=== PATIENT | male | born 1975 ===

== ENCOUNTER 2020-09-06 09:31 | Outpatient (REF) | payer OTHER, SELFPAY ==
[2020-09-06 10:31] LABS: MANUAL DIFF FLAG NO
[2020-09-06 10:36] LABS: Basophils Percent Auto 0.3 % (0-2); Eosinophils Absolute Auto 0.2 X10*3/uL (0.0-0.4); Eosinophils Percent Auto 2.6 % (0-4); Hematocrit 41.9 % (42-52); Hemoglobin 13.6 g/dl (14.0-18.0); Imm Gran Abs Auto 0.02 X10*3/uL (0.00-0.03); Imm Gran Pct Auto 0.3 % (0.0-0.4); Lymphocytes Percent Auto 26.4 % (20-40); Mean Corpuscular HGB Conc 32.5 g/dl (31.0-36.0); Mean Corpuscular Hemoglobin 31.9 pg (27.0-33.0); Mean Corpuscular Volume 98.4 fL (80-98); Mean Platelet Volume 10.3 fL (9.4-12.4); Monocytes Absolute Auto 0.8 X10*3/uL (0.1-1.2); Monocytes Percent Auto 10.4 % (2-11); Neutrophils Absolute Auto 4.6 X10*3/uL (2.0-8.3); Platelet Count 236 X10*3/uL (160-400); Red Blood Count 4.26 X10*6/uL (4.60-5.80); White Blood Count 7.6 X10*3/uL (4.8-10.8)
[2020-09-06 11:08] LABS: Alanine Aminotransferase 50 U/L (0-40); Albumin Level 4.2 g/dL (3.5-5.0); Alkaline Phosphatase 82 U/L (39-117); Anion Gap 12 (12-20); Aspartate Amino Transferase 26 U/L (5-37); Bilirubin Total 0.4 mg/dL (0.0-1.0); Blood Urea Nitrogen 10 mg/dL (9-16); Calcium 8.9 mg/dL (8.4-10.2); Carbon Dioxide 25 mmol/L (22-29); Chloride 102 mmol/L (96-108); Estimated Glomerular Filt Rate > 60; Glucose Fasting 96 mg/dL (60-99); Potassium 4.4 mmol/l (3.3-5.1); Sodium 135 mmol/L (135-145); Total Protein 7.3 g/dL (6.5-8.0)
[2020-09-06 12:36] LABS: Cholesterol 208 mg/dL; HDL Cholesterol 31 mg/dL; LDL Cholesterol Calculated 155 mg/dl; Triglycerides 111 mg/dL
[2020-09-12 12:52] LABS: Vitamin D 25-OH, D2 <4 ng/mL; Vitamin D 25-OH, D3 23 ng/mL; Vitamin D 25-OH, Total 23 ng/mL (30-100)
== END 2020-09-06 09:32 | disposition home or self-care (01) ==
LOC: HO.LAB 09:31
PROVIDERS: PCP Internal Medicine; Visit Provider Internal Medicine
DX: E55.9 Vitamin D deficiency, unspecified (principal); E78.00 Pure hypercholesterolemia, unspecified; Z79.01 Long term (current) use of anticoagulants
CPT/HCPCS: 36415; 80053; 80061; 82306; 85025

== ENCOUNTER 2020-09-07 07:50 | Outpatient (REF) | payer OTHER, SELFPAY ==
--- NOTE | 2020-09-07 08:00 | XR_ITS ---
EXAMINATION: XR ELBOW, RIGHT CLINICAL INFORMATION: Pain. COMPARISON: None TECHNIQUE: AP, lateral, and oblique views of the right elbow. FINDINGS: There is no fracture, dislocation, or destructive process. No elbow capsular effusion. There is no joint narrowing or erosive change. There is borderline spur lateral epicondyle and small spur olecranon. XR/XR elbow RT min 3V IMPRESSION: 1. Small olecranon spur. Borderline spur lateral epicondyle. 2. No joint effusion. No joint narrowing.
--- NOTE | 2020-09-07 08:11 | US_ITS ---
EXAMINATION: US ABDOMEN LIMITED CLINICAL INFORMATION: Umbilical hernia without obstruction or gangrene. COMPARISON: Ultrasound abdomen complete dated 10/19/2018. TECHNIQUE: Real-time imaging of the right upper quadrant abdominal viscera just superior to umbilicus, midline. FINDINGS: There is a midline ventral hernia just superior to the umbilicus measuring 2.3 cm in diameter. On cine loop, peristalsing bowel is noted within the hernia sac. There is no fluid collection. If clinically indicated, this could be further characterized with abdominal CT. US/US abdomen limited IMPRESSION: Ventral hernia measuring 2.3 cm containing bowel. If clinically indicated, this could be further characterized with abdominal CT.
== END 2020-09-07 07:51 | disposition home or self-care (01) ==
LOC: HO.XRAY 07:50
PROVIDERS: PCP Internal Medicine; Visit Provider Internal Medicine
DX: M25.521 Pain in right elbow (principal); K42.9 Umbilical hernia without obstruction or gangrene
CPT/HCPCS: 73080; 76705

== ENCOUNTER → 2020-09-26 08:07 | Outpatient (BNVA) | payer OTHER, SELFPAY | PROVIDERS: PCP Internal Medicine; Referring Provider Internal Medicine; Visit Provider Psychiatry & Neurology Neurology | DX: Z76.89 Persons encountering health services in other specified circumstances (principal) ==

== ENCOUNTER 2020-10-25 08:14 | Outpatient (REF) | payer OTHER, SELFPAY ==
--- NOTE | 2020-10-25 08:33 | US_ITS ---
EXAMINATION: US ABDOMEN LIMITED CLINICAL INFORMATION: Umbilical hernia. COMPARISON: Ultrasound abdomen limited dated 09/07/2020. TECHNIQUE: Limited imaging through the midline supraumbilical region was performed where patient indicates pain and lump. FINDINGS: Again visualized is a midline and supraumbilical hernia with a neck measuring 1.8 cm wide. There is an intraperitoneal fat and peristalsing bowel loops noted within. US/US abdomen limited IMPRESSION: Ventral supraumbilical hernia containing intraperitoneal fat and peristaltic bowel loops, similar to previous study 09/07/2020. If patient has significant pain in this region, a surgical consult may be needed.
== END 2020-10-25 08:15 | disposition home or self-care (01) ==
LOC: HO.US 08:14
PROVIDERS: PCP Internal Medicine; Visit Provider Internal Medicine
DX: K42.9 Umbilical hernia without obstruction or gangrene (principal)
CPT/HCPCS: 76705

== ENCOUNTER → 2020-12-06 08:43 | Outpatient (BNVA) | payer OTHER, SELFPAY | PROVIDERS: PCP Internal Medicine; Visit Provider Surgery | DX: K43.9 Ventral hernia without obstruction or gangrene (principal) | CPT/HCPCS: 99202 ==

== ENCOUNTER 2020-12-26 07:17 | Day surgery (SDC) | payer OTHER, SELFPAY ==
[2020-12-20 11:24] VITALS: BMI 36.6
--- NOTE | 2020-12-20 13:05 | P.CONAN_ITS ---
Documented by User: Maxine Vazquez 12/20/20 13:22 HPI - Anesthesia Eval Consult details Narrative: 45yo M for Supraumbilical Hernia Repair *xarelto for right atrial thrombus* [facility] Active Problems Active Problems: All Active Problems (Updated 12/20/20 @ 11:26 by Crystal Saldaña) Right elbow pain (Acute) Obstructive sleep apnea (Acute) Right hand pain (Acute) Supraumbilical hernia (Acute) Morbid obesity (Acute) Hernia of anterior abdominal wall (Acute) Normally functioning cardiac pacemaker present (Acute) Depression (Acute) Hypovitaminosis D (Acute) Pure hypercholesterolemia (Acute) Essential hypertension (Acute) Past Medical History Medical History Coarctation of aorta Depression Essential hypertension Hernia of anterior abdominal wall Hypovitaminosis D Morbid obesity Normally functioning cardiac pacemaker present Pure hypercholesterolemia Right elbow pain Right hand pain Sleep apnea Supraumbilical hernia Family History Family History Father Uncontrolled diabetes mellitus Mother Uncontrolled persistent asthma Family/Other FH: mental illness Surgical History Surgical History H/O left wrist surgery History of ascending aorta repair History of cataract surgery History of pacemaker Social History Social History Alcohol intake: former Year quit: 2018 Smoking Status: Current every day smoker Tobacco Type: Cigarette Cigarettes Per Day: 3 Years Smoked: 10 Use of substances other than those prescribed or required for medical reasons: No Have you been hit, kicked, punched, or otherwise hurt by someone within the past year? If so, by whom?: No Advance Directives Information Provided: No Recently lost weight without trying: No Meds Allergies Allergy/AdvReac Type Severity Reaction Status Date / Time corn [CORN] Allergy Intermediate Rash Verified 12/26/20 07:23 shrimp [SHRIMP] Allergy Intermediate ITCHING Verified 12/26/20 07:23 Home Medications Medication Instructions Recorded Confirmed Last Taken Type bupropion HCl 300 mg 24 hr tablet, 300 mg PO DAILY 09/06/20 12/20/20 Unknown History extended release cholecalciferol (vitamin D3) 25 25 mcg PO DAILY 09/06/20 12/20/20 Unknown History mcg (1,000 unit) tablet lisinopril 5 mg tablet 5 mg PO DAILY 09/06/20 12/20/20 12/26/20 06:00 History Exam Exam Date and Time: December 20, 2020 1305 Height,Weight and Vital Signs: Height 5 ft 6 in Weight 103 kg Pertinent Lab Results Pertinent Lab Results: Laboratory Tests 09/06/20 09/06/20 09:42 09:42 WBC 7.6 Hgb 13.6 L Hct 41.9 L Plt Count 236 Sodium 135 Potassium 4.4 Chloride 102 Carbon Dioxide 25 BUN 10 Creatinine 0.89 Narrative Narrative: [employer] Pacemaker Device Check 10/2020 Details: Pacemaker data reviewed. Battery life 4.5 years. Normal lead parameters. Atrial pacing about 49%. Ventricular pacing 99.8%. No significant atrial arrhythmias. Otherwise unremarkable. Echo 05/2020 LV sys function is nml LVEF 60-65% Ill-defined density attached to the pacemaker lead in the RA, possible old organized thrombus No obvious valvular pathology Peak grad across the proximal descending thoracic aorta of 15mmHg. Could be r/t hx of coarctation of aorta. Per Cardiac OV Note Cardiac Cath 2017: No evidence of CAD Assessment and Plan Assessment Anesthesia Assessment: Chart Reviewed Documented by User: Vivienne Willson 12/26/20 08:19 [facility] Past Medical History Medical History Coarctation of aorta Depression Essential hypertension Hernia of anterior abdominal wall Hypovitaminosis D Morbid obesity Normally functioning cardiac pacemaker present Pure hypercholesterolemia Right elbow pain Right hand pain Sleep apnea Supraumbilical hernia Family History Family History Father Uncontrolled diabetes mellitus Mother Uncontrolled persistent asthma Family/Other FH: mental illness Surgical History Surgical History H/O left wrist surgery History of ascending aorta repair History of cataract surgery History of pacemaker Social History Social History Alcohol intake: former Year quit: 2019 Smoking Status: Current every day smoker Tobacco Type: Cigarette Cigarettes Per Day: 3 Years Smoked: 10 Use of substances other than those prescribed or required for medical reasons: No Have you been hit, kicked, punched, or otherwise hurt by someone within the past year? If so, by whom?: No Advance Directives Information Provided: No Recently lost weight without trying: No Meds Allergies Allergy/AdvReac Type Severity Reaction Status Date / Time corn [CORN] Allergy Intermediate Rash Verified 12/26/20 07:23 shrimp [SHRIMP] Allergy Intermediate ITCHING Verified 12/26/20 07:23 Home Medications Medication Instructions Recorded Confirmed Last Taken Type bupropion HCl 300 mg 24 hr tablet, 300 mg PO DAILY 09/06/20 12/20/20 Unknown History extended release cholecalciferol (vitamin D3) 25 25 mcg PO DAILY 09/06/20 12/20/20 Unknown History mcg (1,000 unit) tablet lisinopril 5 mg tablet 5 mg PO DAILY 09/06/20 12/20/20 12/26/20 06:00 History Exam Airway Mallampati Class: III TM Dist: >3cm Neck ROM: Full Loose/Missing/Broken Teeth: No Heart: RRR Lungs: CTA Assessment and Plan Assessment Anesthesia Assessment: Anesthesia Plan Discussed and Chart Reviewed Final Anesthetic Review NPO: Yes ASA Class: III Final Preanesthetic Review: Meds/Allgs Chart Reviewed, Consent Obtained/Reviewed and Anes Risks/Benef Reviewed Patient Risk: Intermediate Procedure Risk: Low Anesthetic Plan Anesthetic Plan: GA Disposition: Standard PACU
[2020-12-26] VITALS (8 sets, daily range): BP systolic 115–138; BP diastolic 60–71; PULSE 60–67; RESP 16–18; TEMP 36.5–37; O2SAT 95–99
[2020-12-26] MEDS: Lactated Ringers 1,000 ML 100 ML IVCONT (08:01)
--- NOTE | 2020-12-26 09:05 | MHC.SHP ---
Pre-Procedural Eval Section B Chief Complaint: Supraumbilical hernia Allergies: Allergies Allergy/AdvReac Type Severity Reaction Status Date / Time corn [CORN] Allergy Intermediate Rash Verified 12/26/20 07:23 shrimp [SHRIMP] Allergy Intermediate ITCHING Verified 12/26/20 07:23 Plan I have reviewed the history and physical and performed a pertinent physical examination on my patient. No changes have occurred unless specified.
--- NOTE | 2020-12-26 10:12 | P.OP_ITS ---
Operative Note Operative Note Date of Service: 12/26/20 Narrative: PREOP DIAGNOSIS: SUPRAUMBILICAL HERNIA POSTOP DIAGNOSIS: THE SAME PROCEDURE: REPAIR OF SUPRAUMBILICAL HERNIA WITH VENTRALEX MESH SURGEON: ANJALI SNIDER MD NETWORK ARCHITECT MANAGER: HESHAM CHUNG The patient is 45-year-old male who was referred to the office because of a supraumbilical hernia. He was noted to have a reducible mass above the umbilicus. This was more pronounced with Valsalva. Examination was consistent with a supraumbilical hernia. I therefore explained to him the option of proceeding with repair. I discussed with the technique of the procedure as well as the risks, benefits, and alternatives, and had given consent. He was brought to the operative placed supine on table under general anesthesia via laryngeal mask airway. The abdomen was prepped and draped in the usual sterile fashion. A surgical time-out was done. The patient received cefazolin 2 g IV preoperatively. I infiltrated the planned line of incision with lidocaine 1%. I made a longitudinal incision on the skin above the umbilicus using a blade 15. This carried down through the full-thickness of the skin and thick subcutaneous fat with electrocautery. We were then able to visualize the hernia sac. I sharply dissected the hernia sac off of the rest of the subcutaneous layer down to the fascia. By doing so was able to clearly visualize the fascial defect. I had to divide the fibrous tissue adherent to th e sac with electrocautery off of the fascial edge. I had noted that there were still a lot of adherent omentum to the sac so we actually had to excise the sac circumferentially off of the rest of the fascial defect with electrocautery to allow clear margins around the defect for placement of the mesh. I sent the sac as a specimen. The sac contained only omental fat. We were able to then comple tely reduce the entire omentum. I was able to palpate the margins of the defect and this was clear without any further adhesions or bowel loops. The fascial defect measured about 2 cm in diameter. I therefore used a small sized Ventralex mesh and this was positioned under the abdominal wall to cover the entire defect. I secured the Prolene straps of the mesh to the fascial edge on both sides. The Prolene straps were then trimmed flush on the fascial level. I then closed the fascial defect with a figure-eight Maxon 1 stitch. Irrigation was done. The subcutaneous layer was reapposed with Dexon 3-0 interrupted sutures. Skin closure achieved with Dexon 4-0 subcuticular running stitch. Steri-Strips and dressings were applied. The incision was infiltrated with Marcaine 0.5% for postop analgesia and the procedure was completed. The patient tolerated procedure well. There were no complication noted. Initial and final counts of sponges and instruments were correct. Estimated blo od loss was 1 cc. The patient was extubated without difficulty and transferred to recovery room with stable vital signs.
--- NOTE | 2020-12-26 10:29 | P.BOP_ITS ---
Brief Operative Note Date of Service: 12/26/20 Pre-op diagnosis: Supraumbilical hernia Post-op diagnosis: same Procedure: Repair of Supraumbilical hernia with Ventralex mesh Implants: Mesh Surgeon: William Pantoja MD Anesthesia: GLMA [employer] Dowel Drawing Operator: Massiel Naranjo Estimated blood loss (mL): 1 Pathology: other (Hernia sac) Condition: stable Disposition: PACU
[2020-12-26] MEDS: Acetaminophen 325 MG TABLET 650 MG PO (11:01)
[2020-12-26] MEDS: oxyCODONE HCl Immed Release 5 MG TABLET 10 MG PO (11:02)
== END 2020-12-26 12:42 | disposition home or self-care (01) ==
PROVIDERS: PCP Internal Medicine; Visit Provider Surgery
PROC: (CPT 49560; principal; 2020-12-26 09:10)
DX: K43.9 Ventral hernia without obstruction or gangrene (principal); I10 Essential (primary) hypertension; I51.3 Intracardiac thrombosis, not elsewhere classified; Z79.01 Long term (current) use of anticoagulants; Z79.899 Other long term (current) drug therapy; Z95.0 Presence of cardiac pacemaker
CPT/HCPCS: 49560; 49568; 88302; C1781; J0690; J1100; J1885; J2250; J2370; J2405; J2765; J3010

== ENCOUNTER → 2021-01-08 08:35 | Outpatient (BNVA) | payer OTHER, SELFPAY | PROVIDERS: PCP Internal Medicine; Visit Provider Surgery | DX: K43.9 Ventral hernia without obstruction or gangrene (principal) | CPT/HCPCS: 99212 ==

== ENCOUNTER → 2021-01-15 13:18 | Outpatient (BNVA) | payer OTHER, SELFPAY | PROVIDERS: PCP Internal Medicine; Visit Provider Internal Medicine | DX: Q25.1 Coarctation of aorta (principal); I51.3 Intracardiac thrombosis, not elsewhere classified; I42.8 Other cardiomyopathies; G47.33 Obstructive sleep apnea (adult) (pediatric); Z99.89 Dependence on other enabling machines and devices | CPT/HCPCS: 93005; 99212 ==

== ENCOUNTER → 2021-04-03 09:30 | Outpatient (BNVA) | payer OTHER, SELFPAY | PROVIDERS: PCP Internal Medicine; Visit Provider Psychiatry & Neurology Neurology ==

== ENCOUNTER → 2021-06-12 10:27 | Outpatient (BNVA) | payer OTHER, SELFPAY | PROVIDERS: PCP Internal Medicine; Visit Provider Psychiatry & Neurology Neurology ==

== ENCOUNTER → 2021-07-12 09:02 | Outpatient (REF) | payer OTHER, SELFPAY ==
--- NOTE | 2021-07-12 09:05 | CA_ITS ---
Transthoracic Echocardiogram Patient (Last, First, Middle): James Heard, Gender: Male Date of : 1975 Age: 45 Procedure Date: 07/12/2021 Procedure Type: Transthoracic Echocardiogram Location: OP Height: 167.64 cm Weight: 102.06 kg BSA: 2.10 m2 Heart Rate: bpm BP: 120 / 74 mmHg Business Area Manager: KOLBY Referring MD: Charles Cobos MD Symptoms: Q25.1 - Coarctation of aorta Study Quality: Fair/Contrast Conclusions: - 1. Normal LV systolic function with grade 2 diastolic dysfunction with regional wall motion abnormality in the apex and the distal septum 2. Mildly dilated left atrium 3. Normal cardiac valvular Doppler 4. Presence of density attached to the pacemaker lead consistent with organized thrombus 5. Mildly increased gradient across proximal descending thoracic aorta consistent with mild coarctation 6. No pericardial effusion Findings Procedure Information Contrast agent, definity, is being given per protocol without apparent complications. Left Ventricle The visually estimated ejection fraction is between 55-60%. Spectral Doppler is indicative of a pseudonormal filling pattern. Evidence suggests grade II (moderate) diastolic dysfunction. Wall Motion Rest Echo Findings The apex and apical septum segments are akinetic. All other scored wall segments showed normal motion. Right Ventricle Normal right ventricular cavity size. Atria The left atrium is mildly dilated. There is no evidence of interatrial shunt. The right atrium was not well visualized. A pacemaker wire is identified in the right atrium. the mass is attached to the pacemaker lead and not mobile. Dense in structure and highly refractory. Could represent an organized thrombus. Aortic Valve The aortic valve structure and function is likely normal. There is no aortic valve stenosis. There is no aortic valve regurgitation. Mitral Valve There is mild anterior and posterior mitral leaflet thickening. There is mild mitral annular calcification. There is trace mitral valve regurgitation. There is no mitral valve stenosis. Pulmonic Valve The pulmonic valve is likely normal. There is trace to mild pulmonic valve regurgitation. Tricuspid Valve Normal tricuspid valve structure. There is mild tricuspid valve regurgitation. The right ventricular systolic pressure is normal. The right ventricular systolic pressure is 28 mmHg. Normal right atrial pressure. There is no evidence of pulmonary hypertension. Great Vessels The pulmonary artery was not well visualized. There is no dilatation of the ascending aorta and no dilatation of the aortic arch. Descending thoracic aorta not well visualized. There is increased gradient in the proximal portion of the descending thoracic aorta with the peak gradient of 17 mm of mercury suggestive of mild coarctation Venous The inferior vena cava is normal in size and collapses greater than 50% with inspiration. Pericardium/Pleural There is no evidence of pericardial effusion. Prior Study Comparison Changes noted compared to prior study dated: 05/23/2020. Regional wall motion abnormality seen on this study. Diastolic function appears to be grade 2 on this study Measurements 2D Linear Measurements IVSd: 0.90 0.6-0.9/0.6-1.0 cm LVIDd: 5.67 3.9-5.3/4.2-5.9 cm LVIDd Index: 2.70 2.4-3.2/2.2-3.1 cm/m2 LVIDs: 4.02 2.0-3.6 cm LVPWd: 0.89 0.7-1.1 cm Ao Root: 3.00 2.1-3.5 cm LA Diam: 4.50 2.7-3.8/3.0-4.0 cm LAIDs Index: 2.14 1.5-2.3 cm/m2 LV Mass: 243.06 67-162/88-224 g LV Mass Index: 115.74 43-95/49-115 g/m2 LVOT Diam: 2.20 3.0+(-)1.3 cm 2D Systolic Function EF 4C: 54.50 >55% EF 2C: 51.70 >55% EF BiP: 53.60 >55% Mitral Valve MV Pk E: 1.10 MV PK A: 0.97 MV Decel Time: 257.00 E/A: 1.10 E'Lateral: 7.18 E'Medial: 5.33 E/E' Med: 20.60 E/E' Lat: 15.30 PHT: 75.00 MVA PHT: 2.93 Decel [place]: 4.29 Aortic Valve AoV Pk Seth: 1.26 AoV Mn Seth: 0.94 AoV VTI: 0.28 AoV Pk Grad: 6.00 Aov Mn Grad: 4.00 DEMETRI Cont.VTI: 2.65 LVOT LVOT Pk Seth: 0.77 LVOT Mn Seth: 0.54 LVOT VTI: 0.20 LVOT Pk Grad: 2.00 LVOT Mn Grad: 1.00 LVOT Diam: 2.20 LVOT Area: 3.80 Diastolic Function MV Pk E: 1.10 MV Pk A: 0.97 E/A: 1.10 E'Medial: 5.33 E/E' Med: 20.60 E' Laterial: 7.18 E/E' Lat: 15.30 Right Ventricle TAPSE (mm): 1.73 TVS' Seth: 11.70 Tricuspid Valve TR Pk Seth: 2.51 TR Pk Grad: 25.00 RA Press: 3.00 RVSP: 28.00 Great Vessels Aorta Ao Root-2D: 3.00 2.0-3.7 cm Ao Asc: 2.70 2.1-3.4 cm Updated in Other Vendor System with Status of Final Shayan Ayala MD electronically signed on 07/13/2021 11:42:19 AM with status of Final
== END ==
LOC: HO.CARD 09:02
PROVIDERS: PCP Internal Medicine; Visit Provider Internal Medicine
DX: I51.3 Intracardiac thrombosis, not elsewhere classified (principal); Q25.1 Coarctation of aorta
CPT/HCPCS: 93306; Q9957

== ENCOUNTER → 2021-07-23 13:15 | Outpatient (BNVA) | payer OTHER, SELFPAY | PROVIDERS: PCP Internal Medicine; Referring Provider Internal Medicine; Visit Provider Internal Medicine | DX: Z45.018 Encounter for adjustment and management of other part of cardiac pacemaker (principal); Q25.1 Coarctation of aorta; I51.3 Intracardiac thrombosis, not elsewhere classified; I42.8 Other cardiomyopathies; G47.33 Obstructive sleep apnea (adult) (pediatric); Z99.89 Dependence on other enabling machines and devices | CPT/HCPCS: 99212 ==

== ENCOUNTER 2021-08-27 08:20 | Outpatient (REF) | payer OTHER, SELFPAY ==
[2021-08-27 08:34] LABS: MANUAL DIFF FLAG NO
[2021-08-27 08:54] LABS: Basophils Percent Auto 0.4 % (0-2); Eosinophils Absolute Auto 0.4 X10*3/uL (0.0-0.4); Eosinophils Percent Auto 4.3 % (0-4); Hemoglobin 14.7 g/dl (14.0-18.0); Imm Gran Abs Auto 0.05 X10*3/uL (0.00-0.03); Imm Gran Pct Auto 0.5 % (0.0-0.4); Lymphocytes Absolute Auto 2.6 X10*3/uL (1.2-4.9); Lymphocytes Percent Auto 26.9 % (20-40); Mean Corpuscular HGB Conc 33.4 g/dl (31.0-36.0); Mean Corpuscular Hemoglobin 31.3 pg (27.0-33.0); Mean Corpuscular Volume 93.8 fL (80-98); Mean Platelet Volume 10.1 fL (9.4-12.4); Monocytes Absolute Auto 0.9 X10*3/uL (0.1-1.2); Monocytes Percent Auto 9.1 % (2-11); Neutrophils Absolute Auto 5.7 X10*3/uL (2.0-8.3); Neutrophils Percent Auto 58.8 % (45-73); Platelet Count 241 X10*3/uL (160-400); Red Blood Count 4.69 X10*6/uL (4.60-5.80); Red Cell Distribution Width 13.2 % (11.0-16.0); White Blood Count 9.7 X10*3/uL (4.8-10.8)
[2021-08-27 09:32] LABS: Alanine Aminotransferase 71 U/L (0-40); Albumin Level 4.2 g/dL (3.5-5.0); Alkaline Phosphatase 94 U/L (39-117); Anion Gap 13 (12-20); Aspartate Amino Transferase 28 U/L (5-37); Bilirubin Total 0.3 mg/dL (0.0-1.0); Blood Urea Nitrogen 11 mg/dL (9-16); Calcium 9.6 mg/dL (8.4-10.2); Carbon Dioxide 26 mmol/L (22-29); Chloride 106 mmol/L (96-108); Cholesterol 145 mg/dL; Estimated Glomerular Filt Rate > 60; Glucose Fasting 102 mg/dL (60-99); HDL Cholesterol 25 mg/dL; LDL Cholesterol Calculated 100 mg/dl; Potassium 4.5 mmol/L (3.3-5.1); Sodium 140 mmol/L (135-145); Total Protein 7.6 g/dL (6.5-8.0); Triglycerides 102 mg/dL
[2021-09-04 13:06] LABS: Vitamin D 25-OH, D2 <4 ng/mL; Vitamin D 25-OH, D3 20 ng/mL; Vitamin D 25-OH, Total 20 ng/mL (30-100)
== END 2021-08-27 08:21 | disposition home or self-care (01) ==
LOC: HO.LAB 08:20
PROVIDERS: PCP Internal Medicine; Visit Provider Internal Medicine
DX: D64.9 Anemia, unspecified (principal); E78.5 Hyperlipidemia, unspecified; I42.8 Other cardiomyopathies; E55.9 Vitamin D deficiency, unspecified
CPT/HCPCS: 36415; 80053; 80061; 82306; 84443; 85025

== ENCOUNTER → 2022-01-08 11:23 | Outpatient (BNVA) | payer OTHER, SELFPAY | PROVIDERS: PCP Internal Medicine; Referring Provider Internal Medicine; Visit Provider Psychiatry & Neurology Neurology | DX: G47.33 Obstructive sleep apnea (adult) (pediatric) (principal); Z99.89 Dependence on other enabling machines and devices | CPT/HCPCS: 99212 ==

== ENCOUNTER → 2022-01-09 08:45 | Outpatient (BNVA) | payer OTHER, SELFPAY | PROVIDERS: PCP Internal Medicine; Referring Provider Internal Medicine; Visit Provider Internal Medicine | DX: Z01.810 Encounter for preprocedural cardiovascular examination (principal); I42.8 Other cardiomyopathies; I51.3 Intracardiac thrombosis, not elsewhere classified; Q25.1 Coarctation of aorta; G47.33 Obstructive sleep apnea (adult) (pediatric); Z99.89 Dependence on other enabling machines and devices | CPT/HCPCS: 93005; 99212 ==

== ENCOUNTER 2022-01-11 09:37 | Outpatient (REF) | payer OTHER, SELFPAY ==
--- NOTE | 2022-01-11 11:40 | PFT_ITS ---
FLOWS: FEV1 71% of predicted at 2.53 L. FVC 66% of predicted at 2.95 L. FEV1 to FVC ratio of 0.85. No bronchodilator response. LUNG VOLUMES: Total lung capacity 78% of predicted at 4.81 L. Residual volume 92% of predicted at 1.58 L. Slow vital capacity 72% of predicted at 3.23 L. Expiratory reserve volume 17% of predicted at 0.23 L. Diffusion capacity is mildly decreased, diffusion capacity corrects to normal after adjustment for alveolar ventilation. In comparison to pulmonary function test from March of 2018, FEV1 and FVC have been without significant changes; total lung capacity has increased by 0.82 L; residual volume has increased by 0.48 L; expiratory reserve volume has decreased by 0.21 L; slow vital capacity has been without significant changes; diffusion capacity has decreased by 1.82 mL/minute per mmHg. IMPRESSION: Moderate restrictive ventilatory defect with no bronchodilator response. Decreased expiratory reserve volume suggests extrathoracic restriction, likely secondary to abdominal obesity. MD OTIS Villeda/MODL / [id number]
== END 2022-01-11 09:38 | disposition home or self-care (01) ==
LOC: HO.RESP 09:37
PROVIDERS: PCP Internal Medicine; Visit Provider Internal Medicine
DX: R06.00 Dyspnea, unspecified (principal)
CPT/HCPCS: 94060; 94727; 94729

== ENCOUNTER → 2022-07-05 07:56 | Outpatient (REF) | payer OTHER, SELFPAY ==
--- NOTE | 2022-07-05 07:59 | CA_ITS ---
Transthoracic Echocardiogram Patient (Last, First, Middle): James Heard, Gender: Male Date of : 1975 Age: 46 Procedure Date: 07/05/2022 Procedure Type: Transthoracic Echocardiogram Location: OP Height: 165.1 cm Weight: 99.79 kg BSA: 2.06 m2 Heart Rate: bpm BP: 124 / 70 mmHg Wealth Management Director: Referring MD: Charles Cobos MD Symptoms: Q25.1 - Coarctation of aorta Study Quality: Adequate ECG Rhythm: Ventriculary paced rhythm Conclusions: - The left ventricular systolic function is mildly decreased. The calculated ejection fraction is 52% by biplane method. - The apex, basal inferior, and apical septum segments are hypokinetic. - No obvious valvular pathology seen on this study. - Peak gradient across the proximal descending thoracic aorta -27 mm Hg. Findings Left Ventricle Normal left ventricular cavity size. There is normal left ventricular wall thickness. The left ventricular systolic function is mildly decreased. The calculated ejection fraction is 52% by biplane method. There is paradoxical septal motion consistent with a right ventricular pacemaker. E/E prime ratio is >15, consistent with elevated filling pressures. Evidence suggests grade II (moderate) diastolic dysfunction. Wall Motion Rest Echo Findings The apex, basal inferior, and apical septum segments are hypokinetic. Right Ventricle Normal right ventricular cavity size and systolic function. There is a pacemaker wire seen in the right ventricle. Atria Both atria are normal in size. Aortic Valve The aortic valve was not well visualized. There is no aortic valve stenosis. There is no aortic valve regurgitation. Mitral Valve The mitral valve appears normal. There is trace mitral valve regurgitation. There is no mitral valve stenosis. Pulmonic Valve The pulmonic valve is likely normal. Tricuspid Valve There is mild tricuspid valve regurgitation. The pulmonary artery systolic pressure is normal. Great Vessels The aortic annulus, sinuses of valsalva, and asc aorta are normal in size. Peak gradient across the proximal descending thoracic aorta -27 mm Hg. Venous The inferior vena cava is normal in size and collapses greater than 50% with inspiration. Pericardium/Pleural There is no evidence of pericardial effusion. Prior Study Comparison Changes noted compared to prior study dated: 07/12/2021. Increase in aortic gradient (hx of percutaneous coarctation repair). Right atrial thrombus not well visualized. Recommendations, Care & Conclusions No obvious valvular pathology seen on this study. Measurements 2D Linear Measurements IVSd: 1.01 0.6-0.9/0.6-1.0 cm LVIDd: 5.18 3.9-5.3/4.2-5.9 cm LVIDd Index: 2.51 2.4-3.2/2.2-3.1 cm/m2 LVIDs: 3.31 2.0-3.6 cm LVPWd: 0.97 0.7-1.1 cm Ao Root: 2.70 2.1-3.5 cm LA Diam: 4.40 2.7-3.8/3.0-4.0 cm LAIDs Index: 2.14 1.5-2.3 cm/m2 LV Mass: 237.03 67-162/88-224 g LV Mass Index: 115.06 43-95/49-115 g/m2 LVOT Diam: 2.00 3.0+(-)1.3 cm 2D Systolic Function EF 4C: 55.10 >55% EF 2C: 52.60 >55% EF BiP: 52.10 >55% Mitral Valve MV Pk E: 1.08 MV PK A: 0.69 MV Decel Time: 279.00 E/A: 1.60 E'Lateral: 7.83 E'Medial: 5.55 E/E' Med: 19.50 E/E' Lat: 13.80 PHT: 82.00 MVA PHT: 2.68 Decel [place]: 3.88 Aortic Valve AoV Pk Seth: 1.19 AoV Mn Seth: 0.93 AoV VTI: 0.32 AoV Pk Grad: 6.00 Aov Mn Grad: 4.00 DEMETRI Cont.VTI: 2.05 LVOT LVOT Pk Seth: 0.89 LVOT Mn Seth: 0.59 LVOT VTI: 0.21 LVOT Pk Grad: 3.00 LVOT Mn Grad: 2.00 LVOT Diam: 2.00 LVOT Area: 3.14 Diastolic Function MV Pk E: 1.08 MV Pk A: 0.69 E/A: 1.60 E'Medial: 5.55 E/E' Med: 19.50 E' Laterial: 7.83 E/E' Lat: 13.80 Right Ventricle TAPSE (mm): 30.00 Tricuspid Valve TR Pk Seth: 2.35 TR Pk Grad: 22.00 RA Press: 3.00 RVSP: 25.00 Great Vessels Aorta Ao Root-2D: 2.70 2.0-3.7 cm Ao Asc: 2.80 2.1-3.4 cm Pulmonary Valve PV Pk Seth: 1.02 Peak PV Grad: 4.00 Updated in Other Vendor System with Status of Final Charles Cobos MD electronically signed on 07/07/2022 1:20:42 PM with status of Final
== END ==
LOC: HO.CARD 07:56
PROVIDERS: PCP Internal Medicine; Visit Provider Internal Medicine
DX: Q25.1 Coarctation of aorta (principal)
CPT/HCPCS: 93306

== ENCOUNTER 2022-07-22 12:59 | Outpatient (REF) | payer OTHER, SELFPAY ==
[2022-07-22 14:21] LABS: Anion Gap 14 (12-20); Blood Urea Nitrogen 14 mg/dL (9-16); Calcium 9.5 mg/dL (8.4-10.2); Carbon Dioxide 26 mmol/L (22-29); Chloride 102 mmol/L (96-108); Estimated Glomerular Filt Rate > 60; Glucose Random 84 mg/dL (60-115); Potassium 4.6 mmol/L (3.3-5.1); Sodium 137 mmol/L (135-145)
== END 2022-07-22 13:00 | disposition home or self-care (01) ==
LOC: HO.LAB 12:59
PROVIDERS: PCP Internal Medicine; Visit Provider Internal Medicine
DX: Z45.018 Encounter for adjustment and management of other part of cardiac pacemaker (principal); Q25.1 Coarctation of aorta; I51.3 Intracardiac thrombosis, not elsewhere classified; I42.8 Other cardiomyopathies; G47.33 Obstructive sleep apnea (adult) (pediatric); Z99.89 Dependence on other enabling machines and devices
CPT/HCPCS: 36415; 80048; 93280; 99212

== ENCOUNTER → 2022-08-13 08:45 | Outpatient (BNVA) | payer OTHER, SELFPAY | PROVIDERS: PCP Internal Medicine; Referring Provider Internal Medicine; Visit Provider Internal Medicine | DX: I51.3 Intracardiac thrombosis, not elsewhere classified (principal); Q25.1 Coarctation of aorta; I42.8 Other cardiomyopathies; G47.33 Obstructive sleep apnea (adult) (pediatric); Z99.89 Dependence on other enabling machines and devices | CPT/HCPCS: 99212 ==

== ENCOUNTER → 2022-11-06 11:45 | Outpatient (BNVA) | payer OTHER, SELFPAY | PROVIDERS: PCP Internal Medicine; Referring Provider Internal Medicine; Visit Provider Physician Assistant | DX: Z01.818 Encounter for other preprocedural examination (principal) | CPT/HCPCS: 99202 ==

== ENCOUNTER 2023-09-11 10:22 | Outpatient (AMB) | payer OTHER, SELFPAY ==
[2023-09-11 11:00] VITALS: BP 130/80; PULSE 101; O2SAT 97; BMI 34.3
--- NOTE | 2023-09-11 11:00 | MHC.PC.OV ---
Vital Signs 09/11/23 11:00 Height 5 ft 6 in Weight 212 lb 4 oz BMI 34.3 BP 130/80 Blood Pressure Location Lt brachial Position Sitting Pulse 101 H Pulse Source Pulse Oximeter Pulse Oximetry (%) 97 Oxygen Delivery Method Room Air Intake Visit Reasons: Physical exam Clerical Order Filler Required: No Accompanied by: Self / Same As Patient Allergies corn [CORN] Allergy (Intermediate, Verified 09/11/23 11:12) Rash shrimp [SHRIMP] Allergy (Intermediate, Verified 09/11/23 11:12) ITCHING Medication List - Last Reconciled 09/11/23 by LANCE Mendez atorvastatin 40 mg PO BEDTIME 90 days bisacodyl (Dulcolax (bisacodyl)) 10 mg (2 x 5 mg) PO ONCE 1 day bupropion HCl 300 mg PO DAILY carvedilol 3.125 mg PO BID lisinopril 5 mg PO DAILY melatonin 5 - 10 mg PO BEDTIME PRN polyethylene glycol 3350 (Miralax) 238 grams PO ONCE 1 day Tobacco use date assessed: 09/11/23 Dental Screening Dental Screen Date: 09/11/23 Did you have a dental visit in the last 12 months?: No Did you have a dental problem in the last 6 months where you did not have access to dental care?: No Was dental information given to patient?: No HPI HPI Comments History of Present Illness Details 47-year-old male past medical history significant for hypertension, hypercholesteremia, depression, coarctation of aorta repair 2018, nonischemic cardiomyopathy. Patient followed by Dr. Cobos last seen August 2022 at that time patient was taken off anticoagulation therapy and was recommended to follow-up in 6 months for repeat echocardiogram however I do not see the results of this. Patient advised to go cardiology to schedule follow-up. Patient denies any chest pain, palpitations, shortness of breath or syncope. Colonoscopy: Referral entered Eye exam: Patient reports had eye exam last year, recommended couple years. Patient declined flu shot. [facility] Medical History Dyspnea Pain of left thumb Right knee pain NICM (nonischemic cardiomyopathy) MARVIN on CPAP Right atrial thrombus Sleep apnea Coarctation of aorta Right hand pain Supraumbilical hernia Morbid obesity Right elbow pain Hernia of anterior abdominal wall Normally functioning cardiac pacemaker present Depression Hypovitaminosis D Pure hypercholesterolemia Essential hypertension Surgical History Status post wrist surgery H/O carpal tunnel repair History of umbilical hernia repair History of ascending aorta repair History of cataract surgery H/O left wrist surgery History of pacemaker Family History Father Uncontrolled diabetes mellitus Mother Uncontrolled persistent asthma Family/Other FH: mental illness Social History (Updated 09/11/23 @ 11:14 by LANCE Mendez) Housing: Apartment Alcohol intake: current Alcohol intake frequency: holidays/special occasions only Alcohol type: hard liquor Patient Tobacco Use Status: Former Tobacco user Tobacco use type: Cigarette Cigarettes Per Day: 3 Years Smoked: 10 e-Cigarette/Vaping Use: Never Used Second Hand Smoke Exposure: No service: No Current occupational status: unemployed and disabled Cognitive needs: No Hearing needs: No Vision needs: No Questionnaire PHQ-9 Over the last 2 weeks, how often have you been bothered by any of the following problems? 1. Little interest or pleasure in doing things: not at all 2. Feeling down, depressed, or hopeless: several days 3. Trouble falling or staying asleep, or sleeping too much: more than half the days 4. Feeling tired or having little energy: several days 5. Poor appetite or overeating: not at all 6. Feeling bad about yourself - or that you are a failure or have let yourself or your family down: not at all 7. Trouble concentrating on things, such as reading the newspaper or watching television: not at all 8. Moving or speaking so slowly that other people could have noticed. Or the opposite - being so fidgety or restless that you have been moving around a lot more than usual: several days 9. Thoughts that you would be better off or of hurting yourself in some way: not at all Total score: 5 Depression Screening Interpretation: Positive (Weekly counseling ) Depression Screening Follow-up: In treatment Depression Screening Done: Yes 82276 - PHQ-9 Billing: Yes Source: Developed by Drs. Severiano Damon, Tatyana Padron, Santos Duran and colleagues, with an educational anjel from [employer]. Thrive Questionnaire Date Thrive assessed: 09/11/23 I am a: Patient What is your living situation today?: I have a steady place to live Within the past 12 months, did the food you bought not last and you didn't have the money to get more?: Never true Within the past 12 months, did you worry whether your food would run out before you got money to buy more?: Never true Do you have trouble paying for medicines?: No Do you have trouble getting transportation to medical appointments?: No Do you have trouble paying your heating and electricity bill?: No Do you have trouble taking care of your child, family member or friend?: No Do you have trouble with day-to-day activities such as bathing, preparing meals, shopping, managing finances, etc.?: No Are you currently unemployed and looking for a job?: No Are you interested in more education?: No Please select the resources that you would like help with: None Currently or been in a relationship where the following occur: no concerns reported AUDIT C Alcohol Use Questionnaire (AUDIT-C) 1. How often do you have a drink containing alcohol?: Never Total Score: 0 BRAIN-7 AMB Questionnaire BRAIN-7 Date BRAIN - 7 assessed: 09/11/23 Feeling nervous, anxious, or on edge: 2 = More than half the days Not being able to stop or control worryin = Not at all Worrying too much about different things: 2 = More than half the days Trouble relaxin = Several days Being so restless that it is hard to sit still: 1 = Several days Becoming easily annoyed or irritable: 1 = Several days Feeling afraid as if something awful might happen: 1 = Several days Total BRAIN-7 score (0-4 normal; 5-9 mild; 10-14 moderate; 15-21 severe): 8 Source: Developed by Drs. Severiano Damon, Tatyana Padron, Santos Duran and colleagues, with an educational anjel from [employer]. BRAIN-7 Assessment Billing BRAIN-7 Assessment Tool: BRAIN-7 Assessment 16526 Review of Systems Const Denies chills, Denies fatigue, Denies fever(s) and Denies poor appetite Eyes Denies no additional complaints ENT Reports Normal hearing present Card Denies chest pain, Denies syncope, Denies rapid heart rate and Denies dyspnea Resp Denies cough and Denies dyspnea GI Denies change in stool character, Denies constipation, Denies diarrhea, Denies nausea and Denies vomiting Denies dysuria, Denies urinary frequency and Denies urinary urgency Neuro Reports Normal hearing present, Denies confusion and Denies syncope Psych Denies confusion Endo Denies fatigue Physical exam (Primary Care) Vital Signs: Last Vital Signs Pulse 101 H 09/11/23 11:00 BP 130/80 09/11/23 11:00 Pulse Ox 97 09/11/23 11:00 Oxygen Delivery Method Room Air 09/11/23 11:00 BMI result Body Mass Index 34.3 Tobacco/Smoking Status: Tobacco use Status Tobacco use date assessed 09/11/23 09/11/23 11:02 Patient Tobacco Use Status Former Tobacco user 09/11/23 11:14 Tobacco use type Cigarette 09/11/23 11:14 e-Cigarette/Vaping Use Never Used 09/11/23 11:14 PHQ-9: PHQ-9 Score PHQ-9: Total score 5 09/11/23 11:15 Depression Screening Interpretation: Positive (Weekly counseling ) Depression Screening Follow-up: In treatment Thrive Assessment: Date of Thrive Assessment Date Thrive assessed 09/11/23 09/11/23 11:02 Currently or been in a relationship where the following occur: no concerns reported Const General: No confusion Orientation/consciousness: No confusion HENMT Head: Yes normocephalic and Yes atraumatic Ears: external ears normal and TM's normal bilaterally General nose exam: Normal external nose present and Normal nasal mucous membranes and turbinates present Face and sinus: Yes normal facial exam and Yes sinuses nontender Mouth: moist mucous membranes Throat: Yes tonsils normal Eyes Conjunctivae: conjunctivae normal Sclerae: sclerae normal Pupils: Equal, round and reactive pupils present and Pupils normal by confrontation EOM: EOMs intact bilaterally Direct Ophthalmoscopy: normal light reflex Neck Neck: Yes no lymphadenopathy and Yes supple Thyroid: Thyroid normal Chest Chest palpation & inspection: normal inspection of the chest Resp Effort & Inspection: normal respiratory effort Auscultation: clear to auscultation bilaterally, no crackles, no rhonchi and no wheezes Cardio Rate: regular rate Rhythm: regular rhythm Peripheral pulses: radial pulses present and dorsalis pedis present GI Inspection: Yes normal to inspection Palpation (GI): Soft to palpation, nontender and No hepatosplenomegaly present Auscultation: normoactive bowel sounds Skin General skin exam: no rashes or lesions noted Neuro General: No confusion Cranial nerves: Yes Equal, round and reactive pupils present and Yes Normal hearing present Cognition (Neuro): normal cognition Gait exam (Neuro): Normal gait present Motor exam (neuro): 5/5 motor strength present throughout Deep tendon reflexes (DTR's): Right brachioradialis reflex intensity grade: 2+, Left brachioradialis reflex intensity grade: 2+, Right patellar reflex intensity grade: 2+ and Left patellar reflex intensity grade: 2+ Extrem General: No edema Assessment and Plan Assessment & Plan (1) Colon cancer screening: Comment: 47-year-old male referred for index screening colonoscopy multiple comorbidities follows with cardiology/Sleep Medicine Code(s): Z12.11 - Encounter for screening for malignant neoplasm of colon Plan: Referral entered to gastroenterology. (2) NICM (nonischemic cardiomyopathy): Code(s): I42.8 - Other cardiomyopathies Plan: Patient advised to call Cardiology to schedule follow-up. (3) MARVIN on CPAP: Code(s): G47.33 - Obstructive sleep apnea (adult) (pediatric); Z99.89 - Dependence on other enabling machines and devices Plan: Continue CPAP for greater than 4 hours a night good effect. (4) Essential hypertension: Code(s): I10 - Essential (primary) hypertension Plan: Continue on lisinopril mg daily, carvedilol 3.125 mg b.i.d. Follow low-salt diet exercise. (5) Pure hypercholesterolemia: Code(s): E78.00 - Pure hypercholesterolemia, unspecified Plan: Continue on atorvastatin 40mg at bedtime. Avoid fried foods, chicken skin, eggs, butter,margarine, pastries and?? red meat. (6) Depression: Comment: [facility] September 2022 Code(s): F32.9 - Major depressive disorder, single episode, unspecified Qualifiers: Depression Type: major depressive disorder Major depression recurrence: recurrent Active/Remission status: currently active Major depression episode severity: moderate Qualified Code(s): F33.1 - Major depressive disorder, recurrent, moderate Plan: Continue on bupropion 300 mg daily. Continue to follow with counseling. (7) Physical exam, annual: Code(s): Z00.00 - Encounter for general adult medical examination without abnormal findings Plan: Follow-up in 1 year for physical exam Orders: Orders Comprehensive [place]. Panel Fast Today I42.8 - Other cardiomyopathies Lipid Panel Today Z13.220 - Encounter for screening for lipoid disorders TSH reflex Free T4 Today Z13.29 - Encounter for screening for other suspected endocrine disorder XR knee LT 2V Today M25.562 - Pain in left knee Complete Blood Count Auto Diff Today Z13.0 - Encounter for screening for diseases of the blood and blood-forming organs and certain disorders involving the immune mechanism Referrals Gastroenterology Referral Z12.11 - Encounter for screening for malignant neoplasm of colon Coding Level of Care Code Est Pt Prev Care 40-64y(75304) Diagnoses Colon cancer screening Z12.11 NICM (nonischemic cardiomyopathy) I42.8 MARVIN on CPAP G47.33; Z99.89 Essential hypertension I10 Pure hypercholesterolemia E78.00 Moderate episode of recurrent major depressive disorder F33.1 Depression Type: major depressive disorder Major depression recurrence: recurrent Active/Remission status: currently active Major depression episode severity: moderate Physical exam, annual Z00.00 Additional Codes BRAIN-7 Assessment Billing - BRAIN-7 Assessment Tool: BRAIN-7 Assessment 57021 ([id number])
== END 2023-09-11 11:23 | disposition home or self-care (01) ==
PROVIDERS: PCP Internal Medicine; Visit Provider Nurse Practitioner Family
DX: Z00.00 Encounter for general adult medical examination without abnormal findings (principal); I42.8 Other cardiomyopathies; I10 Essential (primary) hypertension; F33.1 Major depressive disorder, recurrent, moderate
CPT/HCPCS: 96127; 99396

== ENCOUNTER 2023-09-12 07:50 | Outpatient (REF) | payer OTHER, SELFPAY ==
--- NOTE | ~2023-09-12 | XR_ITS ---
EXAMINATION: XR KNEE, LEFT CLINICAL INFORMATION: Pain COMPARISON: None available. TECHNIQUE: 3 views of the left knee. FINDINGS: Trace joint effusion. Mild medial joint space narrowing. Alignment preserved. XR/XR knee LT 2V IMPRESSION: Mild degenerative changes.
[2023-09-12 08:03] LABS: MANUAL DIFF FLAG NO
[2023-09-12 08:11] LABS: Basophils Absolute Auto 0.1 X10*3/uL (0.0-0.2); Basophils Percent Auto 0.5 % (0-2); Eosinophils Absolute Auto 0.4 X10*3/uL (0.0-0.4); Eosinophils Percent Auto 3.6 % (0-4); Hematocrit 42.8 % (42.0-52.0); Imm Gran Abs Auto 0.05 X10*3/uL (0.00-0.03); Imm Gran Pct Auto 0.5 % (0.0-0.4); Lymphocytes Absolute Auto 2.5 X10*3/uL (1.2-4.9); Lymphocytes Percent Auto 25.2 % (20-40); Mean Corpuscular HGB Conc 32.7 g/dl (31.0-36.0); Mean Corpuscular Volume 94.7 fL (80.0-98.0); Mean Platelet Volume 10.2 fL (9.4-12.4); Neutrophils Percent Auto 60.2 % (45-73); Platelet Count 203 X10*3/uL (160-400); Red Blood Count 4.52 X10*6/uL (4.60-5.80); Red Cell Distribution Width 13.5 % (11.0-16.0)
[2023-09-12 08:35] LABS: Alanine Aminotransferase 31 U/L (0-40); Albumin Level 4.1 g/dL (3.5-5.0); Alkaline Phosphatase 69 U/L (39-117); Anion Gap 11 (12-20); Aspartate Amino Transferase 21 U/L (5-37); Bilirubin Total 0.3 mg/dL (0.0-1.0); Blood Urea Nitrogen 13 mg/dL (9-16); Calcium 9.2 mg/dL (8.4-10.2); Carbon Dioxide 26 mmol/L (22-29); Chloride 104 mmol/L (96-108); Cholesterol 226 mg/dL (<200); Estimated Glomerular Filt Rate > 60; Glucose Fasting 94 mg/dL (60-99); HDL Cholesterol 38 mg/dL (>40); LDL Cholesterol Calculated 162 mg/dL (<100); Potassium 3.9 mmol/L (3.3-5.1); Sodium 137 mmol/L (135-145); Total Protein 7.9 g/dL (6.5-8.0); Triglycerides 130 mg/dL (<150)
[2023-09-12 08:54] LABS: TSH reflex Free T4 5.58 uIU/mL (0.32-4.0)
[2023-09-12 09:32] LABS: Free T4 (Free Thyroxine) 0.71 ng/dL (0.71-1.85)
== END 2023-09-12 07:51 | disposition home or self-care (01) ==
LOC: HO.XRAY 07:50
PROVIDERS: PCP Internal Medicine; Visit Provider Nurse Practitioner Family
DX: Z13.220 Encounter for screening for lipoid disorders (principal); Z13.29 Encounter for screening for other suspected endocrine disorder; Z13.0 Encounter for screening for diseases of the blood and blood-forming organs and certain disorders involving the immune mechanism; I42.8 Other cardiomyopathies; M25.562 Pain in left knee
CPT/HCPCS: 36415; 73560; 80053; 80061; 84439; 84443; 85025

== ENCOUNTER 2023-09-24 14:00 | Outpatient (AMB) | payer OTHER, SELFPAY ==
--- NOTE | 2023-09-24 14:10 | A.OFFPC_ITS ---
Vital Signs 09/24/23 14:11 Height 5 ft 6 in Weight 216 lb BMI 34.9 BP 128/68 Blood Pressure Location Lt brachial Position Sitting Pulse 86 Pulse Source Pulse Oximeter Pulse Oximetry (%) 98 Oxygen Delivery Method Room Air Intake Visit Reasons: EAEDC form Allergies corn [CORN] Allergy (Intermediate, Verified 09/24/23 14:12) Rash shrimp [SHRIMP] Allergy (Intermediate, Verified 09/24/23 14:12) ITCHING Medication List - Last Reconciled 09/24/23 by Doreen Heaton MD atorvastatin 40 mg PO BEDTIME 90 days bisacodyl (Dulcolax (bisacodyl)) 10 mg (2 x 5 mg) PO ONCE 1 day bupropion HCl 300 mg PO DAILY carvedilol 3.125 mg PO BID lisinopril 5 mg PO DAILY melatonin 5 - 10 mg PO BEDTIME PRN polyethylene glycol 3350 (Miralax) 238 grams PO ONCE 1 day Tobacco use date assessed: 09/11/23 HPI EAEDC form HPI Details 48-year-old obese male with a history of nonischemic cardiomyopathy obstructive sleep apnea hypertension hypercholesterolemia recurrent major depression coming in for follow-up. Patient has a form form urgency assistance and comes in today.. Patient has met with Gastroenterology already for colon cancer screening and awaiting scheduling.. Patient was last seen in September 2022 history of Hillary taken of the aorta status post repair in 2018 with a history of right atrial thrombus and has been placed on anticoagulation. At that time last year patient was advised to get an echocardiogram. Echo cardiogram is pending [facility] Medical History (Updated 09/24/23 @ 14:34 by Doreen Heaton MD) Preoperative cardiovascular examination Dyspnea Pain of left thumb Right knee pain NICM (nonischemic cardiomyopathy) MARVIN on CPAP Right atrial thrombus Sleep apnea Coarctation of aorta Right hand pain Supraumbilical hernia Morbid obesity Right elbow pain Hernia of anterior abdominal wall Normally functioning cardiac pacemaker present Depression Hypovitaminosis D Pure hypercholesterolemia Essential hypertension Surgical History Status post wrist surgery H/O carpal tunnel repair History of umbilical hernia repair History of ascending aorta repair History of cataract surgery H/O left wrist surgery History of pacemaker Family History Father Uncontrolled diabetes mellitus Mother Uncontrolled persistent asthma Family/Other FH: mental illness Social History (Updated 09/11/23 @ 11:14 by LANCE Mendez) Housing: Apartment Alcohol intake: current Alcohol intake frequency: holidays/special occasions only Alcohol type: hard liquor Patient Tobacco Use Status: Former Tobacco user Tobacco use type: Cigarette Cigarettes Per Day: 3 Years Smoked: 10 e-Cigarette/Vaping Use: Never Used Second Hand Smoke Exposure: No service: No Current occupational status: unemployed and disabled Cognitive needs: No Hearing needs: No Vision needs: No Questionnaire Thrive Questionnaire Date Thrive assessed: 09/11/23 BRAIN-7 AMB Questionnaire BRAIN-7 Date BRAIN - 7 assessed: 09/11/23 Source: Developed by Drs. Severiano Damon, Tatyana Padron, Santos Duran and colleagues, with an educational anjel from [employer]. Physical exam (Primary Care) Vital Signs: Last Vital Signs Pulse 86 09/24/23 14:11 BP 128/68 09/24/23 14:11 Pulse Ox 98 09/24/23 14:11 Oxygen Delivery Method Room Air 09/24/23 14:11 BMI result Body Mass Index 34.9 Tobacco/Smoking Status: Tobacco use Status Tobacco use date assessed 09/11/23 09/24/23 14:12 Patient Tobacco Use Status Former Tobacco user 09/24/23 14:12 Tobacco use type Cigarette 09/24/23 14:12 e-Cigarette/Vaping Use Never Used 09/24/23 14:12 Thrive Assessment: Date of Thrive Assessment Date Thrive assessed 09/11/23 09/24/23 14:12 Const General: alert; No acute distress Eyes Conjunctivae: conjunctivae normal Resp Auscultation: clear to auscultation bilaterally Cardio Rate: regular rate Rhythm: regular rhythm GI Inspection: Yes normal to inspection Extrem General: Yes normal to inspection and No edema Assessment and Plan Assessment & Plan (1) NICM (nonischemic cardiomyopathy): Code(s): I42.8 - Other cardiomyopathies Plan: Patient has an upcoming follow-up with cardiology and echocardiogram (2) Essential hypertension: Code(s): I10 - Essential (primary) hypertension Plan: Continue with blood pressure medication. Decrease salt intake and exercise presently on lisinopril 5 mg once a day and carvedilol 3.125 mg twice a day (3) Pure hypercholesterolemia: Code(s): E78.00 - Pure hypercholesterolemia, unspecified Plan: Avoid fried foods, chicken skin, eggs, butter margarine, pastries and meat. Be it pork or beef they have a lot of cholesterol LDL goal of less than 130 and triglyceride of less than 150 patient on atorvastatin 40 mg once a day discussed about the results of the cholesterol advised to eat better, increase in dose of the cholesterol done and will retest in 3 months (4) Obstructive sleep apnea: Code(s): G47.33 - Obstructive sleep apnea (adult) (pediatric) Plan: Continue to use the CPAP more than 4 hours a night and benefits from this (5) Coarctation of aorta: Comment: Repair June 2019 Code(s): Q25.1 - Coarctation of aorta Plan: Continue to follow-up with cardiology (6) Elevated TSH: Code(s): R79.89 - Other specified abnormal findings of blood chemistry Plan: Repeat testing requested Orders: Orders Lipid Panel 3 Months E78.00 - Pure hypercholesterolemia, unspecified Free T4 (Free Thyroxine) 3 Months R79.89 - Other specified abnormal findings of blood chemistry Comprehensive Met. Panel 3 Months E78.00 - Pure hypercholesterolemia, unspecified Thyroid Stimulating Hormone 3 Months R79.89 - Other specified abnormal findings of blood chemistry Medications: Changed From atorvastatin 40 mg PO BEDTIME 90 days 30 tabs 0RF E78.00 - Pure hypercholesterolemia, unspecified To atorvastatin 80 mg PO BEDTIME 90 days 90 tabs 1RF E78.00 - Pure hypercholesterolemia, unspecified Coding Level of Care Code Est Pt Level 4 (08867) Diagnoses NICM (nonischemic cardiomyopathy) I42.8 Essential hypertension I10 Pure hypercholesterolemia E78.00 Obstructive sleep apnea G47.33 Coarctation of aorta Q25.1 Elevated TSH R79.89
[2023-09-24 14:11] VITALS: BP 128/68; PULSE 86; O2SAT 98; BMI 34.9
== END 2023-09-24 15:57 | disposition home or self-care (01) ==
PROVIDERS: PCP Internal Medicine; Visit Provider Internal Medicine
DX: I42.8 Other cardiomyopathies (principal); I10 Essential (primary) hypertension; E78.00 Pure hypercholesterolemia, unspecified; G47.33 Obstructive sleep apnea (adult) (pediatric); Q25.1 Coarctation of aorta; R79.89 Other specified abnormal findings of blood chemistry; Z23 Encounter for immunization
CPT/HCPCS: 90471; 90686; 99214

== ENCOUNTER → 2023-10-01 08:40 | Outpatient (REF) | payer OTHER, SELFPAY ==
--- NOTE | 2023-10-01 08:44 | CA_ITS ---
Transthoracic Echocardiogram Patient (Last, First, Middle): James Heard, Gender: Male Date of : 1975 Age: 48 Procedure Date: 10/01/2023 Procedure Type: Transthoracic Echocardiogram Location: OP Height: 167.64 cm Weight: 90.27 kg BSA: 2.00 m2 Heart Rate: 81 bpm BP: 184 / 86 mmHg Medical Claims Examiner: SB Referring MD: Charles Cobos MD Symptoms: Q25.1 - Coarctation of aorta Study Quality: Adequate w contrast ECG Rhythm: Paced Conclusions: - The left ventricular systolic function is moderately decreased. The visually estimated ejection fraction is between 35-40%. - No obvious valvular pathology seen on this study. - Peak gradient across proximal descending thoracic aorta 19mmHg. History of repaired co-arctation. Slightly lower than prior gradient. Findings Procedure Information Contrast agent, definity, is being given per protocol without apparent complications. The quality of the study was technically difficult. The study quality is limited by patients body habitus. Left Ventricle Mildly increased left ventricular cavity size. The left ventricular systolic function is moderately decreased. The visually estimated ejection fraction is between 35-40%. There is moderate global hypokinesis. Evidence suggests grade II (moderate) diastolic dysfunction. There is mild septal asymmetric hypertrophy. Right Ventricle Mildly increased right ventricular cavity size. There is normal right ventricular systolic function. Atria The left atrium is likely dilated. The right atrium is normal in size. Probable old thrombus in right atrium. Could be related to pacer lead (described before). Aortic Valve There is a normal trileaflet aortic valve. There is no aortic valve stenosis. There is no aortic valve regurgitation. Mitral Valve The mitral valve appears normal. There is no mitral valve regurgitation. There is no mitral valve stenosis. Pulmonic Valve The pulmonic valve is likely normal. Tricuspid Valve There is mild tricuspid valve regurgitation. There is no evidence of pulmonary hypertension. Great Vessels The asc aorta and aortic arch are normal in size. Peak gradient across proximal descending thoracic aorta 19mmHg. History of repaired co-arctation. Venous The inferior vena cava is normal in size and collapses greater than 50% with inspiration. Pericardium/Pleural There is no evidence of pericardial effusion. Prior Study Comparison Changes noted compared to prior study dated: 07/05/2022. Decrease in LVEF. Recommendations, Care & Conclusions No obvious valvular pathology seen on this study. Measurements 2D Linear Measurements IVSd: 1.20 0.6-0.9/0.6-1.0 cm LVIDd: 5.81 3.9-5.3/4.2-5.9 cm LVIDd Index: 2.91 2.4-3.2/2.2-3.1 cm/m2 LVIDs: 4.54 2.0-3.6 cm LVPWd: 0.79 0.7-1.1 cm LA Diam: 4.50 2.7-3.8/3.0-4.0 cm LAIDs Index: 2.25 1.5-2.3 cm/m2 LV Mass: 289.38 67-162/88-224 g LV Mass Index: 144.69 43-95/49-115 g/m2 LVOT Diam: 2.00 3.0+(-)1.3 cm 2D Systolic Function EF 4C: 26.40 >55% EF 2C: 38.40 >55% EF BiP: 32.10 >55% Mitral Valve MV Pk E: 1.19 MV PK A: 0.63 MV Decel Time: 200.00 E/A: 1.90 E'Lateral: 7.00 E'Medial: 5.56 E/E' Med: 21.40 E/E' Lat: 17.00 PHT: 59.00 MVA PHT: 3.73 Decel [place]: 5.96 Aortic Valve AoV Pk Seth: 1.19 AoV Pk Grad: 6.00 DEMETRI: 2.09 LVOT LVOT Pk Seth: 0.83 LVOT Mn Seth: 0.60 LVOT VTI: 0.18 LVOT Pk Grad: 3.00 LVOT Mn Grad: 2.00 LVOT Diam: 2.00 LVOT Area: 3.14 Diastolic Function MV Pk E: 1.19 MV Pk A: 0.63 E/A: 1.90 E'Medial: 5.56 E/E' Med: 21.40 E' Laterial: 7.00 E/E' Lat: 17.00 Right Ventricle TAPSE (mm): 27.00 TVS' Seth: 12.90 Tricuspid Valve TR Pk Seth: 2.48 TR Pk Grad: 25.00 RA Press: 3.00 RVSP: 28.00 Great Vessels Aorta Sinus of Valsalva: 2.60 2.0-3.5 cm Ao Asc: 2.80 2.1-3.4 cm Ao Arch: 2.70 Ao Desc: 1.40 Pulmonary Valve PV Pk Seth: 0.84 Peak PV Grad: 3.00 Updated in Other Vendor System with Status of Final Charles Cobos MD electronically signed on 10/01/2023 2:07:09 PM with status of Final
== END ==
LOC: HO.CARD 08:40
PROVIDERS: PCP Internal Medicine; Visit Provider Internal Medicine
DX: I51.3 Intracardiac thrombosis, not elsewhere classified (principal); Q25.1 Coarctation of aorta
CPT/HCPCS: 93306; Q9957

== ENCOUNTER → 2023-10-01 08:44 | Outpatient (BNV) | payer OTHER, SELFPAY | PROVIDERS: PCP Internal Medicine; Visit Provider Internal Medicine | DX: Q25.1 Coarctation of aorta (principal) | CPT/HCPCS: 93306 ==

== ENCOUNTER 2023-10-20 13:51 | Outpatient (AMB) | payer OTHER, SELFPAY ==
[2023-10-20 14:05] VITALS: BP 120/62; PULSE 67; BMI 36.1
--- NOTE | 2023-10-20 14:05 | MHC.OFFVIS ---
Intake Vital Signs 10/20/23 14:05 Height 5 ft 6 in Weight 223 lb 15.834 oz BMI 36.1 BP 120/62 Blood Pressure Location Lt brachial Position Sitting Pulse 67 Pulse Source Monitor Intake Visit Reasons: f/up w/ med ck Grappler Required: Yes Grappler Language: Geospatial Analyst Name: victoria [id number] Door Clamp Operator: Door Clamp Operator Present Accompanied by: Significant Other Allergies corn [CORN] Allergy (Intermediate, Verified 10/20/23 14:06) Rash shrimp [SHRIMP] Allergy (Intermediate, Verified 10/20/23 14:06) ITCHING Medication List - Last Reconciled 10/20/23 by Shayla Booker, OIL CHANGE TECHNICIAN-C atorvastatin 80 mg PO BEDTIME 90 days bisacodyl (Dulcolax (bisacodyl)) 10 mg (2 x 5 mg) PO ONCE 1 day bupropion HCl 300 mg PO DAILY carvedilol 3.125 mg PO BID lisinopril 5 mg PO DAILY melatonin 5 - 10 mg PO BEDTIME PRN polyethylene glycol 3350 (Miralax) 238 grams PO ONCE 1 day HPI f/up w/ med ck HPI Details James is a 48-year-old male with past medical history of hypertension, obesity, hyperlipidemia, obstructive sleep apnea with CPAP use, nonischemic cardiomyopathy, pacemaker placement, 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 Today he reports that he has not been feeling as well recently. He does notice some shortness of breath and chest discomfort with activity. He will also get some discomfort in his chest at rest. No palpitations, presyncope, syncope, falls. No PND, orthopnea or edema. Taking all meds as directed. Admits to being mostly sedentary. present. Certified certified court interpreter used. [facility] Medical History Preoperative cardiovascular examination Dyspnea Pain of left thumb Right knee pain NICM (nonischemic cardiomyopathy) MARVIN on CPAP Right atrial thrombus Sleep apnea Coarctation of aorta Right hand pain Supraumbilical hernia Morbid obesity Right elbow pain Hernia of anterior abdominal wall Normally functioning cardiac pacemaker present Depression Hypovitaminosis D Pure hypercholesterolemia Essential hypertension Surgical History Status post wrist surgery H/O carpal tunnel repair History of umbilical hernia repair History of ascending aorta repair History of cataract surgery H/O left wrist surgery History of pacemaker Family History Father Uncontrolled diabetes mellitus Mother Uncontrolled persistent asthma Family/Other FH: mental illness Social History Housing: Apartment Alcohol intake: current Alcohol intake frequency: holidays/special occasions only Alcohol type: hard liquor Patient Tobacco Use Status: Former Tobacco user Tobacco use type: Cigarette Cigarettes Per Day: 3 Years Smoked: 10 e-Cigarette/Vaping Use: Never Used Second Hand Smoke Exposure: No service: No Current occupational status: unemployed and disabled Cognitive needs: No Hearing needs: No Vision needs: No Review of Systems Const All systems reviewed & are unremarkable except as noted in HPI and below ENT Denies dizziness Card Details: chest discomfort at rest and with activity Denies chest pain, Denies chest pain at rest, Denies chest pain with activity, Denies rapid heart rate, Denies pedal edema, Denies edema, Denies leg edema, Denies lightheadedness, Denies palpitations, Denies dyspnea, Reports dyspnea on exertion and Denies orthopnea Resp Denies cough, Denies dyspnea and Reports dyspnea on exertion GI Denies hematochezia and Denies change in stool character Musc Denies abnormal gait, Denies limited range of motion, Denies muscle cramps, Denies muscle weakness, Denies numbness, Denies radiating pain into limb, Denies stiffness and Denies tingling Neuro Denies abnormal gait, Denies dizziness, Denies numbness and Denies tingling Endo Denies palpitations Physical Exam Vital Signs: Last Vital Signs Pulse 67 10/20/23 14:05 BP 120/62 10/20/23 14:05 BMI result Body Mass Index 36.1 Const General: cooperative, healthy appearing, comfortable and no acute distress Orientation/consciousness: patient oriented x3 Neck Neck: Yes normal visual inspection Resp Effort & Inspection: normal respiratory effort Auscultation: clear to auscultation bilaterally, no crackles, no rales, no rhonchi and no wheezes Cardio Jugular venous distension: no JVD Rate: regular rate Rhythm: regular rhythm Heart sounds: S1 normal heart sound present, S2 normal heart sound present, no murmurs and no rubs Neuro General: patient oriented x3 Extrem General: Yes normal to inspection and No no pedal edema Psych Appearance: grossly normal Mental Status: mental status grossly normal Speech and movement: Normal speech and movement present Office Procedures Cardiac Device Check Cardiac Device Check Details: Medtronic pacemaker interrogation today, DDDR mode, low rate 60, battery 1.5 years, RA threshold 0.75 volts at 0.4 milliseconds, RV threshold 1.25 volts at 0.5 millisecond, 2 episodes of high V rate, NSVT 3 seconds and 4 seconds occurring on 03/17/2023, none since that time. A paced 45%, V paced 95.8% [id number] Cardiac Device Check, pacemaker dual lead Procedure code (CPT) selection complete EKG Details: Today, read by me, A sensed, V paced rhythm with prolonged AV conduction, rate 67, QTC 483 milliseconds [id number], Complete Assessment & Plan Assessment & Plan (1) NICM (nonischemic cardiomyopathy): Code(s): I42.8 - Other cardiomyopathies Plan: History of nonischemic cardiomyopathy. Echocardiogram done 07/05/2022 showed EF 52%. A recent echo done 10/01/2023 now shows EF 35-40%, no valve abnormalities, proximal descending thoracic aorta with gradient 19 mmHg which was less than previously noted. He does report having some newer shortness of breath and chest discomfort with activity. He also has some chest discomfort at rest. EKG done today showing A sensed, V paced rhythm, rate 67, nondiagnostic for ischemia. He has no known history of CAD. Will order a pharmacological nuclear stress test to evaluate for ischemia. He will be unable to exercise for this test due to pacemaker. He currently V paces 95.8% of time. All the above reviewed with him and he states understanding. Continue on carvedilol and lisinopril for neurohormonal modulation. Continue atorvastatin. Emergency care if ever needed for symptoms. Plan to call him with stress test results. Cardiology follow-up in 3 months, sooner if needed (2) Coarctation of aorta: Comment: Repair June 2019 Code(s): Q25.1 - Coarctation of aorta Plan: History of cord occasion of the aorta. He underwent angioplasty and intervention in [place]. On echocardiogram last year he did have an increase in gradient however CTA of the aorta was performed on 08/05/2022 showing widely patent stent in the proximal descending thoracic aorta. Echocardiogram done 10/01/2023 is showing the proximal descending thoracic aorta with 19 mmHg gradient which is less than previously reported. (3) Normally functioning cardiac pacemaker present: Code(s): Z95.0 - Presence of cardiac pacemaker Plan: Medtronic dual-chamber pacemaker in place. Functioning normally on interrogation today. Remote monitoring in use. Battery 1.5 years. Office interrogation in 6 months. (4) Essential hypertension: Code(s): I10 - Essential (primary) hypertension Plan: Well controlled at this time. No medication changes made (5) Obstructive sleep apnea: Code(s): G47.33 - Obstructive sleep apnea (adult) (pediatric) Plan: Compliant with CPAP (6) Chest discomfort: Code(s): R07.89 - Other chest pain Plan: As above Plan Time spent on chart review, documentation, interview and assessment Orders: Orders NM cardiolite stress test Today I42.8 - Other cardiomyopathies, R07.89 - Other chest pain CA lexiscan stress w shea Today I42.8 - Other cardiomyopathies, R07.89 - Other chest pain, Z95.0 - Presence of cardiac pacemaker Medications: Refilled carvedilol 3.125 mg PO BID 180 tabs 1RF Coding Level of Care Code Est Pt Level 4 (82738) Diagnoses NICM (nonischemic cardiomyopathy) I42.8 Coarctation of aorta Q25.1 Normally functioning cardiac pacemaker present Z95.0 Essential hypertension I10 Obstructive sleep apnea G47.33 Chest discomfort R07.89 CPT Codes Cardiac Device Check - Cardiac Device 2: 88297-[id number] Cardiac Device Check, pacemaker dual lead ([id number]) EKG - CPT: 59202-[id number], Complete ([id number]) Time Spent (min) 30
== END 2023-10-20 14:53 | disposition home or self-care (01) ==
PROVIDERS: PCP Internal Medicine; Visit Provider Nurse Practitioner Family
DX: I42.8 Other cardiomyopathies (principal); Q25.1 Coarctation of aorta; Z95.0 Presence of cardiac pacemaker; I10 Essential (primary) hypertension; G47.33 Obstructive sleep apnea (adult) (pediatric); R07.89 Other chest pain
CPT/HCPCS: 93280; 99214

== ENCOUNTER → 2023-10-20 13:51 | Outpatient (BNVA) | payer OTHER, SELFPAY | PROVIDERS: PCP Internal Medicine; Visit Provider Nurse Practitioner Family | DX: Z45.018 Encounter for adjustment and management of other part of cardiac pacemaker (principal); I42.8 Other cardiomyopathies; Q25.1 Coarctation of aorta; I10 Essential (primary) hypertension; R07.89 Other chest pain; G47.33 Obstructive sleep apnea (adult) (pediatric) | CPT/HCPCS: 93005; 93280; 99212 ==

== ENCOUNTER 2023-10-23 11:31 | Outpatient (AMB) | payer OTHER, SELFPAY ==
--- NOTE | 2023-10-23 11:33 | A.OFFVIS_ITS ---
Intake Vital Signs 10/23/23 11:36 Weight 223 lb 1.725 oz BP 150/73 H Blood Pressure Location Lt brachial Position Sitting Pulse 87 Intake Visit Reasons: pre colonoscopy Intake Note: Patient here for pre colonscopy screening. Patient c/o: Denies constipation or diarrhea. Asphalt Mixing Machine Operator Required: No Allergies corn [CORN] Allergy (Intermediate, Verified 10/23/23 11:41) Rash shrimp [SHRIMP] Allergy (Intermediate, Verified 10/23/23 11:41) ITCHING Medication List - Last Reconciled 10/23/23 by Aranza Moran PA-C atorvastatin 80 mg PO BEDTIME 90 days bupropion HCl 300 mg PO DAILY carvedilol 3.125 mg PO BID lisinopril 5 mg PO DAILY melatonin 5 - 10 mg PO BEDTIME PRN HPI HPI Comments History of Present Illness Details A 48 y/o male index screening colonoscopy seen about 1 year ago-he did not have it done-in he expresses as he is reluctant No GI complaints Appetite is good Bowels normal No fam hx CRC Currently following with cardio No nausea, vomiting, hematemesis, hematochezia fever chills PFSH Medical History Preoperative cardiovascular examination Dyspnea Pain of left thumb Right knee pain NICM (nonischemic cardiomyopathy) MARVIN on CPAP Right atrial thrombus Sleep apnea Coarctation of aorta Right hand pain Supraumbilical hernia Morbid obesity Right elbow pain Hernia of anterior abdominal wall Normally functioning cardiac pacemaker present Depression Hypovitaminosis D Pure hypercholesterolemia Essential hypertension Surgical History Status post wrist surgery H/O carpal tunnel repair History of umbilical hernia repair History of ascending aorta repair History of cataract surgery H/O left wrist surgery History of pacemaker Family History Father Uncontrolled diabetes mellitus Mother Uncontrolled persistent asthma Family/Other FH: mental illness Social History Housing: Apartment Alcohol intake: current Alcohol intake frequency: holidays/special occasions only Alcohol type: hard liquor Patient Tobacco Use Status: Former Tobacco user Tobacco use type: Cigarette Cigarettes Per Day: 3 Years Smoked: 10 e-Cigarette/Vaping Use: Never Used Second Hand Smoke Exposure: No service: No Current occupational status: unemployed and disabled Cognitive needs: No Hearing needs: No Vision needs: No Review of Systems Const All systems reviewed & are unremarkable except as noted in HPI and below Card Denies chest pain and Denies dyspnea Resp Denies dyspnea GI Denies no additional complaints, Denies hematochezia, Denies change in bowel habits, Denies heartburn, Denies diarrhea, Denies nausea and Denies vomiting Psych Reports anxiety Physical Exam Vital Signs: Last Vital Signs Pulse 87 10/23/23 11:36 BP 150/73 H 10/23/23 11:36 Const General: cooperative, healthy appearing, comfortable and no acute distress Orientation/consciousness: patient oriented x3 Limitations: no limitations Eyes Sclerae: sclerae normal Resp Effort & Inspection: normal respiratory effort and able to speak in complete sentences Auscultation: clear to auscultation bilaterally Cardio Rate: regular rate Rhythm: regular rhythm Heart sounds: S1 normal heart sound present and S2 normal heart sound present GI Palpation (GI): Soft to palpation and nontender Auscultation: normal bowel sounds Neuro General: patient oriented x3 Extrem General: Yes full ROM Psych Appearance: grossly normal and well kempt Mental Status: mental status grossly normal Speech and movement: Normal speech and movement present Affect: normal affect Attitude: cooperative Thought process: Normal thought process present Thought content: Normal thought content present Insight: Good insight present (Psych) Judgement: Good judgement present (Psych) Assessment & Plan Assessment & Plan (1) Normally functioning cardiac pacemaker present: Code(s): Z95.0 - Presence of cardiac pacemaker Plan: Follow with cardiology as scheduled (2) MARVIN on CPAP: Code(s): G47.33 - Obstructive sleep apnea (adult) (pediatric); Z99.89 - Dependence on other enabling machines and devices Plan: Continue follow with sleep medicine (3) Colon cancer screening: Comment: 47-year-old pleasant, anxious male referred for index screening colonoscopy multiple comorbidities follows with cardiology/Sleep Medicine Discussed alternatives to include Cologuard Code(s): Z12.11 - Encounter for screening for malignant neoplasm of colon Plan: Cologuard, if positive recommend colonoscopy Plan of care dependent on above Plan Cologuard if positive recommend colonoscopy Patient to call for results Plan of care dependent on above Orders: Referrals Cologuard Test G47.33 - Obstructive sleep apnea (adult) (pediatric), I42.8 - Other cardiomyopathies, I51.3 - Intracardiac thrombosis, not elsewhere classified, Q25.1 - Coarctation of aorta, Z12.11 - Encounter for screening for malignant neoplasm of colon, Z99.89 - Dependence on other enabling machines and devices Patient Instructions: Pleasant 48-year-old male pacemaker, ago cardiac workup with anxiety. Reviewed procedure, indications as well as alternatives to include Cologuard Discuss Cologuard approximate 13% false positives-however if positive would recommend a colonoscopy. Questions answered to his satisfaction Will submit order for authorization from insurance carrier He will call for result approximately 2 weeks after he submits sample He will follow back Cardiology He is encouraged to call with any questions or concerns Appreciate the opportunity assist in the care the patient Coding Level of Care Code New Pt Level 3 (32198) Diagnoses Normally functioning cardiac pacemaker present Z95.0 MARVIN on CPAP G47.33; Z99.89 Colon cancer screening Z12.11 Time Spent (min) 30
[2023-10-23 11:36] VITALS: BP 150/73; PULSE 87
== END 2023-10-23 13:14 | disposition home or self-care (01) ==
PROVIDERS: PCP Internal Medicine; Visit Provider Physician Assistant
DX: Z01.818 Encounter for other preprocedural examination (principal); Z12.11 Encounter for screening for malignant neoplasm of colon; G47.33 Obstructive sleep apnea (adult) (pediatric); Z99.89 Dependence on other enabling machines and devices; Z95.0 Presence of cardiac pacemaker
CPT/HCPCS: 99213

== ENCOUNTER → 2023-10-23 11:31 | Outpatient (BNVA) | payer OTHER, SELFPAY | PROVIDERS: PCP Internal Medicine; Visit Provider Physician Assistant | DX: Z12.11 Encounter for screening for malignant neoplasm of colon (principal); G47.33 Obstructive sleep apnea (adult) (pediatric); Z99.89 Dependence on other enabling machines and devices; Z95.0 Presence of cardiac pacemaker | CPT/HCPCS: 99212 ==

== ENCOUNTER → 2023-12-10 08:16 | Outpatient (REF) | payer OTHER, SELFPAY ==
--- NOTE | ~2023-12-10 | NM_ITS ---
Lexiscan Myocardial perfusion study Indication: Shortness of breath, chest pain, assess for coronary disease and ischemia Technique: The patient was brought in for a Lexiscan perfusion study on 12/10/2023 and was injected 0.4 mg of Lexiscan intravenously. Within a minute of this injection 35 mCi of sestamibi was given intravenously. Images were obtained using the SPECT gamma camera interlaced with the gating device. Images were obtained in supine position. Resting perfusion study was performed on 12/11/2023. Patient was administered 35 mCi of sestamibi intravenously at rest. Images were then obtained in supine position. Images were processed with the software and compared side to side in short axis, horizontal long axis and vertical long axis views. Total DLP 207mGy-cm. Findings: Raw acquisition reviewed. Arms by the patient's side. The stress perfusion study showed diminished tracer uptake along the inferior wall as well as parts of anterior wall, apex. There is improvement with CT attenuation correction suggesting components of soft tissue as well as diaphragmatic attenuation artifacts. The gated study shows diminished LV systolic function with calculated LVEF of 48%. LV cavity is normal in size. The gated study shows globally reduced wall thickening and contraction of segments. Resting study shows diminished tracer uptake along the inferior wall, distal part of anterior wall as well as apex. It seems more prominent than in the stress acquisition. With CT attenuation correction, there is overall improvement suggestive of components of soft tissue as well as diaphragmatic attenuation artifact. Gating at rest reveals globally reduced wall motion with ejection fraction at 46%. The findings are consistent with fixed perfusion defect along the inferior wall, distal part of anterior wall, apex with improvement during CT attenuation correction. Probably all artifactual. NM/NM cardiolite stress test Impression: 1. Myocardial perfusion imaging study shows fixed perfusion defect along the inferior wall, distal anterior wall, apex suspected to be mostly artifactual. In the apex cannot exclude a prior nontransmural infarct. 2. Gated LVEF is 48% during stress and 46% during rest. 3. Transient ischemic dilatation not present. EKG component of the test reported separately.
--- NOTE | 2023-12-10 08:19 | CA_ITS ---
Acquisition Time: 2023-12-10 08:44:15 Total Exercise Time: 00:02:00 Test Indications: Dyspnea CHEST PAIN Medications: LISINOPRIL CARVEDILOL ATORVASTATIN BUPROPION Protocol: LEXISCAN Max HR: 089 BPM 51% of Pred: 173 BPM Max BP: 126/068 mmHG Max Work Load: 1.0 METS Pharmacoloigcal stress test with Lexiscan injection while sitting, without anginal symptoms, with isolated PVCs, with normotensive response to injection, with nondiagnoisitic EKGs. Sminophylling 75mg IVP given to reverse Lexiscan. Nuclear images pending. Test reviewed with Dr. Ayala Referred By: Shayla Booker Overread By: Lore Young
== END ==
LOC: HO.CARD 08:16
PROVIDERS: PCP Internal Medicine; Visit Provider Nurse Practitioner Family
DX: R07.89 Other chest pain (principal); I42.8 Other cardiomyopathies; Z95.0 Presence of cardiac pacemaker
CPT/HCPCS: 78452; 93017; A9500; J0280; J2785

== ENCOUNTER → 2023-12-10 08:19 | Outpatient (BNV) | payer OTHER, SELFPAY | PROVIDERS: PCP Internal Medicine; Visit Provider Nurse Practitioner | DX: I42.8 Other cardiomyopathies (principal); R07.89 Other chest pain | CPT/HCPCS: 78452; 93016; 93018 ==

== ENCOUNTER 2024-01-20 12:58 | Outpatient (AMB) | payer OTHER, SELFPAY ==
--- NOTE | 2024-01-20 13:23 | MHC.OFFVIS ---
Intake Vital Signs 01/20/24 13:24 Height 5 ft 6 in Weight 241 lb 2.971 oz BMI 38.9 BP 130/70 Blood Pressure Location Lt brachial Position Sitting Pulse 80 Pulse Source Pulse Oximeter Intake Visit Reasons: 3 mth f/up Intake Note: pt its here for his 3 mnth/ pt its feeling fine. Career And Transition Teacher Required: No Accompanied by: Spouse Allergies corn [CORN] Allergy (Intermediate, Verified 10/23/23 11:41) Rash shrimp [SHRIMP] Allergy (Intermediate, Verified 10/23/23 11:41) ITCHING Medication List - Last Reconciled 01/20/24 by Shayla Booker, AUTOMOBILE RELOCATION ENGINEER-C atorvastatin 80 mg PO BEDTIME 90 days bupropion HCl 150 mg PO QAM carvedilol 3.125 mg PO BID lisinopril 5 mg PO DAILY melatonin 5 - 10 mg PO BEDTIME PRN PFSH Medical History Preoperative cardiovascular examination Dyspnea Pain of left thumb Right knee pain NICM (nonischemic cardiomyopathy) MARVIN on CPAP Right atrial thrombus Sleep apnea Coarctation of aorta Right hand pain Supraumbilical hernia Morbid obesity Right elbow pain Hernia of anterior abdominal wall Normally functioning cardiac pacemaker present Depression Hypovitaminosis D Pure hypercholesterolemia Essential hypertension Surgical History Status post wrist surgery H/O carpal tunnel repair History of umbilical hernia repair History of ascending aorta repair History of cataract surgery H/O left wrist surgery History of pacemaker Family History Father Uncontrolled diabetes mellitus Mother Uncontrolled persistent asthma Family/Other FH: mental illness Social History Housing: Apartment Alcohol intake: current Alcohol intake frequency: holidays/special occasions only Alcohol type: hard liquor Patient Tobacco Use Status: Former Tobacco user Tobacco use type: Cigarette Cigarettes Per Day: 3 Years Smoked: 10 e-Cigarette/Vaping Use: Never Used Second Hand Smoke Exposure: No service: No Current occupational status: unemployed and disabled Cognitive needs: No Hearing needs: No Vision needs: No Review of Systems Const All systems reviewed & are unremarkable except as noted in HPI and below Denies chills, Denies fatigue, Denies fever(s), Denies frequent falls, Denies weakness, Denies weight gain and Denies weight loss ENT Denies dizziness Card Denies chest pain, Denies leg edema, Denies lightheadedness, Denies palpitations, Denies dyspnea and Reports dyspnea on exertion Resp Denies cough, Denies dyspnea and Reports dyspnea on exertion GI Denies hematochezia Musc Denies abnormal gait, Denies muscle weakness, Denies numbness, Denies radiating pain into limb and Denies tingling Neuro Denies abnormal gait, Denies dizziness, Denies frequent falls, Denies numbness, Denies tingling and Denies weakness Endo Denies fatigue and Denies palpitations Physical Exam Vital Signs: Last Vital Signs Pulse 80 01/20/24 13:24 BP 130/70 01/20/24 13:24 BMI result Body Mass Index 38.9 Const General: cooperative, healthy appearing, comfortable and no acute distress Orientation/consciousness: patient oriented x3 Neck Neck: Yes normal visual inspection and Yes no JVD Resp Effort & Inspection: normal respiratory effort Auscultation: clear to auscultation bilaterally, no crackles, no rales, no rhonchi and no wheezes Cardio Jugular venous distension: no JVD Rate: regular rate Rhythm: regular rhythm Heart sounds: S1 normal heart sound present, S2 normal heart sound present, no murmurs and no rubs Neuro General: patient oriented x3 Extrem General: Yes normal to inspection, No no pedal edema and No calf tenderness Psych Appearance: grossly normal Mental Status: mental status grossly normal Speech and movement: Normal speech and movement present Assessment & Plan Assessment & Plan (1) NICM (nonischemic cardiomyopathy): Code(s): I42.8 - Other cardiomyopathies Plan: History of nonischemic cardiomyopathy. Echocardiogram done 07/05/2022 showed EF 52%. A recent echo done 10/01/2023 now shows EF 35-40%, no valve abnormalities. He previously reported some shortness of breath and chest discomfort with activity. He also has some chest discomfort at rest. EKG done last visit showing A sensed, V paced rhythm, rate 67, nondiagnostic for ischemia. He has no known history of CAD. He underwent a pharmacological nuclear stress test on 12/11/2023 showing no ischemia, fixed perfusion defect along the inferior wall, distal anterior wall and apex suspected to be artifactual however prior nontransmural infarct of the apex can not be excluded. On examination today he has no signs of heart failure. He no longer has chest discomfort. He does have some shortness of breath with exertion. CTA of the chest done in 2020 and 2021 does not show any coronary artery calcifications. It is possible that his drop in EF could be related to his V pacing. He V paces 99% of time. Will send message to Dr. Cobos regarding this case. At this time will continue med management for cardiomyopathy. Continue on carvedilol and will change lisinopril over to valsartan. Then plan to change to Entresto once labs are done. Continue atorvastatin. Cardiology follow-up in 3 months, sooner if needed (2) Coarctation of aorta: Comment: Repair June 2019 Code(s): Q25.1 - Coarctation of aorta Plan: History of coartication of the aorta. He underwent angioplasty and intervention in [place]. CTA of the aorta was performed on 08/05/2022 showing widely patent stent in the proximal descending thoracic aorta, no thoracic aortic aneurysm or dissection. Echocardiogram done 10/01/2023 is showing the proximal descending thoracic aorta with 19 mmHg gradient which is less than previously reported. Plan for repeat echo 1 year from last, 2023 (3) Normally functioning cardiac pacemaker present: Code(s): Z95.0 - Presence of cardiac pacemaker Plan: Medtronic dual-chamber pacemaker in place. Office interrogation due next visit. Remote monitoring in use. Battery 1.5 years. (4) Essential hypertension: Code(s): I10 - Essential (primary) hypertension Plan: Well controlled at this time. Changing lisinopril over to valsartan (5) Obstructive sleep apnea: Code(s): G47.33 - Obstructive sleep apnea (adult) (pediatric) Plan: Compliant with CPAP Plan Time spent on chart review, documentation, interview and assessment Orders: Orders Basic Metabolic Panel Today I42.8 - Other cardiomyopathies Medications: New valsartan Replaces Lisinopril 40 mg PO BID 60 tabs 2RF Discontinued lisinopril Discontinued Reason: Doctor's Order 5 mg PO DAILY 90 tabs 1RF Coding Level of Care Code Est Pt Level 4 (78106) Diagnoses NICM (nonischemic cardiomyopathy) I42.8 Coarctation of aorta Q25.1 Normally functioning cardiac pacemaker present Z95.0 Essential hypertension I10 Obstructive sleep apnea G47.33 Time Spent (min) 30
[2024-01-20 13:24] VITALS: BP 130/70; PULSE 80; BMI 38.9
== END 2024-01-20 14:03 | disposition home or self-care (01) ==
PROVIDERS: PCP Internal Medicine; Visit Provider Nurse Practitioner Family
DX: I42.8 Other cardiomyopathies (principal); Q25.1 Coarctation of aorta; Z95.0 Presence of cardiac pacemaker; I10 Essential (primary) hypertension; G47.33 Obstructive sleep apnea (adult) (pediatric)
CPT/HCPCS: 99214

== ENCOUNTER → 2024-01-20 12:58 | Outpatient (BNVA) | payer OTHER, SELFPAY | PROVIDERS: PCP Internal Medicine; Visit Provider Nurse Practitioner Family | DX: I42.8 Other cardiomyopathies (principal); I10 Essential (primary) hypertension; Q25.1 Coarctation of aorta; G47.33 Obstructive sleep apnea (adult) (pediatric); Z95.0 Presence of cardiac pacemaker | CPT/HCPCS: 99212 ==

== ENCOUNTER → 2024-02-12 23:59 | Outpatient (BNV) | payer MEDICARE, MEDICAID, SELFPAY ==
--- NOTE | 2024-02-23 18:43 | A.OFFVIS_ITS ---
Intake Intake Visit Reasons: Remote Device Check- Medtronic Allergies corn [CORN] Allergy (Intermediate, Verified 10/23/23 11:41) Rash shrimp [SHRIMP] Allergy (Intermediate, Verified 10/23/23 11:41) ITCHING PFSH Medical History Preoperative cardiovascular examination Dyspnea Pain of left thumb Right knee pain NICM (nonischemic cardiomyopathy) MARVIN on CPAP Right atrial thrombus Sleep apnea Coarctation of aorta Right hand pain Supraumbilical hernia Morbid obesity Right elbow pain Hernia of anterior abdominal wall Normally functioning cardiac pacemaker present Depression Hypovitaminosis D Pure hypercholesterolemia Essential hypertension Surgical History Status post wrist surgery H/O carpal tunnel repair History of umbilical hernia repair History of ascending aorta repair History of cataract surgery H/O left wrist surgery History of pacemaker Family History Father Uncontrolled diabetes mellitus Mother Uncontrolled persistent asthma Family/Other FH: mental illness Social History Housing: Apartment Alcohol intake: current Alcohol intake frequency: holidays/special occasions only Alcohol type: hard liquor Patient Tobacco Use Status: Former Tobacco user Tobacco use type: Cigarette Cigarettes Per Day: 3 Years Smoked: 10 e-Cigarette/Vaping Use: Never Used Second Hand Smoke Exposure: No service: No Current occupational status: unemployed and disabled Cognitive needs: No Hearing needs: No Vision needs: No Office Procedures Cardiac Device Check Cardiac Device Check Details: Date of service- 02/12/2024 ; Battery life 1.5 years; normal lead parameters; AP 55%; DIRECTOR OF SERVICES 98.8%; no significant arrhythmias. Overall normal device function. [id number] Cardiac Device Interrogation, pacemaker Procedure code (CPT) selection complete Assessment & Plan Assessment & Plan (1) NICM (nonischemic cardiomyopathy): Code(s): I42.8 - Other cardiomyopathies Plan: x Coding Level of Care Code Procedure Only Diagnoses NICM (nonischemic cardiomyopathy) I42.8 CPT Codes Cardiac Device Check - Cardiac Device 12: [id number] Cardiac Device Interrogation, pacemaker ([id number])
== END ==
PROVIDERS: PCP Internal Medicine; Visit Provider Internal Medicine
DX: I42.8 Other cardiomyopathies (principal); Z95.0 Presence of cardiac pacemaker
CPT/HCPCS: 93294

== ENCOUNTER 2024-02-26 20:17 | Emergency (ER) | payer MEDICARE, MEDICAID, SELFPAY ==
--- NOTE | ~2024-02-26 | XR_ITS ---
EXAMINATION: XR CHEST CLINICAL INFORMATION: Chest pain COMPARISON: Chest x-ray April 30, 2018 TECHNIQUE: 2 views of the chest were obtained. FINDINGS: Pacemaker leads in right atrium and right ventricle. Vascular stents in proximal descending thoracic aorta. No acute abnormality. Cardiac and mediastinal contours are normal. There is no pulmonary vascular congestion. There is no pleural effusion or pneumothorax. XR/XR chest 2V IMPRESSION: No acute abnormality of the chest.
--- NOTE | 2024-02-26 20:19 | ECG_ITS ---
Test Reason : CHEST PAIN Blood Pressure : / mmHG Vent. Rate : 070 BPM Atrial Rate : 070 BPM P-R Int : 206 ms QRS Dur : 168 ms QT Int : 440 ms P-R-T Axes : -19 -67 087 degrees QTc Int : 475 ms AV dual-paced rhythm Abnormal ECG When compared with ECG of 30-APR-2018 11:27, No significant changes seen Referred By: Federica Guzman Electronically Signed By:ROMEO STALLWORTH
[2024-02-26 20:36] VITALS: BP 156/70; PULSE 77; RESP 16; TEMP 37; O2SAT 98; BMI 40.9
[2024-02-26 20:37] LABS: MANUAL DIFF FLAG NO
--- NOTE | 2024-02-26 20:37 | ED_ITS ---
HPI - General Adult General Chief complaint: Chest Pain Stated complaint: chest pain/pace maker Time Seen by Provider: 02/26/24 21:56 History of Present Illness HPI narrative: The patient is a 48-year-old male with a history of nonischemic cardiomyopathy. He also has a history of coarctation of the aorta. Apparently he has had pacemaker since 2005. He had his 1st pacemaker replaced in 2016. The patient does not have any history of known coronary disease. The patient was sitting watching TV this evening doing nothing in particular when he felt a sense of discomfort in his chest that was associated with a sense of tingling in his feet and a slight sense of sweats and nausea. He asked his partner to bring him to the emergency room because of the symptoms. The discomfort in his chest resolved spontaneously after about 20 minutes. He has no symptoms currently. No nausea or vomiting. No fever, sweats, chills. Related Data Home Medications ?Medication ?Instructions ?Recorded ?Confirmed melatonin 5 mg tablet 5 - 10 mg PO BEDTIME PRN insomnia 11/06/22 01/20/24 bupropion HCl 150 mg 24 hr tablet, 150 mg PO QAM 01/20/24 01/20/24 extended release Previous Rx's ?Medication ?Instructions ?Recorded atorvastatin 80 mg tablet 80 mg PO BEDTIME 90 days #90 tabs 09/24/23 carvedilol 3.125 mg tablet 3.125 mg PO BID #180 tabs 10/20/23 valsartan 40 mg tablet 40 mg PO BID #60 tabs 01/20/24 Allergies Allergy/AdvReac Type Severity Reaction Status Date / Time corn [CORN] Allergy Intermediate Rash Verified 02/26/24 20:40 shrimp [SHRIMP] Allergy Intermediate ITCHING Verified 02/26/24 20:40 Review of Systems 2 Review of Systems: Yes all other systems are reviewed and are negative PMFSH Past Medical History Medical History Preoperative cardiovascular examination Dyspnea Pain of left thumb Right knee pain NICM (nonischemic cardiomyopathy) MARVIN on CPAP Right atrial thrombus Sleep apnea Coarctation of aorta Right hand pain Supraumbilical hernia Morbid obesity Right elbow pain Hernia of anterior abdominal wall Normally functioning cardiac pacemaker present Depression Hypovitaminosis D Pure hypercholesterolemia Essential hypertension Surgical History Status post wrist surgery H/O carpal tunnel repair History of umbilical hernia repair History of ascending aorta repair History of cataract surgery H/O left wrist surgery History of pacemaker Family History Family History Father Uncontrolled diabetes mellitus Mother Uncontrolled persistent asthma Family/Other FH: mental illness Social History Social History Housing: Apartment Alcohol intake: current Alcohol intake frequency: holidays/special occasions only Alcohol type: hard liquor Patient Tobacco Use Status: Former Tobacco user Tobacco use type: Cigarette Cigarettes Per Day: 3 Years Smoked: 10 Smoked in Last 30 Days: Yes e-Cigarette/Vaping Use: Never Used Second Hand Smoke Exposure: No Use of substances other than those prescribed or required for medical reasons: No Advance Directives: No Advance Directives Information Provided: No service: No Current occupational status: unemployed and disabled Cognitive needs: No Hearing needs: No Vision needs: No Physical Exam ED Vital Signs: Vital Signs - 24 hr 02/26/24 20:36 02/26/24 22:31 02/26/24 23:47 Temperature 98.6 F 98.0 F Pulse Rate 77 62 67 Respiratory Rate 16 18 14 Blood Pressure 156/70 H 109/48 L 114/63 Pulse Oximetry 98 97 96 Oxygen Delivery Method Room Air Room Air Room Air 02/26/24 23:51 Temperature 98.0 F Pulse Rate 67 Respiratory Rate 20 Blood Pressure 114/63 Pulse Oximetry 98 Oxygen Delivery Method Room Air BMI result Body Mass Index 40.9 Const Other: The patient is a muir 48-year-old male who was awake and alert, pleasant cooperative, in no apparent distress. He was interviewed with a Maltese lithographic retoucher apprentice. HENTX Other: Face is symmetrical, mucous membranes moist Eyes Other: Pupils are round equal, conjunctivae are clear Neck Other: No JVD Resp Effort & Inspection: normal respiratory effort Auscultation: clear to auscultation bilaterally Cardio Rate: regular rate Rhythm: regular rhythm Heart sounds: S1 normal heart sound present and S2 normal heart sound present GI Other: Abdomen is soft and nontender Skin Other: Skin is dry and unremarkable Neuro Other: The patient is awake, alert, pleasant, cooperative. Mental status is normal. Cranial nerves are grossly intact. He moves all 4 extremities symmetrically. Extrem Other: No calf swelling or tenderness, no leg asymmetry, no pitting edema Course Course Course Narrative: This is an RME: Additional HPI, ROS, PE not included below will be deferred to primary provider. 48 yo m with pmhx of pacemaker presents with chest pain for 1 hour. Substernal chest pain. Denies shortness of breath, fevers, chills, cough, nausea, vomiting. Also reports leg swelling. Medical Decision Making Medical Decision Making MDM Narrative: The patient is a very pleasant 48-year-old male with a history of a nonischemic cardiomyopathy who has had a pacemaker for 18 years. Tonight he had an episode of approximately 20 minutes of chest discomfort that was associated with a sense of tingling in his feet. The patient's EKG shows a paced rhythm unchanged from previous EKG. He had an initial troponin of 47.9. A 2nd troponin was 48.4, a very similar result. The patient had no recurrence of his symptoms. He remained symptom-free in the emergency department. Given the absence of any significant troponin change I think he may be discharged to follow up with his regular doctors. Lab Data 02/26/24 20:32 02/26/24 20:32 Labs: Lab Results 02/26/24 02/26/24 Range/Units 20:32 22:30 WBC 13.2 H (4.8-10.8) X10*3/uL RBC 4.41 L (4.60-5.80) X10*6/uL Hgb 14.3 (14.0-18.0) g/dl Hct 41.6 L (42.0-52.0) % MCV 94.3 (80.0-98.0) fL MCH 32.4 (27.0-33.0) pg MCHC 34.4 (31.0-36.0) g/dl RDW 13.2 (11.0-16.0) % Plt Count 202 (160-400) X10*3/uL MPV 10.1 (9.4-12.4) fL Immature Gran % (Auto) 0.4 (0.0-0.4) % Neut % (Auto) 57.8 (45-73) % Lymph % (Auto) 29.0 (20-40) % Sawyer % (Auto) 9.0 (2-11) % Eos % (Auto) 3.3 (0-4) % Baso % (Auto) 0.5 (0-2) % Lymph # (Auto) 3.8 (1.2-4.9) X10*3/uL Sawyer # (Auto) 1.2 (0.1-1.2) X10*3/uL Eos # (Auto) 0.4 (0.0-0.4) X10*3/uL Baso # (Auto) 0.1 (0.0-0.2) X10*3/uL Abs Immat Gran (auto) 0.05 H (0.00-0.03) X10*3/uL Absolute Neuts (auto) 7.6 (2.0-8.3) x10*3/uL Absolute Nucleated RBC 0.000 (0.0-0.012) X10*3/uL Nucleated RBC % (auto) 0.0 (0.0-0.2) /100WBC Sodium 141 (135-145) mmol/L Potassium 3.9 (3.3-5.1) mmol/L Chloride 106 (96-108) mmol/L Carbon Dioxide 25 (22-29) mmol/L Anion Gap 14 (12-20) BUN 14 (9-16) mg/dL Creatinine 0.91 (0.5-1.4) mg/dL Estim Creat Clear Calc 119.6 Estimated GFR > 60 Random Glucose 116 H (60-115) mg/dL Calcium 9.3 (8.4-10.2) mg/dL Magnesium 1.8 (1.6-2.6) mg/dL Total Bilirubin 0.2 (0.0-1.0) mg/dL AST 28 (5-37) U/L ALT 59 H (0-40) U/L Alkaline Phosphatase 86 (39-117) U/L Troponin I High Sens 47.9 H 48.4 H (<3.5-35.0) ng/L B-Natriuretic Peptide 23 (<100) pg/mL Total Protein 7.7 (6.5-8.0) g/dL Albumin 4.0 (3.5-5.0) g/dL Independent Interpretation I performed an independent interpretation of an: EKG Interpretation: EKG at 20:23 shows an AV dual paced rhythm at 70 beats per minute. No significant change from previous EKG. Discharge Plan Discharge Clinical Impression: Chest pain Patient Disposition: Home, Self-Care Additional Instructions: Your testing today is reassuring. There is no sign of the pain coming from your heart. Please continue your regular medications. Follow up with your rate and cost analyst or your primary care doctor in the next couple of weeks to discuss this episode further. If at any point you feel significantly worse or if you have discomfort that does not resolve on its own please return to the emergency room for another evaluation. Prescriptions: No Action atorvastatin 80 mg tablet 80 mg PO BEDTIME 90 Days Qty: 90 1RF melatonin 5 mg tablet 5 - 10 mg PO BEDTIME PRN (Reason: insomnia) carvedilol 3.125 mg tablet 3.125 mg PO BID Qty: 180 1RF bupropion HCl 150 mg tablet extended release 24 hr 150 mg PO QAM valsartan 40 mg tablet 40 mg PO BID Qty: 60 2RF Rx Instructions: Replaces Lisinopril Referrals: Doreen Heaton MD [Primary Care Provider] - (Episode of chest pain) Charles Cobos MD [Physician] - (Episode of chest pain) Interventions: ED Discharge Assessment Last Done: 02/26/24 23:51 Discharge Date/Time: 02/26/24 23:58 Print Language: Maltese
[2024-02-26 20:40] LABS: Basophils Absolute Auto 0.1 X10*3/uL (0.0-0.2); Basophils Percent Auto 0.5 % (0-2); Eosinophils Absolute Auto 0.4 X10*3/uL (0.0-0.4); Eosinophils Percent Auto 3.3 % (0-4); Hematocrit 41.6 % (42.0-52.0); Hemoglobin 14.3 g/dl (14.0-18.0); Imm Gran Abs Auto 0.05 X10*3/uL (0.00-0.03); Imm Gran Pct Auto 0.4 % (0.0-0.4); Lymphocytes Absolute Auto 3.8 X10*3/uL (1.2-4.9); Mean Corpuscular HGB Conc 34.4 g/dl (31.0-36.0); Mean Corpuscular Hemoglobin 32.4 pg (27.0-33.0); Mean Corpuscular Volume 94.3 fL (80.0-98.0); Mean Platelet Volume 10.1 fL (9.4-12.4); Monocytes Absolute Auto 1.2 X10*3/uL (0.1-1.2); Neutrophils Absolute Auto 7.6 x10*3/uL (2.0-8.3); Neutrophils Percent Auto 57.8 % (45-73); Platelet Count 202 X10*3/uL (160-400); Red Blood Count 4.41 X10*6/uL (4.60-5.80); Red Cell Distribution Width 13.2 % (11.0-16.0); White Blood Count 13.2 X10*3/uL (4.8-10.8)
[2024-02-26 20:55] LABS: Alanine Aminotransferase 59 U/L (0-40); Alkaline Phosphatase 86 U/L (39-117); Anion Gap 14 (12-20); Aspartate Amino Transferase 28 U/L (5-37); Bilirubin Total 0.2 mg/dL (0.0-1.0); Blood Urea Nitrogen 14 mg/dL (9-16); Calcium 9.3 mg/dL (8.4-10.2); Carbon Dioxide 25 mmol/L (22-29); Chloride 106 mmol/L (96-108); Creatinine Clr Calc Pharmacy 119.6; Estimated Glomerular Filt Rate > 60; Glucose Random 116 mg/dL (60-115); Magnesium 1.8 mg/dL (1.6-2.6); Potassium 3.9 mmol/L (3.3-5.1); Sodium 141 mmol/L (135-145); Total Protein 7.7 g/dL (6.5-8.0)
[2024-02-26 21:02] LABS: Troponin-I High Sensitivity 47.9 ng/L (<3.5-35.0)
[2024-02-26 21:07] LABS: B Type Natriuretic Peptide 23 pg/mL (<100)
[2024-02-26 22:31] VITALS: BP 109/48; PULSE 62; RESP 18; O2SAT 97
[2024-02-26 22:59] LABS: Troponin-I High Sensitivity 48.4 ng/L (<3.5-35.0)
[2024-02-26 23:47] VITALS: BP 114/63; PULSE 67; RESP 14; TEMP 36.7; O2SAT 96
[2024-02-26 23:51] VITALS: BP 114/63; PULSE 67; RESP 20; TEMP 36.7; O2SAT 98
--- NOTE | 2024-02-26 23:52 | PC.NURSE ---
pt denies any chest pain at this time any sob, reviewed discharge instructions with pt. pt verbalized understanding. no sign of distress.
== END 2024-02-26 23:58 | disposition home or self-care (01) ==
PROVIDERS: Physician Assistant; Emergency Provider Emergency Medicine; PCP Internal Medicine
DX: R07.9 Chest pain, unspecified (principal); I42.8 Other cardiomyopathies; I10 Essential (primary) hypertension; Z95.0 Presence of cardiac pacemaker
CPT/HCPCS: 36415; 71046; 80053; 83735; 83880; 84484; 85025; 93005; 99283; 99285

== ENCOUNTER → 2024-02-26 20:19 | Outpatient (BNV) | payer MEDICARE, MEDICAID, SELFPAY | PROVIDERS: Emergency Provider Emergency Medicine; PCP Internal Medicine; Visit Provider Internal Medicine | DX: R07.9 Chest pain, unspecified (principal) | CPT/HCPCS: 93010 ==

== ENCOUNTER 2024-03-02 08:34 | Outpatient (REF) | payer MEDICARE, MEDICAID, SELFPAY ==
[2024-03-02 10:05] LABS: Anion Gap 13 (12-20); Blood Urea Nitrogen 13 mg/dL (9-16); Calcium 9.4 mg/dL (8.4-10.2); Carbon Dioxide 24 mmol/L (22-29); Chloride 105 mmol/L (96-108); Estimated Glomerular Filt Rate > 60; Glucose Random 117 mg/dL (60-115); Sodium 138 mmol/L (135-145)
== END 2024-03-02 08:35 | disposition home or self-care (01) ==
LOC: HO.LAB 08:34
PROVIDERS: PCP Internal Medicine; Visit Provider Nurse Practitioner Family
DX: I42.8 Other cardiomyopathies (principal)
CPT/HCPCS: 36415; 80048

== ENCOUNTER → 2024-03-12 08:59 | Outpatient (BNVA) | payer OTHER, SELFPAY | PROVIDERS: PCP Internal Medicine; Visit Provider Nurse Practitioner Family | DX: I42.8 Other cardiomyopathies (principal); I10 Essential (primary) hypertension; G47.33 Obstructive sleep apnea (adult) (pediatric); Q25.1 Coarctation of aorta; Z45.018 Encounter for adjustment and management of other part of cardiac pacemaker; Z99.89 Dependence on other enabling machines and devices | CPT/HCPCS: 93280; 99212 ==

== ENCOUNTER 2024-03-12 09:00 | Outpatient (AMB) | payer OTHER, SELFPAY ==
[2024-03-12 09:01] VITALS: BP 122/70; PULSE 78; O2SAT 98; BMI 41.6
--- NOTE | 2024-03-12 09:01 | A.OFFVIS_ITS ---
Vital Signs 03/12/24 09:01 Height 5 ft 6 in Weight 257 lb 15.053 oz BMI 41.6 BP 122/70 Blood Pressure Location Lt brachial Position Sitting Pulse 78 Pulse Source Pulse Oximeter Pulse Oximetry (%) 98 Oxygen Delivery Method Room Air Intake Visit Reasons: [facility] ED f/u Intake Note: [facility] ED F/U PT FEELS GOOD OF TODAY Quick Technician Required: No Allergies corn [CORN] Allergy (Intermediate, Verified 02/26/24 20:40) Rash shrimp [SHRIMP] Allergy (Intermediate, Verified 02/26/24 20:40) ITCHING Medication List - Last Reconciled 03/12/24 by Shayla Booker, BRAND COMMUNICATIONS MANAGER-C atorvastatin 80 mg PO BEDTIME 90 days bupropion HCl XL 150 mg PO QAM carvedilol 3.125 mg PO BID melatonin 5 - 10 mg PO BEDTIME PRN valsartan 40 mg PO BID HPI HPI [facility] ED f/u: Details: James is a 48-year-old male with past medical history of hypertension, obesity, hyperlipidemia, obstructive sleep apnea with CPAP use, nonischemic cardiomyopathy, pacemaker placement, cortication of the aorta status post stenting who was recently seen in the emergency room for chest discomfort and ruled out for ACS. Today he reports that he has not had any recurrent chest discomfort since the day of the ER evaluation. Tells me that day he was going through his finances and that caused him to have chest pain. He does not get chest discomfort normally at rest or with exertion. Tells me his breathing is comfortable. No PND, orthopnea or edema. No heart palpitations, lightheadedness, presyncope, syncope, falls. He has not received a call from the rat poisoner office. He tells me he is leaving next week to go to [place] for 2 months as his is there. He speaks Uzbek and did not request environmental services specialist at this visit. [facility] Medical History Preoperative cardiovascular examination Dyspnea Pain of left thumb Right knee pain NICM (nonischemic cardiomyopathy) MARVIN on CPAP Right atrial thrombus Sleep apnea Coarctation of aorta Right hand pain Supraumbilical hernia Morbid obesity Right elbow pain Hernia of anterior abdominal wall Normally functioning cardiac pacemaker present Depression Hypovitaminosis D Pure hypercholesterolemia Essential hypertension Surgical History Status post wrist surgery H/O carpal tunnel repair History of umbilical hernia repair History of ascending aorta repair History of cataract surgery H/O left wrist surgery History of pacemaker Family History Father Uncontrolled diabetes mellitus Mother Uncontrolled persistent asthma Family/Other FH: mental illness Social History Housing: Apartment Alcohol intake: current Alcohol intake frequency: holidays/special occasions only Alcohol type: hard liquor Patient Tobacco Use Status: Former Tobacco user Tobacco use type: Cigarette Cigarettes Per Day: 3 Years Smoked: 10 e-Cigarette/Vaping Use: Never Used Second Hand Smoke Exposure: No service: No Current occupational status: unemployed and disabled Cognitive needs: No Hearing needs: No Vision needs: No Review of Systems Const All systems reviewed & are unremarkable except as noted in HPI and below Denies weakness ENT Denies dizziness Card Denies chest pain, Denies chest pain with activity, Denies syncope, Denies rapid heart rate, Denies pedal edema, Denies edema, Denies leg edema, Denies lightheadedness, Denies palpitations, Denies dyspnea, Denies dyspnea on exertion and Denies orthopnea Resp Denies cough, Denies dyspnea and Denies dyspnea on exertion GI Denies hematochezia and Denies change in stool character Musc Denies abnormal gait, Denies muscle cramps, Denies muscle weakness, Denies numbn ess, Denies radiating pain into limb and Denies tingling Neuro Denies abnormal gait, Denies dizziness, Denies syncope, Denies numbness, Denies tingling and Denies weakness Endo Denies palpitations Physical Exam Vital Signs: Last Vital Signs Pulse 78 03/12/24 09:01 BP 122/70 03/12/24 09:01 Pulse Ox 98 03/12/24 09:01 Oxygen Delivery Method Room Air 03/12/24 09:01 BMI result Body Mass Index 41.6 Const General: cooperative, healthy appearing, comfortable and no acute distress Orientation/consciousness: patient oriented x3 Neck Neck: Yes normal visual inspection Resp Effort & Inspection: normal respiratory effort Auscultation: clear to auscultation bilaterally, no crackles, no rales, no rhonchi and no wheezes Cardio Jugular venous distension: no JVD Rate: regular rate Rhythm: regular rhythm Heart sounds: S1 normal heart sound present, S2 normal heart sound present, no murmurs and no rubs Neuro General: patient oriented x3 Extrem General: Yes normal to inspection and No no pedal edema Psych Appearance: grossly normal Mental Status: mental status grossly normal Speech and movement: Normal speech and movement present Office Procedures Cardiac Device Check Cardiac Device Check Details: Medtronic dual-chamber pacemaker interrogation today shows battery 1.5 years, atrial threshold 0.875 volts at 0.4 milliseconds, RV threshold 1.25 volts at 0.4 milliseconds, DDDR mode, low rate 60, no VT, no 80 or AF, V paced 99.6% of the time, a paced 53.8% of time activity 5.7 hours per day. [id number] Cardiac Device Check, pacemaker dual lead Procedure code (CPT) selection complete Assessment & Plan Assessment & Plan (1) NICM (nonischemic cardiomyopathy): Code(s): I42.8 - Other cardiomyopathies Category: Medical Plan: History of nonischemic cardiomyopathy. Echocardiogram done 07/05/2022 showed EF 52%. An echo done 10/01/2023 now shows EF 35-40%, no valve abnormalities. He previously reported some shortness of breath and chest discomfort with activity. He also had some chest discomfort at rest. The symptoms have since resolved. His EKG is nondiagnostic for ischemia with V paced rhythm. He has no known history of CAD. He underwent a pharmacological nuclear stress test on 12/11/2023 showing no ischemia, fixed perfusion defect along the inferior wall, distal anterior wall and apex suspected to be artifactual however prior nontransmural infarct of the apex can not be excluded. With his reduced EF and V pacing greater than 99% it is possible that his cardiomyopathy is related to his V pacing. A referral has already been sent to electrophysiology. Today he reports that he has been feeling well overall. He has no concerning symptoms. He has not received a call yet from electrophysiology. Will notify her crepe machine operator. He does not appear fluid overloaded on examination today. Reports taking all his medications as directed. Plan was to change his valsartan over to Entresto however he is leaving in a few days to go to [place] for 2 months. Will hold off on medication changes prior to this trip. Informed him that EP will be calling him. He will need evaluation for a Bi V pacemaker. Signs and symptoms of heart failure reviewed with him. Cardiology follow-up in this office 4 months, sooner if needed. (2) Coarctation of aorta: Comment: Repair June 2019 Code(s): Q25.1 - Coarctation of aorta Category: Medical Plan: History of coartication of the aorta. He underwent angioplasty and intervention in [place]. CTA of the aorta was performed on 08/05/2022 showing widely patent stent in the proximal descending thoracic aorta, no thoracic aortic aneurysm or dissection. Echocardiogram done 10/01/2023 is showing the proximal descending thoracic aorta with 19 mmHg gradient which is less than previously reported. Plan for repeat echo 1 year from last, 2023 (3) Normally functioning cardiac pacemaker present: Code(s): Z95.0 - Presence of cardiac pacemaker Category: Medical Plan: Medtronic dual-chamber pacemaker in place. Office interrogation done today shows device is functioning normally. Remote monitoring in use. Battery 1.5 years. (4) Essential hypertension: Code(s): I10 - Essential (primary) hypertension Category: Medical Plan: Well controlled at this time. No med changes made at this time (5) Obstructive sleep apnea: Code(s): G47.33 - Obstructive sleep apnea (adult) (pediatric) Category: Medical Plan: Compliant with CPAP Plan Time spent on chart review, documentation, interview and assessment Coding Level of Care Code Est Pt Level 4 (74382) Diagnoses NICM (nonischemic cardiomyopathy) I42.8 Coarctation of aorta Q25.1 Normally functioning cardiac pacemaker present Z95.0 Essential hypertension I10 Obstructive sleep apnea G47.33 CPT Codes Cardiac Device Check - Cardiac Device 2: [id number] Cardiac Device Check, pacemaker dual lead ([id number]) Time Spent (min) 30
== END 2024-03-12 09:40 | disposition home or self-care (01) ==
PROVIDERS: PCP Internal Medicine; Visit Provider Nurse Practitioner Family
DX: I42.8 Other cardiomyopathies (principal); Q25.1 Coarctation of aorta; Z95.0 Presence of cardiac pacemaker; I10 Essential (primary) hypertension; G47.33 Obstructive sleep apnea (adult) (pediatric)
CPT/HCPCS: 93280; 99214

== ENCOUNTER → 2024-04-06 14:53 | Outpatient (RCR) | payer OTHER, SELFPAY | END | disposition home or self-care (01) | LOC: HO.OT 10-13 07:49 | PROVIDERS: Visit Provider Physician Assistant | DX: M77.11 Lateral epicondylitis, right elbow (principal) | CPT/HCPCS: 97014; 97033; 97035; 97110; 97140; 97166 ==

== ENCOUNTER → 2024-05-03 23:59 | Outpatient (BNV) | payer MEDICARE, MEDICAID, SELFPAY ==
--- NOTE | 2024-05-06 12:32 | MHC.OFFVIS ---
Intake Visit Reasons: Remote Device Check- Medtronic Allergies corn [CORN] Allergy (Intermediate, Verified 02/26/24 20:40) Rash shrimp [SHRIMP] Allergy (Intermediate, Verified 02/26/24 20:40) ITCHING PFSH Medical History Preoperative cardiovascular examination Dyspnea Pain of left thumb Right knee pain NICM (nonischemic cardiomyopathy) MARVIN on CPAP Right atrial thrombus Sleep apnea Coarctation of aorta Right hand pain Supraumbilical hernia Morbid obesity Right elbow pain Hernia of anterior abdominal wall Normally functioning cardiac pacemaker present Depression Hypovitaminosis D Pure hypercholesterolemia Essential hypertension Surgical History Status post wrist surgery H/O carpal tunnel repair History of umbilical hernia repair History of ascending aorta repair History of cataract surgery H/O left wrist surgery History of pacemaker Family History Father Uncontrolled diabetes mellitus Mother Uncontrolled persistent asthma Family/Other FH: mental illness Social History Housing: Apartment Alcohol intake: current Alcohol intake frequency: holidays/special occasions only Alcohol type: hard liquor Patient Tobacco Use Status: Former Tobacco user Tobacco use type: Cigarette Cigarettes Per Day: 3 Years Smoked: 10 e-Cigarette/Vaping Use: Never Used Second Hand Smoke Exposure: No service: No Current occupational status: unemployed and disabled Cognitive needs: No Hearing needs: No Vision needs: No Office Procedures Cardiac Device Check Cardiac Device Check Details: Date of service- 05/03/2024 ; Battery life 1 year; normal lead parameters; AP 35.7%; SCHOOL ADJUSTMENT COUNSELOR 98.1%; no significant arrhythmias. Overall normal device function. [id number] Cardiac Device Interrogation, pacemaker Procedure code (CPT) selection complete Assessment & Plan Assessment & Plan (1) NICM (nonischemic cardiomyopathy): Code(s): I42.8 - Other cardiomyopathies Category: Medical (2) Normally functioning cardiac pacemaker present: Code(s): Z95.0 - Presence of cardiac pacemaker Category: Medical Plan x Coding Level of Care Code Procedure Only Diagnoses NICM (nonischemic cardiomyopathy) I42.8 Normally functioning cardiac pacemaker present Z95.0 CPT Codes Cardiac Device Check - Cardiac Device 12: [id number] Cardiac Device Interrogation, pacemaker ([id number])
== END ==
PROVIDERS: PCP Internal Medicine; Visit Provider Internal Medicine
DX: I42.8 Other cardiomyopathies (principal); Z95.0 Presence of cardiac pacemaker
CPT/HCPCS: 93294

== ENCOUNTER 2024-08-24 14:43 | Outpatient (AMB) | payer OTHER, SELFPAY ==
[2024-08-24 15:17] VITALS: BP 132/70; PULSE 69; BMI 40.8
--- NOTE | 2024-08-24 15:17 | MHC.OFFVIS ---
Vital Signs 08/24/24 15:17 Height 5 ft 6 in Weight 253 lb 1.451 oz BMI 40.8 BP 132/70 Blood Pressure Location Lt brachial Position Sitting Pulse 69 Pulse Source Pulse Oximeter Intake Visit Reasons: 4m follow up w device ck Derrick Builder Required: Yes Derrick Builder Language: Gathering Machine Setter Services: Derrick Builder Present Business Solutions Consultant: Business Solutions Consultant Present Allergies corn [CORN] Allergy (Intermediate, Verified 08/24/24 15:19) Rash shrimp [SHRIMP] Allergy (Intermediate, Verified 08/24/24 15:19) ITCHING Medication List - Last Reconciled 08/24/24 by Shayla Booker, MANUFACTURING ENGINEERING PROFESSOR-C atorvastatin 80 mg PO BEDTIME 90 days bupropion HCl XL 150 mg PO QAM carvedilol 3.125 mg PO BID valsartan 40 mg PO BID 90 days HPI HPI 4m follow up w device ck: Details: James is a 48-year-old male with past medical history of hypertension, obesity, hyperlipidemia, obstructive sleep apnea with CPAP use, nonischemic cardiomyopathy, pacemaker placement, 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 Today he reports that he has been doing well since his last visit in March. He has not had any exertional chest discomfort. He reports brief pains across his chest that occur randomly when last seconds. No shortness of breath, PND, orthopnea or edema. No heart palpitations, lightheadedness, presyncope, syncope, falls. He has an appointment with the counter intelligence agent on 09/10/2024. Sister is present. Certified translator/interpreter used [facility] Medical History Preoperative cardiovascular examination Dyspnea Pain of left thumb Right knee pain NICM (nonischemic cardiomyopathy) MARVIN on CPAP Right atrial thrombus Sleep apnea Coarctation of aorta Right hand pain Supraumbilical hernia Morbid obesity Right elbow pain Hernia of anterior abdominal wall Normally functioning cardiac pacemaker present Depression Hypovitaminosis D Pure hypercholesterolemia Essential hypertension Surgical History Status post wrist surgery H/O carpal tunnel repair History of umbilical hernia repair History of ascending aorta repair History of cataract surgery H/O left wrist surgery History of pacemaker Family History Father Uncontrolled diabetes mellitus Mother Uncontrolled persistent asthma Family/Other FH: mental illness Social History Housing: Apartment Alcohol intake: current Alcohol intake frequency: holidays/special occasions only Alcohol type: hard liquor Patient Tobacco Use Status: Former Tobacco user Tobacco use type: Cigarette Cigarettes Per Day: 3 Years Smoked: 10 e-Cigarette/Vaping Use: Never Used Second Hand Smoke Exposure: No service: No Current occupational status: unemployed and disabled Cognitive needs: No Hearing needs: No Vision needs: No Review of Systems Const All systems reviewed & are unremarkable except as noted in HPI and below ENT Denies dizziness Card Denies chest pain, Denies chest pain at rest, Denies chest pain with activity, Denies rapid heart rate, Denies pedal edema, Denies edema, Denies leg edema, Denies lightheadedness, Denies palpitations, Denies dyspnea, Denies dyspnea on exertion and Denies orthopnea Resp Denies cough, Denies dyspnea and Denies dyspnea on exertion GI Denies hematochezia and Denies change in stool character Musc Denies abnormal gait, Denies limited range of motion, Denies muscle cramps, Denies muscle weakness, Denies numbness, Denies radiating pain into limb, Denies stiffness and Denies tingling Neuro Denies abnormal gait, Denies dizziness, Denies numbness and Denies tingling Endo Denies palpitations Physical Exam Vital Signs: Last Vital Signs Pulse 69 08/24/24 15:17 BP 132/70 08/24/24 15:17 BMI result Body Mass Index 40.8 Const General: cooperative, healthy appearing, comfortable and no acute distress Orientation/consciousness: patient oriented x3 Neck Neck: Yes normal visual inspection Resp Effort & Inspection: normal respiratory effort Auscultation: clear to auscultation bilaterally, no crackles, no rales, no rhonchi and no wheezes Cardio Jugular venous distension: no JVD Rate: regular rate Rhythm: regular rhythm Heart sounds: S1 normal heart sound present, S2 normal heart sound present, no murmurs and no rubs Neuro General: patient oriented x3 Extrem General: Yes normal to inspection, No no pedal edema and No calf tenderness Psych Appearance: grossly normal Mental Status: mental status grossly normal Speech and movement: Normal speech and movement present Office Procedures Cardiac Device Check Cardiac Device Check Details: Medtronic dual-chamber pacemaker interrogation today, battery 11 months, DDDR mode, low rate 60, 1 episode NSVT, 2nd 05/20/2024, 1 episodes of atrial flutter on 05/09/2024 lasting 19 hours 19 minutes, atrial rate 305, ventricular rate 69, V paced 98.8% right atrial threshold 0.75 volts at 0.4 milliseconds, RV threshold 1.5 volts at 0.4 millisecond. [id number] Cardiac Device Check, pacemaker dual lead Procedure code (CPT) selection complete Assessment & Plan Assessment & Plan (1) NICM (nonischemic cardiomyopathy): Code(s): I42.8 - Other cardiomyopathies Category: Medical Plan: History of nonischemic cardiomyopathy. Echocardiogram done 07/05/2022 showed EF 52%. An echo done 10/01/2023 showed EF 35-40%, no valve abnormalities. He has no known history of CAD. He underwent a pharmacological nuclear stress test on 12/11/2023 showing no ischemia, fixed perfusion defect along the inferior wall, distal anterior wall and apex suspected to be artifactual however prior nontransmural infarct of the apex can not be excluded. With his reduced EF and V pacing greater than 99% it is possible that his cardiomyopathy is related to his V pacing. A referral to electrophysiology for evaluation. He may need a Bi V device.. He does have an upcoming appointment on 09/10/2024. At this time he is feeling well overall. He has no concerning symptoms. He does not appear fluid overloaded on examination today. He continues on valsartan and carvedilol for neurohormonal modulation. Will check an echocardiogram to assess EF. Will try to get prior to his EP appointment. Signs and symptoms of heart failure reviewed with him. Cardiology follow-up in this office 6 months, sooner if needed. (2) Coarctation of aorta: Comment: Repair June 2019 Code(s): Q25.1 - Coarctation of aorta Category: Medical Plan: History of coartication of the aorta. He underwent angioplasty and intervention in [place]. CTA of the aorta was performed on 08/05/2022 showing widely patent stent in the proximal descending thoracic aorta, no thoracic aortic aneurysm or dissection. Echocardiogram done 10/01/2023 is showing the proximal descending thoracic aorta with 19 mmHg gradient which is less than previously reported. Rechecking echocardiogram as above. (3) Normally functioning cardiac pacemaker present: Code(s): Z95.0 - Presence of cardiac pacemaker Category: Medical Plan: Medtronic dual-chamber pacemaker in place. Office interrogation done today shows device is functioning normally. Battery 11 months. Remote monitoring in use. Next office interrogation in 6 months. (4) Essential hypertension: Code(s): I10 - Essential (primary) hypertension Category: Medical Plan: Well controlled at this time. No med changes made at this time (5) Obstructive sleep apnea: Code(s): G47.33 - Obstructive sleep apnea (adult) (pediatric) Category: Medical Plan: Compliant with CPAP (6) Atrial flutter: Code(s): I48.92 - Unspecified atrial flutter Category: Medical Plan: Device check today shows an episode of atrial flutter lasting 19 hours and 19 minutes occurring on 05/09/2024, atrial rate 305, ventricular rate 69. This did not show up on remote monitoring as he was not connected due to a change in his monitoring system. He does not recall any symptoms or specific illness at that time. He is carvedilol to help with heart rate control. He does have sleep apnea which is being treated. Diagnosis of paroxysmal atrial flutter, stroke risk with a flutter and need for anticoagulation reviewed with him. He denies any history of bleeding issues. Labs done 02/26/2024 showed hematocrit 41.6, labs 03/02/2024 showed Creatinine 0.84. Chads Vasc score of 2 to 3, ( chf, htn, vascular disease). Will start on Xarelto 20 mg daily. Instructed him to obtain repeat labs in 2 weeks. Instructed to call if any bleeding issues noted. Will continue to follow his device with remote monitoring. [facility]iscussed with [facility] and a new home monitor will be sent to his house. Plan Time spent on chart review, documentation, interview and assessment Orders: Orders Comprehensive Met. Panel Today I48.92 - Unspecified atrial flutter Lipid Panel Today I42.8 - Other cardiomyopathies CA echo transthoracic complete Today I42.8 - Other cardiomyopathies Complete Blood Count Auto Diff Today I48.92 - Unspecified atrial flutter Medications: New rivaroxaban (Xarelto) must administer with evening meal Anticoagulant 20 mg PO DAILY 30 tabs 5RF Coding Level of Care Code Est Pt Level 4 (74302) Complex EM visit Add On G2211 Diagnoses NICM (nonischemic cardiomyopathy) I42.8 Coarctation of aorta Q25.1 Normally functioning cardiac pacemaker present Z95.0 Essential hypertension I10 Obstructive sleep apnea G47.33 Atrial flutter I48.92 CPT Codes Cardiac Device Check - Cardiac Device 2: [id number] Cardiac Device Check, pacemaker dual lead ([id number]) Time Spent (min) 36
== END 2024-08-24 16:13 | disposition home or self-care (01) ==
PROVIDERS: PCP Internal Medicine; Visit Provider Nurse Practitioner Family
DX: I42.8 Other cardiomyopathies (principal); Q25.1 Coarctation of aorta; Z95.0 Presence of cardiac pacemaker; I10 Essential (primary) hypertension; G47.33 Obstructive sleep apnea (adult) (pediatric); I48.92 Unspecified atrial flutter
CPT/HCPCS: 93280; 99214; G2211

== ENCOUNTER → 2024-08-24 14:43 | Outpatient (BNVA) | payer OTHER, SELFPAY | PROVIDERS: PCP Internal Medicine; Visit Provider Nurse Practitioner Family | DX: I42.8 Other cardiomyopathies (principal); Q25.1 Coarctation of aorta; I10 Essential (primary) hypertension; I48.92 Unspecified atrial flutter; G47.33 Obstructive sleep apnea (adult) (pediatric); Z45.018 Encounter for adjustment and management of other part of cardiac pacemaker; Z99.89 Dependence on other enabling machines and devices | CPT/HCPCS: 93280; 99212 ==

== ENCOUNTER → 2024-08-28 23:59 | Outpatient (BNV) | payer OTHER, SELFPAY ==
--- NOTE | 2024-08-31 19:00 | MHC.OFFVIS ---
Intake Visit Reasons: Remote Device Check- Medtronic Allergies corn [CORN] Allergy (Intermediate, Verified 08/24/24 15:19) Rash shrimp [SHRIMP] Allergy (Intermediate, Verified 08/24/24 15:19) ITCHING PFSH Medical History Preoperative cardiovascular examination Dyspnea Pain of left thumb Right knee pain NICM (nonischemic cardiomyopathy) MARVIN on CPAP Right atrial thrombus Sleep apnea Coarctation of aorta Right hand pain Supraumbilical hernia Morbid obesity Right elbow pain Hernia of anterior abdominal wall Normally functioning cardiac pacemaker present Depression Hypovitaminosis D Pure hypercholesterolemia Essential hypertension Surgical History Status post wrist surgery H/O carpal tunnel repair History of umbilical hernia repair History of ascending aorta repair History of cataract surgery H/O left wrist surgery History of pacemaker Family History Father Uncontrolled diabetes mellitus Mother Uncontrolled persistent asthma Family/Other FH: mental illness Social History Housing: Apartment Alcohol intake: current Alcohol intake frequency: holidays/special occasions only Alcohol type: hard liquor Patient Tobacco Use Status: Former Tobacco user Tobacco use type: Cigarette Cigarettes Per Day: 3 Years Smoked: 10 e-Cigarette/Vaping Use: Never Used Second Hand Smoke Exposure: No service: No Current occupational status: unemployed and disabled Cognitive needs: No Hearing needs: No Vision needs: No Office Procedures Cardiac Device Check Cardiac Device Check Details: Date of service- 08/28/2024 ; Battery life 11 months; normal lead parameters; AP 51%; POWER LINEMAN TECHNICIAN >99%; no significant arrhythmias. Overall normal device function. [id number] Cardiac Device Interrogation, pacemaker Procedure code (CPT) selection complete Assessment & Plan Assessment & Plan (1) Normally functioning cardiac pacemaker present: Code(s): Z95.0 - Presence of cardiac pacemaker Category: Medical (2) NICM (nonischemic cardiomyopathy): Code(s): I42.8 - Other cardiomyopathies Category: Medical Plan x Coding Level of Care Code Procedure Only Diagnoses Normally functioning cardiac pacemaker present Z95.0 NICM (nonischemic cardiomyopathy) I42.8 CPT Codes Cardiac Device Check - Cardiac Device 12: [id number] Cardiac Device Interrogation, pacemaker ([id number])
== END ==
PROVIDERS: PCP Internal Medicine; Visit Provider Internal Medicine
DX: I42.8 Other cardiomyopathies (principal); Z95.0 Presence of cardiac pacemaker
CPT/HCPCS: 93294

== ENCOUNTER 2024-09-01 11:02 | Emergency (ER) | payer OTHER, SELFPAY ==
--- NOTE | ~2024-09-01 | XR_ITS ---
EXAMINATION: XR CHEST CLINICAL INFORMATION: Chest pain COMPARISON: Chest radiograph 02/26/2024 TECHNIQUE: PA and lateral views of the chest were obtained. FINDINGS: MRI compatible left subclavian pacemaker with leads overlying the right atrium and right ventricle. TAVR in place. The lungs are adequately expanded. Mild asymmetric elevation of the right hemidiaphragm, as before. No focal consolidation, pleural effusion, pulmonary edema or pneumothorax. The cardiomediastinal silhouette is within normal limits for technique and unchanged. No acute osseous abnormality. XR/XR chest 2V IMPRESSION: No acute pulmonary disease. No significant interval change compared to 02/26/2024. Electronically signed by: Nereida Clifton DO 09/01/2024 03:23 PM EDT
--- NOTE | 2024-09-01 11:03 | ECG_ITS ---
Test Reason : CP Blood Pressure : / mmHG Vent. Rate : 066 BPM Atrial Rate : 066 BPM P-R Int : 206 ms QRS Dur : 160 ms QT Int : 458 ms P-R-T Axes : 037 -66 076 degrees QTc Int : 480 ms AV dual-paced rhythm Abnormal ECG When compared with ECG of 26-FEB-2024 20:23, Vent. rate has decreased BY 4 BPM Referred By: Freda Banks Electronically Signed By:Khang Marie
[2024-09-01 11:10] VITALS: BP 142/76; PULSE 75; RESP 20; TEMP 36.3; O2SAT 98; BMI 41.2
--- NOTE | 2024-09-01 11:11 | ED_ITS ---
HPI - Chest Pain General Chief Complaint: Chest Pain Stated Complaint: Chest pain Time Seen by Provider: 09/01/24 11:51 Source: patient and old records reviewed Mode of arrival: ambulatory Limitations: no limitations History of Present Illness ED Provider: RICK العلي narrative: 48 yo male with PMH of NICM, aflutter on xarelto, MARVIN on CPAP, HTN, depression, coarctation of aorta, HLD here with c/o 4 days of cough and chest pain on L side feels mildly short of breath. He denies fevers, has some mucous. He notes no increased pain with exertion. This AM the pain was worse he was sitting down so he came to get checked out. He is compliant with all medications. He has not traveled or had any recent procedures. He has had chest pain in the past with negative work ups. It does hurt to touch his chest. MD complaint: chest pain Onset (ago): day(s) (4) Timing of current episode: episodic Prior episodes: Yes Onset: during rest Pain location: left chest Pain radiation: none Severity: moderate Quality: aching Relieving factors: nothing Exacerbating factors: palpation Context: recent illness Associated symptoms: dyspnea and cough Treatment prior to arrival: none Related Data Previous Rx's ?Medication ?Instructions ?Recorded atorvastatin 80 mg tablet 80 mg PO BEDTIME 90 days #90 tabs 08/02/24 bupropion HCl 150 mg 24 hr tablet, 150 mg PO QAM #30 tabs 08/02/24 extended release carvedilol 3.125 mg tablet 3.125 mg PO BID #180 tabs 08/02/24 valsartan 40 mg tablet 40 mg PO BID 90 days #180 tabs 08/02/24 rivaroxaban 20 mg tablet (Xarelto) 20 mg PO DAILY #30 tabs 08/24/24 Allergies Allergy/AdvReac Type Severity Reaction Status Date / Time corn [CORN] Allergy Intermediate Rash Verified 09/01/24 11:14 shrimp [SHRIMP] Allergy Intermediate ITCHING Verified 09/01/24 11:14 Review of Systems 2 Review of Systems: Constitutional : No Weight loss, No Fever, No Chills ENT/Mouth : No sore throat, No Rhinorrhea Eyes: No Eye Pain, No Swelling Cardiovascular : pos Chest Pain, pos SOB, no Dyspnea on Exertion, No Orthopnea, No Edema, No Palpitations Respiratory : pos Cough, No Sputum Gastrointestinal : no Nausea, No Vomiting, No Diarrhea, No abdominal Pain, No Hematochezia, No Melena Genitourinary : No Dysuria, No Urinary Frequency Musculoskeletal : No joint pain, No Myalgias, No Joint Swelling Skin : No Skin Lesions, No rash Neuro : No Weakness, No Numbness, No Dizziness, No Headache Psych : No Anxiety/Panic, No Depression All other systems reviewed and are negative [facility] Past Medical History Attestation statement: The following information was validated with the patient. Source: old records reviewed Medical History Preoperative cardiovascular examination Dyspnea Pain of left thumb Right knee pain NICM (nonischemic cardiomyopathy) MARVIN on CPAP Right atrial thrombus Sleep apnea Coarctation of aorta Right hand pain Supraumbilical hernia Morbid obesity Right elbow pain Hernia of anterior abdominal wall Normally functioning cardiac pacemaker present Depression Hypovitaminosis D Pure hypercholesterolemia Essential hypertension Surgical History Status post wrist surgery H/O carpal tunnel repair History of umbilical hernia repair History of ascending aorta repair History of cataract surgery H/O left wrist surgery History of pacemaker Family History Family History Father Uncontrolled diabetes mellitus Mother Uncontrolled persistent asthma Family/Other FH: mental illness Social History Social History Housing: Apartment Alcohol intake: current Alcohol intake frequency: holidays/special occasions only Alcohol type: hard liquor Patient Tobacco Use Status: Former Tobacco user Tobacco use type: Cigarette Cigarettes Per Day: 3 Years Smoked: 10 Smoked in Last 30 Days: No e-Cigarette/Vaping Use: Never Used Second Hand Smoke Exposure: No Use of substances other than those prescribed or required for medical reasons: No Advance Directives: No Advance Directives Information Provided: Yes service: No Current occupational status: unemployed and disabled Cognitive needs: No Hearing needs: No Vision needs: No Physical Exam 2 Vital Signs: Vital Signs: Last Vital Signs Temp 98.9 F 09/01/24 14:00 Pulse 64 09/01/24 14:00 Resp 18 09/01/24 14:00 BP 127/54 L 09/01/24 14:00 Pulse Ox 98 09/01/24 14:00 O2 Del Method Room Air 09/01/24 14:00 BMI result Body Mass Index 41.2 Appearance: Alert. Oriented X3. No acute distress. Eyes: Pupils equal, round and reactive to light. ENT: Pharynx normal. Neck: Normal inspection. Neck supple. CVS: Normal heart rate and rhythm. Pulses normal. Chest wall: ttp along L chest reproduces pain Respiratory: No respiratory distress. Breath sounds normal. Abdomen: Soft and nontender. Skin: Skin warm and dry. Normal skin color. Normal skin turgor. Extremities: No lower extremity edema. No calf ttp Neuro: Oriented X 3. No motor deficit. No sensory deficit. Course Course Course Narrative: This is an RME: Additional HPI, ROS, PE not included below will be deferred to primary provider. RME assessment and note performed by: Freda Banks PA-C This is a 13-xgcb-f[age]-male, with a hx of nonischemic cardiomyopathy with pacemaker, who presents to the ER with complaints of chest pain x 1 week. Reporting pain worsens with deep inspiration. Nonradiating pain. Reports that he has had a cough for 1 month. Reporting some SOB. Plan: Labs, EKG, Cxr Medications Administered Discontinued Medications Generic Name Dose Route Start Last Admin Trade Name Freq PRN Reason Stop Dose Admin Oxycodone HCl 5 mg 09/01/24 12:13 09/01/24 12:18 Oxycodone Hcl Immed Release 5 Mg Tablet PO 09/01/24 12:14 5 mg ONCE ONE Administration Medical Decision Making Medical Decision Making MDM Narrative: 48 yo male with PMH of NICM, aflutter on xarelto, MARVIN on CPAP, HTN, depression, coarctation of aorta, HLD here with c/o chest pain and cough x 4 days he has mild dyspnea he is compliant with all of his medications at this time not toxic pain is reproduceable he will need basic labs, troponin x 2, CXR - PO pain medications. It is not related to exertion. I can reproduce it. Could be MSK pain vs atypical chest pain vs viral syndrome vs ACS - doubt VTE he is compliant with xarelto. Differential Diagnosis Differential Diagnoses: The differential diagnosis associated with the presentation includes atypical chest pain, bronchitis, viral syndrome, ACS doubt VTE compliant with xarelto Admission/Observation Consideration of admission/observation: Escalation of care including admission/observation considered trop flat x 2, no acute changes, CXR negative viral panel negative Lab Data MDM Lab Attestation statement: I reviewed the patient's lab results. 09/01/24 12:30 09/01/24 12:30 Labs: Lab Results 09/01/24 09/01/24 09/01/24 Range/Units 11:41 12:30 13:36 WBC 10.0 (4.8-10.8) X10*3/uL RBC 4.34 L (4.60-5.80) X10*6/uL Hgb 13.9 L (14.0-18.0) g/dl Hct 40.6 L (42.0-52.0) % MCV 93.5 (80.0-98.0) fL MCH 32.0 (27.0-33.0) pg MCHC 34.2 (31.0-36.0) g/dl RDW 13.2 (11.0-16.0) % Plt Count 208 (160-400) X10*3/uL MPV 10.1 (9.4-12.4) fL Immature Gran % (Auto) 0.3 (0.0-0.4) % Neut % (Auto) 52.9 (45-73) % Lymph % (Auto) 30.3 (20-40) % [place] % (Auto) 10.8 (2-11) % Eos % (Auto) 5.1 H (0-4) % Baso % (Auto) 0.6 (0-2) % Lymph # (Auto) 3.0 (1.2-4.9) X10*3/uL [place] # (Auto) 1.1 (0.1-1.2) X10*3/uL Eos # (Auto) 0.5 H (0.0-0.4) X10*3/uL Baso # (Auto) 0.1 (0.0-0.2) X10*3/uL Abs Immat Gran (auto) 0.03 (0.00-0.03) X10*3/uL Absolute Neuts (auto) 5.3 (2.0-8.3) x10*3/uL Absolute Nucleated RBC 0.000 (0.0-0.012) X10*3/uL Nucleated RBC % (auto) 0.0 (0.0-0.2) /100WBC PT 11.7 (10.9-12.4) SEC INR 1.0 (0.9-1.1) Sodium 139 (135-145) mmol/L Potassium 4.2 (3.3-5.1) mmol/L Chloride 108 (96-108) mmol/L Carbon Dioxide 25 (22-29) mmol/L Anion Gap 10 L (12-20) BUN 13 (9-16) mg/dL Creatinine 0.82 (0.5-1.4) mg/dL Estim Creat Clear Calc 133.1 Estimated GFR > 60 Random Glucose 95 (60-115) mg/dL Calcium 9.6 (8.4-10.2) mg/dL Magnesium 2.1 (1.6-2.6) mg/dL Total Bilirubin 0.2 (0.0-1.0) mg/dL Direct Bilirubin < 0.2 (0.0-0.5) mg/dL AST 36 (5-37) U/L ALT 72 H (0-40) U/L Alkaline Phosphatase 79 (39-117) U/L Troponin I High Sens 40.2 H 45.8 H (<3.5-35.0) ng/L B-Natriuretic Peptide 89 (<100) pg/mL Total Protein 7.5 (6.5-8.0) g/dL Albumin 3.8 (3.5-5.0) g/dL Influenza Type A (PCR) NEGATIVE (Negative) Influenza Type B (PCR) NEGATIVE (Negative) RSV RNA Qual (PCR) NEGATIVE (Negative) SARS-CoV-2 RNA (RT-PCR) NEGATIVE (Negative) Independent Interpretation I performed an independent interpretation of an: EKG and Plain X-Ray (normal ) Interpretation: Rate: 66 Rhythm: v paced [place]: left Normal P waves. 1st degree AVB Normal QRS complex. ST T wave : no AYAKA qTC: 480 prior studies: paced The study has been interpreted contemporaneously by me. . Radiology Impression Discussion of test interpretation with radiology: I have reviewed the radiologist's reading. Independent Historian Clinical information obtained from an independent historian. History obtained from or confirmed by: Spouse External Record Review External record reviewed: Outpatient record Discharge Plan Discharge Clinical Impression: Atypical chest pain Patient Disposition: Home, Self-Care Instructions: Chest Pain (ED) Additional Instructions: EKG and chest xray normal repeat tests for the heart at baseline and at your range please follow up with your oral health therapist return for any worsening symptoms or concerns Prescriptions: No Action atorvastatin 80 mg tablet 80 mg PO BEDTIME 90 Days Qty: 90 0RF bupropion HCl 150 mg tablet extended release 24 hr 150 mg PO QAM Qty: 30 1RF carvedilol 3.125 mg tablet 3.125 mg PO BID Qty: 180 0RF valsartan 40 mg tablet 40 mg PO BID 90 Days Qty: 180 0RF Rx Instructions: Replaces Lisinopril Xarelto 20 mg tablet 20 mg PO DAILY Qty: 30 5RF Rx Instructions: must administer with evening meal Anticoagulant Print Language: Prydeinig
[2024-09-01 11:55] LABS: Prothrombin Time 11.7 SEC (10.9-12.4)
[2024-09-01 12:09] VITALS: RESP 20
[2024-09-01 12:18] LABS: Troponin-I High Sensitivity 40.2 ng/L (<3.5-35.0)
[2024-09-01] MEDS: oxyCODONE HCl Immed Release 5 MG TABLET PO (12:18)
[2024-09-01 12:26] LABS: Influenza A PCR NEGATIVE (Negative); Influenza B PCR NEGATIVE (Negative); Resp Syncy Virus RNA Qual PCR NEGATIVE (Negative); SARS COV2 PCR INHOUSE NEGATIVE (Negative)
[2024-09-01 12:37] LABS: Basophils Absolute Auto 0.1 X10*3/uL (0.0-0.2); Basophils Percent Auto 0.6 % (0-2); Eosinophils Absolute Auto 0.5 X10*3/uL (0.0-0.4); Eosinophils Percent Auto 5.1 % (0-4); Hematocrit 40.6 % (42.0-52.0); Hemoglobin 13.9 g/dl (14.0-18.0); Imm Gran Abs Auto 0.03 X10*3/uL (0.00-0.03); Imm Gran Pct Auto 0.3 % (0.0-0.4); Lymphocytes Percent Auto 30.3 % (20-40); Mean Corpuscular HGB Conc 34.2 g/dl (31.0-36.0); Mean Corpuscular Volume 93.5 fL (80.0-98.0); Mean Platelet Volume 10.1 fL (9.4-12.4); Monocytes Absolute Auto 1.1 X10*3/uL (0.1-1.2); Monocytes Percent Auto 10.8 % (2-11); Neutrophils Absolute Auto 5.3 x10*3/uL (2.0-8.3); Neutrophils Percent Auto 52.9 % (45-73); Platelet Count 208 X10*3/uL (160-400); Red Blood Count 4.34 X10*6/uL (4.60-5.80); Red Cell Distribution Width 13.2 % (11.0-16.0)
[2024-09-01 12:51] LABS: Alanine Aminotransferase 72 U/L (0-40); Albumin Level 3.8 g/dL (3.5-5.0); Alkaline Phosphatase 79 U/L (39-117); Anion Gap 10 (12-20); Aspartate Amino Transferase 36 U/L (5-37); Bilirubin Direct < 0.2 mg/dL (0.0-0.5); Bilirubin Total 0.2 mg/dL (0.0-1.0); Blood Urea Nitrogen 13 mg/dL (9-16); Calcium 9.6 mg/dL (8.4-10.2); Carbon Dioxide 25 mmol/L (22-29); Chloride 108 mmol/L (96-108); Creatinine Clr Calc Pharmacy 133.1; Estimated Glomerular Filt Rate > 60; Glucose Random 95 mg/dL (60-115); Magnesium 2.1 mg/dL (1.6-2.6); Potassium 4.2 mmol/L (3.3-5.1); Sodium 139 mmol/L (135-145); Total Protein 7.5 g/dL (6.5-8.0)
[2024-09-01 12:56] LABS: B Type Natriuretic Peptide 89 pg/mL (<100)
[2024-09-01 14:00] VITALS: BP 127/54; PULSE 64; RESP 18; TEMP 37.2; O2SAT 98
[2024-09-01 14:03] LABS: Troponin-I High Sensitivity 45.8 ng/L (<3.5-35.0)
--- NOTE | 2024-09-01 14:11 | PC.NURSE ---
patient ambulatory with steady gait to bathroom.
[2024-09-01 15:35] VITALS: BP 134/68; PULSE 67; RESP 18; TEMP 36.8; O2SAT 99
== END 2024-09-01 15:40 | disposition home or self-care (01) ==
PROVIDERS: Physician Assistant Medical; Emergency Provider Emergency Medicine; PCP Internal Medicine
DX: R07.89 Other chest pain (principal); R06.02 Shortness of breath; R05.9 Cough, unspecified; R06.00 Dyspnea, unspecified; I10 Essential (primary) hypertension; E78.00 Pure hypercholesterolemia, unspecified; Z87.891 Personal history of nicotine dependence; Z03.818 Encounter for observation for suspected exposure to other biological agents ruled out; Z79.02 Long term (current) use of antithrombotics/antiplatelets; Z79.899 Other long term (current) drug therapy
CPT/HCPCS: 0241U; 36415; 71046; 80048; 80076; 83735; 83880; 84484; 85025; 85610; 93005; 99283; 99285

== ENCOUNTER → 2024-09-01 11:03 | Outpatient (BNV) | payer OTHER, SELFPAY | PROVIDERS: Emergency Provider Emergency Medicine; PCP Internal Medicine; Visit Provider Internal Medicine Cardiovascular Disease | DX: R07.9 Chest pain, unspecified (principal) | CPT/HCPCS: 93010 ==

== ENCOUNTER 2024-09-10 07:03 | Outpatient (REF) | payer OTHER, SELFPAY ==
[2024-09-10 07:19] LABS: MANUAL DIFF FLAG NO
[2024-09-10 08:16] LABS: Basophils Absolute Auto 0.1 X10*3/uL (0.0-0.2); Basophils Percent Auto 0.7 % (0-2); Eosinophils Absolute Auto 0.3 X10*3/uL (0.0-0.4); Eosinophils Percent Auto 3.6 % (0-4); Hematocrit 42.3 % (42.0-52.0); Hemoglobin 13.9 g/dl (14.0-18.0); Imm Gran Abs Auto 0.02 X10*3/uL (0.00-0.03); Imm Gran Pct Auto 0.2 % (0.0-0.4); Lymphocytes Absolute Auto 2.6 X10*3/uL (1.2-4.9); Lymphocytes Percent Auto 28.6 % (20-40); Mean Corpuscular HGB Conc 32.9 g/dl (31.0-36.0); Mean Corpuscular Hemoglobin 31.4 pg (27.0-33.0); Mean Corpuscular Volume 95.5 fL (80.0-98.0); Mean Platelet Volume 10.8 fL (9.4-12.4); Monocytes Absolute Auto 0.9 X10*3/uL (0.1-1.2); Neutrophils Absolute Auto 5.1 x10*3/uL (2.0-8.3); Neutrophils Percent Auto 56.9 % (45-73); Platelet Count 192 X10*3/uL (160-400); Red Blood Count 4.43 X10*6/uL (4.60-5.80); Red Cell Distribution Width 13.2 % (11.0-16.0)
[2024-09-10 08:57] LABS: Alanine Aminotransferase 65 U/L (0-40); Albumin Level 3.8 g/dL (3.5-5.0); Anion Gap 15 (12-20); Aspartate Amino Transferase 40 U/L (5-37); Bilirubin Total 0.3 mg/dL (0.0-1.0); Blood Urea Nitrogen 13 mg/dL (9-16); Calcium 8.8 mg/dL (8.4-10.2); Carbon Dioxide 20 mmol/L (22-29); Chloride 109 mmol/L (96-108); Cholesterol 197 mg/dL (<200); Estimated Glomerular Filt Rate > 60; Glucose Fasting 115 mg/dL (60-99); HDL Cholesterol 33 mg/dL (>40); LDL Cholesterol Calculated 142 mg/dL (<100); Sodium 140 mmol/L (135-145); Total Protein 7.6 g/dL (6.5-8.0); Triglycerides 112 mg/dL (<150)
[2024-09-10 09:02] LABS: Alkaline Phosphatase 76 U/L (39-117)
[2024-09-10 09:17] LABS: TSH reflex Free T4 5.37 uIU/mL (0.32-4.0)
== END 2024-09-10 07:04 | disposition home or self-care (01) ==
LOC: HO.LAB 07:03
PROVIDERS: Internal Medicine; Nurse Practitioner Family; PCP Internal Medicine; Visit Provider Nurse Practitioner Family
DX: E78.00 Pure hypercholesterolemia, unspecified (principal); R79.89 Other specified abnormal findings of blood chemistry; I42.8 Other cardiomyopathies; I48.92 Unspecified atrial flutter
CPT/HCPCS: 36415; 80053; 80061; 84439; 84443; 85025

== ENCOUNTER 2024-09-23 08:05 | Outpatient (AMB) | payer OTHER, SELFPAY ==
--- NOTE | 2024-09-23 08:26 | MHC.PC.OV ---
Vital Signs 09/23/24 08:27 09/23/24 08:47 Height 5 ft 6 in Weight 248 lb BMI 40.0 BP 140/86 H 130/80 Blood Pressure Location Lt brachial Lt brachial Position Sitting Sitting Pulse 95 Pulse Source Pulse Oximeter Pulse Oximetry (%) 98 Oxygen Delivery Method Room Air Intake Visit Reasons: follow up Allergies corn [CORN] Allergy (Intermediate, Verified 09/23/24 08:28) Rash shrimp [SHRIMP] Allergy (Intermediate, Verified 09/23/24 08:28) ITCHING Tobacco use date assessed: 09/23/24 Dental Screening Dental Screen Date: 09/23/24 Did you have a dental visit in the last 12 months?: Yes Did you have a dental problem in the last 6 months where you did not have access to dental care?: No Was dental information given to patient?: Patient has dentist HPI follow up HPI Details 49-year-old morbidly obese male with cardiomyopathy atrial flutter hypertension hypercholesterolemia obstructive sleep apnea history of coarctation of aorta(status post stenting June 2019) last seen in 09/29/2023 patient had an elevated TSH and was advised repeat testing. Review of the notes was in the emergency room in September 01 4 4 days of cough and chest pain with shortness of breath diagnosis of atypical chest pain patient was advised to follow-up in Cardiology. Patient was seen by Cardiology before hand 08/24/2024 patient is device noted atrial flutter 05/09/2024 placed on Xarelto 20 mg once a day. Patient was seen by Gastroenterology in October patient was advised Cologuard due to multiple cardiac risk factors. Echocardiogram last done in September 2023he left ventricular systolic function is moderately decreased. The visually estimated ejection fraction is between 35-40%. - No obvious valvular pathology seen on this study. - Peak gradient across proximal descending thoracic aorta 19mmHg. History of repaired co-arctation. Slightly lower than prior gradient. Noted also that the patient continues to smoke a pack which last him for 3 days discussed about stopping and is agreeable to start with the patch. Had a long discussion with the patient with regards to using the CPAP regularly on the anticoagulant and checked for the renal function often to get the cholesterol under better control and eating healthy and keeping exercises. [facility] Medical History (Updated 09/23/24 @ 08:55 by Doreen Heaton MD) Right atrial thrombus Preoperative cardiovascular examination Dyspnea Pain of left thumb Right knee pain NICM (nonischemic cardiomyopathy) MARVIN on CPAP Sleep apnea Coarctation of aorta Right hand pain Supraumbilical hernia Morbid obesity Right elbow pain Hernia of anterior abdominal wall Normally functioning cardiac pacemaker present Depression Hypovitaminosis D Pure hypercholesterolemia Essential hypertension Surgical History Status post wrist surgery H/O carpal tunnel repair History of umbilical hernia repair History of ascending aorta repair History of cataract surgery H/O left wrist surgery History of pacemaker Family History Father Uncontrolled diabetes mellitus Mother Uncontrolled persistent asthma Family/Other FH: mental illness Social History Housing: Apartment Alcohol intake: current Alcohol intake frequency: holidays/special occasions only Alcohol type: hard liquor Patient Tobacco Use Status: Current someday Tobacco user Tobacco use type: Cigarette Cigarettes Per Day: 3 Years Smoked: 10 Packs per year/per ci.50 e-Cigarette/Vaping Use: Never Used Second Hand Smoke Exposure: No service: No Current occupational status: unemployed and disabled Cognitive needs: No Hearing needs: No Vision needs: No Questionnaire PHQ-9 Over the last 2 weeks, how often have you been bothered by any of the following problems? 1. Little interest or pleasure in doing things: not at all 2. Feeling down, depressed, or hopeless: not at all 3. Trouble falling or staying asleep, or sleeping too much: not at all 4. Feeling tired or having little energy: not at all 5. Poor appetite or overeating: not at all 6. Feeling bad about yourself - or that you are a failure or have let yourself or your family down: not at all 7. Trouble concentrating on things, such as reading the newspaper or watching television: not at all 8. Moving or speaking so slowly that other people could have noticed. Or the opposite - being so fidgety or restless that you have been moving around a lot more than usual: not at all 9. Thoughts that you would be better off or of hurting yourself in some way: not at all Total score: 0 Depression Screening Interpretation: Negative Depression Screening Done: Yes 03800 - PHQ-9 Billing: Yes Source: Developed by Drs. Severiano Damon, Tatyana Padron, Santos Duran and colleagues, with an educational anjel from [employer]. Thrive Questionnaire Date Thrive assessed: 09/23/24 I am a: Patient What is your living situation today?: I have a steady place to live Within the past 12 months, did the food you bought not last and you didn't have the money to get more?: Never true Within the past 12 months, did you worry whether your food would run out before you got money to buy more?: Never true Do you have trouble paying for medicines?: No Do you have trouble getting transportation to medical appointments?: No Do you have trouble paying your heating and electricity bill?: No Do you have trouble taking care of your child, family member or friend?: No Do you have trouble with day-to-day activities such as bathing, preparing meals, shopping, managing finances, etc.?: No Are you currently unemployed and looking for a job?: No Are you interested in more education?: No Please select the resources that you would like help with: None Currently or been in a relationship where the following occur: No concerns reported THRIVE Score: 0 AUDIT C Alcohol Use Questionnaire (AUDIT-C) 1. How often do you have a drink containing alcohol?: Never 2. How many drinks containing alcohol do you have on a typical day when you are drinking?: 1 or 2 (0) 3. How often do you have six or more drinks on one occasion?: Never Total Score: 0 BRAIN-7 AMB Questionnaire BRAIN-7 Date BRAIN - 7 assessed: 09/23/24 Feeling nervous, anxious, or on edge: 0 = Not at all Not being able to stop or control worryin = Not at all Worrying too much about different things: 0 = Not at all Trouble relaxin = Not at all Being so restless that it is hard to sit still: 0 = Not at all Becoming easily annoyed or irritable: 0 = Not at all Feeling afraid as if something awful might happen: 0 = Not at all Total BRAIN-7 score (0-4 normal; 5-9 mild; 10-14 moderate; 15-21 severe): 0 Source: Developed by Trey Garciaet B.W. Vito, Santos Duran and colleagues, with an educational anjel from [employer]. BRAIN-7 Assessment Billing BRAIN-7 Assessment Tool: BRAIN-7 Assessment 02742 Physical exam (Primary Care) Vital Signs: Last Vital Signs Pulse 95 09/23/24 08:27 BP 140/86 H 09/23/24 08:27 Pulse Ox 98 09/23/24 08:27 Oxygen Delivery Method Room Air 09/23/24 08:27 BMI result Body Mass Index 40.0 Tobacco/Smoking Status: Tobacco use Status Tobacco use date assessed 09/23/24 09/23/24 08:32 Patient Tobacco Use Status Current someday Tobacco 09/23/24 08:32 Tobacco use type Cigarette 09/23/24 08:32 e-Cigarette/Vaping Use Never Used 09/23/24 08:32 PHQ-9: PHQ-9 Score PHQ-9: Total score 0 09/23/24 08:32 Depression Screening Interpretation: Negative Thrive Assessment: Date of Thrive Assessment Date Thrive assessed 09/23/24 09/23/24 08:32 Currently or been in a relationship where the following occur: No concerns reported Const General: alert; No acute distress Eyes Conjunctivae: conjunctivae normal Resp Auscultation: clear to auscultation bilaterally Cardio Rate: regular rate Rhythm: regular rhythm GI Inspection: Yes normal to inspection Extrem General: Yes normal to inspection and No edema Coding Level of Care Code Est Pt Level 4 (40554) Complex EM visit Add On G2211 Diagnoses Typical atrial flutter I48.3 Atrial flutter type: typical Colon cancer screening Z12.11 NICM (nonischemic cardiomyopathy) I42.8 MARVIN on CPAP G47.33; Z99.89 Coarctation of aorta Q25.1 Morbid obesity E66.01 Essential hypertension I10 Pure hypercholesterolemia E78.00 Moderate episode of recurrent major depressive disorder F33.1 Depression Type: major depressive disorder Major depression recurrence: recurrent Active/Remission status: currently active Major depression episode severity: moderate Impaired fasting blood sugar R73.01 Tobacco abuse Z72.0 Additional Codes BRAIN-7 Assessment Billing - BRAIN-7 Assessment Tool: BRAIN-7 Assessment 16067 ([id number]) PHQ-9 - 26776 - PHQ-9 Billing: Yes ([id number]) Assessment & Plan Assessment & Plan (1) Atrial flutter: Comment: April 2024 Code(s): I48.92 - Unspecified atrial flutter Category: Medical Qualifiers: Atrial flutter type: typical Qualified Code(s): I48.3 - Typical atrial flutter Plan: Patient is a started on anticoagulation with Xarelto (2) Colon cancer screening: Comment: 47-year-old pleasant, anxious male referred for index screening colonoscopy multiple comorbidities follows with cardiology/Sleep Medicine Discussed alternatives to include Cologuard Code(s): Z12.11 - Encounter for screening for malignant neoplasm of colon Category: Medical Plan: Patient was advised to do the Cologuard testing (3) NICM (nonischemic cardiomyopathy): Code(s): I42.8 - Other cardiomyopathies Category: Medical Plan: Continue with cholesterol medication continue with carvedilol continue with valsartan. (4) MARVIN on CPAP: Code(s): G47.33 - Obstructive sleep apnea (adult) (pediatric); Z99.89 - Dependence on other enabling machines and devices Category: Medical Plan: Continue with the CPAP more than 4 hours a night and benefits from this (5) Coarctation of aorta: Comment: Repair June 2019 Code(s): Q25.1 - Coarctation of aorta Category: Medical Plan: Stable (6) Morbid obesity: Code(s): E66.01 - Morbid (severe) obesity due to excess calories Category: Medical Plan: Diet and exercise (7) Essential hypertension: Code(s): I10 - Essential (primary) hypertension Category: Medical Plan: Continue with blood pressure medication. Decrease salt intake and exercise presently on valsartan 40 mg twice a day carvedilol 3.125 mg twice a day (8) Pure hypercholesterolemia: Code(s): E78.00 - Pure hypercholesterolemia, unspecified Category: Medical Plan: Avoid fried foods, chicken skin, eggs, butter margarine, pastries and meat. Be it pork or beef they have a lot of cholesterol LDL goal of less than 100 and triglyceride of less than 150 presently on atorvastatin 80 mg once a day and Zetia 10 mg once a day (9) Depression: Comment: [facility] September 2022 Code(s): F32.9 - Major depressive disorder, single episode, unspecified Category: Medical Qualifiers: Depression Type: major depressive disorder Major depression recurrence: recurrent Active/Remission status: currently active Major depression episode severity: moderate Qualified Code(s): F33.1 - Major depressive disorder, recurrent, moderate Plan: Continue with counseling and therapy (10) Impaired fasting blood sugar: Code(s): R73.01 - Impaired fasting glucose Category: Medical Plan: Decrease the amount of carbohydrate intake, pasta, bread, rice and potatoes are all sugar and that is aside from all the sweet stuff, remember that fruits are good but they are Sweet also. Will check for hemoglobin A1c (11) Tobacco abuse: Code(s): Z72.0 - Tobacco use Category: Medical Plan: Patient is strongly advised to stop smoking!. Nicotine patches prescription sent in Orders: Orders Lipid Panel 3 Months E78.00 - Pure hypercholesterolemia, unspecified Comprehensive Met. Panel 3 Months E78.00 - Pure hypercholesterolemia, unspecified Hemoglobin A1c 3 Months E78.00 - Pure hypercholesterolemia, unspecified Referrals Cologuard Test Z12.11 - Encounter for screening for malignant neoplasm of colon, Z12.12 - Encounter for screening for malignant neoplasm of rectum Medications: New nicotine 1 patch transdermal DAILY 28 ea 0RF Z72.0 - Tobacco use nicotine 1 patch transdermal DAILY 28 ea 0RF Z72.0 - Tobacco use
[2024-09-23 08:27] VITALS: BP 140/86; PULSE 95; O2SAT 98; BMI 40.0
[2024-09-23 08:47] VITALS: BP 130/80
== END 2024-09-23 09:04 | disposition home or self-care (01) ==
PROVIDERS: PCP Internal Medicine; Visit Provider Internal Medicine
DX: I48.3 Typical atrial flutter (principal); I42.8 Other cardiomyopathies; E66.01 Morbid (severe) obesity due to excess calories; Z68.41 Body mass index [BMI] 40.0-44.9, adult; F33.1 Major depressive disorder, recurrent, moderate; Z12.11 Encounter for screening for malignant neoplasm of colon; G47.33 Obstructive sleep apnea (adult) (pediatric); Z99.89 Dependence on other enabling machines and devices; Q25.1 Coarctation of aorta; I10 Essential (primary) hypertension; E78.00 Pure hypercholesterolemia, unspecified; R73.01 Impaired fasting glucose; Z72.0 Tobacco use

== ENCOUNTER → 2024-09-23 14:08 | Outpatient (REF) | payer OTHER, SELFPAY ==
--- NOTE | 2024-09-23 14:10 | CA_ITS ---
Transthoracic Echocardiogram Patient (Last, First, Middle): James Heard, Gender: Male Date of : 1975 Age: 49 Procedure Date: 09/23/2024 Procedure Type: Transthoracic Echocardiogram Location: OP Height: 167.64 cm Weight: 112.04 kg BSA: 2.19 m2 Heart Rate: bpm BP: 142 / 80 mmHg Manager Operating: DONALDO Referring MD: Shayla Booker [employer]ING [employer]-C Symptoms: I42.8 - Other cardiomyopathies Study Quality: Technically Difficult, contrast Conclusions: - 1. Mildly dilated left ventricle with [id number] LV systolic dysfunction with LVEF of 40-45% with grade 2 diastolic dysfunction 2. Mildly dilated left atrium 3. Cardiac valvular Dopplers within normal limits 4. Upper limits of normal RV systolic pressure Findings Procedure Information Contrast agent, definity, is being given per protocol without apparent complications. Left Ventricle Mildly increased left ventricular cavity size. There is normal left ventricular wall thickness. The left ventricular systolic function is mild to moderately decreased. The visually estimated ejection fraction is between 40-45%. There is evidence of regional wall motion abnormalities. Spectral Doppler is indicative of a pseudonormal filling pattern. E/E prime ratio is >15, consistent with elevated filling pressures. Evidence suggests grade II (moderate) diastolic dysfunction. Right Ventricle The right ventricle was not well visualized. There is normal right ventricular systolic function. Atria The left atrium is mildly dilated. Interatrial shunt cannot be excluded. The right atrium was not well visualized. Aortic Valve The aortic valve was not well visualized. There is no aortic valve stenosis. The peak aortic gradient is 9 mmHg.The mean gradient is 4 mmHg. There is no aortic valve regurgitation. Mitral Valve The mitral valve was not well visualized. There is trace mitral valve regurgitation. There is no mitral valve stenosis. Pulmonic Valve The pulmonic valve was not well visualized. Tricuspid Valve Likely normal tricuspid valve structure and function. There is mild tricuspid valve regurgitation. Normal right atrial pressure. There is no evidence of pulmonary hypertension. Great Vessels The aorta was not well visualized. The pulmonary artery was not well visualized. There is no dilatation of the ascending aorta measuring 2.90 cm. Venous The inferior vena cava is normal in size and collapses greater than 50% with inspiration. Pericardium/Pleural The pericardium was not well visualized. Prior Study Comparison Changes noted compared to prior study dated: 10/01/2023. LV ejection fraction with mildly improved Measurements 2D Linear Measurements IVSd: 1.09 0.6-0.9/0.6-1.0 cm LVIDd: 5.63 3.9-5.3/4.2-5.9 cm LVIDd Index: 2.57 2.4-3.2/2.2-3.1 cm/m2 LVIDs: 3.97 2.0-3.6 cm LVPWd: 0.71 0.7-1.1 cm LA Diam: 4.50 2.7-3.8/3.0-4.0 cm LAIDs Index: 2.05 1.5-2.3 cm/m2 LV Mass: 240.99 67-162/88-224 g LV Mass Index: 110.04 43-95/49-115 g/m2 LVOT Diam: 2.00 3.0+(-)1.3 cm 2D Systolic Function EF 4C: 45.00 >55% EF 2C: 39.50 >55% EF BiP: 44.70 >55% Mitral Valve MV Pk E: 1.07 MV PK A: 0.78 MV Decel Time: 317.00 E/A: 1.40 E'Lateral: 5.55 E'Medial: 5.66 E/E' Med: 18.90 E/E' Lat: 19.30 PHT: 93.00 MVA PHT: 2.37 Decel Lipscomb: 3.37 Aortic Valve AoV Pk Seth: 1.47 AoV Mn Seth: 0.95 AoV VTI: 0.32 AoV Pk Grad: 9.00 Aov Mn Grad: 4.00 DEMETRI Cont.VTI: 2.14 LVOT LVOT Pk Seth: 0.98 LVOT Mn Seth: 0.72 LVOT VTI: 0.22 LVOT Pk Grad: 4.00 LVOT Mn Grad: 2.00 LVOT Diam: 2.00 LVOT Area: 3.14 Diastolic Function MV Pk E: 1.07 MV Pk A: 0.78 E/A: 1.40 E'Medial: 5.66 E/E' Med: 18.90 E' Laterial: 5.55 E/E' Lat: 19.30 Right Ventricle TAPSE (mm): 31.10 TVS' Seth: 13.60 Tricuspid Valve TR Pk Seth: 2.88 TR Pk Grad: 33.00 RA Press: 3.00 RVSP: 36.00 Great Vessels Aorta Sinus of Valsalva: 3.25 2.0-3.[address] [place]: 2.10 1.7-3.4 cm Ao Asc: 2.90 2.1-3.4 cm Updated in Other Vendor System with Status of Final Shayan Ayala MD electronically signed on 09/24/2024 8:30:55 AM with status of Final
== END ==
LOC: HO.CARD 14:08
PROVIDERS: PCP Internal Medicine; Visit Provider Nurse Practitioner Family
DX: I42.8 Other cardiomyopathies (principal)
CPT/HCPCS: 93306; 96127; 99212; Q9957

== ENCOUNTER → 2024-09-23 14:10 | Outpatient (BNV) | payer OTHER, SELFPAY | PROVIDERS: PCP Internal Medicine; Visit Provider Internal Medicine Cardiovascular Disease | DX: I36.1 Nonrheumatic tricuspid (valve) insufficiency (principal); I42.8 Other cardiomyopathies | CPT/HCPCS: 93306 ==

== ENCOUNTER → 2025-02-12 23:59 | Outpatient (BNV) | payer OTHER, SELFPAY ==
--- NOTE | 2025-02-17 11:55 | A.OFFVIS_ITS ---
Intake Visit Reasons: Remote Device Check- [employer] Allergies corn [CORN] Allergy (Intermediate, Verified 09/23/24 08:28) Rash shrimp [SHRIMP] Allergy (Intermediate, Verified 09/23/24 08:28) ITCHING PFSH Medical History (Updated 09/23/24 @ 08:55 by Doreen Heaton MD) Right atrial thrombus Preoperative cardiovascular examination Dyspnea Pain of left thumb Right knee pain NICM (nonischemic cardiomyopathy) MARVIN on CPAP Sleep apnea Coarctation of aorta Right hand pain Supraumbilical hernia Morbid obesity Right elbow pain Hernia of anterior abdominal wall Normally functioning cardiac pacemaker present Depression Hypovitaminosis D Pure hypercholesterolemia Essential hypertension Surgical History Status post wrist surgery H/O carpal tunnel repair History of umbilical hernia repair History of ascending aorta repair History of cataract surgery H/O left wrist surgery History of pacemaker Family History Father Uncontrolled diabetes mellitus Mother Uncontrolled persistent asthma Family/Other FH: mental illness Social History Housing: Apartment Alcohol intake: current Alcohol intake frequency: holidays/special occasions only Alcohol type: hard liquor Patient Tobacco Use Status: Current someday Tobacco user Tobacco use type: Cigarette Cigarettes Per Day: 3 Years Smoked: 10 e-Cigarette/Vaping Use: Never Used Second Hand Smoke Exposure: No service: No Current occupational status: unemployed and disabled Cognitive needs: No Hearing needs: No Vision needs: No Office Procedures Cardiac Device Check Cardiac Device Check Details: Date of service- 02/12/2025 ; Battery life 6 months; normal lead parameters; AP 63%; 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 Overall normal device function. [id number] Cardiac Device Interrogation, pacemaker Procedure code (CPT) selection complete Assessment & Plan Assessment & Plan (1) Normally functioning cardiac pacemaker present: Code(s): Z95.0 - Presence of cardiac pacemaker Category: Medical (2) Atrial flutter: Comment: April 2024 Code(s): I48.92 - Unspecified atrial flutter Category: Medical Qualifiers: Atrial flutter type: typical Qualified Code(s): I48.3 - Typical atrial flutter (3) NICM (nonischemic cardiomyopathy): Code(s): I42.8 - Other cardiomyopathies Category: Medical Plan x Coding Level of Care Code Procedure Only Diagnoses Normally functioning cardiac pacemaker present Z95.0 Typical atrial flutter I48.3 Atrial flutter type: typical NICM (nonischemic cardiomyopathy) I42.8 CPT Codes Cardiac Device Check - Cardiac Device 12: [id number] Cardiac Device Interrogation, pacemaker ([id number])
== END ==
PROVIDERS: PCP Internal Medicine; Visit Provider Internal Medicine
DX: I48.3 Typical atrial flutter (principal); I42.8 Other cardiomyopathies; Z95.0 Presence of cardiac pacemaker
CPT/HCPCS: 93294

== ENCOUNTER 2025-02-21 14:16 | Outpatient (AMB) | payer OTHER, SELFPAY ==
--- NOTE | 2025-02-21 15:05 | MHC.OFFVIS ---
Vital Signs 02/21/25 15:06 Height 5 ft 6 in Weight 247 lb 5.738 oz BMI 39.9 BP 146/81 H Blood Pressure Location Lt brachial Position Sitting Pulse 68 Pulse Source Pulse Oximeter Intake Visit Reasons: 6 mth w/ medtronic Machine Pecan Gatherer Required: No Cover Cutter: Cover Cutter Present Allergies corn [CORN] Allergy (Intermediate, Verified 02/21/25 17:23) Rash shrimp [SHRIMP] Allergy (Intermediate, Verified 02/21/25 17:23) ITCHING Medication List - Last Reconciled 02/21/25 by Shayla Booker, THERAPEUTIC CONSULTANT-C atorvastatin 80 mg PO BEDTIME 90 days bupropion HCl XL 150 mg PO QAM carvedilol 3.125 mg PO BID ezetimibe (Zetia) 10 mg PO DAILY nicotine 1 patch transdermal DAILY nicotine 1 patch transdermal DAILY rivaroxaban (Xarelto) 20 mg PO DAILY valsartan 40 mg PO BID 90 days HPI HPI 6 mth w/ medtronic: Details: James is a 49-year-old male with past medical history of hypertension, obesity, hyperlipidemia, obstructive sleep apnea with CPAP use, nonischemic cardiomyopathy, pacemaker placement, 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 Today he reports that he has been doing well since his last visit in August. He has not had any exertional chest discomfort. He still reports brief pains across his chest that occur randomly when last seconds. He has notice some mild shortness of breath with stair climbing. No shortness of breath at rest, PND, orthopnea or edema. No heart palpitations, lightheadedness, presyncope, syncope, falls. Family member present. [facility]LY [facility] Medical History Right atrial thrombus Preoperative cardiovascular examination Dyspnea Pain of left thumb Right knee pain NICM (nonischemic cardiomyopathy) MARVIN on CPAP Sleep apnea Coarctation of aorta Right hand pain Supraumbilical hernia Morbid obesity Right elbow pain Hernia of anterior abdominal wall Normally functioning cardiac pacemaker present Depression Hypovitaminosis D Pure hypercholesterolemia Essential hypertension Surgical History Status post wrist surgery H/O carpal tunnel repair History of umbilical hernia repair History of ascending aorta repair History of cataract surgery H/O left wrist surgery History of pacemaker Family History Father Uncontrolled diabetes mellitus Mother Uncontrolled persistent asthma Family/Other FH: mental illness Social History (Updated 02/21/25 @ 17:26 by EPHRAIM Crenshaw) Housing: Apartment Alcohol intake: current Alcohol intake frequency: holidays/special occasions only Alcohol type: hard liquor Patient Tobacco Use Status: Current everyday Tobacco user Tobacco use type: Cigarette Cigarettes Per Day: 2 Years Smoked: 10 e-Cigarette/Vaping Use: Never Used Second Hand Smoke Exposure: No service: No Current occupational status: unemployed and disabled Cognitive needs: No Hearing needs: No Vision needs: No Review of Systems Const All systems reviewed & are unremarkable except as noted in HPI and below Reports fatigue ENT Denies dizziness Card Denies chest pain, Denies chest pain at rest, Denies chest pain with activity, Denies rapid heart rate, Denies pedal edema, Denies edema, Denies leg edema, Denies lightheadedness, Denies palpitations, Denies dyspnea, Reports dyspnea on exertion and Denies orthopnea Resp Denies cough, Denies dyspnea and Reports dyspnea on exertion GI Denies hematochezia and Denies change in stool character Musc Denies abnormal gait, Denies limited range of motion, Denies muscle cramps, Denies muscle weakness, Denies numbness, Denies radiating pain into limb, Denies stiffness and Denies tingling Neuro Denies abnormal gait, Denies dizziness, Denies numbness and Denies tingling Endo Reports fatigue and Denies palpitations Physical Exam Vital Signs: Last Vital Signs Pulse 68 02/21/25 15:06 BP 146/81 H 02/21/25 15:06 BMI result Body Mass Index 39.9 Const General: cooperative, healthy appearing, comfortable and no acute distress Orientation/consciousness: patient oriented x3 Neck Neck: Yes normal visual inspection and Yes no JVD Resp Effort & Inspection: normal respiratory effort Auscultation: clear to auscultation bilaterally, no rales, no rhonchi and no wheezes Cardio Rate: regular rate Rhythm: regular rhythm Heart sounds: S1 normal heart sound present, S2 normal heart sound present, no gallops, no murmurs and no rubs Neuro General: patient oriented x3 Extrem General: Yes normal to inspection and No no pedal edema Psych Appearance: grossly normal Mental Status: mental status grossly normal Speech and movement: Normal speech and movement present Office Procedures Cardiac Device Check Cardiac Device Check Details: Medtronic dual-chamber pacemaker interrogation today shows DDDR mode, low rate 60, battery approximately 6 months, RA threshold 0.8 volts at 0.4 milliseconds, RV threshold 1.5 volts at 0.4 milliseconds, AT/AF 0.2%, V paced 98.2% [id number] Cardiac Device Check, pacemaker dual lead Procedure code (CPT) selection complete Assessment & Plan Assessment & Plan (1) NICM (nonischemic cardiomyopathy): Code(s): I42.8 - Other cardiomyopathies Category: Medical Plan: History of nonischemic cardiomyopathy. An echo done 10/01/2023 showed EF 35-40%, no valve abnormalities. Pharmacological nuclear stress test on 12/11/2023 showing no ischemia, fixed perfusion defect along the inferior wall, distal anterior wall and apex suspected to be artifactual however prior nontransmural infarct of the apex can not be excluded. With his reduced EF and V pacing greater than 99% it was thought that his cardiomyopathy could be related to his V pacing. He was referred to property disposal manager who he saw on 09/10/2024. Plan was for repeat echocardiogram and if EF was less than 40, LV lead would be placed. Echo done 09/23/2024 showed EF 40-45%, grade 2 diastolic dysfunction. No signs of fluid overloaded on examination today. He continues on carvedilol for neurohormonal modulation. Will change his valsartan over to Entresto. BMP in 1 week. Signs and symptoms of heart failure reviewed with him. Cardiology follow-up in this office 3 months, sooner if needed. (2) Coarctation of aorta: Comment: Repair June 2019 Code(s): Q25.1 - Coarctation of aorta Category: Medical Plan: History of coartication of the aorta. He underwent angioplasty and intervention in [place]. CTA of the aorta was performed on 08/05/2022 showing widely patent stent in the proximal descending thoracic aorta, no thoracic aortic aneurysm or dissection. Echocardiogram done 09/23/2024 shows no dilation of the ascending aorta 2.9 cm. (3) Normally functioning cardiac pacemaker present: Code(s): Z95.0 - Presence of cardiac pacemaker Category: Medical Plan: Medtronic dual-chamber pacemaker in place. Office interrogation done today shows device is functioning normally. Battery 6 months. Remote monitoring in use. Next office interrogation in 3 months. (4) Essential hypertension: Code(s): I10 - Essential (primary) hypertension Category: Medical Plan: Well controlled at this time. No med changes made at this time (5) Obstructive sleep apnea: Code(s): G47.33 - Obstructive sleep apnea (adult) (pediatric) Category: Medical Plan: Compliant with CPAP (6) Atrial flutter: Comment: April 2024 Code(s): I48.92 - Unspecified atrial flutter Category: Medical Qualifiers: Atrial flutter type: typical Qualified Code(s): I48.3 - Typical atrial flutter Plan: Episodes of paroxysmal atrial flutter seen on device interrogations, asymptomatic. He is on carvedilol to help with heart rate control. He is on Xarelto for anticoagulation. Chads Vasc score of 2 to 3, ( chf, htn, vascular disease). Continue current treatment. Plan Time spent on chart review, documentation, interview and assessment Medications: New sacubitril-valsartan 24-26 mg (Entresto) Replaces Valsartan 1 tab PO BID 90 days 180 tabs 3RF Changed From carvedilol 3.125 mg PO BID 180 tabs 0RF To carvedilol 3.125 mg PO BID 90 days 180 tabs 3RF From rivaroxaban (Xarelto) must administer with evening meal Anticoagulant 20 mg PO DAILY 30 tabs 5RF To rivaroxaban (Xarelto) must administer with evening meal Anticoagulant 20 mg PO DAILY 90 days 90 tabs 3RF Discontinued valsartan Replaces Lisinopril Discontinued Reason: Doctor's Order 40 mg PO BID 90 days 180 tabs 0RF Coding Level of Care Code Est Pt Level 4 (22481) Complex EM visit Add On G2211 Diagnoses NICM (nonischemic cardiomyopathy) I42.8 Coarctation of aorta Q25.1 Normally functioning cardiac pacemaker present Z95.0 Essential hypertension I10 Obstructive sleep apnea G47.33 Typical atrial flutter I48.3 Atrial flutter type: typical CPT Codes Cardiac Device Check - Cardiac Device 2: [id number] Cardiac Device Check, pacemaker dual lead ([id number])
[2025-02-21 15:06] VITALS: BP 146/81; PULSE 68; BMI 39.9
--- OUTSIDE RECORDS SUMMARY | 2025-02-21 16:39 | XMS_ITS | Data Portability ---
Author Organization [place] - [facility] [place] Address [address] [place] [address] Assessment No assessment recorded. Plan of Treatment Reminders Order Date Submit Date Provider Last Modified By Organization Details Last Modified Time Details Appointments None recorded. Lab None recorded. Referral cardiologi st referral - please contact pt for an riya, Thanks 2016 017 Les Cardenas MD, [address], [place], [address], 7 13:39:[address] referral 2016 017 Not available 7 16:14:[address] referral 2016 017 Not available 7 16:14:[address] referral - eval & treat 2015 016 DBA_PATCH_ [id number] Moise Simmons M.D., [address], [place], [address], 6 04:18:[address] referral - eval & treat 2013 014 david Diaz, [address], [place], [address], 4 10:06:41 Procedures None recorded. Surgeries None recorded. Imaging XR, lumbar spine - Please contact patient for an appt. thank you 2016 017 NIURKA [facility]onez [facility] [place], [address] [facility], [place], [address], 7 16:41:53 Medication Orders baclofen 10 mg tablet 2016 017 INTERFACE [id number], [address], [place], [address], 7 08:42:28 mupirocin 2 % topical ointment 2015 016 DBA_PATCH_ [id number] [facility], [address], [place], [address], 6 04:19:11 Bactrim DS 800 mg-160 mg tablet 2015 016 [facility], [address], [place], [address], 7 08:33:11 triamcinol one acetonide 0.1 % topical cream 2015 016 DBA_PATCH_ [id number] [facility], [address], [place], [address], 6 04:19:02 carvedilol 3.125 mg tablet 2015 016 DBA_PATCH_ [id number] [facility], [address], [place], [address], 6 04:18:52 Patient TargetsNo targets recorded. Patient Instructions Encounter Date Encounter Id Patient Instructions Last Modified By Organization Details Last Modified Time 04/13/2014 [id number] dolor o lesi? ? ?n do: instrucciones de cuidado - [knee pain or injury: care instructions] [email or web address] Not available 04/13/2014 16:01:53 A healthy lifestyle: care instructions [email or web address] Not available 04/13/2014 16:01:53 advised to continue with ibuprofen and flexeril,use knee brace for 3 weeks,call me if not better and I will send for MRI. [email or web address] Not available 04/13/2014 15:57:12 08/06/2016 [id number] ataque al coraz? ? ?n: instrucciones de cuidado - [heart attack: care instructions] [email or web address] Not available 08/06/2016 10:55:40 09/03/2016 [id number] ataque al coraz? ? ?n: instrucciones de cuidado - [heart attack: care instructions] Not available 10/26/2016 04:18:55 Eccema: Instrucciones de cuidado - [Eczema: Care Instructions] [email or web address] Not available 09/03/2016 11:27:30 11/18/2016 [id number] ataque al coraz? ? ?n: instrucciones de cuidado - [heart attack: care instructions] [email or web address] Not available 11/18/2016 08:47:21 aprenda sobre lo s trastornos del estado de ? ? ?karishma - [learning about mood disorders] [email or web address] Not available 11/18/2016 08:47:21 Reason for Referral eval & treat Referring Physician: [facility], Encounter Date: 04/13/2014 Associate Professor Of Literacy Referral for Co ronary arteriosclerosis eval & treat Referring Physician: Nellie Lockhart [facility], Encounter Date: 08/06/2016 Associate Professor Of Literacy Referral for Co ronary arteriosclerosis please contact pt for an riya, Thanks Referring Physician: Nellie Lockhart [facility], Encounter Date: 11/18/2016 Psychiatrist Referral for Mo od disorder Referring Physician: Nellie Lockhart [facility], Encounter Date: 11/18/2016 Psychologist Referral for Mo od disorder Referring Physician: Nellie Lockhart [facility], Encounter Date: 11/18/2016 Results Created Date Observation Date Name Description Value Unit Range Abnormal Flag Note LastModifiedBy Organization Detail LastModifiedTime 08/06/20 16 02/08/2016 imagi ng/di agnos tic resul t No observ ation record ed. [email or web address] Not Available 2015 13:20:29 08/06/20 16 02/05/2016 imagi ng/di agnos tic resul t No observ ation record ed. [email or web address] Not Available 2015 13:20:21 11/19/19 17 11/19/2016 XR, lumba r spine No observ ation record ed. [email or web address] [place] [address] [place], [address], 11/21/2016 08:44:05 Result Notes None recorded. Problems Name Problem SNOMED Code Status Onset Date Resolution Date Notes Provider Name and Address Organization Details Recorded Time Knee pain Active [facility], [place] - [employer] 4 15:57:12 Coronary arterioscleros is 51799616 Active [address], [place], [address], [facility] 7 08:35:08 History of cardiac pacemaker in situ 062418052 Active 2016 [address], [place], [address], [facility] 7 08:35:09 Old myocardial infarction 5533904 Active 2016 [address], [place], [address], [facility] 7 08:35:11 Cardiomyopathy 83148172 Active 2016 with mild LV dysfun ction, per Cardio logy. [address]ESH[address], [place], [address], [facility] 7 10:51:50 Problem Notes None recorded. Procedures Surgical History None recorded. Imaging Results Imaging Date Name Status LastModified by Organiz ation Details LastModified Time 02/08/2016 imaging/diag nostic result completed Information not available 09/12/2016 13:20:29 02/05/2016 imaging/diag nostic result completed Information not available 09/12/2016 13:20:21 11/19/2016 XR, lumbar spine completed [email or web address] [facility] [place] [address] [place], [address], 11/21/2016 08:44:05 Procedure Notes None recorded. Medical Equipment None Reported. Allergies Allergen ID Allergen Name Allergen Category Reaction Reaction Severity Criticality Documentation Date Start Date Code Code System Note Provider Name and Address Organization Details Recorded Time 56490 shrimp allergeni c extract food hives itching Not available Not available Not available 08/06/2016 05637 2 RxNorm Alexandra Colon null, [place] [facility] 6 10:07:40 56202 corn extract food,medi cation hives itching Not available Not available Not available 08/06/2016 54101 08 RxNorm Alexandra Colon null, [facility] 6 10:07:54 Medications Name Sig Start Date Stop Date Status Note LastModified by Organization Details LastModified Time cyclobenzap rine 10 mg tablet 08/06 completed Not Available Not Available Not Available acetaminoph en 300 mg-codeine 30 mg tablet 08/06 completed Not Available Not Available Not Available sulfamethox azole 800 mg-trimetho prim 160 mg tablet Take 1 tablet every 12 hours by oral route for 10 days. 11/18 completed Not Available Not Available Not Available aspirin 81 mg tablet,eleanor yed release Take 1 tablet every day by oral route. active Not Available Not Available No t Available triamcinolo ne acetonide 0.1 % topical cream APPLY A THIN LAYER TO THE AFFECTED AREA(S) BY TOPICAL ROUTE 2 TIMES PER DAY active Not Available Not Available No t Available carvedilol 3.125 mg tablet 1 po bid active Not Available Not Available Not Available oxycodone-a cetaminophe n 5 mg-325 mg tablet 1 po q4h as needed 08/06 completed Not Available Not Available Not Available Nitrostat 0.4 mg sublingual tablet 1 po qd as directed for chest pain active Not Available Not Available No t Available aspirin 325 mg tablet,eleanor yed release Take 1 tablet every day by oral route. 08/06 completed Not Available Not Available Not Available baclofen 10 mg tablet Take 1 tablet every 12 hours by oral route as needed. 2016 active Not Available Not Available Not Avai lable cephalexin 500 mg capsule 1 po q12h 08/06 completed Not Available Not Available Not Available aspirin 81 mg chewable tablet 08/06 completed Not Available Not Available Not Available allopurinol 300 mg tablet 08/06 completed Not Available Not Available Not Available lisinopril 5 mg tablet 1 po qd active Not Available Not Available Not Available mupirocin 2 % topical ointment Apply 1 applicati on every 8 hours by topical route for 7 days. active Not Available Not Available No t Available ibuprofen 600 mg tablet 08/06 completed Not Available Not Available Not Available Vitals Date Recorded Body height Body weight Body mass index (BMI) Body temperature Heart rate Oxygen saturation Oxygen saturation in Arterial blood by Pulse oximetry Respiratory rate Systolic blood pressure Diastolic blood pressure Provider Name and Address Organization Details Last Updated DateTime 4 160.02 cm 98262.0 3423 g 31.7 kg/m2 98.1 [degF] 66 /min 98 % 98 % 18 /min 128 mm[Hg] 76 mm[Hg] Pooja Ruvalcaba [employer] 4 15:33:28 Date Recorded Body weight Respiratory rate Body height Body mass index (BMI) Body temperature Heart rate Oxygen saturation Oxygen saturation in Arterial blood by Pulse oximetry Systolic blood pressure Diastolic blood pressure Provider Name and Address Organization Details Last Updated DateTime 6 18156.2 3 g 16 /min 167.64 cm 31.5 kg/m2 98 [degF] 71 /min 98 % 98 % 144 mm[Hg] 82 mm[Hg] Alexandra [employer] 6 10:07:15 Date Recorded Body height Body weight Body mass index (BMI) Body temperature Heart rate Respiratory rate Oxygen saturation Oxygen saturation in Arterial blood by Pulse oximetry Systolic blood pressure Diastolic blood pressure Provider Name and Address Organization Details Last Updated DateTime 6 167.64 cm 73048.3 9 g 31.6 kg/m2 98.4 [degF] 70 /min 16 /min 97 % 97 % 134 mm[Hg] 75 mm[Hg] [employer] 6 10:33:40 Date Recorded Body height Respiratory rate Body weight Body mass index (BMI) Body temperature Heart rate Oxygen saturation Oxygen saturation in Arterial blood by Pulse oximetry Systolic blood pressure Diastolic blood pressure Provider Name and Address Organization Details Last Updated DateTime 7 167.64 cm 16 /min 74114.6 3 g 32.4 kg/m2 98 [degF] 76 /min 96 % 96 % 143 mm[Hg] 78 mm[Hg] Alexandra Jeanmarie [facility] 7 08:32:28 Social History Question Answer Notes LastModified by Organizat ion Details LastModified Time Tobacco Smoking Status Current Every Day Smoker Pooja Jordon ordonez [facility] 04/13/2014 15:36:57 What Is Your Level Of Alcohol Consumption? Occasional Information not available 08/06/2016 How Much Tobacco Do You Chew? None Information not available 04/13/2014 What Type Of Diet Are You Following? REGULAR Information not available 04/13/2014 What Is Your Occupation? [employer] Information not available 04/13/2014 Advance Directive Refused Information not available 08/06/2016 Do You Have Any Forms Or Letters To Be Completed? No Information not available 04/13/2014 At What Age Did You Start Smoking Tobacco? 18 Information not available 04/13/2014 How Much Tobacco Do You Smoke? 1 PPW Information not available 08/06/2016 How Many Years Have You Smoked Tobacco? 25 Information not available 08/06/2016 Sex: Unknown Functional Status Question Answer Note LastModified by Organization D etails LastModified Time What is your exercise level? None Information not available 08/06/2016 Mental Status None recorded. Family History Relationship Description Onset Age of this Age Resolved Age Notes LastModified by Organization Details LastModified Time Father Diabetes mellitus [email or web address] Not available 2015 12:55:48 Medical History Condition Response Chronic back pain N Atrial Fibrillation N Colon Cancer N Blood Diseases N Hyperthyroidism N Breast Cancer N Rheumatoid arthritis N Hernia N Lung cancer N Hypothyroidism N Depression N COPD N PVD N Coronary Heart Disease N Psychiatric disorders N Neurologic problems N Anxiety Disorder N Mitral valve prolapse N Obesity N Arthritis N Cancer N IBS N Erection difficulty N Liver disease N Prostate cancer N CVA- Stroke N Bladder or Kidney Problems N GERD N Headaches N Fibromyalgia N Prostate problems N Dyslipidemia N Osteoarthritis N ADD or ADHD N Migraines N Anemia N PAD- peripheral arterial disease N CAD Y Diabetes Type 2 N Infection N Kidney disease N Cardiomyopathy N Bedwetting N CHF N Hyperlipidemia N Phlebitis N Chronic Pain N Dementia N Asthma N Allergies N Epilepsy N Seizure disorder N Sleep Apnea N Hepatitis N Diabetes Type I N DJD N Neuropathy N Hypertension Y Chicken Pox N Osteoporosis N Tobacco use disorder Y Past Encounters Encounter ID Performer Location Encounter Start Date Encounter Closed Date Diagnosis/Indication Diagnosis SNOMED-CT Code Diagnosis ICD10 Code Diagnosis Note [id number] Karma Pena [place] [address] [facility] [place] [address] 04/13/2014 15:15:17 04/13/2014 16:11:13 Body mass index 30+ - obesity 552830257 History of cardiac pacemaker in situ 159102948 Knee pain 66324660 [id number] HESHAM Hein [facility] [place] [address] [facility] [place] [address] 08/06/2016 09:45:06 08/06/2016 10:54:38 History of cardiac pacemaker in situ 805699500 Z95.0 Old myocar dial infarction 4648348 I25.[address] as scheduled. Coronary arteriosclerosis 56360679 I25.10 [id number] HESHAM Hein [facility] [place] [address] [facility] [place] [address] 09/03/2016 09:54:16 09/03/2016 11:17:51 Coronary arteriosclerosis 82602283 I25.10 stable. Followup with Cardiologi st as scheduled. History of cardiac pacemaker in situ 871354110 Z95.0 Old myocar dial infarction 5217906 I25.[address] as scheduled. Bacterial folliculitis 026324846 A49.9 Left chest wall. Atopic dermatitis 205449 01 L20.9 R hand. [id number] HESHAM Hein [facility] [place] [address] [facility] [place] [address] 11/18/2016 08:07:30 11/18/2016 08:49:06 Coronary arteriosclerosis 07225829 I25.10 stable. Followup with Cardiologi st as scheduled. History of cardiac pacemaker in situ 056339856 Z95.0 Old myocar dial infarction 0379405 I25.[address] as scheduled. Lumbar radiculopathy 128 051736 M54.16 LLE Mood disorder 80160878 F 39 Health Concerns Section Related Observation LastModified by Organization Detai ls LastModified Time None Recorded Concern Status LastModified by Organization Details LastModified Time None Recorded Advance Directives Directive None Recorded Payers Encounter Date Sequence Insurance Name Policy Number Policy Guerin Covered Member ID Guerin Member ID Guarantor Name 04/13/2014 1 [employer] - [employer] (PPO) James Lam [id number] James Lam 08/06/2016 1 [employer] [place] James Lam Sr [id number] James Lam 09/03/2016 1 [employer] [place] James Lam Sr [id number] James Lam 11/18/2016 1 [employer] [place] James Lam [id number] James Lam Notes Date Note Type Note Provider Name and Address Organization Details Recorded Time 04/13/2014 text/html HPI 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 he fell around pool few days ago and banged his right knee,he was seen in ER and his x-ray was normal..he still has pain.? Joao ordonez, [facility] 04/13/2014 15:57:25 08/06/2016 text/html Here to re-establish care. Patient recently seen for acute myocardial infarction at [facility]. No medical records to review. [address], [place], [address], [employer] 08/12/2016 21:50:25 09/03/2016 text/html Here for followu p of CAD, he has confirmed appointment with Associate Professor Of Literacy in 3 days. Patient complains of R hand skin dryness with fissures due to this. Also complains of L area erythematous bump near pacemaker. [address], [place], [address], [employer] 09/03/2016 14:54:12 11/18/2016 text/html Patient complain s of progressive lower back pain with radiation to L lower leg. Patient also reports due to his chronic heart conditions and unable to work at this time, has been feeling with depressive mood and some anxiety. [address]ESH[address], [place], [address], [facility] [employer], [facility] 11/18/2016 09:09:57
--- OUTSIDE RECORDS SUMMARY | 2025-02-21 16:39 | XMS_ITS | Clinical Summary ---
Author Organization [facility] Address [address] [place] [address] Care Team Providers Care Funds Development Director Name Role Phone Cheryl Figueroa MD Primary Care Provider [phone] Medical History Medical History Date Comments Cardiomyopathy (CMS/HCC V24, CMS/HCC V28) DX:Cardiomyopathy (HCC) Hyperlipidemia DX:Hyperlipidemi a Sleep apnea DX:Sleep apnea Cerebrovascular disease DX:Cereb rovascular disease Essential hypertension DX:Essent ial hypertension Depressive disorder DX:Depressiv e disorder Pacemaker 2005 DX:Pacemaker Bradycardia DX:Bradycardia H/O left wrist surgery 2017 DX:H/O le ft wrist surgery Anxiety state DX:Anxiety state Cardiopathy DX:Cardiopathy Carpal tunnel syndrome DX:Carpal tunnel syndrome Hypovitaminosis D DX:Hypovitamin osis D CAD (coronary artery disease) DX :CAD (coronary artery disease) Coarctation of aorta DX:Coarctat ion of aorta Neuropathy DX:Neuropathy Median nerve neuropathy DX:Media n nerve neuropathy Ulnar neuropathy of both upper extremities DX:Ulnar neuropathy of both upper extremities Social History Tobacco Use Types Packs/Day Years Used Date Smoking Tobacco: Never Smokeless Tobacco: Never Alcohol Use Standard Drinks/Week Comments Never 0 (1 standard drink = 0.6 oz pur e alcohol) Sex and Gender Information Value Date Recorded Sex Assigned at Not on file Legal Sex Male 6:15 PM EST Gender Identity Not on file Sexual Orientation Not on file Obstetrics History Last Filed Vital Signs Vital Sign Reading Time Taken Comments Blood Pressure 120/88 03/19/2022 9:34 AM EDT Sit ting R Arm Pulse 85 03/19/2022 9:34 AM EDT Temperature - - Respiratory Rate - - Oxygen Saturation - - Inhaled Oxygen Concentration - - Weight 106 kg (234 lb) 08/06/2022 1:00 PM EDT Height 167.6 cm (5' 6 ) 08/06/2022 1:00 PM EDT Body Mass Index 37.77 08/06/2022 1:00 PM EDT Plan of Treatment Health Maintenance Due Date Last Done Comments DTaP,Tdap,and Td Vaccines (1 - Tdap) 1995 Hepatitis B Vaccines (1 of 3 - 19+ 3-dose series) 1995 Cholesterol Screening (Lipid Panel) 10/19/2022 Colorectal Cancer Screening: Colonoscopy 10/19/2022 Depression Screening 10/19/2022 HIV Screening 10/19/2022 Hepatitis C Screening 10/19/2022 Social Influencers of Health Screening 10/19/2022 COVID-19 Vaccine (1 - 2023-2 5 season) 2024 Influenza Vaccine (Season Ended) 2025 HIB Vaccines Aged Out No longer eligi ble based on patient's age to complete this topic HPV Vaccines Aged Out No longer eligi ble based on patient's age to complete this topic Hepatitis A Vaccines Aged Out No long er eligible based on patient's age to complete this topic IPV Vaccines Aged Out No longer eligi ble based on patient's age to complete this topic MMR Vaccines Aged Out No longer eligi ble based on patient's age to complete this topic Meningococcal ACWY Vaccine Aged Out N o longer eligible based on patient's age to complete this topic Meningococcal B Vaccine Aged Out No l onger eligible based on patient's age to complete this topic Pneumococcal Vaccine: Pediat rics (0 to 5 Years) and At-Risk Patients (6 to 64 Years) Aged Out No longer eligible b ased on patient's age to complete this topic RSV Immunization Patients Un avnce 20 months Aged Out No longer eligible b ased on patient's age to complete this topic Varicella Vaccines Aged Out No longer eligible based on patient's age to complete this topic Care Teams Funds Development Director Relationship Specialty Start Date End Date Cheryl Figueroa MD [address] [place] [address] , [facility] [address] [facility] D/B/A: Luanne Jansen In Internal Medicine CHANTEL Stroud PCP - General Internal Medicine 04/13/21
== END 2025-02-21 15:39 | disposition home or self-care (01) ==
LOC: HO.HCS 14:16
PROVIDERS: PCP Internal Medicine; Visit Provider Nurse Practitioner Family
DX: I42.8 Other cardiomyopathies (principal); Q25.1 Coarctation of aorta; Z95.0 Presence of cardiac pacemaker; I10 Essential (primary) hypertension; G47.33 Obstructive sleep apnea (adult) (pediatric); I48.3 Typical atrial flutter
CPT/HCPCS: 93280; 99214; G2211

== ENCOUNTER → 2025-02-21 14:16 | Outpatient (BNVA) | payer OTHER, SELFPAY | PROVIDERS: PCP Internal Medicine; Visit Provider Nurse Practitioner Family | DX: I10 Essential (primary) hypertension (principal); I48.3 Typical atrial flutter; E78.00 Pure hypercholesterolemia, unspecified; E66.9 Obesity, unspecified; N63.20 Unspecified lump in the left breast, unspecified quadrant; G47.33 Obstructive sleep apnea (adult) (pediatric); Q25.1 Coarctation of aorta; F17.210 Nicotine dependence, cigarettes, uncomplicated; Z68.39 Body mass index [BMI] 39.0-39.9, adult; Z99.89 Dependence on other enabling machines and devices | CPT/HCPCS: 93280; 96127; 99212 ==

== ENCOUNTER 2025-02-21 17:09 | Outpatient (AMB) | payer OTHER, SELFPAY ==
--- NOTE | 2025-02-21 17:21 | MHC.PC.OV ---
Vital Signs 02/21/25 17:22 Height 5 ft 6 in Weight 247 lb BMI 39.9 BP 130/82 Blood Pressure Location Lt brachial Position Sitting Intake Visit Reasons: lump on L breast/pain Plasma Specialist Required: No Accompanied by: Self / Same As Patient Allergies corn [CORN] Allergy (Intermediate, Verified 02/21/25 17:23) Rash shrimp [SHRIMP] Allergy (Intermediate, Verified 02/21/25 17:23) ITCHING Tobacco use date assessed: 02/21/25 Dental Screening Dental Screen Date: 02/21/25 Did you have a dental visit in the last 12 months?: Yes Did you have a dental problem in the last 6 months where you did not have access to dental care?: No Was dental information given to patient?: Patient has dentist HPI lump on L breast/pain HPI Details 1 month L breast pain, deny any new med asking for refill on med. and notes a mass L breast PFSH Medical History Right atrial thrombus Preoperative cardiovascular examination Dyspnea Pain of left thumb Right knee pain NICM (nonischemic cardiomyopathy) MARVIN on CPAP Sleep apnea Coarctation of aorta Right hand pain Supraumbilical hernia Morbid obesity Right elbow pain Hernia of anterior abdominal wall Normally functioning cardiac pacemaker present Depression Hypovitaminosis D Pure hypercholesterolemia Essential hypertension Surgical History Status post wrist surgery H/O carpal tunnel repair History of umbilical hernia repair History of ascending aorta repair History of cataract surgery H/O left wrist surgery History of pacemaker Family History Father Uncontrolled diabetes mellitus Mother Uncontrolled persistent asthma Family/Other FH: mental illness Social History (Updated 02/21/25 @ 17:26 by EPHRAIM Crenshaw) Housing: Apartment Alcohol intake: current Alcohol intake frequency: holidays/special occasions only Alcohol type: hard liquor Patient Tobacco Use Status: Current everyday Tobacco user Tobacco use type: Cigarette Cigarettes Per Day: 2 Years Smoked: 10 e-Cigarette/Vaping Use: Never Used Second Hand Smoke Exposure: No service: No Current occupational status: unemployed and disabled Cognitive needs: No Hearing needs: No Vision needs: No Questionnaire PHQ-9 Over the last 2 weeks, how often have you been bothered by any of the following problems? 1. Little interest or pleasure in doing things: not at all 2. Feeling down, depressed, or hopeless: not at all 3. Trouble falling or staying asleep, or sleeping too much: not at all 4. Feeling tired or having little energy: not at all 5. Poor appetite or overeating: not at all 6. Feeling bad about yourself - or that you are a failure or have let yourself or your family down: not at all 7. Trouble concentrating on things, such as reading the newspaper or watching television: not at all 8. Moving or speaking so slowly that other people could have noticed. Or the opposite - being so fidgety or restless that you have been moving around a lot more than usual: not at all 9. Thoughts that you would be better off or of hurting yourself in some way: not at all Total score: 0 Depression Screening Interpretation: Negative Depression Screening Done: Yes 91574 - PHQ-9 Billing: Yes Source: Developed by Drs. Severiano Damon, Tatyana Padron, Santos Duran and colleagues, with an educational anjel from [employer]. Thrive Questionnaire Date Thrive assessed: 02/21/25 I am a: Patient What is your living situation today?: I have a steady place to live Within the past 12 months, did the food you bought not last and you didn't have the money to get more?: Never true Within the past 12 months, did you worry whether your food would run out before you got money to buy more?: Never true Do you have trouble paying for medicines?: No Do you have trouble getting transportation to medical appointments?: No Do you have trouble paying your heating and electricity bill?: No Do you have trouble taking care of your child, family member or friend?: No Do you have trouble with day-to-day activities such as bathing, preparing meals, shopping, managing finances, etc.?: No Are you currently unemployed and looking for a job?: No Are you interested in more education?: No Please select the resources that you would like help with: None Currently or been in a relationship where the following occur: No concerns reported THRIVE Score: 0 AUDIT C Alcohol Use Questionnaire (AUDIT-C) 1. How often do you have a drink containing alcohol?: Monthly or less 2. How many drinks containing alcohol do you have on a typical day when you are drinking?: 1 or 2 3. How often do you have six or more drinks on one occasion?: Never Total Score: 1 BRAIN-7 AMB Questionnaire BRAIN-7 Date BRAIN - 7 assessed: 02/21/25 Feeling nervous, anxious, or on edge: 1 = Several days Not being able to stop or control worryin = Not at all Worrying too much about different things: 0 = Not at all Trouble relaxin = Not at all Being so restless that it is hard to sit still: 0 = Not at all Becoming easily annoyed or irritable: 0 = Not at all Feeling afraid as if something awful might happen: 0 = Not at all Total BRAIN-7 score (0-4 normal; 5-9 mild; 10-14 moderate; 15-21 severe): 1 Source: Developed by Drs. Severiano Damon, Tatyana Padron, Santos Duran and colleagues, with an educational anjel from [employer]. Physical exam (Primary Care) Vital Signs: Last Vital Signs BP 130/82 02/21/25 17:22 BMI result Body Mass Index 39.9 Tobacco/Smoking Status: Tobacco use Status Tobacco use date assessed 02/21/25 02/21/25 17:29 Patient Tobacco Use Status Current everyday Tobacco 02/21/25 17:29 Tobacco use type Cigarette 02/21/25 17:29 e-Cigarette/Vaping Use Never Used 02/21/25 17:29 PHQ-9: PHQ-9 Score PHQ-9: Total score 0 02/21/25 17:29 Depression Screening Interpretation: Negative Thrive Assessment: Date of Thrive Assessment Date Thrive assessed 02/21/25 02/21/25 17:29 Currently or been in a relationship where the following occur: No concerns reported Const General: alert; No acute distress Eyes Conjunctivae: conjunctivae normal Resp Auscultation: clear to auscultation bilaterally Cardio Rate: regular rate Rhythm: regular rhythm GI Inspection: Yes normal to inspection Abdomen image: 1. palpable tender mass retroareaolar Left to 2 oclock area3 cm Extrem General: Yes normal to inspection and No edema Coding Level of Care Code Est Pt Level 4 (71484) Complex EM visit Add On G2211 Diagnoses Essential hypertension I10 Pure hypercholesterolemia E78.00 Obesity (BMI 30-39.9) E66.9 Mass of breast, left N63.20 Additional Codes PHQ-9 - 10161 - PHQ-9 Billing: Yes ([id number]) Assessment & Plan Assessment & Plan (1) Essential hypertension: Code(s): I10 - Essential (primary) hypertension Category: Medical Plan: Continue with blood pressure medication. Decrease salt intake and exercise patient on carvedilol 3.125 mg twice a day Entresto twice a day (2) Pure hypercholesterolemia: Code(s): E78.00 - Pure hypercholesterolemia, unspecified Category: Medical Plan: Avoid fried foods, chicken skin, eggs, butter margarine, pastries and meat. Be it pork or beef they have a lot of cholesterol on atorvastatin 80 mg once a day LDL goal of less than 70 and triglyceride of less than 150. Patient is on Zetia 10 mg once a day also (3) Obesity (BMI 30-39.9): Code(s): E66.9 - Obesity, unspecified Category: Medical Plan: Diet and exercise (4) Mass of breast, left: Comment: palpable tender mass retroareaolar Left to 2 oclock area3 cm Code(s): N63.20 - Unspecified lump in the left breast, unspecified quadrant Category: Medical Plan History of Present Illness The patient is a 49-year-old male presenting for acute health concerns related to a cardiac condition and medication relapse. His medical history includes obesity, hypercholesterolemia, hypertension, non-ischemic cardiomyopathy, and atrial flutter. Currently, he reports issues stemming from non-adherence to his medication regimen since March 10, continuing past September, leading to increased symptoms. He experiences daily heart problems with itching but has not initiated new medications for these symptoms. Last test results included mild anemia and elevated liver function tests with an LDL of 142 mg/dL, aiming for under 70 mg/dL. He continues smoking 1-2 cigarettes daily. Stress related to family dynamics has been burdensome in recent months. Health Maintenance - Diet and exercise guidance provided, focusing on the reduction of cardiovascular risk factors. - Smoking cessation discussed; low-dose nicotine patches advised. - Blood work scheduled for monitoring hepatic function and lipid profile. - An ultrasound and X-ray ordered for further evaluation of current health concerns. - Screening for hypercholesterolemia: aim to reach LDL under 70 mg/dL. Social History - Tobacco use disorder: Patient smokes 1-2 cigarettes per day. - Experiencing family-related stress; details regarding family issues from [place] affecting patient for the last three months. - The patient reports attempting to engage in healthier lifestyles by diet and exercise. Review of Systems - Cardiovascular: Reports worsening daily heart problems. - Dermatologic: Reports itching. - General: Denies use of new medications. - Social: Reports family stress affecting health. Physical Exam Results - Labs (from last blood work): Mild anemia, blood sugar of 115 mg/dL, elevated liver function tests, LDL cholesterol of 142 mg/dL, goal LDL <70 mg/dL. Plan I recommended continuing atorvastatin 80 mg daily and the addition of Zetia 10 mg daily to improve lipid levels, targeting an LDL of under 70 mg/dL. Carvedilol and entresto are recommended to manage the underlying cardiomyopathy and hypertension, stressing the importance of adherence to prevent exacerbation of heart symptoms. A 7 mg nicotine patch is initiated to support smoking cessation with noted current usage of 1-2 cigarettes daily. We planned blood tests, ultrasound, and X-rays to further investigate symptoms. There is an emphasis on lifestyle modifications and the impact of unresolved family stressors. Patient was informed and verbally consented to the use of an ambient scribe for clinic note documentation during this visit. Discussion Notes We discussed the significance of consistent medication adherence, particularly for carvedilol, entresto, and atorvastatin, considering the patient?s cardiac and hyperlipidemia history. The risks associated with medication non-compliance were emphasized given his complex cardiovascular condition. In terms of smoking cessation, we went over the 7 mg nicotine patch option and the necessity of avoiding smoking while using the patch to prevent complications. Blood work, ultrasound, and X-ray were ordered, with fasting instructions provided. We highlighted the value of diet and exercise for cardiac risk reduction and addressed family stress as a contributing factor to his symptoms, acknowledging it as a potential exacerbating circumstance. Follow-up engaged through planned tests and medications, with [facility] sent the prescription placements, addressing acute symptom relief through continuous management strategies. Patient Instructions - Continue atorvastatin 80 mg and Zetia 10 mg daily to manage cholesterol levels. - Take carvedilol 3.125 mg twice daily and entresto 24/26 mg twice daily for cardiac management. - Use a 7 mg nicotine patch daily and refrain from smoking while using the patch. - Follow up with blood work in the lab (do not eat 8 hours prior). - Attend scheduled ultrasound and X-ray for further assessment. - Adhere closely to diet and exercise recommendations to aid in cardiovascular health. - Address and note any changes in family stressors and its impact on health. - Return for follow-up appointments as scheduled for continued care and evaluation. Orders: Orders MM tomosynthesis diagnostic BI Today N63.20 - Unspecified lump in the left breast, unspecified quadrant US breast LT limited Today N63.20 - Unspecified lump in the left breast, unspecified quadrant Complete Blood Count Auto Diff Today Z72.0 - Tobacco use Thyroid Stimulating Hormone Today Z72.0 - Tobacco use Lipid Panel Today E78.00 - Pure hypercholesterolemia, unspecified, Z72.0 - Tobacco use IRON PROFILE Today Z72.0 - Tobacco use B Type Natriuretic Peptide Today Z72.0 - Tobacco use Comprehensive Met. Panel Today Z72.0 - Tobacco use Free T4 (Free Thyroxine) Today Z72.0 - Tobacco use Ferritin Today Z72.0 - Tobacco use Vitamin B12 and Folate Today Z72.0 - Tobacco use Reticulocyte Count Today Z72.0 - Tobacco use Medications: New nicotine 1 patch transdermal Q24H 28 ea 0RF Z72.0 - Tobacco use Refilled bupropion HCl XL 150 mg PO QAM 90 tabs 1RF atorvastatin 80 mg PO BEDTIME 90 days 90 tabs 0RF E78.00 - Pure hypercholesterolemia, unspecified carvedilol 3.125 mg PO BID 90 days 180 tabs 3RF N63.20 - Unspecified lump in the left breast, unspecified quadrant ezetimibe (Zetia) cholesterol lowering agent Take one tablet daily - in addition to your Atorvastatin 10 mg PO DAILY 90 tabs 2RF N63.20 - Unspecified lump in the left breast, unspecified quadrant rivaroxaban (Xarelto) must administer with evening meal Anticoagulant 20 mg PO DAILY 90 days 90 tabs 3RF N63.20 - Unspecified lump in the left breast, unspecified quadrant sacubitril-valsartan 24-26 mg (Entresto) Replaces Valsartan 1 tab PO BID 90 days 180 tabs 3RF N63.20 - Unspecified lump in the left breast, unspecified quadrant
[2025-02-21 17:22] VITALS: BP 130/82; BMI 39.9
--- OUTSIDE RECORDS SUMMARY | 2025-02-21 18:36 | XMS_ITS | Clinical Summary ---
[facility] Address [address] [place] [address] Care Team Providers Care Pillow Cleaner Name Role Phone Cheryl Figueroa MD Primary Care Provider [phone] Medical History Medical History Date Comments Cardiomyopathy [...] complete this topic RSV Immunization Patients Un vance 20 months Aged Out No longer eligible b ased on patient's age to complete this topic Varicella Vaccines Aged Out No longer eligible based on patient's age to complete this topic Care Teams Pillow Cleaner Relationship Specialty Start Date End Date Cheryl Figueroa MD [address] [place] [address] , [facility] [address] [facility] Physician Associ D/B/A: [facility] CHANTEL Stroud PCP - General Internal Medicine 04/13/21
== END 2025-02-21 18:00 | disposition home or self-care (01) ==
LOC: HO.HMCH 17:09
PROVIDERS: PCP Internal Medicine; Visit Provider Internal Medicine
DX: I10 Essential (primary) hypertension (principal); E78.00 Pure hypercholesterolemia, unspecified; E66.9 Obesity, unspecified; Z68.39 Body mass index [BMI] 39.0-39.9, adult; N63.23 Unspecified lump in the left breast, lower outer quadrant

== ENCOUNTER 2025-03-07 06:34 | Outpatient (REF) | payer OTHER, SELFPAY ==
--- OUTSIDE RECORDS SUMMARY | 2025-03-07 06:37 | XMS_ITS | Clinical Summary ---
[facility] Address [address] [place] [address] Care Team Providers Care Plastic Sheets Finishing Supervisor Name Role Phone Cheryl Figueroa MD Primary Care Provider [phone] Medical History Medical History Date Comments Cardiomyopathy [...] age to complete this topic Care Teams Plastic Sheets Finishing Supervisor Relationship Specialty Start Date End Date Cheryl Figueroa MD [address] [place] [address] , [facility] [address] [facility] Physician Associ D/B/A: [facility] CHANTEL Stroud PCP - General Internal Medicine 04/13/21
--- OUTSIDE RECORDS SUMMARY | 2025-03-07 06:37 | XMS_ITS | Data Portability ---
Author Organization [place] - [facility], [place] Address [address] [place] [address] Assessment No assessment recorded. Plan of Treatment Reminders Order Date Submit Date Provider Last Modified By Organization Details Last Modified Time Details Appointments None recorded. Lab None recorded. Referral cardiologi st referral - please contact pt for an riya, Thanks 2016 017 Les Cardenas MD, [address] [facility], [place], [address], 7 13:39:[address] referral 2016 017 Not available 7 16:14:[address] referral 2016 017 Not available 7 16:14:[address] referral - eval & treat 2015 016 DBA_PATCH_ [id number] Moise Simmons M.D., [address], [place], [address], 6 04:18:[address] referral - eval & treat 2013 014 david Diaz, [address] [facility], [place], [address], 4 10:06:41 Procedures None recorded. Surgeries None recorded. Imaging XR, lumbar spine - Please contact patient for an appt. thank you 2016 017 [facility] [place], [address] [facility], [place], [address], 7 16:41:53 Medication Orders baclofen 10 mg tablet 2016 017 INTERFACE [id number], [address], [place], [address], 7 08:42:28 mupirocin 2 % topical ointment 2015 016 DBA_PATCH_ [id number] [id number], [address], [place], [address], 6 04:19:11 Bactrim DS 800 mg-160 mg tablet 2015 016 [id number], [address], [place], [address], 7 08:33:11 triamcinol one acetonide 0.1 % topical cream 2015 016 DBA_PATCH_ [id number] [facility], [address], [place], [address], 6 04:19:02 carvedilol 3.125 mg tablet 2015 016 DBA_PATCH_ [id number] [facility], [address], [place], [address], 6 04:18:52 Patient TargetsNo targets recorded. Patient Instructions Encounter Date Encounter Id Patient Instructions Last Modified By Organization Details Last Modified Time 04/13/2014 [id number] dolor o lesi? ? ?n do: instrucciones de cuidado - [knee pain or injury: care instructions] [email or web address] Not available 04/13/2014 16:01:53 A healthy lifestyle: care instructions [email or web address] Not available 04/13/2014 16:01:53 advised to continue with ibuprofen and flexeril,use knee brace for 3 weeks,call me if not better and I will send for MRI. [email or web address] Not available 04/13/2014 15:57:12 08/06/2016 [id number] ataque al coraz? ? ?n: instrucciones de cuidado - [heart attack: care instructions] [email or web address] Not available 08/06/2016 10:55:40 09/03/2016 [id number] ataque al coraz? ? ?n: instrucciones de cuidado - [heart attack: care instructions] Not available 10/26/2016 04:18:55 Eccema: Instrucciones de cuidado - [Eczema: Care Instructions] [email or web address] Not available 09/03/2016 11:27:30 11/18/2016 [id number] ataque al coraz? ? ?n: instrucciones de cuidado - [heart attack: care instructions] [email or web address] Not available 11/18/2016 08:47:21 aprenda sobre lo s trastornos del estado de ? ? ?karishma - [learning about mood disorders] [email or web address] Not available 11/18/2016 08:47:21 Reason for Referral eval & treat Referring Physician: [facility], Encounter Date: 04/13/2014 Credit Office Manager Referral for Co ronary arteriosclerosis eval & treat Referring Physician: Nellie Lockhart [facility], Encounter Date: 08/06/2016 Credit Office Manager Referral for Co ronary arteriosclerosis please contact pt for an riya, Thanks Referring Physician: Nellie Lockhart [facility], Encounter Date: 11/18/2016 Psychiatrist Referral for Mo od disorder Referring Physician: Nellie Lockhart [facility], Encounter Date: 11/18/2016 Psychologist Referral for Mo od disorder Referring Physician: Nellie Lockhart [facility], Encounter Date: 11/18/2016 Results Created Date [...] spine No observ ation record ed. [email or web address] [facility] [place] [address] [place], [address], 11/21/2016 08:44:05 Result Notes None recorded. Problems Name Problem SNOMED Code Status Onset Date Resolution Date Notes Provider Name and Address Organization Details Recorded Time Knee pain Active [facility], [place] - [employer] 4 15:57:12 Coronary arterioscleros is 28890555 Active 2016 [address], [place], [address], [facility] [employer] 7 08:35:08 History of cardiac pacemaker in situ 713657540 Active 2016 [address], [place], [address], [facility] [employer] 7 08:35:09 Old myocardial infarction 5852565 Active 2016 [address], [place], [address], [facility] [employer] 7 08:35:11 Cardiomyopathy 53744622 Active 2016 with mild LV dysfun ction, per Cardio logy. HESHAM [address], [place], [address], [facility] [employer] 7 10:51:50 Problem Notes None recorded. Procedures Surgical History None recorded. Imaging Results Imaging Date Name Status LastModified by Organiz ation Details LastModified Time 02/08/2016 imaging/diag nostic result completed Information not available 09/12/2016 13:20:29 02/05/2016 imaging/diag nostic result completed Information not available 09/12/2016 13:20:21 11/19/2016 XR, lumbar spine completed [email or web address] [facility] [place] [address] [place], [address], 11/21/2016 08:44:05 Procedure Notes None recorded. Medical Equipment None Reported. Allergies Allergen ID Allergen Name Allergen Category Reaction Reaction Severity Criticality Documentation Date Start Date Code Code System Note Provider Name and Address Organization Details Recorded Time 94799 shrimp allergeni c extract food hives itching Not available Not available Not available 08/06/2016 68313 2 RxNorm Alexandra Colon null, [place] - [employer] [facility] 6 10:07:40 28944 corn extract food,medi cation hives itching Not available Not available Not available 08/06/2016 64649 08 RxNorm Alexandra Colon null, [facility] [employer] [facility] 6 10:07:54 Medications Name Sig Start Date [...] Details Last Updated DateTime 4 160.02 cm 38149.0 3423 g 31.7 kg/m2 98.1 [degF] 66 /min 98 % 98 % 18 /min 128 mm[Hg] 76 mm[Hg] Pooja Ruvalcaba [employer] 4 15:33:28 Date Recorded Body weight Respiratory rate Body height Body mass index (BMI) Body temperature Heart rate Oxygen saturation Oxygen saturation in Arterial blood by Pulse oximetry Systolic blood pressure Diastolic blood pressure Provider Name and Address Organization Details Last Updated DateTime 6 72048.2 3 g 16 /min 167.64 cm 31.5 kg/m2 98 [degF] 71 /min 98 % 98 % 144 mm[Hg] 82 mm[Hg] Alexandra [employer] 6 10:07:15 Date Recorded Body height Body weight Body mass index (BMI) Body temperature Heart rate Respiratory rate Oxygen saturation Oxygen saturation in Arterial blood by Pulse oximetry Systolic blood pressure Diastolic blood pressure Provider Name and Address Organization Details Last Updated DateTime 6 167.64 cm 01264.3 9 g 31.6 kg/m2 98.4 [degF] 70 /min 16 /min 97 % 97 % 134 mm[Hg] 75 mm[Hg] [employer] 6 10:33:40 Date Recorded Body height Respiratory rate Body weight Body mass index (BMI) Body temperature Heart rate Oxygen saturation Oxygen saturation in Arterial blood by Pulse oximetry Systolic blood pressure Diastolic blood pressure Provider Name and Address Organization Details Last Updated DateTime 7 167.64 cm 16 /min 42033.6 3 g 32.4 kg/m2 98 [degF] 76 /min 96 % 96 % 143 mm[Hg] 78 mm[Hg] Alexandra Jeanmarie [facility] [employer] [facility] 7 08:32:28 Social History Question Answer Notes LastModified by Organizat ion Details LastModified Time Tobacco Smoking Status Current Every Day Smoker Pooja Jordon ordonez [facility] [employer] [facility] 04/13/2014 15:36:57 What Is Your Level Of Alcohol Consumption? Occasional Information not available 08/06/2016 How Much Tobacco Do You Chew? None Information not available 04/13/2014 What Type Of Diet Are You Following? REGULAR Information not available 04/13/2014 What Is Your Occupation? [employer] Workers Information not available 04/13/2014 Advance Directive [...] Organization Details LastModified Time Father Diabetes mellitus [email or web address] Not available 2015 12:55:48 Medical History Condition Response Chronic back pain N Atrial Fibrillation N Colon Cancer N Blood Diseases N Hyperthyroidism N Breast Cancer N Rheumatoid arthritis N Hernia N Lung cancer N Hypothyroidism N Depression N COPD N PVD N Coronary Heart Disease N Psychiatric disorders N Neurologic problems N Anxiety Disorder N Obesity N Mitral valve prolapse N Arthritis N Cancer N IBS N Erection difficulty N Liver disease N Prostate cancer N Bladder or Kidney Problems N CVA- Stroke N GERD N Fibromyalgia N Headaches N Prostate problems N Dyslipidemia N Osteoarthritis N Migraines N ADD or ADHD N Anemia N CAD Y PAD- peripheral arterial disease N Diabetes Type 2 N Infection N Kidney disease N Cardiomyopathy N Bedwetting N CHF N Hyperlipidemia N Phlebitis N Chronic Pain N Dementia N Asthma N Allergies N Epilepsy N Seizure disorder N Sleep Apnea N Diabetes Type I N Hepatitis N DJD N Neuropathy N Hypertension Y Chicken Pox N Osteoporosis N Tobacco use disorder Y Past Encounters Encounter ID Performer Location Encounter Start Date Encounter Closed Date Diagnosis/Indication Diagnosis SNOMED-CT Code Diagnosis ICD10 Code Diagnosis Note [id number] Karma Pena [place] [address] [facility] [place] [address] 04/13/2014 15:15:17 04/13/2014 16:11:13 Body mass index 30+ - obesity 852217959 History of cardiac pacemaker in situ 024812211 Knee pain 36783902 [id number] HESHAM Hein [facility] [place] [address] [facility] [address] [place] [address] 08/06/2016 09:45:06 08/06/2016 10:54:38 History of cardiac pacemaker in situ 303579624 Z95.0 Old myocar dial infarction 5781585 I25.[address] as scheduled. Coronary arteriosclerosis 19608283 I25.10 [id number] HESHAM Hein [facility] [place] [address] [facility] [address] [place] [address] 09/03/2016 09:54:16 09/03/2016 11:17:51 Coronary arteriosclerosis 41327243 I25.10 stable. Followup with Cardiologi st as scheduled. History of cardiac pacemaker in situ 751571083 Z95.0 Old myocar dial infarction 5915550 I25.[address] as scheduled. Bacterial folliculitis 958372406 A49.9 Left chest wall. Atopic dermatitis 121742 01 L20.9 R hand. [id number] HESHAM Hein [facility] [place] [address] [facility] [place] [address] 11/18/2016 08:07:30 11/18/2016 08:49:06 Coronary arteriosclerosis 24945103 I25.10 stable. Followup with Cardiologi st as scheduled. History of cardiac pacemaker in situ 278195968 Z95.0 Old myocar dial infarction 6368117 I25.[address] as scheduled. Lumbar radiculopathy 128 479844 M54.16 LLE Mood disorder 41623475 F 39 Health Concerns Section Related Observation LastModified by Organization Detai ls LastModified Time None Recorded Concern Status LastModified by Organization Details LastModified Time None Recorded Advance Directives Directive None Recorded Payers Encounter Date Sequence Insurance Name Policy Number Policy Guerin Covered Member ID Guerin Member ID Guarantor Name 04/13/2014 1 [employer] - [employer] (PPO) James Lam [id number] James Lam 08/06/2016 1 [employer] [place] (MEDICA[place] HMO) James Lam Sr [id number] James Lam 09/03/2016 1 [employer] [place] James Lam Sr [id number] James Lam 11/18/2016 1 [employer] [place] James Lam [id number] James Lam Notes Date Note Type Note Provider Name and Address Organization Details Recorded Time 04/13/2014 text/html 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 Joao ordonez, [facility] [employer] 04/13/2014 15:57:25 08/06/2016 text/html Here to re-establish care. Patient recently seen for acute myocardial infarction at [facility]. No medical records to review. [address]ESH[address], [place], [address], [employer] 08/12/2016 21:50:25 09/03/2016 text/html Here for followu p of CAD, he has confirmed appointment with Credit Office Manager in 3 days. Patient complains of R hand skin dryness with fissures due to this. Also complains of L area erythematous bump near pacemaker. [address]ESH[address], [place], [address], [employer] 09/03/2016 14:54:12 11/18/2016 text/html Patient complain s of progressive lower back pain with radiation to L lower leg. Patient also reports due to his chronic heart conditions and unable to work at this time, has been feeling with depressive mood and some anxiety. [address]ESH[address], [place], [address], [facility] - [employer], [facility] 11/18/2016 09:09:57
[2025-03-07 06:50] LABS: MANUAL DIFF FLAG NO
[2025-03-07 07:21] LABS: Basophils Percent Auto 0.5 % (0-2); Eosinophils Absolute Auto 0.5 X10*3/uL (0.0-0.4); Eosinophils Percent Auto 6.4 % (0-4); Hematocrit 45.8 % (42.0-52.0); Hemoglobin 15.2 g/dl (14.0-18.0); Imm Gran Abs Auto 0.03 X10*3/uL (0.00-0.03); Imm Gran Pct Auto 0.4 % (0.0-0.4); Immature Retic Fraction 8.6 % (2.3-13.4); Lymphocytes Absolute Auto 2.8 X10*3/uL (1.2-4.9); Lymphocytes Percent Auto 32.4 % (20-40); Mean Corpuscular HGB Conc 33.2 g/dl (31.0-36.0); Mean Corpuscular Hemoglobin 31.3 pg (27.0-33.0); Mean Corpuscular Volume 94.4 fL (80.0-98.0); Monocytes Absolute Auto 0.7 X10*3/uL (0.1-1.2); Monocytes Percent Auto 7.8 % (2-11); Neutrophils Absolute Auto 4.5 x10*3/uL (2.0-8.3); Neutrophils Percent Auto 52.5 % (45-73); Platelet Count 197 X10*3/uL (160-400); Red Blood Count 4.85 X10*6/uL (4.60-5.80); Retic HGB Equivalent 36.3 pg (30.0-35.0); Reticulocyte Percent 0.9 % (0.5-1.8); Reticulocytes Absolute 0.045 X10*6/uL (0.026-0.095); White Blood Count 8.5 X10*3/uL (4.8-10.8)
[2025-03-07 07:27] LABS: Estimated Average Glucose 126 mg/dL; Hemoglobin A1C 168.1474 umol/L; Total Hemoglobin (HGBA1C) 4018.4346 umol/L
[2025-03-07 07:49] LABS: B Type Natriuretic Peptide 123 pg/mL (<100)
[2025-03-07 08:01] LABS: Alanine Aminotransferase 55 U/L (0-40); Albumin Level 3.9 g/dL (3.5-5.0); Alkaline Phosphatase 91 U/L (39-117); Anion Gap 13 (12-20); Aspartate Amino Transferase 29 U/L (5-37); Bilirubin Total 0.2 mg/dL (0.0-1.0); Blood Urea Nitrogen 9 mg/dL (9-16); Calcium 8.9 mg/dL (8.4-10.2); Carbon Dioxide 24 mmol/L (22-29); Chloride 106 mmol/L (96-108); Cholesterol 178 mg/dL (<200); Estimated Glomerular Filt Rate > 60; Glucose Random 113 mg/dL (60-115); HDL Cholesterol 32 mg/dL (>40); Iron 57 mcg/dL (45-160); LDL Cholesterol Calculated 120 mg/dL (<100); Percent Iron Saturation 23 % (15-50); Potassium 4.1 mmol/L (3.3-5.1); Sodium 139 mmol/L (135-145); Total Iron Binding Capacity 247 mcg/dL (228-428); Total Protein 7.5 g/dL (6.5-8.0); Triglycerides 134 mg/dL (<150); Unsaturated Iron Binding 190 ug/dL
[2025-03-07 08:18] LABS: Folate 7.1 ng/mL (> or = 4.0); Vitamin B12 428 pg/mL (200-900)
[2025-03-07 08:19] LABS: Thyroid Stimulating Hormone 6.27 uIU/mL (0.32-4.0)
[2025-03-07 08:20] LABS: Ferritin 241 ng/mL (20-250); Free T4 (Free Thyroxine) 0.78 ng/dL (0.71-1.85)
== END 2025-03-07 06:35 | disposition home or self-care (01) ==
LOC: HO.LAB 06:34
PROVIDERS: Absent Provider Nurse Practitioner Family; PCP Internal Medicine; Visit Provider Internal Medicine
DX: E78.00 Pure hypercholesterolemia, unspecified (principal); Z72.0 Tobacco use; R79.89 Other specified abnormal findings of blood chemistry
CPT/HCPCS: 36415; 80053; 80061; 82607; 82728; 82746; 83036; 83540; 83880; 84439; 84443; 85025; 85045

== ENCOUNTER → 2025-03-14 23:59 | Outpatient (BNV) | payer OTHER, SELFPAY ==
--- NOTE | 2025-03-21 14:35 | A.OFFVIS_ITS ---
Intake Visit Reasons: Remote Device Check- [employer] Allergies corn [CORN] Allergy (Intermediate, Verified 02/21/25 17:23) Rash shrimp [SHRIMP] Allergy (Intermediate, Verified 02/21/25 17:23) ITCHING PFSH Medical History Right atrial thrombus Preoperative cardiovascular examination Dyspnea Pain of left thumb Right knee pain NICM (nonischemic cardiomyopathy) MARVIN on CPAP Sleep apnea Coarctation of aorta Right hand pain Supraumbilical hernia Morbid obesity Right elbow pain Hernia of anterior abdominal wall Normally functioning cardiac pacemaker present Depression Hypovitaminosis D Pure hypercholesterolemia Essential hypertension Surgical History Status post wrist surgery H/O carpal tunnel repair History of umbilical hernia repair History of ascending aorta repair History of cataract surgery H/O left wrist surgery History of pacemaker Family History Father Uncontrolled diabetes mellitus Mother Uncontrolled persistent asthma Family/Other FH: mental illness Social History (Updated 02/21/25 @ 17:26 by EPHRAIM Crenshaw) Housing: Apartment Alcohol intake: current Alcohol intake frequency: holidays/special occasions only Alcohol type: hard liquor Patient Tobacco Use Status: Current everyday Tobacco user Tobacco use type: Cigarette Cigarettes Per Day: 2 Years Smoked: 10 e-Cigarette/Vaping Use: Never Used Second Hand Smoke Exposure: No service: No Current occupational status: unemployed and disabled Cognitive needs: No Hearing needs: No Vision needs: No Office Procedures Cardiac Device Check Cardiac Device Check Details: Date of service- 03/12/2025 ; Battery life 5 months; normal lead parameters; AP 47%; PATIENT OBSERVER 98%; no significant arrhythmias. Overall normal device function. [id number] Cardiac Device Interrogation, pacemaker Procedure code (CPT) selection complete Assessment & Plan Assessment & Plan (1) Normally functioning cardiac pacemaker present: Code(s): Z95.0 - Presence of cardiac pacemaker Category: Medical (2) NICM (nonischemic cardiomyopathy): Code(s): I42.8 - Other cardiomyopathies Category: Medical (3) Atrial flutter: Comment: April 2024 Code(s): I48.92 - Unspecified atrial flutter Category: Medical Qualifiers: Atrial flutter type: typical Qualified Code(s): I48.3 - Typical atrial flutter Plan x Coding Level of Care Code Procedure Only Diagnoses Normally functioning cardiac pacemaker present Z95.0 NICM (nonischemic cardiomyopathy) I42.8 Typical atrial flutter I48.3 Atrial flutter type: typical CPT Codes Cardiac Device Check - Cardiac Device 12: [id number] Cardiac Device Interrogation, pacemaker ([id number])
== END ==
PROVIDERS: PCP Internal Medicine; Visit Provider Internal Medicine
DX: I42.8 Other cardiomyopathies (principal); Z95.0 Presence of cardiac pacemaker; I48.3 Typical atrial flutter
CPT/HCPCS: 93294

== ENCOUNTER 2025-03-17 11:44 | Outpatient (REF) | payer OTHER, SELFPAY ==
--- NOTE | ~2025-03-17 | US_ITS ---
EXAMINATION: MM DIAGNOSTIC DIGITAL BREAST TOMOSYNTHESIS, BILATERAL Limited left breast ultrasound. CLINICAL INFORMATION: Palpable retroareolar left breast lump and pain. COMPARISON: Mammography: Comparison is made with relevant prior exams. TECHNIQUE: Digital breast mammography with tomosynthesis is performed in both the craniocaudal and mediolateral oblique views along with computer-aided detection (CAD). FINDINGS: Left: BB maker in the left retroareolar region with moderate underlying gynecomastia. No suspicious calcifications or other abnormal findings. There is an intramammary lymph node in the upper outer breast which is normal-appearing. Right: There are no significant masses, abnormal calcifications, or other abnormalities. Results are provided to the patient at time of visit by the technologist. US/US breast LT limited mamm only IMPRESSION: Right: Negative. Left: Moderate retroareolar gynecomastia. Benign. Recommend clinical follow-up. ASSESSMENT: BI-RADS BI-RADS 2 - Benign Findings RECOMMENDATION: Recommend clinical follow-up. Electronically signed by: Sharlene Toro DO 03/17/2025 12:16 PM EDT
--- OUTSIDE RECORDS SUMMARY | 2025-03-17 13:15 | XMS_ITS | Data Portability ---
Author Organization [place] - [facility] [place] Address [address] [facility] [place] [address] Assessment No assessment recorded. Plan of Treatment Reminders Order Date Submit Date Provider Last Modified By Organization Details Last Modified Time Details Appointments None recorded. Lab None recorded. Referral cardiologi st referral - please contact pt for an riya, Thanks 2016 017 Les Cardenas MD, [address] [facility], [place], [address], 7 13:39:[address] referral 2016 017 Not available 7 16:14:[address] referral 2016 017 Not available 7 16:14:[address] referral - eval & treat 2015 016 DBA_PATCH_ [id number] Moise Simmons M.D., [address], [place], [address], 6 04:18:[address] referral - eval & treat 2013 014 david Diaz, [address] [facility], [place], [address], 4 10:06:41 Procedures None recorded. Surgeries None recorded. Imaging XR, lumbar spine - Please contact patient for an appt. thank you 2016 017 NIURKA [facility]onez [facility] [place], [address] [facility], [place], [address], 7 16:41:53 Medication Orders baclofen 10 mg tablet 2016 017 INTERFACE [id number], [address], [place], [address], 7 08:42:28 mupirocin 2 % topical ointment 2015 016 DBA_PATCH_ [id number] [id number], [address], [place], [address], 6 04:19:11 Bactrim DS 800 mg-160 mg tablet 2015 016 [id number], [address], [place], [address], 7 08:33:11 triamcinol one acetonide 0.1 % topical cream 2015 016 DBA_PATCH_ [id number] [id number], [address], [place], [address], 6 04:19:02 carvedilol 3.125 mg tablet 2015 016 DBA_PATCH_ [id number] [facility], [address], [place], [address], 6 04:18:52 Patient TargetsNo targets recorded. Patient Instructions Encounter Date Encounter Id Patient Instructions Last Modified By Organization Details Last Modified Time 04/13/2014 [id number] dolor o lesi? ? ?n do: instrucciones de cuidado - [knee pain or injury: care instructions] [email or web address] Not available 04/13/2014 16:01:53 A healthy lifestyle: care instructions [email or web address] Not available 04/13/2014 16:01:53 advised to continue with ibuprofen and flexeril,use knee brace for 3 weeks,call me if not better and I will send for MRI. [email or web address] Not available 04/13/2014 15:57:12 08/06/2016 [id number] ataque al coraz? ? ?n: instrucciones de cuidado - [heart attack: care instructions] [email or web address] Not available 08/06/2016 10:55:40 09/03/2016 [id number] ataque al coraz? ? ?n: instrucciones de cuidado - [heart attack: care instructions] Not available 10/26/2016 04:18:55 Eccema: Instrucciones de cuidado - [Eczema: Care Instructions] [email or web address] Not available 09/03/2016 11:27:30 11/18/2016 [id number] ataque al coraz? ? ?n: instrucciones de cuidado - [heart attack: care instructions] [email or web address] Not available 11/18/2016 08:47:21 aprenda sobre lo s trastornos del estado de ? ? ?karishma - [learning about mood disorders] [email or web address] Not available 11/18/2016 08:47:21 Reason for Referral eval & treat Referring Physician: [facility], Encounter Date: 04/13/2014 Playground Attendant Referral for Co ronary arteriosclerosis eval & treat Referring Physician: Nellie Lockhart [facility] Medicine, Encounter Date: 08/06/2016 Playground Attendant Referral for Co ronary arteriosclerosis please contact pt for an riya, Thanks Referring Physician: Nellie Lockhart [facility] Medicine, Encounter Date: 11/18/2016 Psychiatrist Referral for Mo od disorder Referring Physician: Nellie Lockhart [facility] Medicine, Encounter Date: 11/18/2016 Psychologist Referral for Mo od disorder Referring Physician: Nellie Lockhart [facility] Medicine, Encounter Date: 11/18/2016 Results Created [...] spine No observ ation record ed. [email or web address] [facility] [place] [address] [place], [address], 11/21/2016 08:44:05 Result Notes None recorded. Problems Name Problem SNOMED Code Status Onset Date Resolution Date Notes Provider Name and Address Organization Details Recorded Time Knee pain Active [facility], [place] - [employer] 4 15:57:12 Coronary arterioscleros is 29083760 Active 2016 [address], [place], [address], [facility] [employer] 7 08:35:08 History of cardiac pacemaker in situ 541994962 Active 2016 [address], [place], [address], [facility] [employer] 7 08:35:09 Old myocardial infarction 4677178 Active 2016 [address], [place], [address], [facility] [employer] 7 08:35:11 Cardiomyopathy 53822032 Active 2016 with mild LV dysfun ction, per Cardio logy. HESHAM [address], [place], [address], [facility] [employer] 7 10:51:50 Problem Notes None recorded. Procedures Surgical History None recorded. Imaging Results Imaging Date Name Status LastModified by Organiz ation Details LastModified Time 02/08/2016 imaging/diag nostic result completed Information not available 09/12/2016 13:20:29 02/05/2016 imaging/diag nostic result completed Information not available 09/12/2016 13:20:21 11/19/2016 XR, lumbar spine completed [email or web address] [facility] [place] [address] [place], [address], 11/21/2016 08:44:05 Procedure Notes None recorded. Medical Equipment None Reported. Allergies Allergen ID Allergen Name Allergen Category Reaction Reaction Severity Criticality Documentation Date Start Date Code Code System Note Provider Name and Address Organization Details Recorded Time 46910 shrimp allergeni c extract food hives itching Not available Not available Not available 08/06/2016 93648 2 RxNorm Alexandra Colon null, [place] - [employer] [facility] 6 10:07:40 02254 corn extract food,medi cation hives itching Not available Not available Not available 08/06/2016 39117 08 RxNorm Alexandra Colon null, [facility] [employer] [facility] 6 10:07:54 Medications Name Sig Start Date [...] Details Last Updated DateTime 4 160.02 cm 51675.0 3423 g 31.7 kg/m2 98.1 [degF] 66 /min 98 % 98 % 18 /min 128 mm[Hg] 76 mm[Hg] Pooja Ruvalcaba [employer] 4 15:33:28 Date Recorded Body weight Respiratory rate Body height Body mass index (BMI) Body temperature Heart rate Oxygen saturation Oxygen saturation in Arterial blood by Pulse oximetry Systolic blood pressure Diastolic blood pressure Provider Name and Address Organization Details Last Updated DateTime 6 57207.2 3 g 16 /min 167.64 cm 31.5 kg/m2 98 [degF] 71 /min 98 % 98 % 144 mm[Hg] 82 mm[Hg] Alexandra [employer] 6 10:07:15 Date Recorded Body height Body weight Body mass index (BMI) Body temperature Heart rate Respiratory rate Oxygen saturation Oxygen saturation in Arterial blood by Pulse oximetry Systolic blood pressure Diastolic blood pressure Provider Name and Address Organization Details Last Updated DateTime 6 167.64 cm 43301.3 9 g 31.6 kg/m2 98.4 [degF] 70 /min 16 /min 97 % 97 % 134 mm[Hg] 75 mm[Hg] [employer] 6 10:33:40 Date Recorded Body height Respiratory rate Body weight Body mass index (BMI) Body temperature Heart rate Oxygen saturation Oxygen saturation in Arterial blood by Pulse oximetry Systolic blood pressure Diastolic blood pressure Provider Name and Address Organization Details Last Updated DateTime 7 167.64 cm 16 /min 80876.6 3 g 32.4 kg/m2 98 [degF] 76 /min 96 % 96 % 143 mm[Hg] 78 mm[Hg] Alexandra Jeanmarie [facility] [employer] [facility] 7 08:32:28 Social History Question Answer Notes LastModified by Organizat ion Details LastModified Time Tobacco Smoking Status Current Every Day Smoker Pooja Jordon ordonez [facility] [employer] [facility] 04/13/2014 15:36:57 What Is Your Level Of Alcohol Consumption? Occasional Information not available 08/06/2016 How Much Tobacco Do You Chew? None Information not available 04/13/2014 What Type Of Diet Are You Following? REGULAR Information not available 04/13/2014 What Is Your Occupation? [email or web address] Workers Information not available 04/13/2014 Advance Directive [...] Organization Details LastModified Time Father Diabetes mellitus [email or web address] Not available 2015 12:55:48 Medical History Condition Response Atrial Fibrillation N Blood Diseases N Hyperthyroidism N Rheumatoid arthritis N COPD N Depression N Anxiety Disorder N Mitral valve prolapse N Obesity N Arthritis N Cancer N IBS N Erection difficulty N Liver disease N Prostate cancer N CVA- Stroke N GERD N Headaches N Fibromyalgia N Migraines N ADD or ADHD N CAD Y PAD- peripheral arterial disease N Infection N CHF N Asthma N Allergies N Diabetes Type I N Hepatitis N DJD N Neuropathy N Chicken Pox N Tobacco use disorder Y Chronic back pain N Colon Cancer N Breast Cancer N Hernia N Lung cancer N Hypothyroidism N PVD N Coronary Heart Disease N Psychiatric disorders N Neurologic problems N Bladder or Kidney Problems N Prostate problems N Dyslipidemia N Osteoarthritis N Anemia N Diabetes Type 2 N Kidney disease N Cardiomyopathy N Bedwetting N Hyperlipidemia N Phlebitis N Chronic Pain N Dementia N Epilepsy N Seizure disorder N Sleep Apnea N Hypertension Y Osteoporosis N Past Encounters Encounter ID Performer Location Encounter Start Date Encounter Closed Date Diagnosis/Indication Diagnosis SNOMED-CT Code Diagnosis ICD10 Code Diagnosis Note [id number] Joao Muhammad MD [facility] [address] [place] [address] 04/13/2014 15:15:17 04/13/2014 16:11:13 Body mass index 30+ - obesity 929674094 History of cardiac pacemaker in situ 449220120 Knee pain 10547811 [id number] HESHAM Hein [facility] [place] [address] [place] [address] 08/06/2016 09:45:06 08/06/2016 10:54:38 History of cardiac pacemaker in situ 071840201 Z95.0 Old myocar dial infarction 8875125 I25.[address] as scheduled. Coronary arteriosclerosis 60616065 I25.10 [id number] HESHAM Hein [facility] [place] [address] [place] [address] 09/03/2016 09:54:16 09/03/2016 11:17:51 Coronary arteriosclerosis 01236470 I25.10 stable. Followup with Cardiologi st as scheduled. History of cardiac pacemaker in situ 382873060 Z95.0 Old myocar dial infarction 7794181 I25.[address] as scheduled. Bacterial folliculitis 440178912 A49.9 Left chest wall. Atopic dermatitis 083342 01 L20.9 R hand. [id number] HESHAM Hein [facility] [place] [address] [place] [address] 11/18/2016 08:07:30 11/18/2016 08:49:06 Coronary arteriosclerosis 92447483 I25.10 stable. Followup with Cardiologi st as scheduled. History of cardiac pacemaker in situ 336126824 Z95.0 Old myocar dial infarction 4378985 I25.[address] as scheduled. Lumbar radiculopathy 128 628432 M54.16 LLE Mood disorder 33265911 F 39 Health Concerns Section Related Observation LastModified by Organization Detai ls LastModified Time None Recorded Concern Status LastModified by Organization Details LastModified Time None Recorded Advance Directives Directive None Recorded Payers Encounter Date Sequence Insurance Name Policy Number Policy Guerin Covered Member ID Guerin Member ID Guarantor Name 04/13/2014 1 [employer] - [employer] (PPO) James Lam [id number] James Lam 08/06/2016 1 [employer] [place] James Lam Sr [id number] James Lam 09/03/2016 1 [employer] [place] James Lam Sr [id number] James Lam 11/18/2016 1 [employer] [place] James Lam [id number] James Lam Notes Date Note Type Note Provider Name and Address Organization Details Recorded Time 04/13/2014 text/html 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 Joao ordonez, [facility] [employer] 04/13/2014 15:57:25 08/06/2016 text/html Here to re-establish care. Patient recently seen for acute myocardial infarction at [facility]. No medical records to review. [address]ESH[address], [place], [address], [employer] 08/12/2016 21:50:25 09/03/2016 text/html Here for followu p of CAD, he has confirmed appointment with Playground Attendant in 3 days. Patient complains of R hand skin dryness with fissures due to this. Also complains of L area erythematous bump near pacemaker. HESH[address], [place], [address], [employer] 09/03/2016 14:54:12 11/18/2016 text/html Patient complain s of progressive lower back pain with radiation to L lower leg. Patient also reports due to his chronic heart conditions and unable to work at this time, has been feeling with depressive mood and some anxiety. HESHAM [address], [place], [address], [facility], [facility] 11/18/2016 09:09:57
--- OUTSIDE RECORDS SUMMARY | 2025-03-17 13:15 | XMS_ITS | Clinical Summary ---
Author Organization [facility] Address [address] [place] [address] Care Team Providers Care Blacksmith Helper Name Role Phone Cheryl Figueroa MD Primary Care Provider [phone] Medical History Medical History Date Comments Cardiomyopathy [...] age to complete this topic Care Teams Blacksmith Helper Relationship Specialty Start Date End Date Cheryl Figueroa MD [address] [place] [address] , [facility] [address] [facility] Physician Associ D/B/A: [facility] CHANTEL Stroud PCP - General Internal Medicine 04/13/21
== END 2025-03-17 11:45 | disposition home or self-care (01) ==
LOC: HO.MAMMO 11:44
PROVIDERS: PCP Internal Medicine; Visit Provider Internal Medicine
DX: N63.21 Unspecified lump in the left breast, upper outer quadrant (principal)
CPT/HCPCS: 76642; 77062; 77066

== ENCOUNTER → 2025-03-17 12:00 | Outpatient (BNV) | payer OTHER, SELFPAY | PROVIDERS: PCP Internal Medicine; Visit Provider Internal Medicine | DX: N62 Hypertrophy of breast (principal) | CPT/HCPCS: 76642; 77066; G0279 ==

== ENCOUNTER → 2025-03-21 23:59 | Outpatient (BNV) | payer OTHER, SELFPAY ==
--- NOTE | 2025-03-29 20:10 | A.OFFVIS_ITS ---
Intake Visit Reasons: Remote Device Check- [employer] Allergies corn [CORN] Allergy (Intermediate, Verified 02/21/25 17:23) Rash shrimp [SHRIMP] Allergy (Intermediate, Verified 02/21/25 17:23) ITCHING PFSH Medical History Right atrial thrombus Preoperative cardiovascular examination Dyspnea Pain of left thumb Right knee pain NICM (nonischemic cardiomyopathy) MARVIN on CPAP Sleep apnea Coarctation of aorta Right hand pain Supraumbilical hernia Morbid obesity Right elbow pain Hernia of anterior abdominal wall Normally functioning cardiac pacemaker present Depression Hypovitaminosis D Pure hypercholesterolemia Essential hypertension Surgical History Status post wrist surgery H/O carpal tunnel repair History of umbilical hernia repair History of ascending aorta repair History of cataract surgery H/O left wrist surgery History of pacemaker Family History Father Uncontrolled diabetes mellitus Mother Uncontrolled persistent asthma Family/Other FH: mental illness Social History (Updated 02/21/25 @ 17:26 by EPHRAIM Crenshaw) Housing: Apartment Alcohol intake: current Alcohol intake frequency: holidays/special occasions only Alcohol type: hard liquor Patient Tobacco Use Status: Current everyday Tobacco user Tobacco use type: Cigarette Cigarettes Per Day: 2 Years Smoked: 10 e-Cigarette/Vaping Use: Never Used Second Hand Smoke Exposure: No service: No Current occupational status: unemployed and disabled Cognitive needs: No Hearing needs: No Vision needs: No Office Procedures Cardiac Device Check Cardiac Device Check Details: Date of service- 03/21/2025 ; Battery life 5 months; normal lead parameters; AP 46%; BUILDER'S LABOURER 96%; no significant arrhythmias. Overall normal device function. [id number] Cardiac Device Interrogation, pacemaker Procedure code (CPT) selection complete Assessment & Plan Assessment & Plan (1) Normally functioning cardiac pacemaker present: Code(s): Z95.0 - Presence of cardiac pacemaker Category: Medical (2) Atrial flutter: Comment: April 2024 Code(s): I48.92 - Unspecified atrial flutter Category: Medical Qualifiers: Atrial flutter type: typical Qualified Code(s): I48.3 - Typical atrial flutter Plan x Coding Level of Care Code Procedure Only Diagnoses Normally functioning cardiac pacemaker present Z95.0 Typical atrial flutter I48.3 Atrial flutter type: typical CPT Codes Cardiac Device Check - Cardiac Device 12: [id number]-[id number] Cardiac Device Interrogation, pacemaker ([id number])
== END ==
PROVIDERS: PCP Internal Medicine; Visit Provider Internal Medicine
DX: I48.3 Typical atrial flutter (principal); Z95.0 Presence of cardiac pacemaker
CPT/HCPCS: 93294

== ENCOUNTER 2025-04-27 16:22 | Emergency (ER) | payer OTHER, SELFPAY ==
--- NOTE | ~2025-04-27 | XR_ITS ---
CLINICAL HISTORY: pain 2 view chest x-ray Comparison: None provided Findings: No consolidation, pleural effusion or pneumothorax. Heart size is upper limits of normal. Stent artifact projects over the proximal descending thoracic aorta. There is a biventricular cardiac pacemaker. No acute fracture. IMPRESSION: No acute cardiopulmonary process. This document has been electronically signed by: Ninoska Champion DO on 04/27/2025 17:29:04
[2025-04-27 16:24] VITALS: BP 148/73; PULSE 84; RESP 16; TEMP 36.1; O2SAT 98; BMI 40.7
--- NOTE | 2025-04-27 16:30 | ED_ITS ---
HPI - General Adult General Chief complaint: Chest Pain Stated complaint: Chest pain, dizziness Time Seen by Provider: 04/27/25 19:08 Source: patient Limitations: language barrier History of Present Illness ED Provider: Crystal Frankel PA-C HPI narrative: 49-year-old male with a history of morbid obesity, hyperlipidemia, hypertension, diabetes, complete heart block now status post pacer 2005, cardiomyopathy with the EF of 35-40% echo 2022, tobacco abuse, status post pacer presents with chest pain. Patient states he developed central chest discomfort earlier today, pain worse with palpation of central chest wall, it is nonradiating. Denies diaphoresis, nausea or shortness of breath. Denies new activity, heavy lifting or trauma that could have precipitated his discomfort. Denies recent cough or cold symptoms no fever. Related Data Previous Rx's ?Medication ?Instructions ?Recorded atorvastatin 80 mg tablet 80 mg PO BEDTIME 90 days #90 tabs 02/21/25 bupropion HCl 150 mg 24 hr tablet, 150 mg PO QAM #90 t abs 02/21/25 extended release carvedilol 3.125 mg tablet 3.125 mg PO BID 90 days #18 0 tabs 02/21/25 ezetimibe 10 mg tablet (Zetia) 10 mg PO DAILY #90 tabs 02/21/25 nicotine 7 mg/24 hr daily 1 patch transdermal Q24H #28 ea 02/21/25 transdermal patch rivaroxaban 20 mg tablet (Xarelto) 20 mg PO DAILY 90 d ays #90 tabs 02/21/25 sacubitril 24 mg-valsartan 26 mg 1 tab PO BID 90 days #180 tabs 02/21/25 tablet (Entresto) Allergies Allergy/AdvReac Type Severity Reaction Status Date / Time corn (CORN) Allergy Intermediate Rash Verified 04/27/25 16:29 shrimp (SHRIMP) Allergy Intermediate ITCHING Verified 04/27/25 16:29 Review of Systems 2 Review of Systems: Yes all other systems are reviewed and are negative Constitutional: Constitutional: Denies fatigue and Denies fever(s) Cardiovascular: Cardiovascular: Reports chest pain and Denies dyspnea Respiratory: Respiratory: Denies cough and Denies dyspnea Gastrointestinal: Gastrointestinal: Denies abdominal pain, Denies nausea and Denies vomiting Endocrine: Endocrine: Denies fatigue PMFSH Past Medical History Attestation statement: The following information was validated with the patient. Medical History Right atrial thrombus Preoperative cardiovascular examination Dyspnea Pain of left thumb Right knee pain NICM (nonischemic cardiomyopathy) MARVIN on CPAP Sleep apnea Coarctation of aorta Right hand pain Supraumbilical hernia Morbid obesity Right elbow pain Hernia of anterior abdominal wall Normally functioning cardiac pacemaker present Depression Hypovitaminosis D Pure hypercholesterolemia Essential hypertension Surgical History Status post wrist surgery H/O carpal tunnel repair History of umbilical hernia repair History of ascending aorta repair History of cataract surgery H/O left wrist surgery History of pacemaker Family History Family History Father Uncontrolled diabetes mellitus Mother Uncontrolled persistent asthma Family/Other FH: mental illness Social History Social History (Updated 02/21/25 @ 17:26 by EPHRAIM Crenshaw) Housing: Apartment Alcohol intake: current Alcohol intake frequency: holidays/special occasions only Alcohol type: hard liquor Patient Tobacco Use Status: Current everyday Tobacco user Tobacco use type: Cigarette Cigarettes Per Day: 2 Years Smoked: 10 e-Cigarette/Vaping Use: Never Used Second Hand Smoke Exposure: No Advance Directives: No Advance Directives Information Provided: No Do you have a plan to hurt others: No Plan service: No Current occupational status: unemployed and disabled Cognitive needs: No Hearing needs: No Vision needs: No Physical Exam ED Vital Signs: Vital Signs - 24 hr 04/27/25 16:24 04/27/25 18:03 04/27/25 19:18 Temperature 97.0 F 98.1 F 98.5 F Pulse Rate 84 67 62 Respiratory Rate 16 19 15 Blood Pressure 148/73 H 146/70 H 124/64 Pulse Oximetry 98 96 94 Oxygen Delivery Method Room Air Room Air Room Air BMI result Body Mass Index 40.7 Const Other: Alert Orientation/consciousness: patient oriented x3 Chest Other: Pain elicited with palpation of central chest wall over mediastinum Resp Effort & Inspection: normal respiratory effort Cardio Other: Normal peripheral perfusion Skin Other: Warm dry no rash Neuro General: patient oriented x3, gait normal, no focal motor deficits and CN's II- XI intact bilaterally Psych Other: Cooperative Course Course Course Narrative: camelia MAXWELL is a rapid medical exam performed by Daniel Myers please refer to primary provider for complete H&P- 49-year-old female presents for evaluation of chest pain. Symptoms started 20 minutes prior to arrival. Plan for EKG, labs and chest x-ray. Medical Decision Making Medical Decision Making [facility] Narrative: 49-year-old male with a history of morbid obesity, hyperlipidemia, hypertension, diabetes, complete heart block now status post pacer 2005, cardiomyopathy with the EF of 35-40% echo 2022, tobacco abuse, status post pacer presents with chest pain. Patient states he developed central chest discomfort earlier today, pain worse with palpation of central chest wall, it is nonradiating. Denies diaphoresis, nausea or shortness of breath. Denies new activity, heavy lifting or trauma that could have precipitated his discomfort. Denies recent cough or cold symptoms no fever. Problem: Extensive cardiovascular history with numerous risk factors for coronary artery disease History: Per patient I have considered the following differential diagnoses: ACS, musculoskeletal strain, costochondritis, pneumonia, heart failure Plan: ACS was considered, the patient has a multiple risk factors for coronary artery disease, screening labs including 2 cardiac enzymes EKG and chest x-ray were obtained. His workup is negative. His exam was most consistent with chest wall strain/pain. He has not had preceding infectious symptoms to suggest pneumonia or costochondritis. He is not short of breath he does not appear volume overloaded on exam he is not hypoxic to suggest new heart failure, bnp obtained. I have independently reviewed the following tests: Labs: No leukocytosis, not anemic, no electrolyte abnormality, troponin x2 flat, BNP 166 EKG: Ventricular paced rhythm rate of 71, no ischemic changes no ectopy Chest x-ray:Findings: No consolidation, pleural effusion or pneumothorax. Heart size is upper limits of normal. Stent artifact projects over the proximal descending thoracic aorta. There is a biventricular cardiac pacemaker. No acute fracture. IMPRESSION: No acute cardiopulmonary process. Lab Data 04/27/25 16:43 04/27/25 16:43 Labs: Lab Results 04/27/25 04/27/25 Range/Units 16:43 18:37 WBC 8.8 (4.8-10.8) X10*3/uL RBC 4.40 L (4.60-5.80) X10*6/uL Hgb 14.0 (14.0-18.0) g/dl Hct 40.6 L (42.0-52.0) % MCV 92.3 (80.0-98.0) fL MCH 31.8 (27.0-33.0) pg MCHC 34.5 (31.0-36.0) g/dl RDW 13.6 (11.0-16.0) % Plt Count 179 (160-400) X10*3/uL MPV 10.8 (9.4-12.4) fL Immature Gran % (Auto) 0.3 (0.0-0.4) % Neut % (Auto) 57.3 (45-73) % Lymph % (Auto) 28.2 (20-40) % [place] % (Auto) 10.5 (2-11) % Eos % (Auto) 3.2 (0-4) % Baso % (Auto) 0.5 (0-2) % Lymph # (Auto) 2.5 (1.2-4.9) X10*3/uL [place] # (Auto) 0.9 (0.1-1.2) X10*3/uL Eos # (Auto) 0.3 (0.0-0.4) X10*3/uL Baso # (Auto) 0.0 (0.0-0.2) X10*3/uL Abs Immat Gran (auto) 0.03 (0.00-0.03) X10*3/uL Absolute Neuts (auto) 5.1 (2.0-8.3) x10*3/uL Absolute Nucleated RBC 0.000 (0.0-0.012) X10*3/uL Nucleated RBC % (auto) 0.0 (0.0-0.2) /100WBC Sodium 142 (135-145) mmol/L Potassium 3.9 (3.3-5.1) mmol/L Chloride 109 H (96-108) mmol/L Carbon Dioxide 24 (22-29) mmol/L Anion Gap 13 (12-20) BUN 9 (9-16) mg/dL Creatinine 0.89 (0.5-1.4) mg/dL Estim Creat Clear Calc 120.6 Estimated GFR > 60 Random Glucose 129 H (60-115) mg/dL Calcium 8.9 (8.4-10.2) mg/dL Total Bilirubin 0.2 (0.0-1.0) mg/dL AST 28 (5-37) U/L ALT 43 H (0-40) U/L Alkaline Phosphatase 77 (39-117) U/L Troponin I High Sens 59.2 H 58.8 H (<3.5-35.0) ng/L B-Natriuretic Peptide 166 H (<100) pg/mL Total Protein 7.0 (6.5-8.0) g/dL Albumin 3.8 (3.5-5.0) g/dL Lipase 15 (8-78) U/L Discharge Plan Discharge Clinical Impression: Chest wall pain Patient Disposition: Home, Self-Care Instructions: Chest Wall Pain (ED) Additional Instructions: All of your screening labs including 2 cardiac enzymes were normal, there were no concerning changes on the EKG in the chest x-ray is clear. Your exam was consistent with chest wall pain. See home care instructions. You can use [id number] Tylenol 1000 mg taken every 8 hours, alternated with [id number] ibuprofen 600 mg taken every 6 hours with food. 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 Prescriptions: No Action Fluarix Triv [id number] (PF) 45 mcg (15 mcg x 3)/0.5 mL syringe 0.5 ml IM ONCE Qty: 0.5 0RF bupropion HCl 150 mg tablet extended release 24 hr 150 mg PO QAM Qty: 90 1RF atorvastatin 80 mg tablet 80 mg PO BEDTIME 90 Days Qty: 90 0RF carvedilol 3.125 mg tablet 3.125 mg PO BID 90 Days Qty: 180 3RF ezetimibe [Zetia] 10 mg tablet 10 mg PO DAILY Qty: 90 2RF Rx Instructions: cholesterol lowering agent Take one tablet daily - in addition to your Atorvastatin Xarelto 20 mg tablet 20 mg PO DAILY 90 Days Qty: 90 3RF Rx Instructions: must administer with evening meal Anticoagulant Entresto 24-26 mg tablet 1 tab PO BID 90 Days Qty: 180 3RF Rx Instructions: Replaces Valsartan nicotine 7 mg/24 hr patch 24 hour 1 patch transdermal Q24H Qty: 28 0RF Print Language: Mosotho
--- NOTE | 2025-04-27 16:30 | ECG_ITS ---
Test Reason : CHEST PAIN Blood Pressure : */* mmHG Vent. Rate : 71 BPM Atrial Rate : 69 BPM P-R Int : * ms QRS Dur : 156 ms QT Int : 468 ms P-R-T Axes : * -67 85 degrees QTcB Int : 508 ms Ventricular-paced rhythm Abnormal ECG When compared with ECG of 01-Sep-2024 11:02, Vent. rate has increased by 5 bpm Referred By: Paul Myers Electronically Signed By: Khang Marie
[2025-04-27 16:47] LABS: MANUAL DIFF FLAG NO
[2025-04-27 16:50] LABS: Basophils Percent Auto 0.5 % (0-2); Eosinophils Absolute Auto 0.3 X10*3/uL (0.0-0.4); Eosinophils Percent Auto 3.2 % (0-4); Hematocrit 40.6 % (42.0-52.0); Imm Gran Abs Auto 0.03 X10*3/uL (0.00-0.03); Imm Gran Pct Auto 0.3 % (0.0-0.4); Lymphocytes Absolute Auto 2.5 X10*3/uL (1.2-4.9); Lymphocytes Percent Auto 28.2 % (20-40); Mean Corpuscular HGB Conc 34.5 g/dl (31.0-36.0); Mean Corpuscular Hemoglobin 31.8 pg (27.0-33.0); Mean Corpuscular Volume 92.3 fL (80.0-98.0); Mean Platelet Volume 10.8 fL (9.4-12.4); Monocytes Absolute Auto 0.9 X10*3/uL (0.1-1.2); Monocytes Percent Auto 10.5 % (2-11); Neutrophils Absolute Auto 5.1 x10*3/uL (2.0-8.3); Neutrophils Percent Auto 57.3 % (45-73); Platelet Count 179 X10*3/uL (160-400); Red Cell Distribution Width 13.6 % (11.0-16.0); White Blood Count 8.8 X10*3/uL (4.8-10.8)
[2025-04-27 17:02] LABS: Alanine Aminotransferase 43 U/L (0-40); Albumin Level 3.8 g/dL (3.5-5.0); Alkaline Phosphatase 77 U/L (39-117); Anion Gap 13 (12-20); Aspartate Amino Transferase 28 U/L (5-37); Bilirubin Total 0.2 mg/dL (0.0-1.0); Blood Urea Nitrogen 9 mg/dL (9-16); Calcium 8.9 mg/dL (8.4-10.2); Carbon Dioxide 24 mmol/L (22-29); Chloride 109 mmol/L (96-108); Creatinine Clr Calc Pharmacy 120.6; Estimated Glomerular Filt Rate > 60; Glucose Random 129 mg/dL (60-115); Lipase 15 U/L (8-78); Potassium 3.9 mmol/L (3.3-5.1); Sodium 142 mmol/L (135-145)
[2025-04-27 17:07] LABS: B Type Natriuretic Peptide 166 pg/mL (<100)
[2025-04-27 17:09] LABS: Troponin-I High Sensitivity 59.2 ng/L (<3.5-35.0)
[2025-04-27 18:03] VITALS: BP 146/70; PULSE 67; RESP 19; TEMP 36.7; O2SAT 96
--- OUTSIDE RECORDS SUMMARY | 2025-04-27 18:20 | XMS_ITS | Clinical Summary ---
Author Organization [facility] Address [address] [place] [address] Care Team Providers Care Nuclear Medicine Technician Name Role Phone Cheryl Figueroa MD Primary Care Provider [phone] Medical History Medical History Date Comments Cardiomyopathy [...] age to complete this topic Care Teams Nuclear Medicine Technician Relationship Specialty Start Date End Date Cheryl Figueroa MD [address] [place] [address] , [facility] D/B/A: [facility] CHANTEL Stroud PCP - General Internal Medicine 04/13/21
[2025-04-27 19:05] LABS: Troponin-I High Sensitivity 58.8 ng/L (<3.5-35.0)
[2025-04-27 19:18] VITALS: BP 124/64; PULSE 62; RESP 15; TEMP 36.9; O2SAT 94
[2025-04-27 19:53] VITALS: BP 124/64; PULSE 62; RESP 15; TEMP 36.9; O2SAT 94
== END 2025-04-27 20:18 | disposition home or self-care (01) ==
PROVIDERS: Physician Assistant; Emergency Provider Emergency Medicine Emergency Medical Services; PCP Internal Medicine
DX: R07.89 Other chest pain (principal); E11.9 Type 2 diabetes mellitus without complications; I10 Essential (primary) hypertension; E78.00 Pure hypercholesterolemia, unspecified; G47.33 Obstructive sleep apnea (adult) (pediatric); F17.210 Nicotine dependence, cigarettes, uncomplicated; Z95.0 Presence of cardiac pacemaker; Z79.899 Other long term (current) drug therapy; Z79.02 Long term (current) use of antithrombotics/antiplatelets; Z79.01 Long term (current) use of anticoagulants
CPT/HCPCS: 36415; 71046; 80053; 83690; 83880; 84484; 85025; 93005; 99283; 99284

== ENCOUNTER → 2025-04-27 16:30 | Outpatient (BNV) | payer OTHER, SELFPAY | PROVIDERS: PCP Internal Medicine; Visit Provider Radiology Diagnostic Radiology | DX: R07.9 Chest pain, unspecified (principal) | CPT/HCPCS: 71046 ==

== ENCOUNTER → 2025-04-27 16:30 | Outpatient (BNV) | payer OTHER, SELFPAY | PROVIDERS: Emergency Provider Emergency Medicine Emergency Medical Services; PCP Internal Medicine; Visit Provider Internal Medicine Cardiovascular Disease | DX: R94.31 Abnormal electrocardiogram [ECG] [EKG] (principal); Z95.0 Presence of cardiac pacemaker | CPT/HCPCS: 93010 ==

== ENCOUNTER 2025-05-02 13:39 | Outpatient (AMB) | payer OTHER, SELFPAY ==
--- NOTE | 2025-05-02 13:56 | A.OFFPC_ITS ---
Vital Signs 05/02/25 13:58 Height 5 ft 6 in Weight 248 lb BMI 40.0 BP 140/70 H Blood Pressure Location Lt brachial Position Sitting Pulse 81 Pulse Source Pulse Oximeter Temp 97.1 F Temp Source Temporal Artery Scan Pulse Oximetry (%) 98 Oxygen Delivery Method Room Air Intake Visit Reasons: annual exam f/u breast pain Intake Note: Patient is here today for a physical. Manager Community Required: No Curriculum Director: Present Accompanied by: Spouse Allergies corn (CORN) Allergy (Intermediate, Verified 05/02/25 14:30) Rash shrimp (SHRIMP) Allergy (Intermediate, Verified 05/02/25 14:30) ITCHING Medication List - Last Reconciled 05/02/25 by Salina Maza PA-C atorvastatin 80 mg PO BEDTIME 90 days bupropion HCl XL 150 mg PO QAM carvedilol 3.125 mg PO BID 90 days ezetimibe (Zetia) 10 mg PO DAILY rivaroxaban (Xarelto) 20 mg PO DAILY 90 days sacubitril-valsartan 24-26 mg (Entresto) 1 tab PO BID 90 days Tobacco use date assessed: 05/02/25 Dental Screening Dental Screen Date: 02/21/25 HPI annual exam f/u breast pain HPI Details 49-year-old male with past medical histo ry of obstructive sleep apnea, hypertension, hypercholesterolemia, depression, nonischemic cardiomyopathy, atrial flutter, tobacco abuse, impaired glucose tolerance last seen by Dr. Heaton 02/2025 coming in for annual exam. In review of the notes, patient was seen in [facility] 04/28/2025 for chest pain workup negative discharged home. Patient was se en by Cardiology 03/2025 for device interrogation. Presenting for an annual wellness visit and follow-up on multiple health concerns. The patient experienced chest pain and dizziness, leading to an ER visit where no significant findings were noted. The patient has a pacemaker, which is regularly monitored, and a battery change is anticipated this year. Breast pain was noted, with an ultrasound showing increased fat tissue under the left nipple but no masses or cysts. The patient smokes cigarettes, approximately one pack every two to three days, influenced by anxiety levels. The patient has a history of sleep apnea and previously used a CPAP machine, but has not been using it consistently due to travel. Hypertension was noted during the visit, though the patient does not regularly monitor blood pressure at home. Weight management is a concern, with discussions about starting Ozempic for weight loss. Cologuard: 2022 negative repeat next year [facility] Medical History Right atrial thrombus Preoperative cardiovascular examination Dyspnea Pain of left thumb Right knee pain NICM (nonischemic cardiomyopathy) MARVIN on CPAP Sleep apnea Coarctation of aorta Right hand pain Supraumbilical hernia Morbid obesity Right elbow pain Hernia of anterior abdominal wall Normally functioning cardiac pacemaker present Depression Hypovitaminosis D Pure hypercholesterolemia Essential hypertension Surgical History Status post wrist surgery H/O carpal tunnel repair History of umbilical hernia repair History of ascending aorta repair History of cataract surgery H/O left wrist surgery History of pacemaker Family History Father Uncontrolled diabetes mellitus Mother Uncontrolled persistent asthma Family/Other FH: mental illness Social History Housing: Apartment Alcohol intake: current Alcohol intake frequency: holidays/special occasions only Alcohol type: hard liquor Patient Tobacco Use Status: Current everyday Tobacco user Tobacco use type: Cigarette Cigarette Packs Per Day: 0.5 Cigarettes Per Day: 7 Years Smoked: 10 e-Cigarette/Vaping Use: Never Used Second Hand Smoke Exposure: Yes service: No Current occupational status: unemployed and disabled Cognitive needs: No Hearing needs: No Vision needs: No Questionnaire PHQ-9 Over the last 2 weeks, how often have you been bothered by any of the following problems? 1. Little interest or pleasure in doing things: several days 2. Feeling down, depressed, or hopeless: not at all 3. Trouble falling or staying asleep, or sleeping too much: nearly every day 4. Feeling tired or having little energy: nearly every day 5. Poor appetite or overeating: nearly every day 6. Feeling bad about yourself - or that you are a failure or have let yourself or your family down: not at all 7. Trouble concentrating on things, such as reading the newspaper or watching television: not at all 8. Moving or speaking so slowly that other people could have noticed. Or the opposite - being so fidgety or restless that you have been moving around a lot more than usual: not at all 9. Thoughts that you would be better off or of hurting yourself in some way: not at all Total score: 10 Depression Screening Interpretation: Positive Depression Screening Follow-up: Existing condition and In treatment Depression Screening Done: Yes Source: Developed by Drs. Severiano Damon, Santos Forbes and colleagues, with an educational anjel from [employer]. Thrive Questionnaire Date Thrive assessed: 02/21/25 BRAIN-7 AMB Questionnaire BRAIN-7 Date BRAIN - 7 assessed: 02/21/25 Source: Developed by Drs. Severiano Damon, Tatyana Padron, Santos Duran and colleagues, with an educational anjel from [employer]. Review of Systems Const Denies body aches, Denies chills, Denies fever(s), Denies headache(s) and Denies poor appetite Eyes Reports no additional complaints and Reports requires corrective lenses ENT Denies dysphagia, Denies dizziness, Denies headache(s) and Denies odynophagia Card Denies chest pain, Denies syncope, Denies edema, Denies irregular heart rhythm, Denies lightheadedness and Denies dyspnea Resp Denies cough and Denies dyspnea GI Denies abdominal pain, Denies constipation, Denies dysphagia, Denies diarrhea, Denies nausea, Denies odynophagia and Denies vomiting Reports no additional complaints Musc Reports no additional complaints and Denies abnormal gait Skin/Breast Reports system reviewed and no additional complaints, except as documented Neuro Denies abnormal gait, Denies dizziness, Denies syncope and Denies headache(s) Psych Reports no additional complaints Physical exam (Primary Care) Vital Signs: Last Vital Signs Temp 97.1 F 05/02/25 13:58 Pulse 81 05/02/25 13:58 BP 140/70 H 05/02/25 13:58 Pulse Ox 98 05/02/25 13:58 Oxygen Delivery Method Room Air 05/02/25 13:58 BMI result Body Mass Index 40.0 BMI Assessment/Plan discussion: High BMI High, discussed plan: lifestyle, dietary and physical activity Tobacco/Smoking Status: Tobacco use Status Tobacco use date assessed 05/02/25 05/02/25 14:07 Patient Tobacco Use Status Current everyday Tobacco 05/02/25 14:07 Tobacco use type Cigarette 05/02/25 14:07 e-Cigarette/Vaping Use Never Used 05/02/25 14:07 Are you ready to quit: Yes Tobacco cessation counseling provided: Yes Items discussed: Nicotine replacement Relapse Prevention: weight gain after smoking is common and discussed dietary, exercise and/or lifestyle changes Number of minutes spent counselin CPT code: 23601 - 4-10 Minutes PHQ-9: PHQ-9 Score PHQ-9: Total score 10 05/03/25 08:08 Depression Screening Interpretation: Positive Depression Screening Follow-up: Existing condition and In treatment Thrive Assessment: Date of Thrive Assessment Date Thrive assessed 02/21/25 05/02/25 14:07 Const General: cooperative, healthy appearing, comfortable and no acute distress Orientation/consciousness: patient oriented x3 HENMT Head: Yes normocephalic Ears: hearing grossly normal bilaterally, external ears normal, TM's normal bilaterally and EAC's normal General nose exam: Normal external nose present Face and sinus: Yes normal facial exam and Yes sinuses nontender Mouth: Normal oral and palatal mucosa present and tongue normal Throat: Yes posterior oropharynx normal Eyes General: appearance normal, both eyes and all related structures Conjunctivae: conjunctivae normal Pupils: Equal, round and reactive pupils present EOM: EOMs intact bilaterally and No Nystagmus present Neck Neck: Yes normal visual inspection, Yes full ROM and Yes no lymphadenopathy Chest Chest palpation & inspection: normal inspection of the chest Resp Effort & Inspection: normal respiratory effort Auscultation: clear to auscultation bilaterally, no crackles, no rales, no rhonchi, no wheezes and breath sounds present Cardio Rate: regular rate Rhythm: regular rhythm Peripheral pulses: radial pulses present and dorsalis pedis present GI Inspection: Yes normal to inspection and No Abdominal wall edema Palpation (GI): Soft to palpation, not firm and nontender Auscultation: normal bowel sounds Rectal Exam - Male: Yes deferred General: Yes no CVA tenderness Back/Spine/Pelvis Back: no CVA tenderness Skin General skin exam: no rashes or lesions noted Neuro General: patient oriented x3 Cranial nerves: Yes Equal, round and reactive pupils present, Yes Midline tongue present, Yes Ability to bilaterally elevate shoulders present and No Nystagmus present Gait exam (Neuro): Normal gait present Extrem General: Yes normal to inspection, Yes full ROM, No no pedal edema and No edema Psych Speech and movement: Normal speech and movement present Affect: normal affect Insight: Good insight present (Psych) Judgement: Good judgement present (Psych) Coding Level of Care Code Est Pt Level 3 (89338) Est Pt Prev Care 40-64y(51207) Diagnoses Obstructive sleep apnea G47.33 Tobacco abuse Z72.0 Mass of breast, left N63.20 Colon cancer screening Z12.11 Morbid obesity E66.01 Impaired fasting blood sugar R73.01 Typical atrial flutter I48.3 Atrial flutter type: typical Moderate episode of recurrent major depressive disorder F33.1 Active/Remission status: currently active Depression Type: major depressive disorder Major depression episode severity: moderate Major depression recurrence: recurrent Essential hypertension I10 NICM (nonischemic cardiomyopathy) I42.8 Pure hypercholesterolemia E78.00 Additional Codes Vital Signs *Quality* - CPT code: 12346 - 4-10 Minutes ([id number]) Assessment & Plan Assessment & Plan (1) Obstructive sleep apnea: Code(s): G47.33 - Obstructive sleep apnea (adult) (pediatric) Category: Medical Plan: Patient reports compliance with CPAP prior to losing his machine. He went on vacation is lost his CPAP machine and is unsure of the settings. Referral was placed urgently to sleep medicine. (2) Tobacco abuse: Code(s): Z72.0 - Tobacco use Category: Medical Plan: Smoking cigarettes and the use of tobacco can be harmful. We discussed the importance of stopping and options to aid in smoking cessation. (3) Mass of breast, left: Comment: palpable tender mass retroareaolar Left to 2 oclock area3 cm Code(s): N63.20 - Unspecified lump in the left breast, unspecified quadrant Category: Medical Plan: Mammogram and ultrasound were negative for cause of pain. He does continue to still have the pain. I did discuss this with his PCP recommended continuing to monitor the pain and if worsens can consider referral to Dr. Llanos (4) Colon cancer screening: Comment: 47-year-old pleasant, anxious male referred for index screening colonoscopy multiple comorbidities follows with cardiology/Sleep Medicine Discussed alternatives to include Cologuard Code(s): Z12.11 - Encounter for screening for malignant neoplasm of colon Category: Medical Plan: Negative Cologuard 2022 repeat in 3 years (5) Morbid obesity: Code(s): E66.01 - Morbid (severe) obesity due to excess calories Category: Medical Plan: Healthy diet and regular exercise is encouraged. Patient was counseled today on the risks and benefits of GLP-1 injections as well as the dosing schedule. She has no family history or personal history of thyroid disease and no gallbladder disease. Discussed with the patient the potential GI side effects of this medication. Plan to have repeat blood work after one month of therapy to monitor kidney and liver function before increasing the dose of this medication. Follow up in 2 months for a weight check. (6) Impaired fasting blood sugar: Code(s): R73.01 - Impaired fasting glucose Category: Medical Plan: Decrease the amount of carbohydrates such as pasta, bread, rice, and potatoes and limit the amount of sweets. Although fruits are generally healthy they should be eaten in moderation as they are still high in sugar. (7) Atrial flutter: Comment: April 2024 Code(s): I48.92 - Unspecified atrial flutter Category: Medical Qualifiers: Atrial flutter type: typical Qualified Code(s): I48.3 - Typical atrial flutter Plan: Currently following with Cardiology on rate control with carvedilol and anticoagulation with Xarelto (8) Depression: Comment: [facility] September 2022 Code(s): F32.9 - Major depressive disorder, single episode, unspecified Category: Medical Qualifiers: Active/Remission status: currently active Depression Type: major depressive disorder Major depression episode severity: moderate Major depression recurrence: recurrent Qualified Code(s): F33.1 - Major depressive disorder, recurrent, moderate Plan: Feels his symptoms are well managed at this time with the Wellbutrin and counseling. (9) Essential hypertension: Code(s): I10 - Essential (primary) hypertension Category: Medical Plan: Continue on current blood pressure medication. Avoid salt intake and encourage healthy diet and regular exercise. (10) NICM (nonischemic cardiomyopathy): Code(s): I42.8 - Other cardiomyopathies Category: Medical Plan: Continue to follow up with Cardiology (11) Pure hypercholesterolemia: Code(s): E78.00 - Pure hypercholesterolemia, unspecified Category: Medical Plan: Avoid foods that are high in cholesterol such as red meat, fried foods, eggs and baked goods. Triglyceride goal of less than 150 and LDL goal of less than 100. Continue on atorvastatin 80 Plan The patient will continue to have regular monitoring of the pacemaker, with a battery change anticipated this year. For the breast pain, further consultation with Dr. Heaton is planned to determine the next steps. Smoking cessation support will be provided, including a prescription for nicotine patches. The patient will be referred to a sleep apnea specialist for further evaluation and m anagement of sleep apnea, with consideration for a CPAP machine prescription. Management of depression will continue with Wellbutrin, and the patient is encouraged to monitor blood pressure at home due to noted hypertension. For weight management, the patient will start on Mounjaro, with a gradual increase in dosage planned. The patient will also be advised on dietary modifications to support weight loss. Carpal tunnel syndrome will be monitored, and the patient is advised to avoid activities that exacerbate symptoms. This note was constructed using voice recognition software. While every effort has been made to ensure accuracy and redrying machine operator, still areas may have been included sometimes these areas may affect the content or meeting of the given symptoms. Total time spent caring for the patient today was 30 minutes. This includes time spent before the visit reviewing the chart, time spent during the visit, and time spent after the visit and documentation. Patient was informed an d verbally consented to the use of an ambient scribe for clinic note documentation during this visit. Orders: Referrals Neurology Referral G47.33 - Obstructive sleep apnea (adult) (pediatric) Medications: New hydrocortisone 1% (Cortisone (hydrocortisone)) 1 appl topical TID PRN 28.4 grams 0RF skin irritation tirzepatide (Mounjaro) for 4 weeks 2.5 mg (0.5 mL) subcut QWEEK 2 mL 0RF E66.01 - Morbid (severe) obesity due to excess calories, E78.00 - Pure hypercholesterolemia, unspecified, G47.33 - Obstructive sleep apnea (adult) (pediatric) nicotine 1 patch transdermal DAILY 28 ea 0RF
[2025-05-02 13:58] VITALS: BP 140/70; PULSE 81; TEMP 36.2; O2SAT 98; BMI 40.0
--- OUTSIDE RECORDS SUMMARY | 2025-05-02 15:08 | XMS_ITS | Clinical Summary ---
Author Organization [facility] Address [address] [place] [address] Care Team Providers Care Thread Puller Name Role Phone Cheryl Figueroa MD Primary Care Provider [phone] Medical History Medical History Date Comments Cardiomyopathy [...] age to complete this topic Care Teams Thread Puller Relationship Specialty Start Date End Date Cheryl Figueroa MD [address] [place] [address] , [facility] [address] [facility] D/B/A: [facility] CHANTEL Stroud PCP - General Internal Medicine 04/13/21
== END 2025-05-02 15:05 | disposition home or self-care (01) ==
LOC: HO.HMCH 13:40
PROVIDERS: PCP Internal Medicine
DX: Z00.00 Encounter for general adult medical examination without abnormal findings (principal); I48.3 Typical atrial flutter; E66.01 Morbid (severe) obesity due to excess calories; Z68.41 Body mass index [BMI] 40.0-44.9, adult; F33.1 Major depressive disorder, recurrent, moderate; I42.8 Other cardiomyopathies; G47.33 Obstructive sleep apnea (adult) (pediatric); F17.210 Nicotine dependence, cigarettes, uncomplicated; N63.21 Unspecified lump in the left breast, upper outer quadrant; Z12.11 Encounter for screening for malignant neoplasm of colon; R73.01 Impaired fasting glucose; I10 Essential (primary) hypertension; E78.00 Pure hypercholesterolemia, unspecified

== ENCOUNTER → 2025-05-02 13:39 | Outpatient (BNVA) | payer OTHER, SELFPAY | PROVIDERS: PCP Internal Medicine | DX: Z00.00 Encounter for general adult medical examination without abnormal findings (principal); G47.33 Obstructive sleep apnea (adult) (pediatric); I10 Essential (primary) hypertension; E78.00 Pure hypercholesterolemia, unspecified; I48.19 Other persistent atrial fibrillation; R73.01 Impaired fasting glucose; F17.210 Nicotine dependence, cigarettes, uncomplicated; G47.30 Sleep apnea, unspecified; N63.20 Unspecified lump in the left breast, unspecified quadrant; E66.01 Morbid (severe) obesity due to excess calories; I48.3 Typical atrial flutter; F33.1 Major depressive disorder, recurrent, moderate; I42.8 Other cardiomyopathies; Z68.41 Body mass index [BMI] 40.0-44.9, adult; Z99.89 Dependence on other enabling machines and devices | CPT/HCPCS: 96127; 99212; 99396 ==

== ENCOUNTER 2025-05-26 14:39 | Outpatient (AMB) | payer OTHER, SELFPAY ==
[2025-05-26 15:18] VITALS: BP 120/68; PULSE 81; BMI 40.2
--- NOTE | 2025-05-26 15:18 | A.OFFVIS_ITS ---
Vital Signs 05/26/25 15:18 Height 5 ft 6 in Weight 249 lb 1.957 oz BMI 40.2 BP 120/68 Blood Pressure Location Lt brachial Position Sitting Pulse 81 Pulse Source Monitor Intake Visit Reasons: 3 mth f/up Oral Surgery Assistant Required: Yes Oral Surgery Assistant Services: Oral Surgery Assistant Offered & Declined Accompanied by: Spouse Allergies corn (CORN) Allergy (Intermediate, Verified 05/02/25 14:30) Rash shrimp (SHRIMP) Allergy (Intermediate, Verified 05/02/25 14:30) ITCHING Medication List - Last Reconciled 05/26/25 by Shayla Booker, LICENSED GUIDE-C atorvastatin 80 mg PO BEDTIME 90 days bupropion HCl XL 150 mg PO QAM carvedilol 3.125 mg PO BID 90 days ezetimibe (Zetia) 10 mg PO DAILY hydrocortisone 1% (Cortisone (hydrocortisone)) 1 appl topical TID PRN nicotine 1 patch transdermal DAILY rivaroxaban (Xarelto) 20 mg PO DAILY 90 days sacubitril-valsartan 24-26 mg (Entresto) 1 tab PO BID 90 days tirzepatide (Mounjaro) 2.5 mg (0.5 mL) subcut QWEEK HPI HPI 3 mth f/up: Details: James is a 49-year-old male with past medical history of hypertension, obesity, hyperlipidemia, obstructive sleep apnea with CPAP use, nonischemic cardiomyopathy, pacemaker placement, 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 Today he reports that he has as being seeing some discomfort in his mid chest which is worse with deep inspiration. He was in the ER for this symptom last month and was told it was chest wall pain. He will notice it at times as well with exertional activity but states it does not happen all the time. No concerning shortness of breath at rest, PND, orthopnea or edema. No heart palpitations, lightheadedness, presyncope, syncope, falls. He has been experiencing fatigue and he was concerned that his pacemaker was not working. Significant other present. [facility] Medical History Right atrial thrombus Preoperative cardiovascular examination Dyspnea Pain of left thumb Right knee pain NICM (nonischemic cardiomyopathy) MARVIN on CPAP Sleep apnea Coarctation of aorta Right hand pain Supraumbilical hernia Morbid obesity Right elbow pain Hernia of anterior abdominal wall Normally functioning cardiac pacemaker present Depression Hypovitaminosis D Pure hypercholesterolemia Essential hypertension Surgical History Status post wrist surgery H/O carpal tunnel repair History of umbilical hernia repair History of ascending aorta repair History of cataract surgery H/O left wrist surgery History of pacemaker Family History Father Uncontrolled diabetes mellitus Mother Uncontrolled persistent asthma Family/Other FH: mental illness Social History Housing: Apartment Alcohol intake: current Alcohol intake frequency: holidays/special occasions only Alcohol type: hard liquor Patient Tobacco Use Status: Current everyday Tobacco user Tobacco use type: Cigarette Cigarette Packs Per Day: 0.5 Cigarettes Per Day: 7 Years Smoked: 10 e-Cigarette/Vaping Use: Never Used Second Hand Smoke Exposure: Yes service: No Current occupational status: unemployed and disabled Cognitive needs: No Hearing needs: No Vision needs: No Review of Systems Const All systems reviewed & are unremarkable except as noted in HPI and below Reports fatigue and Denies weakness ENT Denies dizziness Card Reports chest pain (with deep inspiration), Denies syncope, Denies rapid heart rate, Denies pedal edema, Denies edema, Denies leg edema, Denies lightheadedness, Denies palpitations, Reports dyspnea, Denies dyspnea on exertion and Denies orthopnea Resp Denies cough, Reports dyspnea and Denies dyspnea on exertion GI Denies hematochezia and Denies change in stool character Musc Denies abnormal gait, Denies muscle cramps, Denies muscle weakness, Denies numbness, Denies radiating pain into limb and Denies tingling Neuro Denies abnormal gait, Denies dizziness, Denies syncope, Denies numbness, Denies tingling and Denies weakness Endo Reports fatigue and Denies palpitations Physical Exam Vital Signs: Last Vital Signs Pulse 81 05/26/25 15:18 BP 120/68 05/26/25 15:18 BMI result Body Mass Index 40.2 Const General: cooperative, healthy appearing, comfortable and no acute distress Orientation/consciousness: patient oriented x3 Neck Neck: Yes normal visual inspection and Yes no JVD Resp Effort & Inspection: normal respiratory effort Auscultation: clear to auscultation bilaterally, no rales, no rhonchi and no wheezes Cardio Rate: regular rate Rhythm: regular rhythm Heart sounds: S1 normal heart sound present, S2 normal heart sound present, no gallops, no murmurs and no rubs Neuro General: patient oriented x3 Extrem General: Yes normal to inspection and No no pedal edema Psych Appearance: grossly normal Mental Status: mental status grossly normal Speech and movement: Normal speech and movement present Office Procedures Cardiac Device Check Cardiac Device Check Details: Today, read by me, [employer] dual-chamber pacemaker interrogation, DDDR mode, low rate 60, battery 3 months, range less than 1 mo to 5 months, atrial threshold 1 volt at 0.4 milliseconds, RV threshold 1.375 volts at 0.4, 1 brief VT, no AT or AF, V paced 98.2%, no alerts [id number] Cardiac Device Check, pacemaker dual lead Procedure code (CPT) selection complete Assessment & Plan Assessment & Plan (1) Chest discomfort: Code(s): R07.89 - Other chest pain Category: Medical Plan: Reports of atypical sounding chest discomfort. ED evaluation last month for this symptom and was told it was chest wall pain. He does have mildly elevated troponins which are consistently flat. EKG not done as he is currently a and V pacing, an EKG would be nondiagnostic for ischemia. He did have nuclear stress test 12/11/2023 which showed no ischemia. He has no nonischemic cardiomyopathy with last EF 40-45%. Since his discomfort is atypical will hold off on repeat stress test at this time. Will update echocardiogram to re-evaluate EF and wall motion. Signs and symptoms of angina reviewed with him. (2) NICM (nonischemic cardiomyopathy): Code(s): I42.8 - Other cardiomyopathies Category: Medical Plan: History of nonischemic cardiomyopathy. An echo done 10/01/2023 showed EF 35- 40%, no valve abnormalities. Pharmacological nuclear stress test on 12/11/2023 showing no ischemia, fixed perfusion defect along the inferior wall, distal anterior wall and apex suspected to be artifactual however prior nontransmural infarct of the apex can not be excluded. With his reduced EF and V pacing greater than 99% it was thought that his cardiomyopathy could be related to his V pacing. He was referred to centrifugal casting machine tender who he saw on 09/10/2024. Plan was for repeat echocardiogram and if EF was less than 40, LV lead would be placed. Echo done 09/23/2024 showed EF 40-45%, grade 2 diastolic dysfunction. He is not fluid overloaded on exam today. Labs 04/27/2025 showed creatinine 0.89, potassium 3.9. Continue carvedilol and Entresto for neurohormonal modulation. Signs and symptoms of heart failure reviewed with him. (3) Coarctation of aorta: Comment: Repair June 2019 Code(s): Q25.1 - Coarctation of aorta Category: Medical Plan: History of coartication of the aorta. He underwent angioplasty and intervention in [place]. CTA of the aorta was performed on 08/05/2022 showing widely patent stent in the proximal descending thoracic aorta, no thoracic aortic aneurysm or dissection. Echocardiogram done 09/23/2024 shows no dilation of the ascending aorta 2.9 cm. (4) Normally functioning cardiac pacemaker present: Code(s): Z95.0 - Presence of cardiac pacemaker Category: Medical Plan: Medtronic dual-chamber pacemaker in place. Office interrogation done today shows device is functioning normally. Battery 3 months. Remote monitoring in use. Next office interrogation in 2 months. (5) Essential hypertension: Code(s): I10 - Essential (primary) hypertension Category: Medical Plan: Blood pressure goal less than 130/80. Well controlled at this time. No med changes made at this time (6) Obstructive sleep apnea: Code(s): G47.33 - Obstructive sleep apnea (adult) (pediatric) Category: Medical Plan: Compliant with CPAP (7) Atrial flutter: Comment: April 2024 Code(s): I48.92 - Unspecified atrial flutter Category: Medical Qualifiers: Atrial flutter type: typical Qualified Code(s): I48.3 - Typical atrial flutter Plan: Episodes of paroxysmal atrial flutter seen on device interrogations, asymptomatic. He is on carvedilol for heart rate control. He is on Xarelto for anticoagulation. Chads Vasc score of 2 to 3, ( chf, htn, vascular disease). Continue current treatment. Plan Time spent on chart review, documentation, interview and assessment Orders: Orders CA echo transthoracic complete Today I42.8 - Other cardiomyopathies, R07.89 - Other chest pain Coding Level of Care Code Est Pt Level 4 (85285) Complex EM visit Add On G2211 Diagnoses Chest discomfort R07.89 NICM (nonischemic cardiomyopathy) I42.8 Coarctation of aorta Q25.1 Normally functioning cardiac pacemaker present Z95.0 Essential hypertension I10 Obstructive sleep apnea G47.33 Typical atrial flutter I48.3 Atrial flutter type: typical CPT Codes Cardiac Device Check - Cardiac Device 2: [id number] Cardiac Device Check, pacemaker dual lead ([id number]) Time Spent (min) 30
--- OUTSIDE RECORDS SUMMARY | 2025-05-26 15:24 | XMS_ITS | Clinical Summary ---
Author Organization [facility] Address [address] [place] [address] Care Team Providers Care Senior Test Analyst Name Role Phone Cheryl Figueroa MD Primary Care Provider [phone] Medical History Medical History Date Comments Cardiomyopathy [...] - 2023-2 5 season) 2024 Influenza Vaccine (#1) 2025 HIB Vaccines Aged Out No longer [...] 5 Years) and At-Risk Patients (6 to 49 Years) Aged Out No longer eligible b ased on patient's age to complete this topic RSV Immunization Patients Un vance 20 months Aged Out No longer eligible b ased on patient's age to complete this topic Varicella Vaccines Aged Out No longer eligible based on patient's age to complete this topic Care Teams Senior Test Analyst Relationship Specialty Start Date End Date Cheryl Figueroa MD [address] [place] [address] , [facility] [address] [facility] Physician Associ D/B/A: [facility] CHANTEL Stroud PCP - General Internal Medicine 04/13/21
== END 2025-05-26 16:01 | disposition home or self-care (01) ==
LOC: HO.HCS 14:40
PROVIDERS: PCP Internal Medicine; Visit Provider Nurse Practitioner Family
DX: R07.89 Other chest pain (principal); I42.8 Other cardiomyopathies; Q25.1 Coarctation of aorta; Z95.0 Presence of cardiac pacemaker; I10 Essential (primary) hypertension; G47.33 Obstructive sleep apnea (adult) (pediatric); I48.3 Typical atrial flutter
CPT/HCPCS: 93280; 99214; G2211

== ENCOUNTER → 2025-05-26 14:39 | Outpatient (BNVA) | payer OTHER, SELFPAY | PROVIDERS: PCP Internal Medicine; Visit Provider Nurse Practitioner Family | DX: Z45.018 Encounter for adjustment and management of other part of cardiac pacemaker (principal); R07.89 Other chest pain; I42.8 Other cardiomyopathies; Q25.1 Coarctation of aorta; I10 Essential (primary) hypertension; I48.0 Paroxysmal atrial fibrillation; G47.33 Obstructive sleep apnea (adult) (pediatric) | CPT/HCPCS: 93280; 99212 ==

== ENCOUNTER 2025-06-24 08:27 | Outpatient (REF) | payer OTHER, SELFPAY ==
[2025-06-24 13:50] LABS: Hemoglobin A1C 184.2016 umol/L; Total Hemoglobin (HGBA1C) 3796.9599 umol/L
[2025-06-24 13:52] LABS: Magnesium 2.1 mg/dL (1.6-2.6)
[2025-06-24 14:14] LABS: Ferritin 221 ng/mL (20-250)
[2025-06-24 14:19] LABS: Folate 4.9 ng/mL (> or = 4.0); Vitamin B12 331 pg/mL (200-900)
== END 2025-06-24 08:28 | disposition home or self-care (01) ==
LOC: HO.HKASLDS 08:27
PROVIDERS: PCP Internal Medicine; Visit Provider Physician Assistant Medical
DX: G47.19 Other hypersomnia (principal); R06.83 Snoring; G25.81 Restless legs syndrome; R35.1 Nocturia; F17.210 Nicotine dependence, cigarettes, uncomplicated; Z13.1 Encounter for screening for diabetes mellitus; M79.10 Myalgia, unspecified site; R53.83 Other fatigue; Z95.0 Presence of cardiac pacemaker
CPT/HCPCS: 36415; 82306; 82607; 82728; 82746; 83036; 83090; 83735; 83921; 84443; 99202

== ENCOUNTER 2025-06-24 08:27 | Outpatient (AMB) | payer OTHER, SELFPAY ==
--- OUTSIDE RECORDS SUMMARY | 2025-06-24 08:35 | XMS_ITS | Clinical Summary ---
Author Organization [facility] Address [address] [place] [address] Phone Care Team Providers Care Weatherization Administrator Name Role Phone Doreen Heaton MD Primary Care Provider [phone] Allergies No known active allergies Medications amoxicillin (AMOXIL) 500 MG capsule TAKE 4 CAPSULES BY MOUTH 1 HOUR BEFORE TREATMENT 4 Active atorvastatin (LIPITOR) 80 MG tablet TOME 1 TABLETA POR V A ORAL TODOS LOS D AL ACOSTARSE 4 Active buPROPion (WELLBUTRIN XL) 150 MG ER 24 hr tablet TOME MARY TABLETA POR V A ORAL EN LA MA PRISCILLA 4 Active carvedilol (COREG) 3.125 MG tablet TOME MARY TABLETA POR V A ORAL DOS VECES AL D A 4 Active XARELTO 20 mg Tab TOME MARY TABLETA ORALLY DAILY MUST ADMINISTER WITH EVENING MEAL ANTICOAGULANT 4 Active valsartan (DIOVAN) 40 MG tablet TOME MARY TABLETA POR V A ORAL DOS VECES AL D A FOR 90 DAYS 4 Active Active Problems Problem Noted Date Diagnosed Date Myocardiopathy 09/10/2024 Assessment & Plan (09/10/2024 11:35 AM EDT): Notably patient's EF has been fluctuating. Echocardiogram showed ejection fraction to be about 35 to 40% in 2022. Stress test showed EF to be about 46 to 48% and January 2024. He is scheduled for echocardiogram on 24 September. Will follow-up afterwards. If patient has EF less than 40 we will proceed to see if left subclavian vein is open if vein is open can proceed with lead upgrade. If EF is closer to 50 will wait till pulse generator is at [facility]. Social History Tobacco Use Types Packs/Day Years Used Date Smoking Tobacco: Never Assessed Education Answer Date Recorded Are you interested in more education? Not on kevin e 01/30/2024 Are you concerned about learning? Not on file 01/30/2024 No 01/30/2024 No 01/30/2024 Digital Access Answer Date Recorded No 01/30/2024 No 01/30/2024 Reliable internet access at home? Not on file 01/30/2024 Device with a working camera? Not on file Sex and Gender Information Value Date Recorded Sex Assigned at Not on file Legal Sex Male 1:54 PM EDT Gender Identity Not on file Sexual Orientation Not on file Last Filed Vital Signs Vital Sign Reading Time Taken Comments Blood Pressure 132/82 09/10/2024 8:20 AM EDT Pulse 71 09/10/2024 8:20 AM EDT Temperature - - Respiratory Rate - - Oxygen Saturation 96% 09/10/2024 8:20 AM EDT Inhaled Oxygen Concentration - - Weight 116.1 kg (256 lb) 09/10/2024 8:20 AM EDT Height - - Body Mass Index - - Plan of Treatment Health Maintenance Due Date Last Done Comments Adult Td,Tdap Booster 1976 CREATININE LEVEL 1976 LIPID PANEL 1976 POTASSIUM LEVEL 1976 DEPRESSION SCREENING 1988 SMOKING Hx and SMOKELESS TOB ACCO SCREENING 1989 HEPATITIS C SCREENING 1994 HIV ONE-TIME SCREENING (18-6 5 YEARS) 1994 COLOGUARD 2021 COLONOSCOPY 2021 COLORECTAL CANCER SCREENING 2021 FIT TEST 2021 FOBT 2021 SIGMOIDOSCOPY 2021 VIRTUAL COLONOSCOPY 2021 COVID-19 VACCINE (2023-2 5 season) 2024 HEPATITIS A VACCINES Aged Out No long er eligible based on patient's age to complete this topic HIB VACCINES Aged Out No longer eligi ble based on patient's age to complete this topic MENINGOCOCCAL VACCINES (ACWY) Aged Out No longer eligible based on patient's age to complete this topic MENINGOCOCCAL VACCINES (B) Aged Out N o longer eligible based on patient's age to complete this topic PNEUMOCOCCAL VACCINES (0-49 years) Aged Out No longer eligible based on patient's age to complete this topic Medical Devices Not on file Insurance MEDICARE PART A & B CARE MEDICARE REPLACEMENT MEDICARE PART A [place] [address] [place] [address] CARE MEDICARE REPLACEMENT MEDICARE PART A & B Member Subscriber Plan / Payer (Ef fective 2024-) Name:Genaro Lito James Member ID:[id number] Relation to Subscriber:Self Name:James Heard Subscriber ID:[id number] Payer ID:[id number] Group ID:Not on file Type:Medicare Address: [employer] [address] [address] [facility] MEDICARE REPLACEMENT MEDICARE PART A & B [facility] ONE CARE MEDICARE REPLACEMENT MEDICARE PART A & B Member Subscriber Plan / Payer ( fective 2024-Present) Name:James Heard Member ID:[id number] Relation to Subscriber:Self Name:James Heard Subscriber ID:[id number] Payer ID:[id number] Group ID:Not on file Type:Medicare Address: [employer] [address] [place] [address] [place] [address] CARE MEDICARE REPLACEMENT MEDICARE PART A & B [facility] ONE CARE MEDICARE REPLACEMENT Care Teams Weatherization Administrator Relationship Specialty Start Date End Date Doreen Heaton MD [address] [place] [address] [address] [place] [id number] PCP - General Internal Medicine 01/29/24 Additional Source Comments The information contained in this document represents components of the legal health record. It is not the complete legal health record.[facility]
--- OUTSIDE RECORDS SUMMARY | 2025-06-24 08:35 | XMS_ITS | Clinical Summary ---
Author Organization [facility] Address [address] [place] [address] Care Team Providers Care Partition Assembly Machine Operator Name Role Phone Cheryl Figueroa MD Primary Care Provider [phone] Medical History Medical History Date Comments Cardiomyopathy [...] Panel) 10/19/2022 Colorectal Cancer Screening: Colonoscopy 10/19/2022 HIV Screening 10/19/2022 Hepatitis C Screening 10/19/2022 Social Influencers of Health Screening 10/19/2022 COVID-19 Vaccine (1 - 2023-2 5 season) 2024 Depression Screening 11/10/2024 Influenza Vaccine (#1) 2025 HIB Vaccines Aged [...] age to complete this topic Care Teams Partition Assembly Machine Operator Relationship Specialty Start Date End Date Cheryl Figueroa MD [address] [place] [address] , [facility] [address] [facility] Physician Associ D/B/A: [facility] CHANTEL Stroud PCP - General Internal Medicine 04/13/21
--- OUTSIDE RECORDS SUMMARY | 2025-06-24 08:35 | XMS_ITS | Clinical Summary ---
Author Organization [facility] Address [address] [place] [address] Phone Care Team Providers Care Crackling Press Operator Name Role Phone Doreen Heaton MD Unavailable [phone] Cheryl Anderson Primary Care Provider [phone] Cheryl Anderson Unavailable [phone] Juan Francisco Molina MD Unavailable [phone] Juan Francisco Molina MD Unavailable [phone] Social History Tobacco Use Types Packs/Day Years Used Date Smoking Tobacco: Never Assessed Sex and Gender Information Value Date Recorded Sex Assigned at Not on file Legal Sex Male 2:20 AM EDT Gender Identity Not on file Sexual Orientation Not on file Plan of Treatment Not on file Medical Devices Implanted Type Area Rubber Calender Helper Device Identifier Shelf Expiration Date Model / Serial / Lot Lead Ra Implanted: (Quantity not on file) Cardiac Lead Heart Medtronic Medtronic 5076 - 52 cm / [id number] / Lead Rv Implanted:03/2016 (Quantity not on file) Cardiac Lead Heart Medtronic Medtronic 5076- 58 cm / [id number] / Pacemaker Implanted:03/2016 (Quantity not on file) Cardiac Pacemaker Heart Medtronic Medtronic [id number] GALAN / [id number] / Care Teams Crackling Press Operator Relationship Specialty Start Date End Date Doreen Heaton MD [address] [place] [address] [phone] PCP - Insurance PCP 06/23/[address] Anderson [address] [facility] [place] [address] PCP - General 04/06/19 Cheryl Anderson [address] [facility] [address] PCP - Clinical PCP 04/06/19 Juan Francisco Molina MD [address] [place] [address] Associate Attending Cardiology 04/06/19 Juan Francisco Molina MD [address] [place] [address] Bead Maker 04/10/24
[2025-06-24 08:57] VITALS: BP 126/76; PULSE 78; O2SAT 94; BMI 41.4
--- NOTE | 2025-06-24 08:57 | A.OFFVIS_ITS ---
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 The patient has a history of sleep apnea and previously used a CPAP machine/Compliant, but has not been using it consistently due to travel. Patient reports compliance with CPAP prior to losing his machine. He went on vacation is lost his CPAP machine and is unsure of the settings. Has been years cant remember how long ago for sleep study. Patient witnessed apnea/gasping/snoring. Accompanied by: Spouse Allergies corn (CORN) Allergy (Intermediate, Verified 06/24/25 09:00) Rash shrimp (SHRIMP) Allergy (Intermediate, Verified 06/24/25 09:00) ITCHING HPI Comments Details: 49 year old male presents for a sleep apnea evaluation, referred to us by his pcp. Mary his fiance is here and helps with history. He goes to sleep at 11pm to 1am, he has anxiety and pacemaker in situ since 2016. He snores loudly, gasps for air, has witnessed apneas per his fiance. He goes to the bathroom 5-6x a night. He denies bruxism and morning headaches. Denies difficulty with starting and stopping stream, stress incontinence, denies urgency or hesitancy, and hematuria. He has chronic low back pain, and RLS symptoms with burning, tingling numbness on the plantar surface of the foot. He smokes one pack of cigarettes every 2 days. He is motivated to quit smoking, using the nicotine patch, would like chantix today. His mood can be irritable due to smoking cessation routine. His memory is stable, diet is poor. We discussed using compression stockings and elevating feet due to 2+ pitting edema and cardiovascular difficulties. [facility] Medical History Right atrial thrombus Preoperative cardiovascular examination Dyspnea Pain of left thumb Right knee pain NICM (nonischemic cardiomyopathy) MARVIN on CPAP Sleep apnea Coarctation of aorta Right hand pain Supraumbilical hernia Morbid obesity Right elbow pain Hernia of anterior abdominal wall Normally functioning cardiac pacemaker present Depression Hypovitaminosis D Pure hypercholesterolemia Essential hypertension Surgical History Status post wrist surgery H/O carpal tunnel repair History of umbilical hernia repair History of ascending aorta repair History of cataract surgery H/O left wrist surgery History of pacemaker Family History Father Uncontrolled diabetes mellitus Mother Uncontrolled persistent asthma Family/Other FH: mental illness Social History Housing: Apartment Alcohol intake: current Alcohol intake frequency: holidays/special occasions only Alcohol type: hard liquor Patient Tobacco Use Status: Current everyday Tobacco user Tobacco use type: Cigarette Cigarette Packs Per Day: 0.5 Cigarettes Per Day: 7 Years Smoked: 10 e-Cigarette/Vaping Use: Never Used Second Hand Smoke Exposure: Yes service: No Current occupational status: unemployed and disabled Cognitive needs: No Hearing needs: No Vision needs: No Physical Exam Vital Signs: Last Vital Signs Pulse 78 06/24/25 08:57 BP 126/76 06/24/25 08:57 Pulse Ox 94 06/24/25 08:57 Oxygen Delivery Method Room Air 06/24/25 08:57 BMI result Body Mass Index 41.4 Const General: cooperative, comfortable and no acute distress Orientation/consciousness: patient oriented x3 HEENT Face and sinus: Yes face symmetric Teeth and gingiva: other (Mallampti score is 3+) Eyes Pupils: Equal, round and reactive pupils present Neck Neck: Yes full ROM Resp Effort & Inspection: normal respiratory effort and able to speak in complete sentences Neuro General: patient oriented x3 and moves all extremities Cranial nerves: Yes Equal, round and reactive pupils present, Yes Normal accommodation reflex present, Yes Nystagmus not present, Yes Normal facial strength present, Yes Midline tongue present, Yes Ability to bilaterally rotate head present and Yes Ability to bilaterally elevate shoulders present Cognition (Neuro): normal cognition Gait exam (Neuro): Normal gait present Motor exam (neuro): 5/5 motor strength present throughout and Normal motor muscle tone present throughout Deep tendon reflexes (DTR's): Right triceps reflex intensity grade: 2+, Left triceps reflex intensity grade: 2+, Rt Biceps (C5, C6): 2+, Left biceps reflex intensity grade: 2+, Right brachioradialis reflex intensity grade: 2+, Left brachioradialis reflex intensity grade: 2+, Right patellar reflex intensity grade: 2+, Left patellar reflex intensity grade: 2+, Right ankle reflex intensity grade: 2+ and Left ankle reflex intensity grade: 2+ Results Reviewed Results Reviewed: IMPRESSION: Moderate restrictive ventilatory defect with no bronchodilator response. Decreased expiratory reserve volume suggests extrathoracic restriction, likely secondary to abdominal obesity. Assessment & Plan Assessment & Plan (1) Excessive daytime sleepiness: Code(s): G47.19 - Other hypersomnia Category: Medical (2) Loud snoring: Code(s): R06.83 - Snoring Category: Medical (3) RLS (restless legs syndrome): Code(s): G25.81 - Restless legs syndrome Category: Medical (4) Excessive urination at night: Code(s): R35.1 - Nocturia Category: Medical (5) Needs smoking cessation education: Code(s): F17.200 - Nicotine dependence, unspecified, uncomplicated Category: Medical (6) Muscle soreness: Code(s): M79.10 - Myalgia, unspecified site Category: Medical Plan PSG r/o due to pacemaker and Troponins/ BNP elevated. Labs r/o nutritional deficiency causing fatigue. [id number]/TSH/ Homo/MMA/ A1c/ Vit. D / r/o bph Excessive night time urination F/u in 3 months Orders: Orders Ferritin Today G47.19 - Other hypersomnia Homocysteine Today G47.19 - Other hypersomnia, G47.9 - Sleep disorder, unspecified, R53.83 - Other fatigue Vitamin D 25-OH Total Today G47.19 - Other hypersomnia Vitamin B12 and Folate Today G47.19 - Other hypersomnia Methylmalonic Acid Today G47.19 - Other hypersomnia, G47.9 - Sleep disorder, unspecified, R53.83 - Other fatigue Hemoglobin A1c Today G47.19 - Other hypersomnia Magnesium Today G47.19 - Other hypersomnia TSH reflex Free T4 Today G47.19 - Other hypersomnia RT PSG in-lab sleep study Today G47.19 - Other hypersomnia Referrals Urology Referral R35.1 - Nocturia Medications: New magnesium oxide 400 mg PO DAILY 90 tabs 0RF painful muscles 3 months MDD 400mg M79.10 - Myalgia, unspecified site varenicline tartrate take 1 tablet by mouth daily on days 1-3; then 1 tablet twice daily (morning and evening) on days 4-7 0.5 mg PO DIRECTED 90 tabs 0RF 3 months F17.200 - Nicotine dependence, unspecified, uncomplicated Patient Instructions: Sleep Hygiene provided: set a scheduled bedtime and wake time to help regulate the circadian rhythm and balance the release of pituitary hormones. Sleep in a dark room, temperatures below 68 degrees, and no devices n bed. Limit caffeinated products 6 hours prior to bed, and limit fluids 2-4 hours prior to bed. Gentle night yoga, diffusing essential oils, and playing soft music can be relaxing. Coding Level of Care Code New Pt Level 4 (09565) Diagnoses Excessive daytime sleepiness G47.19 Loud snoring R06.83 RLS (restless legs syndrome) G25.81 Excessive urination at night R35.1 Needs smoking cessation education F17.200 Muscle soreness M79.10 Sleep Questionnaire Difficulty falling asleep: Yes Difficulty staying asleep?: Yes Number of arousals: 5x Snoring: Yes Witnessed apneas: Yes Gasping arousals: Yes Nocturia: Yes (5x) GERD: No Vivid dreams: Yes Acting out dreams: No Abnormal behavior in sleep: Yes (talks) Abnormal movements in sleep: No Morning headaches: No Excessive daytime sleepiness: Yes Daytime naps: No Restless legs: Yes Hallucinations: No Sleep paralysis: No Drop attacks: No Sleep Study: Yes (>5 years ago) CPAP: Yes
== END 2025-06-24 09:56 | disposition home or self-care (01) ==
LOC: HO.HSMS 08:28
PROVIDERS: PCP Internal Medicine; Visit Provider Physician Assistant Medical
DX: G47.19 Other hypersomnia (principal); R06.83 Snoring; G25.81 Restless legs syndrome; R35.1 Nocturia; F17.200 Nicotine dependence, unspecified, uncomplicated; M79.10 Myalgia, unspecified site
CPT/HCPCS: 99204

== ENCOUNTER → 2025-06-27 23:59 | Outpatient (BNV) | payer OTHER, SELFPAY ==
--- NOTE | 2025-07-13 09:05 | A.OFFVIS_ITS ---
Intake Visit Reasons: Remote Device Check- Medtronic Allergies corn (CORN) Allergy (Intermediate, Verified 06/24/25 09:00) Rash shrimp (SHRIMP) Allergy (Intermediate, Verified 06/24/25 09:00) ITCHING PFSH Medical History Right atrial thrombus Preoperative cardiovascular examination Dyspnea Pain of left thumb Right knee pain NICM (nonischemic cardiomyopathy) MARVIN on CPAP Sleep apnea Coarctation of aorta Right hand pain Supraumbilical hernia Morbid obesity Right elbow pain Hernia of anterior abdominal wall Normally functioning cardiac pacemaker present Depression Hypovitaminosis D Pure hypercholesterolemia Essential hypertension Surgical History Status post wrist surgery H/O carpal tunnel repair History of umbilical hernia repair History of ascending aorta repair History of cataract surgery H/O left wrist surgery History of pacemaker Family History Father Uncontrolled diabetes mellitus Mother Uncontrolled persistent asthma Family/Other FH: mental illness Social History Housing: Apartment Alcohol intake: current Alcohol intake frequency: holidays/special occasions only Alcohol type: hard liquor Patient Tobacco Use Status: Current everyday Tobacco user Tobacco use type: Cigarette Cigarette Packs Per Day: 0.5 Cigarettes Per Day: 7 Years Smoked: 10 e-Cigarette/Vaping Use: Never Used Second Hand Smoke Exposure: Yes service: No Current occupational status: unemployed and disabled Cognitive needs: No Hearing needs: No Vision needs: No Office Procedures Cardiac Device Check Cardiac Device Check Details: Date of service- 06/27/2025 ; Battery life 2 months; normal lead parameters; AP 54%; YOUTH DEVELOPMENT SPECIALIST 92%; no significant arrhythmias. Overall normal device function. [id number] Cardiac Device Interrogation, pacemaker Procedure code (CPT) selection complete Assessment & Plan Assessment & Plan (1) Normally functioning cardiac pacemaker present: Code(s): Z95.0 - Presence of cardiac pacemaker Category: Medical (2) NICM (nonischemic cardiomyopathy): Code(s): I42.8 - Other cardiomyopathies Category: Medical (3) Coarctation of aorta: Comment: Repair June 2019 Code(s): Q25.1 - Coarctation of aorta Category: Medical Plan x Coding Level of Care Code Procedure Only Diagnoses Normally functioning cardiac pacemaker present Z95.0 NICM (nonischemic cardiomyopathy) I42.8 Coarctation of aorta Q25.1 CPT Codes Cardiac Device Check - Cardiac Device 12: [id number] Cardiac Device Interrogation, pacemaker ([id number])
== END ==
PROVIDERS: PCP Internal Medicine; Visit Provider Internal Medicine
DX: I42.8 Other cardiomyopathies (principal); Q25.1 Coarctation of aorta; Z95.0 Presence of cardiac pacemaker
CPT/HCPCS: 93294

== ENCOUNTER → 2025-06-28 13:37 | Outpatient (REF) | payer OTHER, SELFPAY ==
--- NOTE | 2025-06-28 13:40 | CA_ITS ---
Transthoracic Echocardiogram Patient (Last, First, Middle): James Heard, Gender: Male Date of : 1975 Age: 49 Procedure Date: 06/28/2025 Procedure Type: Transthoracic Echocardiogram Location: OP Height: 167.64 cm Weight: 115.67 kg BSA: 2.22 m2 Heart Rate: bpm BP: 126 / 76 mmHg Frame Stripper: DONALDO/ISAI Referring MD: Shayla Booker NP-Ivelisse General Inspector: Shayan yAala MD Symptoms: I42.8 - Other cardiomyopathies Study Quality: Technically Difficult, contrast ECG Rhythm: Sinus Conclusions: - 1. Mildly reduced LV ejection fraction of 45-50% with grade 2 diastolic dysfunction. 2. Mildly dilated left atrium 3. Normal cardiac valvular Dopplers 4. Normal measured RV systolic pressure Findings Procedure Information Contrast agent, definity, is being given per protocol without apparent complications. Left Ventricle The left ventricle was not well visualized. Normal left ventricular cavity size. There is normal left ventricular wall thickness. The left ventricular systolic function is mildly decreased. The visually estimated ejection fraction is between 45-50%. Spectral Doppler is indicative of a pseudonormal filling pattern. E/E prime ratio is >15, consistent with elevated filling pressures. Evidence suggests grade II (moderate) diastolic dysfunction. Right Ventricle The right ventricle was not well visualized. Atria The left atrium is mildly dilated. Interatrial shunt cannot be excluded. The right atrium was not well visualized. Aortic Valve The aortic valve was not well visualized. There is no aortic valve stenosis. There is no aortic valve regurgitation. Mitral Valve The mitral valve was not well visualized. There is no mitral valve regurgitation. There is no mitral valve stenosis. Pulmonic Valve The pulmonic valve was not well visualized. Tricuspid Valve The tricuspid valve was not well visualized. There is trace tricuspid valve regurgitation. The right ventricular systolic pressure is normal. The right ventricular systolic pressure is 28 mmHg. Normal right atrial pressure. There is no evidence of pulmonary hypertension. Great Vessels The aorta was not well visualized. The pulmonary artery was not well visualized. Venous The inferior vena cava is normal in size and collapses greater than 50% with inspiration. Pericardium/Pleural There is no evidence of pericardial effusion. Prior Study Comparison No significant change compared to prior study dated: 09/23/2024. Measurements 2D Linear Measurements IVSd: 0.96 0.6-0.9/0.6-1.0 cm LVIDd: 5.29 3.9-5.3/4.2-5.9 cm LVIDd Index: 2.38 2.4-3.2/2.2-3.1 cm/m2 LVIDs: 4.63 2.0-3.6 cm LVPWd: 0.82 0.7-1.1 cm LA Diam: 4.20 2.7-3.8/3.0-4.0 cm LAIDs Index: 1.89 1.5-2.3 cm/m2 LV Mass: 214.35 67-162/88-224 g LV Mass Index: 96.55 43-95/49-115 g/m2 LVOT Diam: 2.00 3.0+(-)1.3 cm 2D Systolic Function EF 4C: 50.50 >55% EF 2C: 41.20 >55% EF BiP: 47.70 >55% Mitral Valve MV Pk E: 1.19 MV PK A: 0.70 MV Decel Time: 302.00 E/A: 1.70 E'Lateral: 4.13 E'Medial: 4.24 E/E' Med: 28.10 E/E' Lat: 28.80 PHT: 88.00 MVA PHT: 2.50 Decel [place]: 3.95 Aortic Valve AoV Pk Seth: 1.47 AoV Mn Seth: 1.06 AoV VTI: 0.33 AoV Pk Grad: 9.00 Aov Mn Grad: 5.00 DEMETRI Cont.VTI: 1.93 LVOT LVOT Pk Seth: 0.83 LVOT Mn Seth: 0.63 LVOT VTI: 0.21 LVOT Pk Grad: 3.00 LVOT Mn Grad: 2.00 LVOT Diam: 2.00 LVOT Area: 3.14 Diastolic Function MV Pk E: 1.19 MV Pk A: 0.70 E/A: 1.70 E'Medial: 4.24 E/E' Med: 28.10 E' Laterial: 4.13 E/E' Lat: 28.80 Right Ventricle TAPSE (mm): 25.90 TVS' Seth: 9.25 Tricuspid Valve TR Pk Seth: 2.51 TR Pk Grad: 25.00 RA Press: 3.00 RVSP: 28.00 Great Vessels Aorta Sinus of Valsalva: 3.00 2.0-3.5 cm Ao Asc: 2.70 2.1-3.4 cm Pulmonary Valve PV Pk Seth: 0.95 Peak PV Grad: 4.00 Updated in Other Vendor System with Status of Final Shayan Ayala MD electronically signed on 06/29/2025 2:50:21 PM with status of Final
--- OUTSIDE RECORDS SUMMARY | 2025-06-28 14:52 | XMS_ITS | Clinical Summary ---
Author Organization [facility] Address [address] [place] [address] Phone Care Team Providers Care Health Technician Hearing Name Role Phone Doreen Heaton MD Primary Care Provider [phone] Allergies No known active allergies Medications amoxicillin [...] MEDICARE REPLACEMENT MEDICARE PART A & [place] [address] [place] [address] CARE MEDICARE REPLACEMENT MEDICARE PART A & B Member Subscriber Plan / Payer (Ef fective 2024-) Name:Genaro Lito James Member ID:[id number] Relation to Subscriber:Self Name:James Heard Subscriber ID:[id number] Payer ID:[id number] Group ID:Not on file Type:Medicare Address: [place] [address] [address] [facility] MEDICARE REPLACEMENT MEDICARE PART A & B [facility] ONE CARE MEDICARE REPLACEMENT MEDICARE PART A & B Member Subscriber Plan / Payer ( fective 2024-Present) Name:James Heard Member ID:[id number] Relation to Subscriber:Self Name:James Heard Subscriber ID:[id number] Payer ID:[id number] Group ID:Not on file Type:Medicare Address: [place] [address] [place] [address] [place] [address] CARE MEDICARE REPLACEMENT MEDICARE PART A & B [facility] ONE CARE MEDICARE REPLACEMENT Care Teams Health Technician Hearing Relationship Specialty Start Date End Date Doreen Heaton MD [address] [place] [address] [address] [place] [address] PCP - General Internal Medicine 01/29/24 Additional Source Comments The information contained in this document represents components of the legal health record. It is not the complete legal health record.[facility]
--- OUTSIDE RECORDS SUMMARY | 2025-06-28 14:52 | XMS_ITS | Clinical Summary ---
Author Organization [facility] Address [address] [place] [address] Phone Care Team Providers Care Office Machine Mechanic Name Role Phone Doreen Heaton MD Unavailable [phone] Cheryl Anderson Primary Care Provider [phone] Cheryl Anderson Unavailable [phone] Juan Francisco Molina MD Unavailable [phone] Juan Francisco Molina MD Unavailable [phone] Social History Tobacco Use Types Packs/Day Years Used Date Smoking Tobacco: Never Assessed Sex and Gender Information Value Date Recorded Sex Assigned at Not on file Legal Sex Male 2:20 AM EDT Gender Identity Not on file Sexual Orientation Not on file Plan of Treatment Not on file Medical Devices Implanted Type Area Electrician Underground Device Identifier Shelf Expiration Date Model / Serial / Lot Lead Ra Implanted: (Quantity not on file) Cardiac Lead Heart Medtronic Medtronic 5076 - 52 cm / [id number] / Lead Rv Implanted:03/2016 (Quantity not on file) Cardiac Lead Heart Medtronic Medtronic 5076- 58 cm / [id number] / Pacemaker Implanted:03/2016 (Quantity not on file) Cardiac Pacemaker Heart Medtronic Medtronic [id number] GALAN / [id number] / Care Teams Office Machine Mechanic Relationship Specialty Start Date End Date Doreen Heaton MD [address] [place] [address] [id number] PCP - Insurance PCP 06/23/19 Cheryl Anderson [address] [facility] [place] [address] PCP - General 04/06/19 Cheryl Anderson [address] [facility] [place] [address] PCP - Clinical PCP 04/06/19 Juan Francisco Molina MD [address] [place] [address] Associate Attending Cardiology 04/06/19 Juan Francisco Molina MD [address] [place] [address] Petal Shaper Hand 04/10/24
--- OUTSIDE RECORDS SUMMARY | 2025-06-28 14:52 | XMS_ITS | Clinical Summary ---
Author Organization [facility] Address [address] [place] [address] Care Team Providers Care Fiscal Specialist Name Role Phone Cheryl Figueroa MD Primary Care Provider [phone] Medical History Medical History Date Comments Cardiomyopathy [...] age to complete this topic Care Teams Fiscal Specialist Relationship Specialty Start Date End Date Cheryl Figueroa MD [address] [place] [address] , [facility] [address] [facility] Physician Associ D/B/A: [facility] CHANTEL Stroud PCP - General Internal Medicine 04/13/21
== END ==
LOC: HO.CARD 13:37
PROVIDERS: PCP Internal Medicine; Visit Provider Nurse Practitioner Family
DX: I42.8 Other cardiomyopathies (principal); R07.89 Other chest pain
CPT/HCPCS: 93306; Q9957

== ENCOUNTER → 2025-06-28 13:40 | Outpatient (BNV) | payer OTHER, SELFPAY | PROVIDERS: PCP Internal Medicine; Visit Provider Internal Medicine Cardiovascular Disease | DX: I42.8 Other cardiomyopathies (principal); I51.7 Cardiomegaly | CPT/HCPCS: 93306 ==

== ENCOUNTER → 2025-08-01 19:30 | Outpatient (REF) | payer OTHER, SELFPAY ==
--- OUTSIDE RECORDS SUMMARY | 2025-08-01 22:39 | XMS_ITS | Clinical Summary ---
Author Organization [facility] Address [address] [place] [address] Phone Care Team Providers Care Supervisor Forming And Tempering Name Role Phone Doreen Heaton MD Unavailable [phone] Cheryl Anderson Primary Care Provider [phone] Cheryl Anderson Unavailable [phone] Juan Francisco Molina MD Unavailable [phone] Juan Francisco Molina MD Unavailable [phone] Social History Tobacco Use Types Packs/Day Years Used Date Smoking Tobacco: Never Assessed Sex and Gender Information Value Date Recorded Sex Assigned at Not on file Legal Sex Male 2:20 AM EDT Gender Identity Not on file Sexual Orientation Not on file Plan of Treatment Not on file Medical Devices Implanted Type Area Home Hospice Aide Device Identifier Shelf Expiration Date Model / Serial / Lot Lead Ra Implanted: (Quantity not on file) Cardiac Lead Heart Medtronic Medtronic 5076 - 52 cm / [id number] / Lead Rv Implanted:03/2016 (Quantity not on file) Cardiac Lead Heart Medtronic Medtronic 5076- 58 cm / [id number] / Pacemaker Implanted:03/2016 (Quantity not on file) Cardiac Pacemaker Heart Medtronic Medtronic [id number] GALAN / [id number] / Care Teams Supervisor Forming And Tempering Relationship Specialty Start Date End Date Doreen Heaton MD [address] [place] [address] [phone] PCP - Insurance PCP 06/23/19 Cheryl Anderson [address] [facility] [place] [address] PCP - General 04/06/19 Cheryl Anderson [address] [facility] [place] [address] PCP - Clinical PCP 04/06/19 Juan Francisco Molina MD [address] [place] [address] Associate Attending Cardiology 04/06/19 Juan Francisco Molina MD [address] [place] [address] Fiber Technician 04/10/24
--- OUTSIDE RECORDS SUMMARY | 2025-08-01 22:39 | XMS_ITS | Clinical Summary ---
Author Organization [facility] Address [address] [place] [address] Care Team Providers Care Completion Engineer Name Role Phone Cheryl Figueroa MD Primary Care Provider [phone] Medical History Medical History Date Comments Cardiomyopathy [...] 10/19/2022 Social Influencers of Health Screening 10/19/2022 Depression Screening 11/10/2024 COVID-19 Vaccine (1 - 2023-2 5 season) 2025 Influenza Vaccine (#1) 2025 HIB Vaccines Aged [...] age to complete this topic Care Teams Completion Engineer Relationship Specialty Start Date End Date Cheryl Figueroa MD [address] [place] [address] , [facility] [address] [facility] Physician Associ D/B/A: [facility] CHANTEL Stroud PCP - General Internal Medicine 04/13/21
--- OUTSIDE RECORDS SUMMARY | 2025-08-01 22:39 | XMS_ITS | Clinical Summary ---
Author Organization [facility] Address [address] [place] [address] Phone Care Team Providers Care Soccer Player Name Role Phone Doreen Heaton MD Primary Care Provider [phone] Allergies No known active allergies Medications amoxicillin [...] FOBT 2021 SIGMOIDOSCOPY 2021 VIRTUAL COLONOSCOPY 2021 INFLUENZA VACCINE (#1) 2025 COVID-19 VACCINE ( - 2023-2 5 season) 2025 HEPATITIS A VACCINES Aged Out No long [...] MEDICARE REPLACEMENT MEDICARE PART A & [place] [address] [address] ONE CARE MEDICARE REPLACEMENT MEDICARE PART A & B [facility] ONE CARE MEDICARE REPLACEMENT MEDICARE PART A & B [facility] ONE CARE MEDICARE REPLACEMENT MEDICARE PART A & B [facility] CARE MEDICARE REPLACEMENT MEDICARE PART A & B [facility] ONE CARE MEDICARE REPLACEMENT Care Teams Soccer Player Relationship Specialty Start Date End Date Doreen Heaton MD [address] [place] [address] [address] [place] [address] PCP - General Internal Medicine 01/29/24 Additional Source Comments The information contained in this document represents components of the legal health record. It is not the complete legal health record.[facility]
== END ==
LOC: HO.SL 19:30
PROVIDERS: PCP Internal Medicine; Visit Provider Physician Assistant Medical
DX: G47.19 Other hypersomnia (principal)
CPT/HCPCS: 95810

== ENCOUNTER → 2025-08-01 20:27 | Outpatient (BNV) | payer OTHER, SELFPAY | PROVIDERS: PCP Internal Medicine; Visit Provider Psychiatry & Neurology Neurology | DX: G47.33 Obstructive sleep apnea (adult) (pediatric) (principal) | CPT/HCPCS: 95810 ==

== ENCOUNTER 2025-08-04 09:45 | Outpatient (AMB) | payer OTHER, SELFPAY ==
--- NOTE | 2025-08-04 09:58 | A.OFFVIS_ITS ---
Vital Signs 08/04/25 09:59 Height 5 ft 6 in Weight 256 lb 9.889 oz BMI 41.4 BP 124/70 Blood Pressure Location Lt brachial Position Sitting Pulse 64 Pulse Source Pulse Oximeter Intake Visit Reasons: f/u Bread Dumper Required: No Allergies corn (CORN) Allergy (Intermediate, Verified 08/04/25 10:02) Rash shrimp (SHRIMP) Allergy (Intermediate, Verified 08/04/25 10:02) ITCHING Medication List - Last Reconciled 08/04/25 by Shayla Booker NP-C atorvastatin 80 mg PO BEDTIME 90 days bupropion HCl XL 150 mg PO QAM carvedilol 3.125 mg PO BID 90 days ezetimibe (Zetia) 10 mg PO DAILY hydrocortisone 1% (Cortisone (hydrocortisone)) 1 appl topical TID PRN magnesium oxide 400 mg PO DAILY 3 months MDD 400mg magnesium oxide 400 mg PO DAILY nicotine 1 patch transdermal DAILY rivaroxaban (Xarelto) 20 mg PO DAILY 90 days sacubitril-valsartan 24-26 mg (Entresto) 1 tab PO BID 90 days tirzepatide (Mounjaro) 2.5 mg (0.5 mL) subcut QWEEK varenicline tartrate 0.5 mg PO DIRECTED 3 months MDD 1.0mg HPI HPI f/u: Details: James is a 49-year-old male with past medical history of hypertension, obesity, hyperlipidemia, obstructive sleep apnea with CPAP use, nonischemic cardiomyopathy, pacemaker placement, 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 Today he reports that he has been having increased shortness of breath with activity, fatigue, lack of energy, swelling in his legs. His chest discomfort is unchanged, worse with palpation and at times with deep inspiration. He is having discomfort mostly when he is at rest. It is not brought on by physical activity. No shortness of breath at rest, PND, orthopnea or edema. No heart palpitations, lightheadedness, presyncope, syncope, falls. He is still very concerned that his pacemaker is not working well cause the battery is going low. He has remote monitoring in use. He has a new diagnosis of diabetes. Significant other present. COUNTS INCLUDE 234 BEDS AT THE [facility] Medical History Right atrial thrombus Preoperative cardiovascular examination Dyspnea Pain of left thumb Right knee pain NICM (nonischemic cardiomyopathy) MARVIN on CPAP Sleep apnea Coarctation of aorta Right hand pain Supraumbilical hernia Morbid obesity Right elbow pain Hernia of anterior abdominal wall Normally functioning cardiac pacemaker present Depression Hypovitaminosis D Pure hypercholesterolemia Essential hypertension Surgical History Status post wrist surgery H/O carpal tunnel repair History of umbilical hernia repair History of ascending aorta repair History of cataract surgery H/O left wrist surgery History of pacemaker Family History Father Uncontrolled diabetes mellitus Mother Uncontrolled persistent asthma Family/Other FH: mental illness Social History (Reviewed 08/04/25 @ 11: by Shayla Booker NP-C) Housing: Apartment Alcohol intake: current Alcohol intake frequency: holidays/special occasions only Alcohol type: hard liquor Patient Tobacco Use Status: Current everyday Tobacco user Tobacco use type: Cigarette Cigarette Packs Per Day: 0.5 Cigarettes Per Day: 7 Years Smoked: 10 e-Cigarette/Vaping Use: Never Used Second Hand Smoke Exposure: Yes service: No Current occupational status: unemployed and disabled Cognitive needs: No Hearing needs: No Vision needs: No Review of Systems Const All systems reviewed & are unremarkable except as noted in HPI and below Reports fatigue and Reports lethargy ENT Denies dizziness Card Denies chest pain, Denies chest pain at rest, Denies chest pain with activity, Denies rapid heart rate, Denies pedal edema, Denies edema, Reports leg edema, Denies lightheadedness, Denies palpitations, Denies dyspnea, Reports dyspnea on exertion and Denies orthopnea Resp Denies cough, Denies dyspnea and Reports dyspnea on exertion GI Denies hematochezia and Denies change in stool character Musc Denies abnormal gait, Denies limited range of motion, Denies muscle cramps, Denies muscle weakness, Denies numbness, Denies radiating pain into limb, Denies stiffness and Denies tingling Neuro Denies abnormal gait, Denies dizziness, Denies numbness and Denies tingling Endo Reports fatigue and Denies palpitations Physical Exam Vital Signs: BMI result Body Mass Index 41.4 Const General: cooperative, healthy appearing, comfortable and no acute distress Orientation/consciousness: patient oriented x3 Neck Neck: Yes normal visual inspection and Yes no JVD Resp Effort & Inspection: normal respiratory effort Auscultation: clear to auscultation bilaterally, no rales, no rhonchi and no wheezes Cardio Rate: regular rate Rhythm: regular rhythm Heart sounds: S1 normal heart sound present, S2 normal heart sound present, no gallops, no murmurs and no rubs Neuro General: patient oriented x3 Extrem Other: Plus one edema in his lower legs General: Yes normal to inspection and No no pedal edema Psych Appearance: grossly normal Mental Status: mental status grossly normal Speech and movement: Normal speech and movement present Assessment & Plan Assessment & Plan (1) Chest discomfort: Code(s): R07.89 - Other chest pain Category: Medical Plan: Reports of atypical sounding chest discomfort. Prior ED evaluation for this symptom and was told it was chest wall pain. His EKG is nondiagnostic for ischemia due to a/V paced. He did have nuclear stress test 12/11/2023 which showed no ischemia. He has no nonischemic cardiomyopathy with last echo 06/28/2025 showing EF 45-50%, grade 2 diastolic dysfunction. Prior known EF 40- 45%. Since his discomfort remains atypical will hold off on repeat stress test at this time. Signs and symptoms of angina reviewed with him. (2) NICM (nonischemic cardiomyopathy): Code(s): I42.8 - Other cardiomyopathies Category: Medical Plan: History of nonischemic cardiomyopathy. Pharmacological nuclear stress test on 12/11/2023 showing no ischemia, fixed perfusion defect along the inferior wall, distal anterior wall and apex suspected to be artifactual however prior nontransmural infarct of the apex can not be excluded. With his reduced EF and V pacing greater than 99% it was thought that his cardiomyopathy could be related to his V pacing. He was referred to stonecutter hand who he saw on 09/10/2024. Plan was that if his EF dropped below 40% and LV lead would be placed. Echo 09/23/2024 showed EF 40-45%. Echo 06/28/2025 showed EF 45-50%. He is not fluid overloaded on exam today. Continue Carvedilol and Entresto for neurohormonal modulation. Signs and symptoms of heart failure reviewed with him. (3) Shortness of breath: Code(s): R06.02 - Shortness of breath Category: Medical Plan: He is reporting shortness of breath with activity, fatigue, leg edema. On exam he does have +1 edema in his lower extremities, no rales. Will check BMP, BNP today. May benefit from diuretic. (4) Coarctation of aorta: Comment: Repair June 2019 Code(s): Q25.1 - Coarctation of aorta Category: Medical Plan: History of coartication of the aorta. He underwent angioplasty and intervention in [place]. CTA of the aorta was performed on 08/05/2022 showing widely patent stent in the proximal descending thoracic aorta, no thoracic aortic aneurysm or dissection. Echocardiogram 06/28/2025 shows ascending aorta 2.7 cm, sinus of Valsalva 3 cm (5) Normally functioning cardiac pacemaker present: Code(s): Z95.0 - Presence of cardiac pacemaker Category: Medical Plan: Medtronic dual-chamber pacemaker in place. Battery 2 months. Remote monitoring in use. Next office interrogation in 1 months. (6) Essential hypertension: Code(s): I10 - Essential (primary) hypertension Category: Medical Plan: Blood pressure goal less than 130/80. Well controlled at this time. No med changes made at this time (7) Obstructive sleep apnea: Code(s): G47.33 - Obstructive sleep apnea (adult) (pediatric) Category: Medical Plan: Says he had to have a repeat sleep study to get a new mask. Currently waiting on new CPAP. (8) Atrial flutter: Comment: April 2024 Code(s): I48.92 - Unspecified atrial flutter Category: Medical Qualifiers: Atrial flutter type: typical Qualified Code(s): I48.3 - Typical atrial flutter Plan: Episodes of paroxysmal atrial flutter seen on device interrogations, asymptomatic. He is on carvedilol for heart rate control. He is on Xarelto for anticoagulation. Chads Vasc score of 2 to 3, ( chf, htn, vascular disease). Continue current treatment. Plan Time spent on chart review, documentation, interview and assessment Orders: Orders Basic Metabolic Panel Today I42.8 - Other cardiomyopathies NT Pro B Type Natriuretic Pept Today I42.8 - Other cardiomyopathies Coding Level of Care Code Est Pt Level 4 (10674) Complex EM visit Add On G2211 Diagnoses Chest discomfort R07.89 NICM (nonischemic cardiomyopathy) I42.8 Shortness of breath R06.02 Coarctation of aorta Q25.1 Normally functioning cardiac pacemaker present Z95.0 Essential hypertension I10 Obstructive sleep apnea G47.33 Typical atrial flutter I48.3 Atrial flutter type: typical Time Spent (min) 30
[2025-08-04 09:59] VITALS: BP 124/70; PULSE 64; BMI 41.4
--- OUTSIDE RECORDS SUMMARY | 2025-08-04 11:36 | XMS_ITS | Clinical Summary ---
Author Organization [facility] Address [address] [place] [address] Care Team Providers Care Wood Heel Cementer Name Role Phone Cheryl Figueroa MD Primary Care Provider [phone] Medical History Medical History Date Comments Cardiomyopathy [...] age to complete this topic Care Teams Wood Heel Cementer Relationship Specialty Start Date End Date Cheryl Figueroa MD [address] [place] [address] , [facility] [address] [facility] D/B/A: [facility] Internal Medicine CHANTEL Stroud PCP - General Internal Medicine 04/13/21
--- OUTSIDE RECORDS SUMMARY | 2025-08-04 11:36 | XMS_ITS | Clinical Summary ---
Author Organization [facility] Address [address] [place] [id number] Phone Care Team Providers Care Traffic Operations Engineer Name Role Phone Doreen Heaton MD Primary Care Provider [phone] Allergies No known active allergies Medications amoxicillin [...] MEDICARE REPLACEMENT MEDICARE PART A & [place] [address] [address] [address] ONE CARE MEDICARE REPLACEMENT MEDICARE PART A & B [facility] ONE CARE MEDICARE REPLACEMENT MEDICARE PART A & B [facility] ONE CARE MEDICARE REPLACEMENT MEDICARE PART A & B [facility] CARE MEDICARE REPLACEMENT MEDICARE PART A & B [facility] ONE CARE MEDICARE REPLACEMENT Care Teams Traffic Operations Engineer Relationship Specialty Start Date End Date Doreen Heaton MD [address] [place] [address] [address] [place] [address] PCP - General Internal Medicine 01/29/24 Additional Source Comments The information contained in this document represents components of the legal health record. It is not the complete legal health record.[facility]
== END 2025-08-04 10:32 | disposition home or self-care (01) ==
LOC: HO.HCS 09:46
PROVIDERS: PCP Internal Medicine; Visit Provider Nurse Practitioner Family
DX: R07.89 Other chest pain (principal); I42.8 Other cardiomyopathies; R06.02 Shortness of breath; Q25.1 Coarctation of aorta; Z95.0 Presence of cardiac pacemaker; I10 Essential (primary) hypertension; G47.33 Obstructive sleep apnea (adult) (pediatric); I48.3 Typical atrial flutter
CPT/HCPCS: 99214; G2211

== ENCOUNTER 2025-08-04 09:45 | Outpatient (REF) | payer OTHER, SELFPAY ==
[2025-08-04 12:03] LABS: Total Hemoglobin (HGBA1C) 3610.3583 umol/L
[2025-08-04 12:27] LABS: NT Pro B Type Natriuretic Pept 314.0 pg/mL (<300)
[2025-08-04 12:43] LABS: Free T4 (Free Thyroxine) 0.81 ng/dL (0.71-1.85)
[2025-08-04 12:44] LABS: Alanine Aminotransferase 30 U/L (0-40); Albumin Level 4.0 g/dL (3.5-5.0); Alkaline Phosphatase 87 U/L (39-117); Anion Gap 10 (12-20); Aspartate Amino Transferase 20 U/L (5-37); Blood Urea Nitrogen 10 mg/dL (9-16); Calcium 8.6 mg/dL (8.4-10.2); Carbon Dioxide 28 mmol/L (22-29); Chloride 106 mmol/L (96-108); Estimated Glomerular Filt Rate > 60; Potassium 4.1 mmol/L (3.3-5.1); Sodium 140 mmol/L (135-145); Total Protein 7.3 g/dL (6.5-8.0)
[2025-08-04 12:50] LABS: Thyroid Stimulating Hormone 2.97 uIU/mL (0.32-4.0)
== END 2025-08-04 09:46 | disposition home or self-care (01) ==
LOC: HO.LAB 09:45
PROVIDERS: PCP Internal Medicine; Visit Provider Nurse Practitioner Family
DX: I42.8 Other cardiomyopathies (principal); R06.02 Shortness of breath; R07.89 Other chest pain; I48.3 Typical atrial flutter; G47.33 Obstructive sleep apnea (adult) (pediatric); R53.83 Other fatigue; R60.0 Localized edema; Q25.1 Coarctation of aorta; R73.01 Impaired fasting glucose; I10 Essential (primary) hypertension; R79.89 Other specified abnormal findings of blood chemistry; F17.210 Nicotine dependence, cigarettes, uncomplicated; Z79.01 Long term (current) use of anticoagulants; Z79.899 Other long term (current) drug therapy; Z99.89 Dependence on other enabling machines and devices; Z95.0 Presence of cardiac pacemaker
CPT/HCPCS: 36415; 80053; 83036; 83880; 84439; 84443; 99212

== ENCOUNTER 2025-09-12 10:59 | Outpatient (REF) | payer OTHER, SELFPAY ==
[2025-09-12 13:47] LABS: Alanine Aminotransferase 39 U/L (0-40); Albumin Level 4.3 g/dL (3.5-5.0); Alkaline Phosphatase 98 U/L (39-117); Anion Gap 11 (12-20); Aspartate Amino Transferase 27 U/L (5-37); Blood Urea Nitrogen 10 mg/dL (9-16); Calcium 9.2 mg/dL (8.4-10.2); Carbon Dioxide 25 mmol/L (22-29); Chloride 104 mmol/L (96-108); Cholesterol 126 mg/dL (<200); Estimated Glomerular Filt Rate > 60; HDL Cholesterol 31 mg/dL (>40); Potassium 4.2 mmol/L (3.3-5.1); Sodium 136 mmol/L (135-145); Total Protein 7.8 g/dL (6.5-8.0); Triglycerides 95 mg/dL (<150)
[2025-09-12 14:22] LABS: Folate 6.5 ng/mL (> or = 4.0); Vitamin B12 385 pg/mL (200-900)
== END 2025-09-12 11:00 | disposition home or self-care (01) ==
LOC: HO.LAB 10:59
PROVIDERS: Nurse Practitioner Family; PCP Internal Medicine
DX: Z00.00 Encounter for general adult medical examination without abnormal findings (principal); E11.9 Type 2 diabetes mellitus without complications; E78.00 Pure hypercholesterolemia, unspecified; N62 Hypertrophy of breast; I10 Essential (primary) hypertension; G47.33 Obstructive sleep apnea (adult) (pediatric); N64.4 Mastodynia; E55.9 Vitamin D deficiency, unspecified; I42.8 Other cardiomyopathies; I48.3 Typical atrial flutter; E66.01 Morbid (severe) obesity due to excess calories; Z99.89 Dependence on other enabling machines and devices; Z68.41 Body mass index [BMI] 40.0-44.9, adult; Z13.29 Encounter for screening for other suspected endocrine disorder; Z13.21 Encounter for screening for nutritional disorder
CPT/HCPCS: 36415; 80053; 80061; 82306; 82607; 82672; 82746; 84146; 84403; 84443; 96127; 99212

== ENCOUNTER 2025-09-12 10:59 | Outpatient (AMB) | payer OTHER, SELFPAY ==
--- NOTE | 2025-09-12 11:10 | A.OFFPC_ITS ---
Vital Signs 09/12/25 11:12 Height 5 ft 6 in Weight 256 lb 8 oz BMI 41.4 BP 130/70 Blood Pressure Location Lt brachial Position Sitting Pulse 59 Pulse Source Pulse Oximeter Temp 97.3 F Temp Source Temporal Artery Scan Pulse Oximetry (%) 96 Oxygen Delivery Method Room Air Intake Visit Reasons: f/u BP RE/A1C Intake Note: Patient is here to follow up on BP, DM. Nitric Acid Plant Operator Required: No Data Analytics Chief Scientist: Not Required per policy Accompanied by: Self / Same As Patient Allergies corn (CORN) Allergy (Intermediate, Verified 09/12/25 11:42) Rash shrimp (SHRIMP) Allergy (Intermediate, Verified 09/12/25 11:42) ITCHING Medication List - Last Reconciled 09/12/25 by Salina Maza PA-C atorvastatin 80 mg PO BEDTIME 90 days bupropion HCl XL 150 mg PO QAM carvedilol 3.125 mg PO BID 90 days ezetimibe (Zetia) 10 mg PO DAILY furosemide (Lasix) 20 mg PO DAILY PRN hydrocortisone 1% (Cortisone (hydrocortisone)) 1 appl topical TID PRN magnesium oxide 400 mg PO DAILY 3 months MDD 400mg magnesium oxide 400 mg PO DAILY nicotine 1 patch transdermal DAILY rivaroxaban (Xarelto) 20 mg PO DAILY 90 days sacubitril-valsartan 24-26 mg (Entresto) 1 tab PO BID 90 days tirzepatide (Mounjaro) 2.5 mg (0.5 mL) subcut QWEEK varenicline tartrate 0.5 mg PO DIRECTED 3 months MDD 1.0mg Tobacco use date assessed: 09/12/25 Dental Screening Dental Screen Date: 02/21/25 Did you have a dental visit in the last 12 months?: Yes Did you have a dental problem in the last 6 months where you did not have access to dental care?: No Was dental information given to patient?: Patient has dentist HPI f/u BP RE/A1C HPI Details 49-year-old male with past medical histo ry of obstructive sleep apnea, hypertension, hypercholesterolemia, depression, nonischemic cardiomyopathy, atrial flutter, tobacco abuse, impaired glucose tolerance last seen 04/2025 coming in for follow up. In review of the notes, patient was seen by cardiology 07/2025 no changes were made at that time and he was sent to electrophysiology. He was seen by neurology 06/2025 blood work ordered and follow up in 3 months. Presenting for a follow-up visit for management of multiple chronic conditions. A recent hemoglobin A1c of 6.6% in July, up from 6.0% in February, has led to a new diagnosis of diabetes mellitus. The patient anecdotally reports checking his glucose, with morning and night readings sometimes in the 150s and as high as 181. A prior attempt to obtain [employer] for weight loss was denied by insurance. He reports continued breast pain with associated itching, despite prior imaging that was normal. He continues to smoke cigarettes and is currently taking Wellbutrin with some benefit, but reports past trials of nicotine patches were not helpful. [facility] Medical History Right atrial thrombus Preoperative cardiovascular examination Dyspnea Pain of left thumb Right knee pain NICM (nonischemic cardiomyopathy) MARVIN on CPAP Sleep apnea Coarctation of aorta Right hand pain Supraumbilical hernia Morbid obesity Right elbow pain Hernia of anterior abdominal wall Normally functioning cardiac pacemaker present Depression Hypovitaminosis D Pure hypercholesterolemia Essential hypertension Surgical History Status post wrist surgery H/O carpal tunnel repair History of umbilical hernia repair History of ascending aorta repair History of cataract surgery H/O left wrist surgery History of pacemaker Family History Father Uncontrolled diabetes mellitus Mother Uncontrolled persistent asthma Family/Other FH: mental illness Social History Housing: Apartment Alcohol intake: current Alcohol intake frequency: holidays/special occasions only Alcohol type: hard liquor Patient Tobacco Use Status: Current everyday Tobacco user Tobacco use type: Cigarette Cigarette Packs Per Day: 0.5 Cigarettes Per Day: 7 Years Smoked: 10 e-Cigarette/Vaping Use: Never Used Second Hand Smoke Exposure: Yes service: No Current occupational status: unemployed and disabled Cognitive needs: No Hearing needs: No Vision needs: No Questionnaire Thrive Questionnaire Date Thrive assessed: 09/12/25 I am a: Patient What is your living situation today?: I have a steady place to live Within the past 12 months, did the food you bought not last and you didn't have the money to get more?: Never true Within the past 12 months, did you worry whether your food would run out before you got money to buy more?: Never true Do you have trouble paying for medicines?: No Do you have trouble getting transportation to medical appointments?: No Do you have trouble paying your heating and electricity bill?: No Do you have trouble taking care of your child, family member or friend?: No Do you have trouble with day-to-day activities such as bathing, preparing meals, shopping, managing finances, etc.?: No Are you currently unemployed and looking for a job?: No Are you interested in more education?: No Please select the resources that you would like help with: None THRIVE Score: 0 AUDIT C Alcohol Use Questionnaire (AUDIT-C) 1. How often do you have a drink containing alcohol?: Monthly or less 2. How many drinks containing alcohol do you have on a typical day when you are drinking?: 1 or 2 3. How often do you have six or more drinks on one occasion?: Never Total Score: 1 BRAIN-7 AMB Questionnaire BRAIN-7 Date BRAIN - 7 assessed: 09/12/25 Feeling nervous, anxious, or on edge: 0 = Not at all Not being able to stop or control worryin = Not at all Worrying too much about different things: 0 = Not at all Trouble relaxin = Several days Being so restless that it is hard to sit still: 0 = Not at all Becoming easily annoyed or irritable: 0 = Not at all Feeling afraid as if something awful might happen: 0 = Not at all Total BRAIN-7 score (0-4 normal; 5-9 mild; 10-14 moderate; 15-21 severe): 1 Source: Developed by Drs. Severiano Damon, Tatyana Padron, Santos Duran and colleagues, with an educational anjel from [employer] Review of Systems Const Denies body aches, Denies chills, Denies fever(s), Denies headache(s) and Denies poor appetite Eyes Reports no additional complaints ENT Denies dizziness and Denies headache(s) Card Denies chest pain, Denies syncope, Denies edema and Denies dyspnea Resp Denies dyspnea GI Denies abdominal pain, Denies nausea and Denies vomiting Reports no additional complaints Musc Reports no additional complaints and Denies abnormal gait Skin/Breast Reports system reviewed and no additional complaints, except as documented Neuro Denies abnormal gait, Denies dizziness, Denies syncope and Denies headache(s) Psych Reports no additional complaints Physical exam (Primary Care) Vital Signs: Last Vital Signs Temp 97.3 F 09/12/25 11:12 Pulse 59 09/12/25 11:12 BP 130/70 09/12/25 11:12 Pulse Ox 96 09/12/25 11:12 Oxygen Delivery Method Room Air 09/12/25 11:12 BMI result Body Mass Index 41.4 Tobacco/Smoking Status: Tobacco use Status Tobacco use date assessed 09/12/25 09/12/25 11:11 Patient Tobacco Use Status Current everyday Tobacco 09/12/25 11:11 Tobacco use type Cigarette 09/12/25 11:11 e-Cigarette/Vaping Use Never Used 09/12/25 11:11 Thrive Assessment: Date of Thrive Assessment Date Thrive assessed 09/12/25 09/12/25 11:18 Const General: cooperative, healthy appearing, comfortable and no acute distress Orientation/consciousness: patient oriented x3 HENMT Head: Yes normocephalic Ears: hearing grossly normal bilaterally General nose exam: Normal external nose present Eyes General: appearance normal, both eyes and all related structures Conjunctivae: conjunctivae normal Neck Neck: Yes full ROM and Yes no lymphadenopathy Resp Effort & Inspection: normal respiratory effort Auscultation: clear to auscultation bilaterally, no crackles, no rales, no rhonchi and no wheezes Cardio Rate: regular rate Rhythm: regular rhythm Skin General skin exam: no rashes or lesions noted Neuro General: patient oriented x3 Gait exam (Neuro): Normal gait present Extrem General: Yes normal to inspection, Yes full ROM and No edema Psych Affect: normal affect Attitude: cooperative Insight: Good insight present (Psych) Judgement: Good judgement present (Psych) Coding Level of Care Code Est Pt Level 4 (28326) Diagnoses Essential hypertension I10 NICM (nonischemic cardiomyopathy) I42.8 Pure hypercholesterolemia E78.00 MARVIN on CPAP G47.33; Z99.89 Tobacco abuse Z72.0 Typical atrial flutter I48.3 Atrial flutter type: typical Diabetes mellitus E11.9 Morbid obesity E66.01 Breast pain, left N64.4 Gynecomastia N62 Assessment & Plan Assessment & Plan (1) Essential hypertension: Code(s): I10 - Essential (primary) hypertension Category: Medical Plan: Continue on current blood pressure medication. Avoid salt intake and encourage healthy diet and regular exercise. (2) NICM (nonischemic cardiomyopathy): Code(s): I42.8 - Other cardiomyopathies Category: Medical Plan: Continue to follow up with Cardiology (3) Pure hypercholesterolemia: Code(s): E78.00 - Pure hypercholesterolemia, unspecified Category: Medical Plan: Avoid foods that are high in cholesterol such as red meat, fried foods, eggs and baked goods. Triglyceride goal of less than 150 and LDL goal of less than 100. Continue on atorvastatin 80. Reminded about blood work. (4) MARVIN on CPAP: Code(s): G47.33 - Obstructive sleep apnea (adult) (pediatric); Z99.89 - Dependence on other enabling machines and devices Category: Medical Plan: Awaiting sleep medicine specialist for CPAP prescription. Advised patient if he does not hear from their office by the end of this week to reach out to our office. (5) Tobacco abuse: Code(s): Z72.0 - Tobacco use Category: Medical Plan: Smoking cigarettes and the use of tobacco can be harmful. We discussed the impo rtance of stopping and options to aid in smoking cessation. Nicotine replacement therapy sent to pharmacy. (6) Atrial flutter: Comment: April 2024 Code(s): I48.92 - Unspecified atrial flutter Category: Medical Qualifiers: Atrial flutter type: typical Qualified Code(s): I48.3 - Typical atrial flutter Plan: Currently following with Cardiology on rate control with carvedilol and anticoagulation with Xarelto (7) Diabetes mellitus: Code(s): E11.9 - Type 2 diabetes mellitus without complications Category: Medical Plan: Decrease the amount of carbohydrates such as pasta, bread, rice, and potatoes and limit the amount of sweets. Although fruits are generally healthy they should be eaten in moderation as they are still high in sugar. New diagnosis of diabetes of A1c at 6.6%. Plan to use Ozempic weekly for diabetes, obstructive sleep apnea, fatty liver and morbid obesity. Follow up in 3 months (8) Morbid obesity: Code(s): E66.01 - Morbid (severe) obesity due to excess calories Category: Medical Plan: Healthy diet and regular exercise is encouraged. Plan to start on Ozempic for diabetic in weight management (9) Breast pain, left: Code(s): N64.4 - Mastodynia Category: Medical Plan: The patient reports persistent breast pain and itching despite previous normal imaging. A referral will be placed to a general surgery breast specialist, Dr. Lindo, for further evaluation. Hormonal labs will be added to his blood work given gynecomastia. (10) Gynecomastia: Code(s): N62 - Hypertrophy of breast Category: Medical Plan: See above Plan This note was constructed using voice recognition software. While every effort has been made to ensure accuracy and wire rigger, still areas may have been included sometimes these areas may affect the content or meeting of the given symptoms. Total time spent caring for the patient today was 30 minutes. This includes time spent before the visit reviewing the chart, time spent during the visit, and time spent after the visit and documentation. Patient was informed and verbally consented to the use of an ambient scribe for clinic note documentation during this visit. Orders: Orders Comprehensive Met. Panel Today E11.9 - Type 2 diabetes mellitus without complications, Z00.00 - Encounter for general adult medical examination without abnormal findings Vitamin B12 and Folate Today E11.9 - Type 2 diabetes mellitus without complications, Z13.21 - Encounter for screening for nutritional disorder Vitamin D 25-OH Total Today E11.9 - Type 2 diabetes mellitus without complications, Z13.21 - Encounter for screening for nutritional disorder Lipid Panel Today E78.00 - Pure hypercholesterolemia, unspecified Estrogen Today N62 - Hypertrophy of breast Prolactin Today N62 - Hypertrophy of breast TSH reflex Free T4 Today E11.9 - Type 2 diabetes mellitus without complications, Z13.29 - Encounter for screening for other suspected endocrine disorder Testosterone, Total Today N62 - Hypertrophy of breast Lutenizing Hormone Today N62 - Hypertrophy of breast Referrals General Surgery Referral N62 - Hypertrophy of breast, N64.4 - Mastodynia Medications: New semaglutide (Ozempic) for 4 weeks 0.25 mg (0.368 mL) subcut QWEEK 3 mL 0RF E11.9 - Type 2 diabetes mellitus without complications, E66.01 - Morbid (severe) obesity due to excess calories, G47.33 - Obstructive sleep apnea (adult) (pediatric), Z99.89 - Dependence on other enabling machines and devices nicotine (polacrilex) 4 mg buccal Q2H 50 ea 0RF Discontinued tirzepatide (Mounjaro) for 4 weeks Discontinued Reason: Insurance Denied 2.5 mg (0.5 mL) subcut QWEEK 2 mL 0RF E66.01 - Morbid (severe) obesity due to excess calories, E78.00 - Pure hypercholesterolemia, unspecified, G47.33 - Obstructive sleep apnea (adult) (pediatric) nicotine Discontinued Reason: Duplicate 1 patch transdermal DAILY 28 ea 0RF
[2025-09-12 11:12] VITALS: BP 130/70; PULSE 59; TEMP 36.3; O2SAT 96; BMI 41.4
--- OUTSIDE RECORDS SUMMARY | 2025-09-12 13:47 | XMS_ITS | Clinical Summary ---
Author Organization [facility] Address [address] [place] [address] Phone Care Team Providers Care Pony Rougher Name Role Phone Doreen Heaton MD Unavailable [phone] Cheryl Anderson Primary Care Provider [phone] Cheryl Anderson Unavailable [phone] Juan Francisco Molina MD Unavailable [phone] Juan Francisco Molina MD Unavailable [phone] Social History Tobacco Use Types Packs/Day Years Used Date Smoking Tobacco: Never Assessed Sex and Gender Information Value Date Recorded Sex Assigned at Not on file Legal Sex Male 2:20 AM EDT Gender Identity Not on file Sexual Orientation Not on file Plan of Treatment Not on file Medical Devices Implanted Type Area Learning Support Aide Device Identifier Shelf Expiration Date Model / Serial / Lot Lead Ra Implanted: (Quantity not on file) Cardiac Lead Heart Medtronic Medtronic 5076 - 52 cm / [id number] / Lead Rv Implanted:03/2016 (Quantity not on file) Cardiac Lead Heart Medtronic Medtronic 5076- 58 cm / [id number] / Pacemaker Implanted:03/2016 (Quantity not on file) Cardiac Pacemaker Heart Medtronic Medtronic [id number] GALAN / [id number] / Care Teams Pony Rougher Relationship Specialty Start Date End Date Doreen Heaton MD [address] [place] [address] [id number] PCP - Insurance PCP 06/23/[address] Anderson [address] [facility] [place] [address] PCP - General 04/06/19 Cheryl Anderson [address] [facility] [place] [address] PCP - Clinical PCP 04/06/19 Juan Francisco Molina MD [address] [place] [address] Associate Attending Cardiology 04/06/19 Juan Francisco Molina MD [address] [place] [address] Boom Crane Operator 04/10/24
--- OUTSIDE RECORDS SUMMARY | 2025-09-12 13:47 | XMS_ITS | Clinical Summary ---
Author Organization [facility] Address [address] [facility] [address] [place] [address] Phone Care Team Providers Care Maintainer Operator Name Role Phone Doreen Heaton MD Primary Care Provider [phone] Allergies No known active allergies Medications amoxicillin [...] VACCINE (#1) 2025 COVID-19 VACCINE ( - 2024-2 6 season) 2025 HEPATITIS A VACCINES Aged Out [...] MEDICARE REPLACEMENT MEDICARE PART A & [place] [address] ONE CARE MEDICARE REPLACEMENT MEDICARE PART A & B [facility] ONE CARE MEDICARE REPLACEMENT MEDICARE PART A & B [facility] ONE CARE MEDICARE REPLACEMENT MEDICARE PART A & B [facility] CARE MEDICARE REPLACEMENT MEDICARE PART A & B [facility] ONE CARE MEDICARE REPLACEMENT Care Teams Maintainer Operator Relationship Specialty Start Date End Date Doreen Heaton MD [address] [place] [address] [address] [place] [address] PCP - General Internal Medicine 01/29/24 Additional Source Comments The information contained in this document represents components of the legal health record. It is not the complete legal health record.[facility]
--- OUTSIDE RECORDS SUMMARY | 2025-09-12 13:47 | XMS_ITS | Clinical Summary ---
Author Organization [facility] Address [address] [place] [address] Care Team Providers Care Bottom Cementer Name Role Phone Cheryl Figueroa MD Primary Care Provider [phone] Medical History Medical History Date Comments Cardiomyopathy [...] Health Maintenance Due Date Last Done Comments Colorectal Cancer Screening: Colonoscopy 1976 DTaP,Tdap,and Td Vaccines (1 - Tdap) 1995 Hepatitis B Vaccines (1 of 3 - 19+ 3-dose series) 1995 Cholesterol Screening (Lipid Panel) 10/19/2022 HIV Screening 10/19/2022 Hepatitis C Screening 10/19/2022 Social Influencers of Health Screening 10/19/2022 Depression Screening 11/10/2024 COVID-19 Vaccine (1 - 2023-2 5 season) 2025 Influenza Vaccine (#1) 2025 RSV Immunization Adult Patie nts (1 - 1-dose 75+ series) 2051 HIB Vaccines Aged Out No longer eligi [...] age to complete this topic Care Teams Bottom Cementer Relationship Specialty Start Date End Date Cheryl Figueroa MD [address] [place] [address] , [address] Physician Associ D/B/A: [facility] CHANTEL Stroud PCP - General Internal Medicine 04/13/21
== END 2025-09-12 12:10 | disposition home or self-care (01) ==
LOC: HO.HMCH 11:00
PROVIDERS: PCP Internal Medicine
DX: I48.3 Typical atrial flutter (principal); I42.8 Other cardiomyopathies; E66.01 Morbid (severe) obesity due to excess calories; Z68.41 Body mass index [BMI] 40.0-44.9, adult; E11.9 Type 2 diabetes mellitus without complications; I10 Essential (primary) hypertension; E78.00 Pure hypercholesterolemia, unspecified; Z99.89 Dependence on other enabling machines and devices; G47.33 Obstructive sleep apnea (adult) (pediatric); Z72.0 Tobacco use; N64.4 Mastodynia; N62 Hypertrophy of breast

== ENCOUNTER 2025-09-14 07:36 | Outpatient (AMB) | payer OTHER, SELFPAY ==
--- OUTSIDE RECORDS SUMMARY | 2025-09-14 07:39 | XMS_ITS | Clinical Summary ---
Author Organization [facility] Address [address] [facility] [address] [place] [address] Phone Care Team Providers Care Video Games Mechanic Name Role Phone Doreen Heaton MD Primary Care Provider [phone] Allergies No known active allergies Medications amoxicillin [...] MEDICARE REPLACEMENT MEDICARE PART A & [place] [address] [place] [address] ONE CARE MEDICARE REPLACEMENT MEDICARE PART A & B [facility] ONE CARE MEDICARE REPLACEMENT MEDICARE PART A & B [facility] ONE CARE MEDICARE REPLACEMENT MEDICARE PART A & B [facility] MEDICARE REPLACEMENT MEDICARE PART A & B [facility] ONE CARE MEDICARE REPLACEMENT Care Teams Video Games Mechanic Relationship Specialty Start Date End Date Doreen Heaton MD [address] [place] [address] [address] [place] [address] PCP - General Internal Medicine 01/29/24 Additional Source Comments The information contained in this document represents components of the legal health record. It is not the complete legal health record.[facility]
--- OUTSIDE RECORDS SUMMARY | 2025-09-14 07:39 | XMS_ITS | Clinical Summary ---
Author Organization [facility] Address [address] [place] [address] Care Team Providers Care Stationary Engineer Supervisor Name Role Phone Cheryl Figueroa MD Primary Care Provider [phone] Medical History Medical History Date Comments Cardiomyopathy [...] age to complete this topic Care Teams Stationary Engineer Supervisor Relationship Specialty Start Date End Date Cheryl Figueroa MD [address] [place] [address] , [address] Physician Associ D/B/A: [facility] CHANTEL Stroud PCP - General Internal Medicine 04/13/21
--- NOTE | 2025-09-14 08:05 | MHC.OFFVIS ---
Intake Visit Reasons: nocturia/urinary frequency Intake Note: Patient is present for NOCTURIA/URINARY FREQUENCY Urology Medication:NONE Antibiotic Allergy:NONE Blood Thinner:RIVAROXABAN TODAY'S [id number] Warehouse Trainer Required: No Allergies corn (CORN) Allergy (Intermediate, Verified 09/14/25 08:28) Rash shrimp (SHRIMP) Allergy (Intermediate, Verified 09/14/25 08:28) ITCHING Medication List - Last Reconciled 09/14/25 by LANCE Haynes-SHAHZAD atorvastatin 80 mg PO BEDTIME 90 days bupropion HCl XL 150 mg PO QAM carvedilol 3.125 mg PO BID 90 days cholecalciferol (vitamin D3) 25 mcg PO DAILY ezetimibe (Zetia) 10 mg PO DAILY furosemide (Lasix) 20 mg PO DAILY PRN hydrocortisone 1% (Cortisone (hydrocortisone)) 1 appl topical TID PRN magnesium oxide 400 mg PO DAILY 3 months MDD 400mg magnesium oxide 400 mg PO DAILY nicotine (polacrilex) 4 mg buccal Q2H rivaroxaban (Xarelto) 20 mg PO DAILY 90 days sacubitril-valsartan 24-26 mg (Entresto) 1 tab PO BID 90 days semaglutide (Ozempic) 0.25 mg (0.368 mL) subcut QWEEK varenicline tartrate 0.5 mg PO DIRECTED 3 months MDD 1.0mg HPI Comments Details: James is a pleasant 49-year-old Citizen Of [place]-speaking male patient of Dr. Heaton was accompanied by his significant other at today's office visit. He has a past medical history of she nonischemic cardiomyopathy, obstructive sleep apnea, coarctation of the aorta, damage with a supraumbilical hernia, obesity, depression, hypercholesteremia,and hypertension. He presents to the office today as a new patient for lower urinary tract symptoms. In discussion with the patient today he reports over the last few months he has been noting episodes of urinary frequency and nocturia. He reports he recently started a diuretic and feels lower urinary tract symptoms have worsened. We did discuss correlation of diuretic with lower urinary tract symptoms. When asked he does report a history of sleep apnea in his currently awaiting CPAP machine. He also discusses his upcoming surgical procedure for ICD placement. He denies incontinence, hematuria, dysuria, foul smelling urine, changes to urinary stream, flank pain, fever, and or chills. He reports episodes of nocturia up to 3-4 times per night. In office urinalysis results reviewed with the patient today. Trace microscopic hematuria. When asked he does report a history of nicotine dependence. He reports smoking approximately a half a pack of cigarettes per day over the 10 years. I discussed reasons for blood in the urine may include but are not limited to kidney stones, cancer in the urinary tract, BPH, kidney stone disease or inflammatory conditions of the urinary tract. I have discussed workup to include cystoscopy evaluation. I discussed at length potential causes of lower urinary tract symptoms patient is experiencing as well as further treatment options and risks and benefits of these treatment options. We discussed lifestyle modifications. PVR 17 mL. All questions were answered. He otherwise offers no other issues or concerns at this time. A1c: 08/04 6.6% [facility] Medical History Right atrial thrombus Preoperative cardiovascular examination Dyspnea Pain of left thumb Right knee pain NICM (nonischemic cardiomyopathy) MARVIN on CPAP Sleep apnea Coarctation of aorta Right hand pain Supraumbilical hernia Morbid obesity Right elbow pain Hernia of anterior abdominal wall Normally functioning cardiac pacemaker present Depression Hypovitaminosis D Pure hypercholesterolemia Essential hypertension Surgical History Status post wrist surgery H/O carpal tunnel repair History of umbilical hernia repair History of ascending aorta repair History of cataract surgery H/O left wrist surgery History of pacemaker Family History Father Uncontrolled diabetes mellitus Mother Uncontrolled persistent asthma Family/Other FH: mental illness Social History Housing: Apartment Alcohol intake: current Alcohol intake frequency: holidays/special occasions only Alcohol type: hard liquor Patient Tobacco Use Status: Current everyday Tobacco user Tobacco use type: Cigarette Cigarette Packs Per Day: 0.5 Cigarettes Per Day: 7 Years Smoked: 10 e-Cigarette/Vaping Use: Never Used Second Hand Smoke Exposure: Yes service: No Current occupational status: unemployed and disabled Cognitive needs: No Hearing needs: No Vision needs: No Review of Systems Const All systems reviewed & are unremarkable except as noted in HPI and below Physical Exam Const General: cooperative, comfortable, no acute distress, well developed, alert and awake Nutritional Appearance: obese Orientation/consciousness: patient oriented x3 Limitations: language barrier HEENT Head: Yes normal to inspection, Yes normocephalic and Yes atraumatic Ears: hearing grossly normal bilaterally Eyes General: appearance normal, both eyes and all related structures Neck Neck: Yes normal visual inspection and Yes trachea midline Chest Chest palpation & inspection: normal inspection of the chest Resp Effort & Inspection: normal respiratory effort and able to speak in complete sentences Cardio Rate: regular rate GI Inspection: Yes normal to inspection General: Yes no CVA tenderness Back/Spine/Pelvis Back: no CVA tenderness Skin General skin exam: no rashes or lesions noted Neuro General: patient oriented x3 Extrem General: Yes normal to inspection Psych Appearance: grossly normal and well kempt Mental Status: mental status grossly normal Speech and movement: Normal speech and movement present and Clear speech present Affect: normal affect Attitude: cooperative Thought process: Normal thought process present Thought content: Normal thought content present Insight: Fair insight present (Psych) Judgement: Fair judgement present (Psych) Office Procedures Post Void Residual Post Residual Void Post Void Residual (PVR): 17 57490-Kzxp Void Residual by ultrasound Assessment & Plan Assessment & Plan (1) Nocturia: Code(s): R35.1 - Nocturia Category: Medical (2) Urinary frequency: Code(s): R35.0 - Frequency of micturition Category: Medical (3) Microscopic hematuria: Code(s): R31.29 - Other microscopic hematuria Category: Medical (4) Nicotine dependence: Code(s): F17.200 - Nicotine dependence, unspecified, uncomplicated Category: Medical Plan In office urinalysis results with the patient today; as noted above; will send for urine cytology. PVR 17 mL. Will obtain retroperitoneal ultrasound for further assessment evaluation. Will obtain PSA for further assessment evaluation. We did discussed correlation of diuretic with lower urinary tract symptoms. We also discussed correlation of untreated sleep apnea with episodes of nocturia. We discussed the importance of management and diabetes for improvement in urological health as well as overall health and well-being. We discussed limiting fluids 2-3 hours prior to bed to decrease episodes of nocturia. All questions were answered. Educated and stressed the importance of limiting nicotine dependence. Follow-up in 1-3 months with imaging, labs, and PVR; or sooner with any issues, concerns, and or questions. Orders: Orders AMB Urinalysis Automated Today Z13.9 - Encounter for screening, unspecified Urine Cytology Today R31.29 - Other microscopic hematuria Prostate Specific Antigen Today R35.0 - Frequency of micturition, R35.1 - Nocturia US retroperitoneal comp Today R35.0 - Frequency of micturition, R35.1 - Nocturia Patient Instructions: The patient had an opportunity to ask questions regarding the treatment plan. All questions were answered. Physical exam, labs, and imaging were discussed and reviewed in detail. As well as risks, benefits, and discussion of treatment choices. No major barriers to understanding were identified. The patient expressed understanding and agreement with the above treatment plan. The patient was made aware they should contact our office by phone for worsening of their current condition, the appearance of new symptoms, or with any questions or concerns. Compliance is encouraged with any medications and follow up testing that is ordered. It is a privilege to be allowed the opportunity to participate in? your urological care.? Again, if you have any questions or concerns If you have any questions or concerns please do not hesitate to contact me. The office is [phone]. This note is constructed using voice recognition software. While every effort has been made to ensure accuracy corporate development associate errors may have been included. Yours sincerely, KIA Haynes Coding Level of Care Code New Pt Level 3 (96479) Diagnoses Nocturia R35.1 Urinary frequency R35.0 Microscopic hematuria R31.29 Nicotine dependence F17.200 CPT Codes Post Residual Void - PVR CPT Code: 56192-Pedn Void Residual by ultrasound ([id number])
== END 2025-09-14 08:29 | disposition home or self-care (01) ==
LOC: HO.HUSH 07:37
PROVIDERS: PCP Internal Medicine; Visit Provider Nurse Practitioner Family
DX: R35.1 Nocturia (principal); R35.0 Frequency of micturition; R31.29 Other microscopic hematuria; F17.200 Nicotine dependence, unspecified, uncomplicated; Z13.9 Encounter for screening, unspecified
CPT/HCPCS: 99203

== ENCOUNTER 2025-09-14 07:36 | Outpatient (REF) | payer OTHER, SELFPAY ==
--- OUTSIDE RECORDS SUMMARY | 2025-09-14 08:23 | XMS_ITS | Clinical Summary ---
Author Organization [facility] sp[facility] Address [address] [place] [address] Phone Care Team Providers Care Legal Cashier Name Role Phone Doreen Heaton MD Unavailable [phone] Cheryl Anderson Primary Care Provider [phone] Cheryl Anderson Unavailable [phone] Juan Francisco Mloina MD Unavailable [phone] Juan Francisco Molina MD Unavailable [phone] Social History Tobacco Use Types Packs/Day Years Used Date Smoking Tobacco: Never Assessed Sex and Gender Information Value Date Recorded Sex Assigned at Not on file Legal Sex Male 2:20 AM EDT Gender Identity Not on file Sexual Orientation Not on file Plan of Treatment Not on file Medical Devices Implanted Type Area Mate Ship Device Identifier Shelf Expiration Date Model / Serial / Lot Lead Ra Implanted: (Quantity not on file) Cardiac Lead Heart Medtronic Medtronic 5076 - 52 cm / [id number] / Lead Rv Implanted:03/2016 (Quantity not on file) Cardiac Lead Heart Medtronic Medtronic 5076- 58 cm / [id number] / Pacemaker Implanted:03/2016 (Quantity not on file) Cardiac Pacemaker Heart Medtronic Medtronic [id number] GALAN / [id number] / Care Teams Legal Cashier Relationship Specialty Start Date End Date Doreen Heaton MD [address] [place] [address] [id number] PCP - Insurance PCP 06/23/19 Cheryl Anderson [address] [facility] [place] [address] PCP - General 04/06/19 Cheryl Anderson [address] [facility] [place] [address] PCP - Clinical PCP 04/06/19 Juan Francisco Molina MD [address] [place] [address] Associate Attending Cardiology 04/06/19 Juan Francisco Molina MD [address] [place] [address] Thermal Cutter Helper 04/10/24
[2025-09-14 09:42] LABS: Anion Gap 11 (12-20); Blood Urea Nitrogen 11 mg/dL (9-16); Calcium 8.8 mg/dL (8.4-10.2); Carbon Dioxide 25 mmol/L (22-29); Chloride 106 mmol/L (96-108); Estimated Glomerular Filt Rate > 60; Potassium 4.1 mmol/L (3.3-5.1); Sodium 138 mmol/L (135-145)
[2025-09-14 10:13] LABS: Prostate Specific Antigen 0.80 ng/mL (<0.05-4.0)
== END 2025-09-14 07:37 | disposition home or self-care (01) ==
LOC: HO.LAB 07:36
PROVIDERS: Nurse Practitioner Family; PCP Internal Medicine; Visit Provider Nurse Practitioner Family
DX: I42.8 Other cardiomyopathies (principal); N62 Hypertrophy of breast; R35.1 Nocturia; R35.0 Frequency of micturition; R31.29 Other microscopic hematuria; F17.210 Nicotine dependence, cigarettes, uncomplicated; Z12.5 Encounter for screening for malignant neoplasm of prostate; Z99.89 Dependence on other enabling machines and devices; Z13.89 Encounter for screening for other disorder
CPT/HCPCS: 36415; 51798; 80048; 81003; 83002; 84153; 88112; 99202

== ENCOUNTER 2025-09-26 11:13 | Outpatient (AMB) | payer OTHER, SELFPAY ==
[2025-09-26 11:30] VITALS: BP 130/72; BMI 42.4
--- NOTE | 2025-09-26 11:30 | A.OFFVIS_ITS ---
Vital Signs 09/26/25 11:30 Height 5 ft 6 in Weight 263 lb BMI 42.4 BP 130/72 Blood Pressure Location Rt brachial Position Sitting Intake Visit Reasons: 3mnth MARVIN - confirmed appt Blocklayer Required: No Accompanied by: Self / Same As Patient Allergies corn (CORN) Allergy (Intermediate, Verified 09/26/25 11:30) Rash shrimp (SHRIMP) Allergy (Intermediate, Verified 09/26/25 11:30) ITCHING HPI Comments Details: 49 year old male presents for a sleep apnea evaluation f/u appt. post titration study. Mary his fiance is here and helps with history. 07/2025 PSG titration study reviewed with pt. AHI is 68/hr and oxygen desaturation to 77% for >4mins. 166 PLMS, PLMS index of 29.9/hr and PLMS arousal index 5.4/hr. He can sleep from 11pm to 1am, he has anxiety, with multiple arousals due to thrashing, punching, kicking behavior. He is a nose breather, and sleeps on his back or sides. He snores loudly, gasps for air, has witnessed apneas per his fiance. He has nocturia, being followed by pcp. He denies bruxism and morning headaches. He is active though limits activity now due to pacemaker battery life at term, awaiting replacement. He has RLS symptoms of paresthesias, and tingling, numbness on the plantar surface of the foot, which cause him to have multiple arousals. He is trying to quit smoking, started smoking cessation, using chantix and nicotine patches. His mood is stable with buproprion 150mg po qam. His memory is stable, diet is poor. BMI is elevated and started ozempic 0.25mg sub1 qweekly. [facility] Medical History Right atrial thrombus Preoperative cardiovascular examination Dyspnea Pain of left thumb Right knee pain NICM (nonischemic cardiomyopathy) MARVIN on CPAP Sleep apnea Coarctation of aorta Right hand pain Supraumbilical hernia Morbid obesity Right elbow pain Hernia of anterior abdominal wall Normally functioning cardiac pacemaker present Depression Hypovitaminosis D Pure hypercholesterolemia Essential hypertension Surgical History Status post wrist surgery H/O carpal tunnel repair History of umbilical hernia repair History of ascending aorta repair History of cataract surgery H/O left wrist surgery History of pacemaker Family History Father Uncontrolled diabetes mellitus Mother Uncontrolled persistent asthma Family/Other FH: mental illness Social History Housing: Apartment Alcohol intake: current Alcohol intake frequency: holidays/special occasions only Alcohol type: hard liquor Patient Tobacco Use Status: Current everyday Tobacco user Tobacco use type: Cigarette Cigarette Packs Per Day: 0.5 Cigarettes Per Day: 7 Years Smoked: 10 e-Cigarette/Vaping Use: Never Used Second Hand Smoke Exposure: Yes service: No Current occupational status: unemployed and disabled Cognitive needs: No Hearing needs: No Vision needs: No Physical Exam Vital Signs: Last Vital Signs BP 130/72 09/26/25 11:30 BMI result Body Mass Index 42.4 Const General: cooperative, comfortable and no acute distress Orientation/consciousness: patient oriented x3 HEENT Face and sinus: Yes face symmetric Teeth and gingiva: other (M[place]pti score is 3+) Eyes Pupils: Equal, round and reactive pupils present Neck Neck: Yes full ROM Resp Effort & Inspection: normal respiratory effort and able to speak in complete sentences Neuro General: patient oriented x3 and moves all extremities Cranial nerves: Yes Equal, round and reactive pupils present, Yes Normal accommodation reflex present, Yes Nystagmus not present, Yes Normal facial strength present, Yes Midline tongue present, Yes Ability to bilaterally rotate head present and Yes Ability to bilaterally elevate shoulders present Cognition (Neuro): normal cognition Gait exam (Neuro): Normal gait present Motor exam (neuro): 5/5 motor strength present throughout and Normal motor muscle tone present throughout Psych Appearance: grossly normal Mental Status: mental status grossly normal Results Reviewed Results Reviewed: 07/2025 PSG titration study reviewed with pt. AHI is 68/hr and oxygen desaturation to 77% for >4mins. 166 PLMS, PLMS index of 29.9/hr and PLMS arousal index 5.4/hr. Assessment & Plan Assessment & Plan (1) Excessive daytime sleepiness: Code(s): G47.19 - Other hypersomnia Category: Medical (2) Loud snoring: Code(s): R06.83 - Snoring Category: Medical (3) RLS (restless legs syndrome): Code(s): G25.81 - Restless legs syndrome Category: Medical (4) Excessive urination at night: Code(s): R35.1 - Nocturia Category: Medical (5) Needs smoking cessation education: Code(s): F17.200 - Nicotine dependence, unspecified, uncomplicated Category: Medical (6) Muscle soreness: Code(s): M79.10 - Myalgia, unspecified site Category: Medical (7) Low vitamin B12 level: Code(s): E53.8 - Deficiency of other specified B group vitamins Category: Medical (8) Periodic limb movements of sleep: Code(s): G47.61 - Periodic limb movement disorder Category: Medical Plan: Gabapentin 100-300mg po qpm. Plan PSG and titration reviewed with pt. he has severe marvin, will start cpap [id number] with Aifit P-10 minimal mask medium with chin straps. RLS will monitor and start gabapentin 100-300mg po daily at bedtime. RX sent to [facility] for cpap. PLMS / Labs reviewed with pt. B12 is low, Vit D is low Rx sent to pharmacy, will monitor RLS/ PLMS Nocturia f/u with pcp. F/u in 3 months for compliance. Medications: New mecobalamin (vitamin B12) place tablet under tongue and allow to dissolve for at least30 secs before swallowing 1,000 mcg sublingual BEDTIME 120 tabs 0RF B12 low 4 months MDD 1 tablet E53.8 - Deficiency of other specified B group vitamins Patient Instructions: Sleep Hygiene provided: set a scheduled bedtime and wake time to help regulate the circadian rhythm and balance the release of pituitary hormones. Sleep in a dark room, temperatures below 68 degrees, and no devices n bed. Limit caffeinated products 6 hours prior to bed, and limit fluids 2-4 hours prior to bed. Gentle night yoga, diffusing essential oils, and playing soft music can be relaxing. 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 Coding Level of Care Code Est Pt Level 4 (56458) Diagnoses Excessive daytime sleepiness G47.19 Loud snoring R06.83 RLS (restless legs syndrome) G25.81 Excessive urination at night R35.1 Needs smoking cessation education F17.200 Muscle soreness M79.10 Low vitamin B12 level E53.8 Periodic limb movements of sleep G47.61
== END 2025-09-26 12:09 | disposition home or self-care (01) ==
LOC: HO.HSMS 11:14
PROVIDERS: PCP Internal Medicine; Visit Provider Physician Assistant Medical
DX: G47.19 Other hypersomnia (principal); R06.83 Snoring; G25.81 Restless legs syndrome; R35.1 Nocturia; F17.200 Nicotine dependence, unspecified, uncomplicated; M79.10 Myalgia, unspecified site; E53.8 Deficiency of other specified B group vitamins; G47.61 Periodic limb movement disorder
CPT/HCPCS: 99214

== ENCOUNTER → 2025-09-26 11:13 | Outpatient (BNVA) | payer OTHER, SELFPAY | PROVIDERS: PCP Internal Medicine; Visit Provider Physician Assistant Medical | DX: R35.1 Nocturia (principal); G47.19 Other hypersomnia; G25.81 Restless legs syndrome; R06.83 Snoring; F17.200 Nicotine dependence, unspecified, uncomplicated; M79.10 Myalgia, unspecified site; E53.8 Deficiency of other specified B group vitamins; G47.61 Periodic limb movement disorder | CPT/HCPCS: 99212 ==

== ENCOUNTER 2025-10-25 13:00 | Outpatient (AMB) | payer OTHER, SELFPAY ==
--- NOTE | 2025-10-25 13:12 | MHC.OFFVIS ---
Vital Signs 10/25/25 13:20 Height 5 ft 6 in Weight 260 lb BMI 42.0 BP 142/76 H Blood Pressure Location Lt brachial Position Sitting Pulse 85 Intake Visit Reasons: Mastodynia Intake Note: Patient is seen in office for evaluation and treatment of mastodynia. Pt c/o: left breast lump since last yr, started out smaller, constant pain, at times itchy and increase pain, denies any prior breast concerns, admits to fm hx of breast cancer paternal aunt & maternal uncle us/mm:03/17/25 Director Information Security Required: Yes Director Information Security Language: Grab Setter Services: Director Information Security Present Director Information Security Name: Lucinda YE Information Interpreted: non-clinical & clinical Accompanied by: Self / Same As Patient Allergies corn (CORN) Allergy (Intermediate, Verified 10/25/25 13:20) Rash shrimp (SHRIMP) Allergy (Intermediate, Verified 10/25/25 13:20) ITCHING Medication List - Last Reconciled 10/25/25 by Dexter Llanos MD atorvastatin 80 mg PO BEDTIME 90 days bupropion HCl XL 150 mg PO QAM carvedilol 3.125 mg PO BID 90 days cholecalciferol (vitamin D3) 25 mcg PO DAILY ezetimibe (Zetia) 10 mg PO DAILY furosemide (Lasix) 20 mg PO DAILY PRN hydrocortisone 1% (Cortisone (hydrocortisone)) 1 appl topical TID PRN magnesium oxide 400 mg PO DAILY magnesium oxide 400 mg PO DAILY 3 months MDD 400mg mecobalamin (vitamin B12) 1,000 mcg sublingual BEDTIME 4 months MDD 1 tablet nicotine (polacrilex) 4 mg buccal Q2H rivaroxaban (Xarelto) 20 mg PO DAILY 90 days sacubitril-valsartan 24-26 mg (Entresto) 1 tab PO BID 90 days semaglutide (Ozempic) 0.25 mg (0.368 mL) subcut QWEEK varenicline tartrate 0.5 mg PO DIRECTED 3 months MDD 1.0mg HPI Comments Details: 50-year-old male patient presenting with complaints of left-sided chest pain with a palpable mass in the left breast. This has been present for least a year and seems to be increasing in severity. He denies any inciting event or injury to this location. The lump is associated with skin irritation, crusting and redness in the overlying skin. He notes that clothing irritates the nipple as well. He has a history of a flutter and has a pacemaker in place. He is on Ozempic and Xarelto. A mammogram and left breast ultrasound performed on 03/17/2025 revealed evidence of gynecomastia of the left breast with no other suspicious findings. He presents today for further management of this painful left breast. [facility] Medical History Right atrial thrombus Preoperative cardiovascular examination Dyspnea Pain of left thumb Right knee pain NICM (nonischemic cardiomyopathy) MARVIN on CPAP Sleep apnea Coarctation of aorta Right hand pain Supraumbilical hernia Morbid obesity Right elbow pain Hernia of anterior abdominal wall Normally functioning cardiac pacemaker present Depression Hypovitaminosis D Pure hypercholesterolemia Essential hypertension Surgical History Status post wrist surgery H/O carpal tunnel repair History of umbilical hernia repair History of ascending aorta repair History of cataract surgery H/O left wrist surgery History of pacemaker Family History Father Uncontrolled diabetes mellitus Mother Uncontrolled persistent asthma Family/Other FH: mental illness Social History Housing: Apartment Alcohol intake: current Alcohol intake frequency: holidays/special occasions only Alcohol type: hard liquor Patient Tobacco Use Status: Current everyday Tobacco user Tobacco use type: Cigarette Cigarette Packs Per Day: 0.5 Cigarettes Per Day: 7 Years Smoked: 10 e-Cigarette/Vaping Use: Never Used Second Hand Smoke Exposure: Yes service: No Current occupational status: unemployed and disabled Cognitive needs: No Hearing needs: No Vision needs: No Review of Systems Const All systems reviewed & are unremarkable except as noted in HPI and below Physical Exam Vital Signs: Last Vital Signs Pulse 85 10/25/25 13:20 BP 142/76 H 10/25/25 13:20 BMI result Body Mass Index 42.0 Const General: cooperative and no acute distress Nutritional Appearance: well nourished Orientation/consciousness: patient oriented x3 Limitations: no limitations HEENT Head: Yes normocephalic and Yes atraumatic Ears: hearing grossly normal bilaterally Chest Other: Left breast: No skin change, no nipple retraction, no nipple discharge, palpable gynecomastia below the left nipple with exquisite tenderness to palpation, no enlarged lymph nodes. Right breast: No skin change, no nipple retraction, no nipple discharge, no palpable mass, no enlarged lymph nodes Chest/axillae images:  1. Area of gynecomastia; difficult to examine due to the significant discomfort Resp Effort & Inspection: normal respiratory effort, no audible wheezes, no cough and no respiratory distress Cardio Jugular venous distension: no JVD GI Inspection: Yes normal to inspection Skin Other: Warm, dry, no rash Neuro General: patient oriented x3 Extrem General: Yes no clubbing, cyanosis or edema Assessment & Plan Assessment & Plan (1) Gynecomastia: Code(s): N62 - Hypertrophy of breast Category: Medical (2) Breast pain, left: Code(s): N64.4 - Mastodynia Category: Medical Plan 50-year-old male patient presenting with painful left breast found to have evidence of gynecomastia both on radiologic workup and on examination. The patient is very symptomatic with severe pain with light palpation. We discussed the possibility of lumpectomy of the left breast and after discussion of the procedure, risks, and alternatives, he consents to the left breast lumpectomy. This will be performed under anesthesia as a short-stay surgery. He expressed understanding and agrees with the plan. Orders: Referrals General Surgery Procedure Notification N62 - Hypertrophy of breast, N64.4 - Mastodynia Coding Level of Care Code New Pt Level 4 (41282) Diagnoses Gynecomastia N62 Breast pain, left N64.4
[2025-10-25 13:20] VITALS: BP 142/76; PULSE 85; BMI 42.0
--- OUTSIDE RECORDS SUMMARY | 2025-10-25 16:55 | XMS_ITS | Clinical Summary ---
Author Organization [facility] sp[facility] Address [address] [place] [address] Phone Care Team Providers Care Visual Merchandising Specialist Name Role Phone Doreen Heaton MD Unavailable [phone] Cheryl Anderson Primary Care Provider [phone] Cheryl Anderson Unavailable [phone] Juan Francisco Molina MD Unavailable [phone] Juan Francisco Molina MD Unavailable [phone] Social History Tobacco Use Types Packs/Day Years Used Date Smoking Tobacco: Never Assessed Sex and Gender Information Value Date Recorded Sex Assigned at Not on file Legal Sex Male 2:20 AM EDT Gender Identity Not on file Sexual Orientation Not on file Plan of Treatment Not on file Medical Devices Implanted Type Area Automatic Winder Operator Device Identifier Shelf Expiration Date Model / Serial / Lot Lead Ra Implanted: (Quantity not on file) Cardiac Lead Heart Medtronic Medtronic 5076 - 52 cm / [id number] / Lead Rv Implanted:03/2016 (Quantity not on file) Cardiac Lead Heart Medtronic Medtronic 5076- 58 cm / [id number] / Pacemaker Implanted:03/2016 (Quantity not on file) Cardiac Pacemaker Heart Medtronic Medtronic [id number] GALAN / [id number] / Care Teams Visual Merchandising Specialist Relationship Specialty Start Date End Date Doreen Heaton MD [address] [place] [address] [phone] PCP - Insurance PCP 06/23/19 [address] Anderson [address] [facility] [place] [address] PCP - General 04/06/19 Cheryl Anderson [address] [facility] [place] [address] PCP - Clinical PCP 04/06/19 Juan Francisco Molina MD [address] [place] [address] Associate Attending Cardiology 04/06/19 Juan Francisco Molina MD [address] [place] [address] Fiber Optics Supervisor 04/10/24
--- OUTSIDE RECORDS SUMMARY | 2025-10-25 16:55 | XMS_ITS | Clinical Summary ---
Author Organization [facility] Address [address] [place] [address] Care Team Providers Care Certified Social Workers In Health Care Name Role Phone Cheryl Figueroa MD Primary Care Provider [phone] Medical History Medical History Date Comments Cardiomyopathy [...] Depression Screening 11/10/2024 COVID-19 Vaccine (1 - 2024-2 6 season) 2025 Influenza Vaccine (#1) 2025 RSV [...] age to complete this topic Care Teams Certified Social Workers In Health Care Relationship Specialty Start Date End Date Cheryl Figueroa MD [address] [place] [address] , [facility] [address] [facility] Physician Associ D/B/A: Luanne Velaatiharriet In Internal Medicine CHANTEL Stroud PCP - General Internal Medicine 04/13/21
--- OUTSIDE RECORDS SUMMARY | 2025-10-25 16:55 | XMS_ITS | Clinical Summary ---
Author Organization [facility] Address [address] [facility] [address] [place] [phone] Phone Care Team Providers Care Construction Administrative Assistant Name Role Phone Doreen Heaton MD Primary Care Provider [phone] Allergies No known active allergies Medications amoxicillin [...] MEDICARE REPLACEMENT MEDICARE PART A & [place] [address] [place] [address] ONE CARE MEDICARE REPLACEMENT MEDICARE PART A & B [facility] ONE CARE MEDICARE REPLACEMENT MEDICARE PART A & B [facility] ONE CARE MEDICARE REPLACEMENT MEDICARE PART A & B [facility] CARE MEDICARE REPLACEMENT MEDICARE PART A & B [facility] ONE CARE MEDICARE REPLACEMENT Care Teams Construction Administrative Assistant Relationship Specialty Start Date End Date Doreen Heaton MD [address] [place] [address] [address] [place] [address] PCP - General Internal Medicine 01/29/24 Additional Source Comments The information contained in this document represents components of the legal health record. It is not the complete legal health record.[facility]
== END 2025-10-25 13:33 | disposition home or self-care (01) ==
LOC: HO.HGS 13:01
PROVIDERS: PCP Internal Medicine; Visit Provider Surgery
DX: N62 Hypertrophy of breast (principal); N64.4 Mastodynia
CPT/HCPCS: 99204

== ENCOUNTER → 2025-10-25 13:00 | Outpatient (BNVA) | payer OTHER, SELFPAY | PROVIDERS: PCP Internal Medicine; Visit Provider Surgery | DX: N62 Hypertrophy of breast (principal); N64.4 Mastodynia | CPT/HCPCS: 99202 ==